=== PATIENT | male | born 1985 | race Caucasian/White ===

== ENCOUNTER 2018-06-05 00:12 | Inpatient (IN) | payer BC, SELFPAY ==
[2018-06-05 01:07] LABS: #Basophils 0.1 thou/uL (0.0-0.2); #Eosinphils 0.2 thou/uL (0.0-0.7); #Lymphocytes 2.3 thou/uL (1.20-3.40); #Monocytes 0.7 thou/uL (0.11-0.59); #Neutrophils 8.5 thou/uL (1.40-6.50); %Basophils 0.7 % (0.0-1.0); %Eosinophils 1.5 % (0.0-10.0); %Lymphocytes 19.2 % (21.0-51.0); %Monocytes 5.9 % (0.0-10.0); %Neutrophils 72.6 % (42.0-75.0); Hemoglobin 12.8 g/dL (14.0-18.0); Mean Corpuscular HGB CONC 32.3 g/dL (32.0-36.0); Mean Corpuscular Volume 83.7 fL (78.0-98.0); Mean Platelet Volume 7.6 fL (7.4-10.4); Platelet Count 312 thou/uL (130-400); RBC Distribution Width 13.3 % (11.5-14.5); Red Blood Cell (RBC) Count 4.73 mill/uL (4.70-6.10); White Blood Cell (WBC) Count 11.7 thou/uL (4.8-10.8)
[2018-06-05 01:32] LABS: Acetaminophen Less than 6.0 mcg/mL (10.0-30.0); Alcohol Less than 10 mg/dL (Less than 10); Lipase 50 U/L (8-78); Salicylate Less than 8.0 mg/dL (15.0-30.0)
[2018-06-05 01:33] LABS: ALT (SGPT) 14 U/L (8-55); AST (SGOT) 17 U/L (5-34); Albumin 3.6 g/dL (3.5-5.0); Alkaline Phosphatase 69 U/L (40-150); Anion Gap 14 mmol/L (10-20); BUN (Urea Nitrogen) 28 mg/dL (8.9-20.6); Bilirubin, Total 1.5 mg/dL (0.2-1.2); CK (CPK) 139 U/L (30-200); Calc. Creatinine Clearance 0 mL/min (70-130); Carbon Dioxide 19 mmol/L (22-29); Chloride 106 mmol/L (98-107); Estimated GFR-MDRD 45; Globulin 2.6 g/dL (2.4-3.5); Glucose 105 mg/dL (70-105); Potassium 3.8 mmol/L (3.5-5.1); Protein, Total 6.2 g/dL (6.0-8.3); Sodium 135 mmol/L (136-145)
[2018-06-05 01:54] LABS: CKMB 3.5 ng/mL (0-6.6)
[2018-06-05] MEDS ORDERED: Furosemide 40 MG/4 ML VIAL ONE (02:30)
[2018-06-05] MEDS ORDERED: Aspirin Chewable 81 MG TAB ONE (02:30)
[2018-06-05] MEDS ORDERED: Nitroglycerin 2% Ointment 1 INCH/1 GM Packet ONE (02:30)
[2018-06-05 03:07] LABS: Bilirubin Small (Negative); Blood, Urine Negative (Negative); Clarity CLEAR (Clear); Glucose, Urine (Dipstick) Negative (Negative); Leukocyte Trace (Negative); Nitrite Negative (Negative); Protein, Urine (Dipstick) 100 mg/dL (Neg-Trace); pH, Urine 5.5 (5.0-9.0)
[2018-06-05 03:10] LABS: Bacteria/HPF None Seen HPF (None Seen); Hyaline Casts/LPF 0-3 HYALINE CAST LPF (0-3 Hyaline); Pathc Cast-AUWi Flag 0.14 (0-2.49); RBC/HPF 0-3 HPF (0-3); Squamous Epithelial 0-3 HPF (0-3); WBC/HPF 21-50 HPF (0-3)
[2018-06-05 03:13] LABS: Specific Gravity, Urine 1.045 (1.002-1.036)
[2018-06-05 03:18] LABS: Amphetamine Detected (NotDetected); Barbiturates Screen Not Detected (NotDetected); Benzodiazepine Screen Not Detected (NotDetected); Cocaine Metabolite Screen Not Detected (NotDetected); Medtox Control Line Valid? VALID (VALID); Medtox Reader # READER 1; Methadone Not Detected (NotDetected); Methamphetamine Detected (NotDetected); Opiate Screen Not Detected (NotDetected); Oxycodone Screen Not Detected (NotDetected); Phencyclidine (PCP) Not Detected (NotDetected); THC/Cannabinoid Screen Not Detected (NotDetected); Tricyclic Screen Not Detected (NotDetected)
[2018-06-05 04:15] LABS: Troponin I 0.038 ng/mL (< 0.028)
--- NOTE | 2018-06-05 07:38 | ULT ---
PRELIMINARY REPORT/[facility]/EMERGENTY AFTER-HOURS PROCEDURE US Bilateral Duplex Lower Extremity Veins EXAM DATE/TIME: 06/05/2018 12:37 AM CLINICAL HISTORY: 32 years old, male; Pain and signs and symptoms; Edema, localized; Lower extremity, bilateral; Leg, l ower; Patient HX: Ble pain/edema x 3-4 days. TECHNIQUE: Real-time duplex ultrasound of the Bilateral Lower Extremities with 2-D hobson scale, color Doppler jalil w and spectral waveform analysis. Complete exam focused on the bilateral lower extremity veins. COMPARISON: No relevant prior studies available. FINDINGS: Right deep veins: The common femoral, femoral, popliteal and visualized calf veins are patent without thrombus. Normal compressibility, augmentation response and Doppler waveforms. Right superficial veins: Saphenofemoral junction is patent without thrombus. Left deep veins: The common femoral, femoral, popliteal and visualized calf veins are patent without thrombus. Normal compressibility, augmentation response and Doppler waveforms. Left superficial veins: Saphenofemoral junction is patent without thrombus. Soft tissues: Edema. IMPRESSION: No evidence of deep vein thrombosis. Thank you for allowing us to participate in the care of your patient. Dictated and Authenticated by: Fortunato Martinez MD 06/05/2018 1:25 AM Central Time ([place] & [place]) FINAL REPORT BILATERAL LOWER EXTREMITY VENOUS DUPLEX EXAM: History: Bilateral leg pain and edema x 3-4 days. FINDINGS: Real-time color doppler evaluation of the right and left lower extremities were performed from groin to calf. This includes evaluation of the common femoral, superficial and profunda femoral, saphenous, popliteal and posterior tibial vein. This shows patent deep venous systems bilaterally. There is nor mal compressibility and augmentation. There is no evidence of DVT. IMPRESSION: No evidence of DVT of either lower extremity. POS: [facility]
[2018-06-05 07:45] LABS: Troponin I 0.046 ng/mL (< 0.028)
--- NOTE | 2018-06-05 08:32 | RAD ---
PORTABLE CHEST: History: Dyspnea. FINDINGS: Mild cardiomegaly. Lung hernández are clear. No evidence of vascular congestion or effusion. IMPRESSION: Mild cardiomegaly. No acute lung process. POS: [facility]
--- NOTE | 2018-06-05 08:50 | CT ---
PRELIMINARY REPORT/[facility]/EMERGENTY AFTER-HOURS PROCEDURE CT Angiography Chest With Contrast EXAM DATE/TIME: 06/05/2018 1:49 AM CLINICAL HISTORY: 32 years old, male; Signs and symptoms; Dyspnea and shortness of breath; Patient HX: Patient reports bilateral lower extremity swelling x5 days. Patient reports feeling SOB as well. TECHNIQUE: Axial computed tomographic angiography images of the chest with intravenous contrast using CT angiogr aphy protocol. MIP reconstructed images were created and reviewed. COMPARISON: No relevant prior studies available. FINDINGS: Pulmonary arteries: No evidence of pulmonary embolism. Aorta: No acute findings. No aortic aneurysm. Lungs: Bilateral interlobular septal and peribronchial thickening and mild ground glass opacities, li rebecca related to pulmonary edema. Pleural space: No pneumothorax. Small right pleural effusion. Heart: Mild pericardial effusion. Cardiomegaly. Intraperitoneal space: Mild ascites. Lymph nodes: Mild subcarinal adenopathy could be reactive. Bones/joints: No acute fracture. Soft tissues: Mild chest wall edema. IMPRESSION: Pulmonary edema. Small pleural, pericardial effusions and ascites. Cardiomegaly. No evidence of pulmonary embolism. Thank you for allowing us to participate in the care of your patient. Dictated and Authenticated by: Fortunato Martinez MD 06/05/2018 2:49 AM Central Time ([place] & [place]) FINAL REPORT CT ANGIO CHEST PERFORMED WITH INTRAVENOUS CONTRAST ENHANCEMENT WITH 3D RECONSTRUCTION: HISTORY: Dyspnea, shortness of breath, bilateral lower extremity swelling. FINDINGS: There is moderate right-sided effusion and a tiny left-sided effusion present. Some ground-glass [place] is seen to the lung hernández which could indicate some element of edema. No confluent infiltrativ e process. Heart size is enlarged. There are slightly prominent prevascular lymph nodes which are possibly reactive in nature. A small amount of pericardial fluid is seen. Thoracic aorta is normal in caliber. There is good pulmonary artery opacification and there is no CT evidence for pulmonary embolus. Some ascites is demonstrated. Questionable slight gallbladder wall thickening. This could be on the basis of ascites or liver disease. I do not see a definite stone. If clinically indicated, ultraso und would be recommended. The spleen is not seen in its entirety. It is borderline in appearance and size. IMPRESSION: 1. Findings would suggest possibility some element of edema with a small right effusion and ground-g lass of the lung hernández. 2. Small pericardial effusion. 3. No CT evidence for pulmonary embolus. 4. Minimal ascites. 5. Borderline spleen size. 6. Questionable slight gallbladder wall thickening. This could be on the basis of ascites, intrinsi c liver disease, or possibly gallbladder disease. If indicated, ultrasound is recommended. 7. This report is in agreement with the temporary report issued by [facility]. POS: [facility]
[2018-06-05] MEDS ORDERED: ISOVUE-370 76%-LOCM 1 ML ONE (10:03)
[2018-06-05 15:24] VITALS: BMI 35.3
[2018-06-05] MEDS ORDERED: cloNIDine 0.1 MG TAB PO PRN (16:16)
[2018-06-05] MEDS ORDERED: Lisinopril 20 MG TAB PO SCH (16:30)
[2018-06-06 07:04] LABS: Anion Gap 12 mmol/L (10-20); BUN (Urea Nitrogen) 25 mg/dL (8.9-20.6); Calc. Creatinine Clearance 101 mL/min (70-130); Calcium 9.2 mg/dL (7.8-10.44); Carbon Dioxide 23 mmol/L (22-29); Chloride 104 mmol/L (98-107); Estimated GFR-MDRD 50; Glucose 109 mg/dL (70-105); Potassium 3.7 mmol/L (3.5-5.1); Sodium 135 mmol/L (136-145)
[2018-06-06] MEDS: Furosemide 40 MG/4 ML VIAL SLOW IVP SCH (08:42)
[2018-06-06] MEDS ORDERED: Lisinopril 20 MG TAB PO SCH (09:00)
[2018-06-06] MEDS ORDERED: Spironolactone 25 MG TAB PO SCH (11:30)
[2018-06-06] MEDS ORDERED: Hydrochlorothiazide 25 MG TAB PO SCH (15:45)
[2018-06-06] MEDS ORDERED: Carvedilol 6.25 MG TAB PO SCH (17:00)
--- NOTE | 2018-06-06 20:06 | CON ---
DATE OF CONSULTATION: 06/06/2018 CARDIOLOGY CONSULTATION REASON FOR CONSULTATION: New onset cardiomyopathy. HISTORY OF PRESENT ILLNESS: Mr. Neri is a pleasant 32-year-old white gentleman, who comes to the hospital for lower extremity edema. He has noted increased swelling for the last few days, decided to come in for evaluation. He was found to have an elevated BNP. He was admitted for IV Lasix and evaluation of his LV function. Echo was done last night and it showed an EF of 30% to 35%, so Cardiology has been consulted for this. He denies any chest pain, tightness, or pressure. 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 He does admit to methamphetamine use almost daily. PAST MEDICAL HISTORY: Hypertension. PAST SURGICAL HISTORY: None. OUTPATIENT MEDICATIONS: None. ALLERGIES: NO KNOWN DRUG ALLERGIES. SOCIAL HISTORY: He smokes a pack a day and he uses methamphetamines almost every day. Also uses marijuana. REVIEW OF SYSTEMS: A 12-point review of systems was done and was found to be negative unless stated in the history of present illness. PHYSICAL EXAMINATION: VITAL SIGNS: Temperature 97.7, pulse 103, respiratory rate 18, sat 97% on room air, and blood pressure 166/112. GENERAL: Awake, alert, and oriented x3. No distress. HEENT: Normocephalic and atraumatic. NECK: Supple. LUNGS: Clear. CARDIOVASCULAR: S1 and S2. No S3 or S4. Tachycardic in the 110s. ABDOMEN: Soft. Positive bowel sounds. EXTREMITIES: 1+ edema. SKIN: Warm and dry. LABORATORY DATA: Laboratory work was reviewed. CBC with a white count 11, hemoglobin 12, hematocrit 39, platelet count 312. D-dimer was high. Chemistry with BUN 25, creatinine 1.6, and troponin of 0.04, 0.03, 0.04. BNP was 1277. UA was unremarkable. Toxicology positive for amphetamines and methamphetamines. CT of the thorax showed no evidence of pulmonary embolism, some ascites and pericardial effusion. Echocardiogram was reviewed, EF of 30% to 35%, global hypokinesis, dilated left atrium, small size pericardial effusion. RVSP was 41 mmHg. ASSESSMENT AND PLAN: 1. Dilated cardiomyopathy. 2. New onset heart failure. 3. Acute systolic heart failure. 4. Hypertension. 5. Substance abuse. PLAN: 1. Most likely, this is dilated cardiomyopathy from nonischemic cardiomyopathy from substance use and hypertension. He has no ischemic symptoms. 2. We will continue diuresis with IV Lasix. 3. We will up titrate his heart failure medications, his lisinopril, Coreg, and Aldactone. 4. Advised and counseled on cessation of substance abuse, no more methamphetamines, no more cigarettes. 5. We spoke about possible life as he would be agreeable; however, he does not know if he would be able to afford this at this time. 6. We will continue to follow. Job ID: [id number]
[2018-06-06] MEDS: Lisinopril 20 MG TAB PO SCH (20:29)
[2018-06-07 05:37] LABS: #Basophils 0.1 thou/uL (0.0-0.2); #Eosinphils 0.4 thou/uL (0.0-0.7); #Lymphocytes 2.6 thou/uL (1.20-3.40); #Monocytes 0.8 thou/uL (0.11-0.59); #Neutrophils 6.6 thou/uL (1.40-6.50); %Basophils 0.7 % (0.0-1.0); %Lymphocytes 24.6 % (21.0-51.0); %Monocytes 7.5 % (0.0-10.0); %Neutrophils 63.2 % (42.0-75.0); Hemoglobin 12.5 g/dL (14.0-18.0); Mean Corpuscular HGB CONC 32.3 g/dL (32.0-36.0); Mean Corpuscular Hemoglobin 27.6 pg (27.0-31.0); Mean Corpuscular Volume 85.3 fL (78.0-98.0); Mean Platelet Volume 7.8 fL (7.4-10.4); Platelet Count 270 thou/uL (130-400); RBC Distribution Width 13.3 % (11.5-14.5); Red Blood Cell (RBC) Count 4.52 mill/uL (4.70-6.10); White Blood Cell (WBC) Count 10.4 thou/uL (4.8-10.8)
[2018-06-07 05:57] LABS: Anion Gap 16 mmol/L (10-20); BUN (Urea Nitrogen) 21 mg/dL (8.9-20.6); Calc. Creatinine Clearance 94 mL/min (70-130); Calcium 9.4 mg/dL (7.8-10.44); Carbon Dioxide 22 mmol/L (22-29); Chloride 104 mmol/L (98-107); Estimated GFR-MDRD 45; Glucose 99 mg/dL (70-105); Potassium 3.5 mmol/L (3.5-5.1); Sodium 138 mmol/L (136-145)
[2018-06-07] MEDS: Furosemide 40 MG/4 ML VIAL SLOW IVP SCH (08:43)
[2018-06-07] MEDS: Carvedilol 6.25 MG TAB PO SCH ×2 (08:43→17:36)
[2018-06-07] MEDS: Lisinopril 20 MG TAB PO SCH ×2 (08:43→20:52)
[2018-06-07] MEDS: Hydrochlorothiazide 25 MG TAB PO SCH (08:44)
[2018-06-07] MEDS: Spironolactone 25 MG TAB PO SCH (08:44)
[2018-06-07] MEDS ORDERED: Potassium Chloride 20 MEQ TAB PO SCH (15:30)
[2018-06-07] MEDS ORDERED: Sodium Chloride 0.9% 10 ML ONE (20:13)
--- NOTE | 2018-06-07 23:14 | HP ---
CHIEF COMPLAINT: Leg edema. HISTORY OF PRESENT ILLNESS: Mr. Neri is a 32-year-old male with no apparently clear past medical history, came because of universal leg swelling about 5 days ago. The patient had some cough and congestion for last 1 week, but no shortness of breath, no chest pain, no headache, no dizziness. Leg edema was getting worse; that is the reason he came to the hospital. In the ER, the patient was evaluated and found to have mild CHF along with leg edema, but the patient was also found to have a markedly elevated blood pressure. His initial blood pressure was 205/110. The patient received a dose of Lasix, aspirin, and nitroglycerin. He is being admitted for further evaluation and management. PAST MEDICAL HISTORY: Nothing significant. PAST SURGICAL HISTORY: Nothing significant. CURRENT MEDICATIONS: None. FAMILY HISTORY: Positive for coronary artery disease. His mother had CHF, hypertension, and coronary artery disease. Father has hypertension. His brother has CHF. SOCIAL HISTORY: The patient lives with family. Has history of polysubstance abuse, which includes marijuana and methamphetamines almost daily. Also smokes cigarettes, 1 pack a day and smoking for few years. REVIEW OF SYSTEMS: Unremarkable except for the leg edema. PHYSICAL EXAMINATION: GENERAL: The patient is alert, awake, and oriented x3. VITAL SIGNS: Temperature 98, pulse 100, respirations 20, blood pressure is 160/ 100. HEENT: Head is normocephalic and atraumatic. Pupils equal and reactive. Nasopharynx is pale and dry. Hard and soft palate; no lesions. SKIN: Turgor is decreased. NECK: Supple. No JVD. LUNGS: Bilateral air entry present. No rales, no rhonchi. HEART: S1 and S2 regular. ABDOMEN: Soft. No distention. No tenderness. No organomegaly. Bowel sounds present. RECTAL: No symptoms. CENTRAL NERVOUS SYSTEM: No focal deficit. EXTREMITIES: There is 2+ pitting edema. LABORATORY DATA: CBC shows WBC 11, hemoglobin 12, hematocrit 39 and platelets 312. Metabolic panel; sodium 135, potassium 3.9, chloride 106,BUN 28, creatinine 1.7, glucose 105, troponin 0.043. BNP was 1277. Urinalysis negative. Urine drug screen positive for methamphetamines. Chest x- ray negative except for cardiomegaly. CT thorax, CT angio chest; negative for pulmonary embolism, but showed mild CHF with pulmonary edema and pleural effusion. EKG shows normal sinus rhythm, no acute ST-T changes seen. ASSESSMENT: 1. Possible acute congestive heart failure, rule out myocardial infarction. 2. Peripheral edema. 3. Hypertension, uncontrolled. 4. Polysubstance abuse. 5. Tobacco abuse. 6. Elevated troponin I. PLAN: 1. Vital signs q.4 hours. 2. Activity as tolerated. 3. Allergies; NKDA. 4. Hep-Lock. 5. Troponin I q.8 hours x2. 6. Lasix 40 IVP daily. 7. Echocardiogram. 8. Intake and output. 9. BMP in the morning. 10. Urine drug screen. 11. Cardiology consult. Job ID: [id number] MTDD
[2018-06-08 06:28] LABS: Anion Gap 13 mmol/L (10-20); BUN (Urea Nitrogen) 23 mg/dL (8.9-20.6); Calc. Creatinine Clearance 93 mL/min (70-130); Calcium 9.7 mg/dL (7.8-10.44); Carbon Dioxide 22 mmol/L (22-29); Chloride 103 mmol/L (98-107); Estimated GFR-MDRD 46; Glucose 102 mg/dL (70-105); Potassium 3.9 mmol/L (3.5-5.1); Sodium 134 mmol/L (136-145)
[2018-06-08] MEDS: Carvedilol 6.25 MG TAB PO SCH (09:01)
[2018-06-08] MEDS: Spironolactone 25 MG TAB PO SCH (09:02)
[2018-06-08] MEDS: Furosemide 40 MG/4 ML VIAL SLOW IVP SCH (10:13)
[2018-06-08] MEDS: Lisinopril 20 MG TAB PO SCH (10:13)
[2018-06-08] MEDS: Hydrochlorothiazide 25 MG TAB PO SCH (10:13)
[2018-06-08] MEDS ORDERED: Carvedilol 6.25 MG TAB PO SCH (14:20)
--- NOTE | 2018-06-08 15:00 | PDOC.CTH ---
Cardiology Progress Note - Subjective No new issues. Breathing at baseline. No chest pain, no angina. - Objective Vital Signs Temp Pulse Resp BP BP BP Pulse Ox 06/08/18 10:13 156/99 H 06/08/18 09:01 156/99 H 06/08/18 08:02 97.4 F L 98 18 156/99 H 96 06/08/18 04:00 97.7 F 101 H 16 152/98 H 96 Weight 225 lb 14.4 oz 06/07/18 06/08/18 06/09/18 06:59 06:59 06:59 Intake Total 2280 1450 Output Total 5300 1550 Balance -3020 -100 - Physical Examination General/Neuro: alert & oriented x3, NAD Neck: no JVD present Lungs: unlabored respirations Heart: RRR Abdomen: NT/ND Extremities: + edema B (1+) - Telemetry Telemetry Rhythm: NSR - Labs Result Diagrams: 06/07/18 05:23 06/08/18 05:53 Troponin/CKMB CK-MB (CK-2) 3.5 ng/mL (0-6.6) 06/05/18 00:34 Troponin I 0.046 ng/mL (< 0.028) H 06/05/18 07:08 - Assessment/Plan 1. Dilated cardiomyopathy 2. New onset CHF 3. Acute systolic heart failure 4. HTN 5. Substance abuse PLAN: - We spoke about possible lifevest and he is willing to give this a try. Will place consult. - Continue optimal medical therapy. - BP control, will add hydralazine BID.
[2018-06-08] MEDS ORDERED: Carvedilol 25 MG TAB PO SCH (17:00)
[2018-06-08 18:07] VITALS: BP 151/98; TEMP 97.9
[2018-06-08] MEDS ORDERED: hydrALAZINE 25 MG TAB PO SCH (21:00)
[2018-06-09] MEDS ORDERED: Furosemide 40 MG TAB PO SCH (07:30)
--- NOTE | 2018-06-09 14:17 | DIS ---
DATE OF ADMISSION: 06/05/2018 DATE OF DISCHARGE: 06/08/2018 ADMITTING DIAGNOSES: 1. Possible acute congestive heart failure, rule out myocardial infarction. 2. Peripheral edema. 3. Uncontrolled hypertension. 4. Polysubstance abuse. 5. Tobacco abuse. 6. Elevated troponin, rule out myocardial infarction. FINAL DIAGNOSES: 1. Acute systolic heart failure. 2. Severe dilated cardiomyopathy. 3. Hypertension, uncontrolled, improved. 4. Polysubstance abuse. 5. Obesity. BRIEF SUMMARY OF HOSPITAL COURSE: Mr. Neri is a 32-year-old male admitted because of shortness of breath and leg edema. The patient was found to have acute CHF. Echocardiogram was done, which revealed marked decrease in LV function with an ejection fraction of 30%. Cardiology consulted and the patient to be seen by Dr. Pascual. He felt that the patient has dilated cardiomyopathy with acute systolic heart failure . He recommended life vest. The patient was started on diuretics and antihypertension medication, because the blood pressure was elevated. Leg edema and shortness of breath improved, and his blood pressure was controlled after medications. The patient could not afford LifeVest and is being discharged on current medications. PHYSICAL EXAMINATION: GENERAL: At the time of discharge, he was stable. VITAL SIGNS: Stable. LUNGS: Clear. CARDIAC: Heart sounds regular. ABDOMEN: Soft, nontender. Bowel sounds present. DISCHARGE MEDICATIONS: Include: 1. Coreg 25 b.i.d. 2. Lasix 40 daily. 3. Hydralazine 25 b.i.d. 4. Hydrochlorothiazide 25 mg daily. 5. Lisinopril 20 mg b.i.d. 6. Spironolactone 25 mg daily. DISCHARGE INSTRUCTIONS: The patient was strongly advised to quit drug abuse and tobacco abuse. He will come for followup in 2 weeks. Job ID: [id number] MTDD
== END 2018-06-08 18:50 | disposition home or self-care (01) | DRG 291 ==
LOC: ERS 00:12 → ERHOLD 03:06 → 2NO 15:02
PROVIDERS: ADMIT Internal Medicine; ATTEND Internal Medicine
DX: I11.0 Hypertensive heart disease with heart failure (principal); I50.21 Acute systolic (congestive) heart failure; I42.0 Dilated cardiomyopathy; R74.9 Abnormal serum enzyme level, unspecified; F15.188 Other stimulant abuse with other stimulant-induced disorder; F17.200 Nicotine dependence, unspecified, uncomplicated; Z82.49 Family history of ischemic heart disease and other diseases of the circulatory system
CPT/HCPCS: 36415; 71045; 71275; 80048; 80053; 80306; 80307; 81003; 81015; 82550; 82553; 83690; 83880; 84443; 84484; 85025; 85379; 93005; 93306; 93798; 93970; 96374; J1940; Q9966

== ENCOUNTER 2019-03-17 09:59 | Inpatient (IN) | payer SELFPAY ==
[2019-03-17] MEDS ORDERED: Nitroglycerin 2% Ointment 1 INCH/1 GM Packet ONE (10:21)
[2019-03-17] MEDS ORDERED: Furosemide 40 MG/4 ML VIAL ONE (10:21)
--- NOTE | 2019-03-17 10:41 | RAD ---
Exam: Chest one view HISTORY:Shortness of breath Comparison: 06/05/1989 FINDINGS: Cardiac silhouette:Cardiomegaly Aorta: Unremarkable Pulmonary vessels: Prominent Costophrenic angles: Clear LUNGS: Patchy interstitial and alveolar opacity Pneumothorax: None Osseous abnormalities: None IMPRESSION: Congestive heart failure
[2019-03-17 10:47] LABS: #Basophils 0.1 thou/uL (0.0-0.2); #Eosinphils 0.2 thou/uL (0.0-0.7); #Lymphocytes 2.2 thou/uL (1.20-3.40); #Neutrophils 7.4 thou/uL (1.40-6.50); %Basophils 0.9 % (0.0-1.0); %Eosinophils 1.9 % (0.0-10.0); %Lymphocytes 20.1 % (21.0-51.0); %Monocytes 8.9 % (0.0-10.0); %Neutrophils 68.2 % (42.0-75.0); Hemoglobin 14.1 g/dL (14.0-18.0); Mean Corpuscular HGB CONC 32.1 g/dL (32.0-36.0); Mean Corpuscular Hemoglobin 26.9 pg (27.0-31.0); Mean Corpuscular Volume 83.9 fL (78.0-98.0); Mean Platelet Volume 7.8 fL (7.4-10.4); Platelet Count 220 thou/uL (130-400); RBC Distribution Width 14.9 % (11.5-14.5); Red Blood Cell (RBC) Count 5.24 mill/uL (4.70-6.10); White Blood Cell (WBC) Count 10.8 thou/uL (4.8-10.8)
[2019-03-17 11:15] LABS: ALT (SGPT) 22 U/L (8-55); AST (SGOT) 23 U/L (5-34); Acetaminophen Less than 6.0 mcg/mL (10.0-30.0); Albumin 3.9 g/dL (3.5-5.0); Alcohol Less than 10 mg/dL (Less than 10); Alkaline Phosphatase 80 U/L (40-110); Anion Gap 13 mmol/L (10-20); BUN (Urea Nitrogen) 30 mg/dL (8.9-20.6); Bilirubin, Total 2.4 mg/dL (0.2-1.2); CK (CPK) 85 U/L (30-200); Calc. Creatinine Clearance 0 mL/min (70-130); Calcium 8.9 mg/dL (7.8-10.44); Carbon Dioxide 19 mmol/L (22-29); Chloride 108 mmol/L (98-107); Estimated GFR-MDRD 38; Globulin 2.7 g/dL (2.4-3.5); Glucose 91 mg/dL (70-105); Potassium 4.6 mmol/L (3.5-5.1); Protein, Total 6.6 g/dL (6.0-8.3); Salicylate Less than 8.0 mg/dL (15.0-30.0); Sodium 135 mmol/L (136-145)
[2019-03-17 11:17] LABS: Bilirubin Negative (Negative); Blood, Urine Negative (Negative); Clarity Clear (Clear); Glucose, Urine (Dipstick) Normal (Negative); Leukocyte Negative Leu/uL (Negative); Nitrite Negative (Negative); Protein, Urine (Dipstick) 20 mg/dL (Neg-Trace); Urobilinogen Normal mg/dL (Less than 2)
[2019-03-17 11:27] LABS: Amphetamine Detected (NotDetected); Barbiturates Screen Not Detected (NotDetected); Benzodiazepine Screen Detected (NotDetected); Cocaine Metabolite Screen Not Detected (NotDetected); Medtox Control Line Valid? VALID (VALID); Medtox Reader # READER 1; Methadone Not Detected (NotDetected); Methamphetamine Detected (NotDetected); Opiate Screen Not Detected (NotDetected); Oxycodone Screen Not Detected (NotDetected); Phencyclidine (PCP) Not Detected (NotDetected); THC/Cannabinoid Screen Not Detected (NotDetected); Tricyclic Screen Not Detected (NotDetected)
[2019-03-17 11:39] LABS: CKMB 3.3 ng/mL (0-6.6)
[2019-03-17] MEDS ORDERED: Ondansetron ODT 4 MG TAB SL PRN (13:00)
[2019-03-17] MEDS ORDERED: Ondansetron PF 4 MG/2 ML Vial IVP PRN (13:00)
[2019-03-17] MEDS ORDERED: Acetaminophen 325 MG TAB PO PRN (13:00)
[2019-03-17] MEDS ORDERED: Aspirin Chewable 81 MG TAB ONE (13:12)
[2019-03-17 15:23] VITALS: BMI 37.5
[2019-03-17] MEDS ORDERED: Bisacodyl 10 MG SUPP PR PRN (15:32)
[2019-03-17] MEDS ORDERED: Senokot S 8.6-50 MG TAB PO PRN (15:32)
[2019-03-17 15:40] LABS: Troponin I 0.039 ng/mL (< 0.028)
[2019-03-17] MEDS ORDERED: Enoxaparin Sodium 40 MG/0.4 ML SYRINGE SC SCH (15:45)
[2019-03-17] MEDS ORDERED: Furosemide 40 MG/4 ML VIAL SLOW IVP SCH (16:00)
[2019-03-17] MEDS: Diltiazem HCl 125 MG, Admixture Fee 1 EACH in Sodium Chloride 0.9% 100 ML IVPB SCH (16:12)
[2019-03-17] MEDS: Nicotine 21 MG PATCH TD SCH (16:12)
[2019-03-17 16:36] LABS: Bacteria/HPF None Seen HPF (None Seen); RBC/HPF None Seen HPF (0-3); Sperm/HPF Rare HPF (None Seen); Squamous Epithelial 0-3 HPF (0-3); WBC/HPF 0-3 HPF (0-3)
--- NOTE | 2019-03-17 16:38 | HP ---
CHIEF COMPLAINT: Worsening shortness of breath. HISTORY OF PRESENT ILLNESS: A 33-year-old male patient with past medical history significant for cardiomyopathy with EF of 30% to 35% in May 2018, chronic methamphetamine use, noncompliance, who presents to the ER with worsening shortness of breath as well as leg swelling. The patient reported that in the last several days, he has been having worsening bilateral leg swelling and shortness of breath, which got worse earlier today, such that he had difficulty breathing. There was no associated chest pain or palpitations, dizziness, nausea, vomiting, abdominal pain, headache, dysuria, hematuria, or change in bowel habit. The patient, however, reported generalized weakness. The patient was seen in May in this hospital and was diagnosed with cardiomyopathy, most likely related to methamphetamine use and was started on medications. The patient, however, has not been compliant on those medication as last refill was in May. He report last methamphetamine use was a day prior to presentation. reported the patient snored that night associated with apneic spells that she has to check him to wake him up. On presentation to the ER, the patient was found to be tachypneic and tachycardic. Blood pressure was also elevated at 150/100. He, however, was saturating well on room air at 99%. The patient received Ativan and Zofran en route to the hospital by EMS staff. Urine drug screen was positive for methamphetamine, amphetamine, and benzodiazepine. PAST MEDICAL HISTORY: 1. Hypertension. 2. Cardiomyopathy. 3. Chronic CHF. 4. Methamphetamine use. 5. Tobacco abuse disorder. PAST SURGICAL HISTORY: None. FAMILY HISTORY: Significant for coronary artery disease, CHF, and hypertension in both father and mother. Brother also had CHF. SOCIAL HISTORY: The patient is . Lives with family. Admitted to use of marijuana, methamphetamine almost daily. He also smokes about a pack of cigarettes since age 14. Denied alcohol use. ALLERGIES: NO KNOWN DRUG ALLERGIES REPORTED. HOME MEDICATIONS: The patient is currently on no medication. However, on discharge in May 2018, he was supposed to be on: 1. Spironolactone 25 mg p.o. daily. 2. Furosemide 40 mg p.o. daily. 3. Carvedilol 25 mg p.o. b.i.d. 4. Hydralazine 25 mg p.o. b.i.d. 5. Lisinopril 20 mg p.o. b.i.d. REVIEW OF SYSTEMS: 12-point review of system performed was negative other than pertinent positives and negatives included in the history of present illness. PHYSICAL EXAMINATION: VITAL SIGNS: Current vitals show temperature 97.7, pulse 146, respiratory rate 20, SpO2 of 100% on room air, blood pressure is 153/88. GENERAL: Obese male, in no obvious distress. Afebrile. Anicteric. Acyanotic. HEENT: Normocephalic, atraumatic. Oral mucosa is moist. NECK: Short thick neck with excess soft tissue. No JVD appreciated. CARDIOVASCULAR: Regular rhythm and rate, but tachycardic. No murmur was appreciated. RESPIRATORY: Good air entry bilaterally with few bibasilar crackles. No obvious rhonchi were appreciated. There is no use of accessory muscles. GI: Abdomen is obese, soft, nontender, nondistended with normal bowel sounds. EXTREMITIES: Mild bilateral leg edema noted. No erythema appreciated. QUALITY SYSTEMS MANAGER: Conscious, alert, oriented x3 with appropriate mental status. Cranial nerves 2 through 12 are grossly intact. PSYCHIATRIC: Cooperative with normal affect. DIAGNOSTIC DATA: CBC showed WBC count of 10.8, hemoglobin of 14.1, MCV of 83.9, platelet of 220. CMP showed sodium 135, potassium 4.6, chloride 108, CO2 of 19, BUN 30, creatinine 2.0, glucose 91, calcium 8.9, total bilirubin 2.4, AST 23, ALT 22, alkaline phosphatase 80. Total protein 6.6, albumin 3.9, globulin 2.7. Cardiac markers showed CK 85, CK-MB 3.3, troponin 0.030. BNP is 452. Urinalysis showed yellow clear urine with pH of 5.5, specific gravity of 1.014, urine protein 20 mg/dL. Negative ketone, blood, nitrite, bilirubin, and leukocyte esterase. Microscopy was not done. Toxicology showed less than 8 salicylate, less than 6 acetaminophen, less than 10 alcohol. Urine drug screen was positive for amphetamine, methamphetamine, and benzodiazepine. EKG showed atrial flutter with 2:1 conduction with rate of 145. Chest x-ray showed patchy interstitial and alveolar opacity. No pneumothorax was noted. Cardiomegaly was noted as well. Features are noted to be consistent with congestive heart failure. ASSESSMENT: 1. Atrial flutter with rapid ventricular response. 2. Acute respiratory insufficiency. 3. Acute on chronic congestive heart failure. 4. Cardiomyopathy with last ejection fraction of 30% to 35% in May 2018. 5. Obesity. 6. Presumed obstructive sleep apnea. The patient's spouse reported the patient has nausea with apneic spells. 7. Methamphetamine abuse. 8. Tobacco abuse disorder. 9. Noncompliance. PLAN: 1. We will give 10 mg of IV Cardizem bolus followed by Cardizem infusion. 2. We will get serial troponin to rule out acute myocardial infarction. 3. We will start the patient on Lasix 40 mg b.i.d. 4. We will also get urine microscopy as well as urine electrolytes. 5. We will also get renal ultrasound. 6. We will consult Cardiology as well as Nephrology. 7. Smoking cessation education and counseling provided. We will also start nicotine patch. 8. We will also get echocardiogram to reassess cardiac function. 9. DVT prophylaxis with Lovenox will be provided. 10. Further treatment to follow depending on hospital course. Job ID: [id number]
[2019-03-17 18:01] LABS: Creatinine, Urine Less than 20.00 mg/dL (63-166); Protein, Urine Random Quant Less than 10 mg/dL (1-14); Sodium, Urine 122 mmol/L (Not Available)
[2019-03-17] MEDS: Famotidine 20 MG TAB PO SCH (20:25)
[2019-03-18] MEDS: Diltiazem HCl 125 MG, Admixture Fee 1 EACH in Sodium Chloride 0.9% 100 ML IVPB SCH ×2 (05:31→15:38)
[2019-03-18 05:48] LABS: #Basophils 0.1 thou/uL (0.0-0.2); #Eosinphils 0.3 thou/uL (0.0-0.7); #Lymphocytes 1.9 thou/uL (1.20-3.40); #Monocytes 0.9 thou/uL (0.11-0.59); #Neutrophils 8.6 thou/uL (1.40-6.50); %Basophils 0.9 % (0.0-1.0); %Eosinophils 2.4 % (0.0-10.0); %Lymphocytes 15.9 % (21.0-51.0); %Monocytes 7.8 % (0.0-10.0); Hemoglobin 13.2 g/dL (14.0-18.0); Mean Corpuscular HGB CONC 30.7 g/dL (32.0-36.0); Mean Corpuscular Hemoglobin 25.6 pg (27.0-31.0); Mean Corpuscular Volume 83.3 fL (78.0-98.0); Platelet Count 217 thou/uL (130-400); RBC Distribution Width 14.9 % (11.5-14.5); Red Blood Cell (RBC) Count 5.16 mill/uL (4.70-6.10); White Blood Cell (WBC) Count 11.7 thou/uL (4.8-10.8)
[2019-03-18 06:07] LABS: ALT (SGPT) 19 U/L (8-55); AST (SGOT) 18 U/L (5-34); Albumin 3.7 g/dL (3.5-5.0); Alkaline Phosphatase 74 U/L (40-110); Anion Gap 15 mmol/L (10-20); BUN (Urea Nitrogen) 30 mg/dL (8.9-20.6); Bilirubin, Total 2.4 mg/dL (0.2-1.2); Calc. Creatinine Clearance 84 mL/min (70-130); Calcium 8.8 mg/dL (7.8-10.44); Carbon Dioxide 20 mmol/L (22-29); Chloride 103 mmol/L (98-107); Estimated GFR-MDRD 38; Globulin 2.6 g/dL (2.4-3.5); Glucose 146 mg/dL (70-105); Magnesium 1.8 mg/dL (1.6-2.6); Potassium 3.6 mmol/L (3.5-5.1); Protein, Total 6.3 g/dL (6.0-8.3); Sodium 134 mmol/L (136-145)
[2019-03-18] MEDS: Furosemide 40 MG/4 ML VIAL SLOW IVP SCH ×2 (06:07→14:02)
[2019-03-18] MEDS: Aspirin 325 MG TAB PO SCH (09:26)
[2019-03-18] MEDS: Enoxaparin Sodium 40 MG/0.4 ML SYRINGE SC SCH (09:26)
[2019-03-18] MEDS: Famotidine 20 MG TAB PO SCH ×2 (09:26→20:30)
[2019-03-18] MEDS: Nicotine 21 MG PATCH TD SCH (15:39)
--- NOTE | 2019-03-18 17:53 | CON ---
DATE OF CONSULTATION: 03/18/2019 REASON FOR CONSULTATION: Heart failure. HISTORY OF PRESENT ILLNESS: Mr. Neri is a 33-year-old white gentleman, who comes to the hospital for worsening shortness of breath. He has a history of cardiomyopathy, EF at 30%, thought to be nonischemic from substance abuse. He was admitted back in May of this year with a urine drug screen positive for methamphetamines. He was found to have an EF of 20% to 25%, he was started on optimal medical therapy and discharged home. He did not take any medications and did not follow up with us in any way. He states he continued to use methamphetamines. The last time he used was the last few days and he started getting more short of breath to the point where he needed to come in for evaluation. He is already being diuresed, and Cardiology is being consulted for further evaluation and care. On admission, he was found to be in atrial flutter with variable AV block and tachycardic. He was started on diltiazem drip, and Cardiology is being consulted for this as well. PAST MEDICAL HISTORY: 1. Hypertension. 2. Presumed nonischemic cardiomyopathy thought to be related to methamphetamine use. 3. Substance abuse as well. 4. Tobacco use. FAMILY HISTORY: Coronary artery disease, heart failure, hypertension. SOCIAL HISTORY: Smokes about a pack of cigarettes a day since he was 14. No alcohol use. Admits to marijuana and methamphetamines. OUTPATIENT MEDICATIONS: 1. Currently none, but he should be on spironolactone 25 mg a day. 2. Furosemide 40 mg a day. 3. Carvedilol 25 mg b.i.d. 4. Hydralazine 25 mg b.i.d. 5. Lisinopril 20 mg b.i.d. ALLERGIES: NO KNOWN DRUG ALLERGIES. REVIEW OF SYSTEMS: A 12-point review of systems was done and was found to be negative unless stated in the history of present illness. PHYSICAL EXAMINATION: VITAL SIGNS: Temperature 97.6, pulse 87, respiratory rate 18, saturation 95% on room air, blood pressure 130/82. HEENT: Normocephalic and atraumatic. NECK: Supple. LUNGS: Clear. CARDIOVASCULAR: S1 and S2. No S3 or S4. Tachycardic in the upper 90s, low 100s. ABDOMEN: Soft. Positive bowel sounds. EXTREMITIES: Trace edema. SKIN: Warm and dry. LABORATORY DATA: Laboratory work was reviewed. CBC and chemistries were reviewed. Creatinine at 2.03. Troponin 0.03, 0.03, 0.04 with a BNP of 453. UA was reviewed. Toxicology, amphetamines, methamphetamines, and benzodiazepines were all detected in the urine. ASSESSMENT AND PLAN: 1. [id number] systolic heart failure. 2. Substance abuse. 3. Most likely nonischemic cardiomyopathy from drug use. 4. Noncompliance. 5. Atrial flutter. 6. Dilated cardiomyopathy. 7. Hypertension. PLAN: 1. We will restart guideline directed therapy. 2. He would be a candidate for an AICD as his echo today shows his EF remains reduced. We will do an EP consultation to address both the flutter and the possibility of doing an AICD. 3. For the flutter, most likely this is related to methamphetamine use and his LV dysfunction. Continue rate control for now. We will see EP recommendations. We will do full dose Lovenox as well. 4. For his cardiomyopathy, his EF has been low for the last 6 months. He would be a candidate for AICD. However, he has been on no medications for heart failure. If he stops his drug use and starts guideline-directed therapy, he may recover his LV to normal, he wants to wait to do this before deciding on putting an AICD in him. I think this is reasonable. Would recommend a LifeVest before discharge. 5. He had a run of nonsustained ventricular tachycardia, likely related to his cardiomyopathy. A LifeVest before discharge. Thank you for letting us to participate in the care of your patient. We will follow. Job ID: [id number]
--- NOTE | 2019-03-18 19:56 | CON ---
DATE OF CONSULTATION: 03/18/2019 HISTORY OF PRESENT ILLNESS: I am seeing Mr. 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 His problems are; 1. Newly found atrial flutter. 2. Chronic systolic congestive heart failure with likely nonischemic cardiomyopathy. a. Reduced LVEF to 30% to 35% in May 2018 noted. 3. History of methamphetamine use. 4. History of tobacco use. 5. History of hypertension. ALLERGIES: NONE NOTED. MEDICATIONS: At home, none. SUBJECTIVE: Mr. Neri is presenting with progressive dyspnea and palpitations. He is noted to be in atrial flutter with rapid rates as well as fluid overload. He was admitted directly from Dr. Pascual's office. He is feeling better on the institution with amiodarone therapy. He has significant lower extremity swelling and orthopnea and difficulty breathing. Denies typical angina. No dizziness. No passing out. No stroke-like symptoms. No bleeding issues are noted. He does has snoring spells at night. Rest of 12-point review of systems unremarkable. PAST MEDICAL HISTORY: As above. PAST SURGICAL HISTORY: None. FAMILY HISTORY: Significant for coronary artery disease, CHF and hypertension, both father and mother. Brother had CHF. SOCIAL HISTORY: The patient is , lives with family. Admits using marijuana and methamphetamine and smokes about a pack of cigarettes since age 14. Denies EtOH abuse. OBJECTIVE DATA: VITAL SIGNS: Blood pressure 136/92, heart rate 107, respirations 12, and the patient is afebrile. GENERAL: Alert and oriented man, in no apparent distress. NECK: Supple. Jugular veins not distended. CHEST: Coarse without crackles. HEART: Sounds are regular to rate and rhythm. No murmur or gallop. ABDOMEN: Benign. Bowel sounds positive. EXTREMITIES: Lower extremities without edema, clubbing, or cyanosis. Pulses are adequate. NEUROLOGIC: The patient is nonfocal. MUSCULOSKELETAL: Without joint swelling or deformity. SKIN: Without rash. DATABASE: EKG is reviewed revealing typically atrial flutter with 2:1 AV conduction, narrow QRS. Subsequent EKGs and telemetry strips reveal typical atrial flutter with 4:1 conduction. LABORATORY DATA: White cell count 11.7, hemoglobin 13.2, and platelet count is 217. Sodium 134, potassium 3.6, BUN is 30, creatinine 2.03, and AST and ALT are 18 and 19. Troponin I 0.03, 0.039, and 0.04. BNP is 453. ASSESSMENT AND PLAN: Mr. Neri is a 33-year-old man with history of congestive heart failure and likely nonischemic cardiomyopathy, history of methamphetamine use. His LVEF was in the 30% to 35% range in the past, now is presenting with atrial flutter, which is sustained and his symptoms are more pronounced. We discussed potential treatment options, which could include cardioversion and ablation. Transesophageal echocardiogram might be considered prior to that. For now, I agree with the instituted amiodarone, which likely will control his heart rates better. We are eager to attempt a transesophageal echocardiogram-guided cardioversion tomorrow, but consideration of ablation also could be made depending on the schedule. The ablation could be also done as an outpatient. We discussed the issues with long-term ventricular arrhythmia risk with his cardiomyopathy. Indeed, after adequate medical therapy for at least three months is required prior to inserting an implantable cardioverter-defibrillator. The LifeVest therapy is a consideration in the interim if can be arranged. Risks and benefits of this procedure were discussed. He understands and willing to proceed, we will schedule him for tomorrow. Thank you again for letting me participate in the care of this patient. Job ID: [id number]
[2019-03-18] MEDS ORDERED: Nicotine 14 MG PATCH TD PRN (21:58)
--- NOTE | 2019-03-18 21:58 | PDOC.HOSPP ---
- Subjective Encounter Date: 03/18/19 Encounter Time: 14:30 Subjective: Patient seen and examined for CHF/A flutter. No CP. SOB improving. No new complaints. No overnight events - Objective Vital Signs & Weight: Vital Signs (12 hours) Temp Pulse Pulse Pulse Resp BP BP 03/18/19 20:30 98.2 F 03/18/19 15:30 97.4 F L 108 H 16 03/18/19 13:13 107 H 102 H 130/82 136/92 H 03/18/19 11:15 87 18 BP Pulse Ox Pulse Ox Pulse Ox 03/18/19 20:30 98 03/18/19 15:30 164/99 H 98 03/18/19 13:13 99 100 03/18/19 11:15 140/90 95 Weight Weight 248 lb 12.8 oz I&O: 03/17/19 03/18/19 03/19/19 06:59 06:59 06:59 Intake Total 1406 2025 Output Total 3500 1650 Balance -2094 375 Result Diagrams: 03/18/19 05:34 03/18/19 05:34 Radiology Reviewed by me: Yes (CXR - CHF) EKG Reviewed by me: Yes (Tele A flutter) Hospitalist ROS - Review of Systems Constitutional: denies: fever, chills, sweats, weakness, malaise, other Gastrointestinal: denies: nausea, vomiting, abdominal pain, diarrhea, constipation, melena, hematochezia, other - Medication Medications: Active Medications Generic Name Dose Route Start Last Admin Trade Name Freq PRN Reason Stop Dose Admin Aspirin 325 mg 03/18/19 09:00 03/18/19 09:26 Aspirin PO 325 mg DAILY FITO Administration Enoxaparin Sodium 40 mg 03/18/19 09:00 03/18/19 09:26 Lovenox SC 40 mg 0900 FITO Administration Famotidine 20 mg 03/17/19 21:00 03/18/19 20:30 Pepcid PO 20 mg BID FITO Administration Furosemide 40 mg 03/18/19 06:00 03/18/19 14:02 Lasix SLOW IVP 40 mg 0600,1400 FITO Administration Diltiazem HCl 125 mg/ 125 mls @ 0 mls/hr 03/17/19 15:30 03/18/19 15:38 Miscellaneous Medication 1 IVPB 125 mls each/ Sodium Chloride INF FITO Administration Protocol As Directed Nicotine 21 mg 03/17/19 16:00 03/18/19 15:39 Nicoderm Patch TD 21 mg 1600 FITO Administration Sodium Chloride 10 ml 03/18/19 21:00 03/18/19 20:31 Flush - Normal Saline IVF Not Given Q12HR FITO - Exam General Appearance: NAD Heart: no gallops, no rubs, normal peripheral pulses, irregular Respiratory: no wheezes, normal chest expansion, rales, rhonchi Gastrointestinal: soft, non-tender, non-distended, normal bowel sounds Extremities: no cyanosis, no clubbing, 1+ LE edema Psychiatric: normal affect, A&O x 3 Hosp A/P - Plan DVT proph w/lovenox, DVT proph w/SCDs Acute on chronic systolic HF A flutter with RVR ESTEPHANIA on CKD 3 Drug abuse Obesity BMI 36.7 Med noncompliance Abn LFTs due to passive hepatic congestion PLAN: Cont IV Lasix Cardio/EP input appreciated Add fluid restriction Cardiac Rehab AM labs Counselled
[2019-03-19] MEDS: HYDROcodone/Acetaminophen 5/325 mg Tablet PO PRN (01:47)
[2019-03-19] MEDS: Diltiazem HCl 125 MG, Admixture Fee 1 EACH in Sodium Chloride 0.9% 100 ML IVPB SCH (03:58)
[2019-03-19 05:13] LABS: ALT (SGPT) 16 U/L (8-55); AST (SGOT) 18 U/L (5-34); Albumin 3.9 g/dL (3.5-5.0); Alkaline Phosphatase 80 U/L (40-110); Anion Gap 14 mmol/L (10-20); BUN (Urea Nitrogen) 25 mg/dL (8.9-20.6); Bilirubin, Total 1.9 mg/dL (0.2-1.2); Calc. Creatinine Clearance 89 mL/min (70-130); Calcium 8.8 mg/dL (7.8-10.44); Carbon Dioxide 22 mmol/L (22-29); Chloride 101 mmol/L (98-107); Estimated GFR-MDRD 42; Globulin 2.7 g/dL (2.4-3.5); Glucose 108 mg/dL (70-105); Magnesium 1.7 mg/dL (1.6-2.6); Potassium 3.3 mmol/L (3.5-5.1); Protein, Total 6.6 g/dL (6.0-8.3); Sodium 134 mmol/L (136-145)
[2019-03-19] MEDS: Furosemide 40 MG/4 ML VIAL SLOW IVP SCH ×2 (06:04→17:22)
[2019-03-19] MEDS ORDERED: Magnesium 2 GM/50 ML 2 GM in Premix Bag 1 BAG IVPB SCH (07:30)
[2019-03-19] MEDS: Famotidine 20 MG TAB PO SCH ×2 (09:22→20:47)
[2019-03-19] MEDS: Enoxaparin Sodium 40 MG/0.4 ML SYRINGE SC SCH (09:22)
[2019-03-19] MEDS: Potassium Chloride 20 MEQ TAB PO SCH ×3 (09:23→17:27)
[2019-03-19] MEDS: Aspirin 325 MG TAB PO SCH (09:24)
[2019-03-19] MEDS ORDERED: PROPOFOL 200 MG/20 ML VIAL ONE (10:58)
[2019-03-19] MEDS ORDERED: Heparin 10,000 UNITS/1 ML VIAL ONE (12:59)
[2019-03-19] MEDS ORDERED: Lidocaine 1% (PF) 30 ML VIAL ONE (12:59)
[2019-03-19] MEDS ORDERED: PROPOFOL 20 ML ONE ×2 (13:36→14:06)
[2019-03-19] MEDS ORDERED: Fentanyl 100 MCG/2 ML VIAL ONE (13:40)
[2019-03-19] MEDS ORDERED: Midazolam HCl 2 mg/2 ml Vial ONE (13:40)
[2019-03-19] MEDS ORDERED: DOPamine 400 MG/D5W 250 ML 250 ML ONE (14:39)
[2019-03-19] MEDS ORDERED: Ondansetron HCl/PF 4 MG/2 ML Vial IVP PRN (15:24)
--- NOTE | 2019-03-19 16:42 | ECHO ---
DATE OF SERVICE: 03/19/19 REFERRING PHYSICIAN: Dr. Pascual REASON FOR PROCEDURE: The patient is a 33-year-old male with history of methamphetamine use as well as dilated cardiomyopat hy, moderate to severely reduced LVEF in the past. Presently with sustained atrial flutter with persi sting tachycardia. He has not been well anticoagulated in the past. Here for a JOSHUA to rule out intracardiac clots. PROCEDURE: The patient received propofol by Anesthesia specialist. After adequate level of sedation achieved, a standard transesophageal echocardiogram probe was passed into the esophagus without diff iculty. Patient tolerated the procedure well, no complications noted. RESULTS: Left atrium is well visualized and appears enlarged, 5.3 cm in horizontal diameter. The left atrial appendage well visualized contains no clots. Spontaneous echo contrast is seen throughout the left at rium and appendage. Two separate pulmonary veins were well visualized on the left side. Right sided v eins are borderline visualized only. Interatrial septum is free of defect but somewhat mobile and sli ght aneurysmal appearance is noted. Mitral valve has moderate regurgitation which is eccentric agains t the lateral quesada. The mitral valve is not stenotic. Left ventricular systolic function is reduced. LVEF estimated at about 20-25% with global hypokinesis. Dilation of the left ventricular cavity is n oted. Right sided chambers are mildly dilated. Mild tricuspid regurgitation seen only. Pericardial sp clarice has trivial effusion. The pulmonary valve is nonregurgitant. Aortic valve has three leaflets wit hout regurgitation or stenosis. The visualized portion of ascending aorta without aneurysm or atherom a. Descending aorta is poorly visualized. CONCLUSION: 1. No intracardiac clots. 2. Severely reduced left ventricular systolic function with LVEF of 20-25% and left ventricular enla rgement seen as well. 3. Moderate left atrial enlargement. 4. Somewhat aneurysmal interatrial septum. 5. Moderate mitral, tricuspid regurgitation. No other significant valvular abnormality seen. PLAN: Proceed with the ablation procedure as planned.
--- NOTE | 2019-03-19 20:13 | PDOC.HOSPP ---
- Subjective Encounter Date: 03/19/19 Encounter Time: 08:30 Subjective: Patient seen and examined for CHF. SOB improving. No CP. No new complaints. No overnight events - Objective Vital Signs & Weight: Vital Signs (12 hours) Temp Pulse Resp BP Pulse Ox 03/19/19 17:39 97.5 F L 110 H 16 149/98 H 96 03/19/19 16:13 97.8 F 103 H 20 141/97 H 98 03/19/19 11:51 97.5 F L 108 H 20 147/101 H 99 Weight Weight 245 lb 12.8 oz I&O: 03/18/19 03/19/19 03/20/19 06:59 06:59 06:59 Intake Total 1406 2025 Output Total 3500 1650 Balance -2094 375 Result Diagrams: 03/18/19 05:34 03/19/19 04:02 EKG Reviewed by me: Yes (Dominick A pedro) Hospitalist ROS - Review of Systems Constitutional: denies: fever, chills, sweats, weakness, malaise, other Gastrointestinal: denies: nausea, vomiting, abdominal pain, diarrhea, constipation, melena, hematochezia, other - Medication Medications: Active Medications Generic Name Dose Route Start Last Admin Trade Name Freq PRN Reason Stop Dose Admin Hydrocodone Bitart/Acetaminophen 1 tab 03/17/19 15:32 03/19/19 01:47 [place] 5/325 PO 1 tab Q4H PRN Administration Moderate Pain (4-6) Aspirin 325 mg 03/18/19 09:00 03/19/19 09:24 Aspirin PO Not Given DAILY [facility] Famotidine 20 mg 03/17/19 21:00 03/19/19 09:22 Pepcid PO Not Given BID FITO Furosemide 40 mg 03/18/19 06:00 03/19/19 17:22 Lasix SLOW IVP Not Given 0600,1400 FITO Potassium Chloride 20 meq 03/19/19 08:00 03/19/19 17:27 K-Dur PO 20 meq BID-WM FITO Administration Sodium Chloride 10 ml 03/18/19 21:00 03/19/19 09:22 Flush - Normal Saline IVF Not Given Q12HR FITO - Exam General Appearance: NAD Neck: supple, no JVD Heart: RRR, no gallops, no rubs, normal peripheral pulses Respiratory: CTAB, no wheezes, no ronchi, normal chest expansion Gastrointestinal: soft, non-tender, non-distended, normal bowel sounds Extremities: 1+ LE edema Psychiatric: normal affect, A&O x 3 Hosp A/P - Plan Acute on chronic systolic HF A flutter with RVR - on Cardizem drip ESTEPHANIA on CKD 3/Hypokalemia/Hypomagnesemia Polysubstance abuse Obesity BMI 36.7 Med noncompliance Abn LFTs due to passive hepatic congestion PLAN: Cont Cardizem drip and IV Lasix Ablation today Replace electrolytes AM labs Cont to monitor
--- NOTE | 2019-03-19 20:57 | OP ---
DATE OF PROCEDURE: 03/19/2019 PROCEDURE PERFORMED: Electrophysiology study and radiofrequency ablation. REFERRING PHYSICIAN: Justin Pascual MD. REASON FOR PROCEDURE: Mr. Neri is a 33-year-old man with prior history of methamphetamine abuse and stress cardiomyopathy who now presented with sustained atrial flutter and CHF exacerbation. Atrial flutter appears to be typical isthmus dependent. He has been on IV Lovenox, but not on anticoagulation prior to admission. JOSHUA prior to procedure though demonstrated no intracardiac clot, here for an atrial flutter ablation procedure. DESCRIPTION OF PROCEDURE: The patient received propofol by Anesthesia specialist. After adequate level of sedation achieved, the right femoral venous area was prepped, draped, anesthetized using subcutaneous lidocaine. Two 8-Pashto short sheath was introduced through which a decapolar catheter and ThermoCool catheter was advanced to the right atrium, right ventricle, His bundle, and CS position. Pacing mapping and recording was performed in each location. Following findings were noted. The baseline rhythm was in atrial flutter with flutter cycle length of 220 milliseconds. The flutter appears to be typical isthmus dependent with septal to lateral activation in the CS lead. Overdrive pacing at the cavotricuspid isthmus entering the tachycardia and post pacing interval matched the tachycardia cycle length. This isthmus is likely is just a dependent atrial flutter radiofrequency ablation and cavotricuspid isthmus was performed with total of 9 lesions delivered at 5 minutes and 23 seconds duration at 40 landrum. During the ablation, the atrial flutter terminated. Proximal CS pacing was performed. Then we were able to prolong the transisthmus time over 140 milliseconds to 160 milliseconds. The longest transisthmus time measured adjacent to the ablation line suggestive of unilateral block. Following that, baseline EP study was performed. The sinus node recovery time is sinus node recovery time is 1070. Corrected sinus node recovery time is 400 milliseconds. The patient was recently on amiodarone. AV Wenckebach cycle length post ablation was 380 milliseconds. Retrograde VA conduction was 480 milliseconds in central VA conduction. The AV seth ERP was 600/260 milliseconds. No dual AV seth physiology was seen, jump observed only prior to the block. Burst atrial pacing was performed on dopamine and off dopamine and we were not able to reinduce the atrial flutter or any other SVT down to [address] At the end of the case, the cardiac silhouette did not change. Vascade closure was performed on the sheaths after removal of catheters. The patient tolerated the procedure well. No complications noted. CONCLUSION: 1. Typical isthmus-dependent atrial flutter at baseline. 2. Cavotricuspid isthmus ablation to terminate the arrhythmia and renders the flutter [id number]. 3. No definite atrial fibrillation is seen, although recent amiodarone use was documented. 4. Borderline sinus node function. 5. Normal AV seth function and His-Purkinje function seen. 6. No evidence of accessory pathway or typical dual seth physiology. PLAN: At this point, we would continue standard heart failure management. Place the patient on anticoagulation. Routine followup in the office for further arrhythmia monitoring. Also, hence the severely-reduced LVEF noted on JOSHUA. LifeVest is a consideration and three months 2D echo after adequate medical regimen achieved. There could be a consideration to assess candidacy for ICD implant. Job ID: [id number]
[2019-03-19] MEDS ORDERED: Rivaroxaban 10 MG TAB PO SCH (21:00)
[2019-03-19] MEDS ORDERED: hydrALAZINE 20 MG/ML VIAL SLOW IVP PRN (21:01)
[2019-03-20] MEDS: HYDROcodone/Acetaminophen 5/325 mg Tablet PO PRN ×2 (01:07→14:38)
[2019-03-20 05:00] LABS: Hemoglobin 13.5 g/dL (14.0-18.0); Platelet Count 233 thou/uL (130-400)
[2019-03-20 05:17] LABS: ALT (SGPT) 16 U/L (8-55); AST (SGOT) 20 U/L (5-34); Albumin 3.9 g/dL (3.5-5.0); Alkaline Phosphatase 86 U/L (40-110); Anion Gap 12 mmol/L (10-20); BUN (Urea Nitrogen) 26 mg/dL (8.9-20.6); Bilirubin, Total 1.9 mg/dL (0.2-1.2); Calc. Creatinine Clearance 89 mL/min (70-130); Calcium 9.2 mg/dL (7.8-10.44); Carbon Dioxide 24 mmol/L (22-29); Chloride 103 mmol/L (98-107); Estimated GFR-MDRD 42; Globulin 2.8 g/dL (2.4-3.5); Glucose 106 mg/dL (70-105); Potassium 4.1 mmol/L (3.5-5.1); Protein, Total 6.7 g/dL (6.0-8.3); Sodium 135 mmol/L (136-145)
[2019-03-20] MEDS: Furosemide 40 MG/4 ML VIAL SLOW IVP SCH ×2 (05:48→14:26)
[2019-03-20] MEDS ORDERED: Enoxaparin Sodium 40 MG/0.4 ML SYRINGE SC SCH (09:00)
[2019-03-20] MEDS: Potassium Chloride 20 MEQ TAB PO SCH ×2 (09:33→16:54)
[2019-03-20] MEDS: Famotidine 20 MG TAB PO SCH ×2 (09:33→20:31)
[2019-03-20] MEDS: Aspirin 325 MG TAB PO SCH (09:33)
[2019-03-20] MEDS ORDERED: cloNIDine 0.1 MG TAB PO PRN (10:07)
[2019-03-20] MEDS ORDERED: Carvedilol 6.25 MG TAB PO SCH ×3 (10:15→19:15)
[2019-03-20] MEDS ORDERED: Lisinopril 5 MG TAB PO SCH (10:15)
[2019-03-20] MEDS ORDERED: Amlodipine 5 MG TAB PO SCH (10:15)
--- NOTE | 2019-03-20 13:02 | PDOC.HOSPP ---
- Subjective Encounter Date: 03/20/19 Encounter Time: 09:00 Subjective: Patient seen and examined for CHF/Aflutter. No CP/SOB. No new complaints. No overnight events - Objective Vital Signs & Weight: Vital Signs (12 hours) Temp Pulse Resp BP BP Pulse Ox 03/20/19 11:52 98.2 F 111 H 18 169/94 H 95 03/20/19 10:28 111 H 159/103 H 03/20/19 09:35 98 03/20/19 09:26 98.4 F 121 H 16 156/106 H 98 03/20/19 03:33 98.3 F 120 H 18 168/98 H 98 Weight Weight 245 lb 12.8 oz I&O: 03/19/19 03/20/19 03/21/19 06:59 06:59 06:59 Intake Total 5 900 Output Total 1650 Balance 375 900 Result Diagrams: 03/20/19 04:18 03/20/19 04:18 EKG Reviewed by me: Yes (Tele ) Hospitalist ROS - Review of Systems Respiratory: denies: cough, dry, shortness of breath, hemoptysis, SOB with excertion, pleuritic pain, sputum, wheezing, other Cardiovascular: denies: chest pain, palpitations, orthopnea, paroxysmal noc. dyspnea, edema, light headedness, other - Medication Medications: Active Medications Generic Name Dose Route Start Last Admin Trade Name Freq PRN Reason Stop Dose Admin Hydrocodone Bitart/Acetaminophen 1 tab 03/17/19 15:32 03/20/19 01:07 [place] 5/325 PO 1 tab Q4H PRN Administration Moderate Pain (4-6) Aspirin 325 mg 03/18/19 09:00 03/20/19 09:33 Aspirin PO 325 mg DAILY FITO Administration Famotidine 20 mg 03/17/19 21:00 03/20/19 09:33 Pepcid PO 20 mg BID FITO Administration Furosemide 40 mg 03/18/19 06:00 03/20/19 05:48 Lasix SLOW IVP 40 mg 0600,1400 FITO Administration Potassium Chloride 20 meq 03/19/19 08:00 03/20/19 09:33 K-Dur PO 20 meq BID-WM FITO Administration Sodium Chloride 10 ml 03/18/19 21:00 03/20/19 09:33 Flush - Normal Saline IVF 10 ml Q12HR FITO Administration - Exam General Appearance: NAD Neck: supple, no JVD Heart: RRR (tachycardic), no gallops Respiratory: CTAB, no rales Gastrointestinal: soft, non-tender, normal bowel sounds Hosp A/P - Plan Acute on chronic systolic HF - improving A flutter with RVR - s/p Cardizem drip, s/p JOSHUA-Ablation ESTEPHANIA on CKD 3/Hypokalemia/Hypomagnesemia Polysubstance abuse Obesity BMI 36.7 Abn LFTs due to passive hepatic congestion Med noncompliance PLAN: Cont IV Lasix Add Lisinopril/Coreg - I discussed with Dr Pascual Clonidine PRN Cont Fluid restriction 1500 ml/day AM labs
[2019-03-20] MEDS ORDERED: Rivaroxaban 10 MG TAB PO SCH (17:00)
--- NOTE | 2019-03-20 18:17 | PDOC.CPN ---
- Subjective Date: 03/20/19 Time: 18:15 Interval history: Doing well. Breathing back to baseline. - Review of Systems General: denies: fever/chills, weight/appetite/sleep changes, night sweats, fatigue Respiratory: denies: cough, congestion, shortness of breath, exercise intolerance Cardiovascular: denies: chest pain, palpitation, edema, paroxysmal nocturnal dyspnea, orthopnea Gastrointestinal: denies: nausea, vomiting, diarrhea, constipation, abd pain, GI bleeding Musculoskeletal: denies: pain, tenderness, stiffness, swelling, arthritis/ arthralgias Neurological: denies: numbness, syncope, seizure, weakness - Objective Allergies/Adverse Reactions: Allergies Allergy/AdvReac Type Severity Reaction Status Date / Time No Known Allergies Allergy Verified 03/17/19 15:55 Visit Medications: Current Medications Hydrocodone Bitart/Acetaminophen ([place] 5/325) 1 tab PO Q4H PRN PRN Reason: Moderate Pain (4-6) Last Admin: 03/20/19 14:38 Dose: 1 tab Aspirin (Aspirin) 325 mg PO DAILY [facility] Last Admin: 03/20/19 09:33 Dose: 325 mg Bisacodyl (Dulcolax) 10 mg AR DAILYPRN PRN PRN Reason: Constipation [facility] Last Admin: 03/20/19 16:54 Dose: 6.25 mg Clonidine (Catapres) 0.1 mg PO Q4H PRN PRN Reason: SBP Greater Than 180 Famotidine (Pepcid) 20 mg PO BID [facility] Last Admin: 03/20/19 09:33 Dose: 20 mg Furosemide (Lasix) 40 mg SLOW IVP 0600,1400 [facility] Last Admin: 03/20/19 14:26 Dose: 40 mg Hydralazine HCl (Apresoline) 10 mg SLOW IVP Q4H PRN PRN Reason: SBP Greater Than 170 Lisinopril (Zestril) 5 mg PO DAILY [facility] Nicotine (Nicoderm Patch) 14 mg TD Q24H PRN PRN Reason: Smoking craving Potassium Chloride (K-Dur) [facility] Last Admin: 03/20/19 16:54 Dose: 20 meq Rivaroxaban (Xarelto) 20 mg PO 1700 [facility] Last Admin: 03/20/19 16:57 Dose: 20 mg Senna/Docusate Sodium (Senokot S) 2 tab PO BIDPRN PRN PRN Reason: Constipation Sodium Chloride (Flush - Normal Saline) 10 ml IVF Q12HR FITO Last Admin: 03/20/19 09:33 Dose: 10 ml Sodium Chloride (Flush - Normal Saline) 10 ml IVF PRN PRN PRN Reason: Saline Flush Vital Signs & Weight: Vital Signs Temp Pulse Resp BP BP Pulse Ox 03/20/19 16:54 137/100 H 03/20/19 16:00 98.1 F 106 H 16 155/91 H 99 03/20/19 14:27 105 H 135/86 03/20/19 11:52 98.2 F 111 H 18 169/94 H 95 03/20/19 10:28 111 H 159/103 H 03/20/19 09:35 98 03/20/19 09:26 98.4 F 121 H 16 156/106 H 98 Weight 245 lb 12.8 oz - Physical Exam General: alert & oriented x3 HEENT: mucus membranes moist Neck: supple neck Cardiac: regular rate and rhythm, no murmur Lungs: clear to auscultation Neuro: grossly intact Abdomen: active bowel sounds, soft, non-tender Extremities: no edema Skin: clear Musculoskeletal: no pain - Labs Result Diagrams: 03/20/19 04:18 03/20/19 04:18 Troponin/CKMB CK-MB (CK-2) 3.3 ng/mL (0-6.6) 03/17/19 10:28 Troponin I 0.040 ng/mL (< 0.028) H 03/17/19 16:11 - Telemetry Sinus rhythms and dysrhythmias: sinus rhythm - Assessment/Plan Assessment/Plan: 1. Dilated CM 2. Substance abuse 3. Aflutter s/p ablation 4. Non compliance 5. HTN PLAN: - Back in sinus rhythm - Will recommend a lifevest before discharge, I spoke with him about this and the cost and he declines. - He wants to do medications only for now. - Will up titrate BB and ACEi to control BP better. - Follow up in 1 month in the office. - Aspirin alone for stroke prophylaxis. - Guideline directed therapy already in place. We encouraged compliance. - Home tomorrow.
[2019-03-21] MEDS: Furosemide 40 MG/4 ML VIAL SLOW IVP SCH (05:26)
[2019-03-21] MEDS: HYDROcodone/Acetaminophen 5/325 mg Tablet PO PRN (05:36)
[2019-03-21 06:53] LABS: Anion Gap 17 mmol/L (10-20); BUN (Urea Nitrogen) 22 mg/dL (8.9-20.6); Calc. Creatinine Clearance 96 mL/min (70-130); Calcium 8.9 mg/dL (7.8-10.44); Carbon Dioxide 19 mmol/L (22-29); Chloride 103 mmol/L (98-107); Estimated GFR-MDRD 44; Glucose 138 mg/dL (70-105); Magnesium 1.9 mg/dL (1.6-2.6); Potassium 3.5 mmol/L (3.5-5.1); Sodium 135 mmol/L (136-145)
[2019-03-21] MEDS ORDERED: Carvedilol 25 MG TAB PO SCH (08:00)
[2019-03-21] MEDS: Famotidine 20 MG TAB PO SCH (08:28)
[2019-03-21] MEDS: Aspirin 325 MG TAB PO SCH (08:28)
[2019-03-21] MEDS: Potassium Chloride 20 MEQ TAB PO SCH (08:28)
[2019-03-21] MEDS ORDERED: Amlodipine 5 MG TAB PO SCH (09:00)
[2019-03-21] MEDS ORDERED: Lisinopril 10 MG TAB PO SCH (09:00)
[2019-03-21] MEDS ORDERED: Lisinopril 5 MG TAB PO SCH (09:00)
[2019-03-21 11:58] VITALS: BP 123/66; TEMP 98.1
--- NOTE | 2019-03-22 16:45 | EKG ---
Test Reason : Blood Pressure : / mmHG Vent. Rate : 093 BPM Atrial Rate : 093 BPM P-R Int : 196 ms QRS Dur : 106 ms QT Int : 394 ms P-R-T Axes : 063 -85 089 degrees QTc Int : 489 ms Normal sinus rhythm Possible Left atrial enlargement Left axis deviation Pulmonary disease pattern Nonspecific ST and T wave abnormality Prolonged QT Abnormal ECG When compared with ECG of 17-MAR-2019 10:15, (Unconfirmed) Sinus rhythm has replaced Atrial flutter Vent. rate has decreased BY 52 BPM Non-specific change in ST segment in Inferior leads Nonspecific T wave abnormality now evident in Lateral leads Confirmed by DR. Dana KINSEY ([id number]) on 03/22/2019 4:44:56 PM Referred By: Confirmed By:DR. Dana KINSEY
--- NOTE | 2019-03-22 16:51 | EKG ---
Test Reason : Blood Pressure : / mmHG Vent. Rate : 119 BPM Atrial Rate : 119 BPM P-R Int : 166 ms QRS Dur : 102 ms QT Int : 312 ms P-R-T Axes : 069 256 075 degrees QTc Int : 438 ms Sinus tachycardia Possible Left atrial enlargement Right superior axis deviation Pulmonary disease pattern Incomplete right bundle branch block Right ventricular hypertrophy Abnormal ECG When compared with ECG of 19-MAR-2019 15:38, (Unconfirmed) No significant change was found Confirmed by DR. Dana KINSEY ([id number]) on 03/22/2019 4:51:33 PM Referred By: OBI Confirmed By:DR. Dana KINSEY
--- NOTE | 2019-03-22 18:41 | DIS ---
DATE OF ADMISSION: 03/17/2019 DATE OF DISCHARGE: 03/21/2019 DISCHARGE DISPOSITION: Home. FOLLOWUP: 1. Follow up with [facility] in 1 week. 2. Follow up with Dr. Pascual and Electrophysiology, Dr. Muñoz as scheduled. The patient was seen and examined on the day of discharge. Denies any new complaints. No chest pain, shortness of breath, or palpitations. DISCHARGE MEDICATIONS: 1. Carvedilol 12.5 mg b.i.d. 2. Xarelto 20 mg daily. 3. Lisinopril 10 mg daily. 4. Lasix 40 mg daily. BRIEF HOSPITAL COURSE: The patient is a 33-year-old male with medication noncompliance and congestive heart failure in the past, presented to the hospital on 03/17/2019, with shortness of breath. His workup in the emergency room was consistent with congestive heart failure exacerbation along with narrow complex tachycardia. He was evaluated by Cardiology and Electrophysiology. Echocardiogram was obtained that showed ejection fraction 25% to 30%, with [id number] tricuspid regurgitation, moderate mitral regurgitation, and mild pulmonic regurgitation. He showed good improvement with diuretics. He underwent electrophysiology study and radiofrequency ablation on 8 03/19/2019, for atrial flutter. He is in sinus rhythm at this time. His medications have been optimized per Cardiology recommendation. He has been cleared by consultants for discharge. FINAL DIAGNOSES: 1. Acute on chronic systolic heart failure exacerbation. 2. Atrial flutter with rapid ventricular response, requiring Cardizem drip. The patient underwent JOSHUA with ablation. 3. Acute kidney injury on chronic kidney disease stage 3. His creatinine at discharge was 1.78. His maximum creatinine was 2.0. 4. Hypokalemia. 5. Hyponatremia. 6. Type 2 myocardial infarction. 7. Obesity with a BMI of 36.7. 8. Polysubstance abuse. Urine drug screen was positive for amphetamines, methamphetamines. 9. Abnormal LFTs secondary to passive hepatic congestion. 10. Medication noncompliance. Repeat basic metabolic profile along with LFTs after a week is recommended. Primary care physician advised to follow. Plan was discussed with the patient in detail. He stated understanding. Job ID: [id number]
== END 2019-03-21 13:35 | disposition home or self-care (01) | DRG 273 ==
LOC: ERS 09:59 → 2SW 13:11 → OBSVTOIN 13:11 → 2NO 03-19 17:38
PROVIDERS: ADMIT Internal Medicine Nephrology; ATTEND Internal Medicine Nephrology
PROC: 02583ZZ Destruction of Conduction Mechanism, Percutaneous Approach (ICD-10-PCS; principal; 2019-03-19)
PROC: 02K83ZZ Map Conduction Mechanism, Percutaneous Approach (ICD-10-PCS; 2019-03-19)
PROC: 4A023FZ Measurement of Cardiac Rhythm, Percutaneous Approach (ICD-10-PCS; 2019-03-19)
PROC: 4A0234Z Measurement of Cardiac Electrical Activity, Percutaneous Approach (ICD-10-PCS; 2019-03-19)
DX: I48.92 Unspecified atrial flutter (principal); I50.23 Acute on chronic systolic (congestive) heart failure; I21.A1 Myocardial infarction type 2; I13.0 Hypertensive heart and chronic kidney disease with heart failure and stage 1 through stage 4 chronic kidney disease, or unspecified chronic kidney disease; N17.9 Acute kidney failure, unspecified; E87.1 Hypo-osmolality and hyponatremia; I42.0 Dilated cardiomyopathy; K76.1 Chronic passive congestion of liver; N18.3 Chronic kidney disease, stage 3 (moderate); E83.110 Hereditary hemochromatosis; F19.10 Other psychoactive substance abuse, uncomplicated; F15.10 Other stimulant abuse, uncomplicated; E87.6 Hypokalemia; E66.9 Obesity, unspecified; G47.33 Obstructive sleep apnea (adult) (pediatric); F17.210 Nicotine dependence, cigarettes, uncomplicated; Z91.14 Patient's other noncompliance with medication regimen; Z68.36 Body mass index [BMI] 36.0-36.9, adult
CPT/HCPCS: 36415; 71045; 76942; 80048; 80053; 80306; 80307; 81003; 81015; 82550; 82553; 82570; 83735; 83880; 84156; 84300; 84484; 85014; 85018; 85025; 85049; 92960; 93005; 93010; 93306; 93312; 93613; 93623; 93653; 93798; 96374; C1732; C1769; J1265; J1644; J1650; J1940; J2001; J2250; J2704; J3010; J3475; J3490; J7620

== ENCOUNTER 2019-08-28 19:57 | Inpatient (IN) | payer SELFPAY ==
[2019-08-28 20:28] LABS: #Basophils 0.1 thou/uL (0.0-0.2); #Eosinphils 0.3 thou/uL (0.0-0.7); #Lymphocytes 2.2 thou/uL (1.20-3.40); #Monocytes 0.7 thou/uL (0.11-0.59); #Neutrophils 7.1 thou/uL (1.40-6.50); %Basophils 0.7 % (0.0-1.0); %Eosinophils 2.4 % (0.0-10.0); %Lymphocytes 21.2 % (21.0-51.0); %Monocytes 6.9 % (0.0-10.0); %Neutrophils 68.8 % (42.0-75.0); Hemoglobin 13.9 g/dL (14.0-18.0); Mean Corpuscular HGB CONC 32.5 g/dL (32.0-36.0); Mean Corpuscular Hemoglobin 27.7 pg (27.0-31.0); Mean Corpuscular Volume 85.2 fL (78.0-98.0); Mean Platelet Volume 8.2 fL (7.4-10.4); Platelet Count 187 thou/uL (130-400); RBC Distribution Width 13.5 % (11.5-14.5); White Blood Cell (WBC) Count 10.3 thou/uL (4.8-10.8)
--- NOTE | 2019-08-28 20:39 | RAD ---
CHEST ONE VIEW: 08/28/19 HISTORY: Dyspnea. COMPARISON: Radiograph 03/17/19. FINDINGS: Heart size is enlarged. Low grade pulmonary edema. No pneumothorax. No significant effusion. No acute osseous abnormality. IMPRESSION: Marked cardiomegaly with low grade pulmonary edema. POS: HOME
[2019-08-28 20:42] LABS: ALT (SGPT) 14 U/L (8-55); AST (SGOT) 18 U/L (5-34); Albumin 3.6 g/dL (3.5-5.0); Alkaline Phosphatase 79 U/L (40-110); Anion Gap 11 mmol/L (10-20); BUN (Urea Nitrogen) 23 mg/dL (8.9-20.6); Bilirubin, Total 1.9 mg/dL (0.2-1.2); Calc. Creatinine Clearance 0 mL/min (70-130); Carbon Dioxide 25 mmol/L (22-29); Chloride 105 mmol/L (98-107); Estimated GFR-MDRD 43; Globulin 2.6 g/dL (2.4-3.5); Glucose 110 mg/dL (70-105); Potassium 3.4 mmol/L (3.5-5.1); Protein, Total 6.2 g/dL (6.0-8.3); Sodium 138 mmol/L (136-145)
[2019-08-28 21:04] LABS: CKMB 3.7 ng/mL (0-6.6)
[2019-08-28] MEDS ORDERED: Potassium Chloride 20 MEQ TAB ONE (21:33)
[2019-08-28] MEDS ORDERED: Furosemide 100 MG/10 ML VIAL ONE (21:33)
[2019-08-28] MEDS ORDERED: Aspirin 325 MG TAB ONE (21:33)
--- NOTE | 2019-08-28 22:13 | PDOC.FPRHP ---
- History of Present Illness Chief Complaint: SOB History of Present Illness: Pt is a 33 yo M with pmh CHF and HTN who presents for SOB. He ran out of his medications 5 days ago. He says he was seeing a doctor, but he retired so he has been unable to get his medications refilled. He said he has seen the fluid has been gradually building up. He says that he does not have any shortness of breath while lying flat or when he is sleeping at night. He endorses swelling in his legs and shortness of brath. He said the swelling is worse during the day along with the shortness of breath and he was working today and he could really feel it start to build up. His was concerned, so he decided to call EMS to bring him to the hospital. ED Course: In the ED, he received 80 mg of IV lasix and 40 mg of KCl. He was found to be mildly hypokalemic. He was also found to have a BNP in the 800s and it was in the 400s previously. - Allergies/Adverse Reactions Allergies Allergy/AdvReac Type Severity Reaction Status Date / Time No Known Allergies Allergy Verified 08/29/19 01:07 - Home Medications Medication Instructions Recorded Confirmed Type Carvedilol [Coreg] 12.5 mg PO BID #60 tab 03/21/19 08/29/19 Rx Furosemide [Lasix] 40 mg PO DAILY #30 tab 03/21/19 08/29/19 Rx Lisinopril [Zestril] 10 mg PO DAILY #30 tab 03/21/19 08/29/19 Rx Rivaroxaban [Xarelto] 20 mg PO DAILY #30 tablet 03/22/19 08/29/19 Rx - History PMHx: HTN, CHF PSHx: Ablation 03/29/19 FHx: Mother: HTN, HAs x18, CVAs x12 ( @ 58), Father: HTN, CVAs x6, Brothers: HTN, CHF, 3 with stents Social: Tobacco- last smoke 2-3 days ago, smoked for 20 years. No Alcohol or Recreational Drug use - Review of Systems General: denies: fever/chills Eyes: denies: vision changes ENT: denies: nasal congestion, rhinorrhea Respiratory: reports: shortness of breath. denies: cough, congestion Cardiovascular: denies: chest pain, edema, paroxysmal nocturnal dyspnea, orthopnea Gastrointestinal: denies: nausea, vomiting, diarrhea, constipation, abdominal pain Genitourinary: denies: dysuria Skin: denies: rashes, lesions Musculoskeletal: denies: pain, stiffness Neurological: denies: numbness, weakness - Vital signs BP: 168/111 HR: 109 RR: 19 Tmax: 98.6 Pox: 96% on RA Wt: 108 kg - Physical Exam Constitutional: NAD, awake, alert and oriented HEENT: normocephalic and atraumatic, PERRLA, EOMI, conjunctiva clear, no scleral icterus, normal nasal mucosa, MMM, oropharynx clear Neck: supple, no LAD Heart: RRR, normal S1/S2, no murmurs/rubs/gallops, pulses present -Heart: 1+ pitting edema Lungs: CTAB, no respiratory distress, good air movement, no rales/rhonchi, no wheezing Abdomen: soft, non-tender, bowel sounds present Musculoskeletal: normal structure, normal tone, ROM grossly normal Neurological: CN II-XII intact, normal sensation Skin: no rash/lesions, good turgor Heme/Lymphatic: no unusual bruising or bleeding, no purpura, no petechia Psychiatric: normal mood and affect FMR H&P: Results - Labs Result Diagrams: 08/28/19 20:13 08/28/19 20:13 Lab results: WBC 10.3 thou/uL (4.8-10.8) 08/28/19 20:13 Hgb 13.9 g/dL (14.0-18.0) L 08/28/19 20:13 Hct 42.6 % (42.0-52.0) 08/28/19 20:13 MCV 85.2 fL (78.0-98.0) 08/28/19 20:13 Plt Count 187 thou/uL (130-400) 08/28/19 20:13 Neutrophils % 68.8 % (42.0-75.0) 08/28/19 20:13 Sodium 138 mmol/L (136-145) 08/28/19 20:13 Potassium 3.4 mmol/L (3.5-5.1) L 08/28/19 20:13 Chloride 105 mmol/L (98-107) 08/28/19 20:13 Carbon Dioxide 25 mmol/L (22-29) 08/28/19 20:13 BUN 23 mg/dL (8.9-20.6) H 08/28/19 20:13 Creatinine 1.83 mg/dL (0.7-1.3) H 08/28/19 20:13 Glucose 110 mg/dL (70-105) H 08/28/19 20:13 Calcium 9.0 mg/dL (7.8-10.44) 08/28/19 20:13 Total Bilirubin 1.9 mg/dL (0.2-1.2) H 08/28/19 20:13 AST 18 U/L (5-34) 08/28/19 20:13 ALT 14 U/L (8-55) 08/28/19 20:13 Alkaline Phosphatase 79 U/L (40-110) 08/28/19 20:13 CK-MB (CK-2) 3.7 ng/mL (0-6.6) 08/28/19 20:13 B-Natriuretic Peptide 898.6 pg/mL (0-100) H 08/28/19 20:13 Serum Total Protein 6.2 g/dL (6.0-8.3) 08/28/19 20:13 Albumin 3.6 g/dL (3.5-5.0) 08/28/19 20:13 FMR H&P: A/P - Problem List (1) Heart failure Current Visit: No Status: Acute Code(s): I50.9 - HEART FAILURE, UNSPECIFIED (2) Hypertension Current Visit: No Status: Acute Code(s): I10 - ESSENTIAL (PRIMARY) HYPERTENSION - Plan Pt is a 33 yo M with pmh CHF and HTN who presents for SOB. 1. CHF SOB & swelling 1+ * BNP: 898.6, 400s last stay * In the ED, he received 80 mg IV Lasix * Continue home medications: Carvedilol & Lasix * Will give 40 mg IV lasix daily * Strict I&Os * Daily weights 2. HTN BP: 168/111 * Continue home medications: Lisinopril 3. Elevated troponin Trop: 0.061 * Will trend trops * EKG NSR * Trops: 0.03-0.04 in the past 4. Hypokalemia K:3.4 * Given 40 KCl PO * Will monitor and replace as needed 5. CKD Stage 3B Cre: 1.83 * baseline 1.7-2 * Will continue to monitor and adjust medications as needed 6. Elevated Bilirubin Bili: 1.9 * Likely 2/2 CHF and hepatic congestion 7. Hx of Aflutter s/p Ablation Continue home medication of Xarelto Code Status: Full Diet: HHLSo Activity: Ad Surekha DVT PPx: Xarelto GI PPx: None IVF: SL PCP: CC- None Dispo: Tele inpt, will trend trops and treat CHF exacerbation. LOS < 48H. FMR H&P: Upper Level - Pertinent history Mr Neri is a 33yo male with pmh of HFrEF EF 25-30% presenting with SOB. Reports being out of medications for 4 days. Gradual SOB over last 3-4 days, worsened today which was why he presented. Endorses exercise intolerance and edema. Denies orthopnea, paroxysmal nocturnal dyspnea, chest pain. - Pertinent findings PE: Vital signs reviewed, Pt is hypertensive. EKG with LVH and prolonged QT, no signs of acute ischemia. General: NAD Pulm: CTA b/l. No resp distress CV: RRR, No murmurs Extremities: trace edema A/P: Mr Neri is a 33yo male with pmh of HFrEF admitted for CHF exacerbation HFrEF in acute exacerbation likely 2/2 medication noncompliance -EF 25-30% 03/18/19. Received 80mg IV Lasix in ED. Strict I&Os. IV Lasix ordered for AM, can adjust dose according to urine output. Daily wts. Will need to establish with new provider as he previously saw Dr Abdullahi who has retired. Elevated Troponin: 0.061, slightly elevated from baseline. Will continue to trend trops. Received ASA in ED. Prolonged QTc CKD: Cr at baseline. Continue to monitor with daily BMP HTN: Uncontrolled due to medication noncompliance. Resume home meds. Hyperbilirubinemia: likely 2/2 hepatic congestion 2/2 HFrEF Aflutter s/p Ablation: Currently in NSR Hx of Drug Abuse: Will order UDS Tobacco Abuse: Encourage cessation - Plan Date/Time: 08/28/19 2891 Alena Soriano, have evaluated this patient and agree with findings/plan as outlined by software intern resident. Pertinent changes/additions are listed here.
[2019-08-28] MEDS ORDERED: Senokot S 8.6-50 MG TAB PO PRN (23:41)
[2019-08-28] MEDS ORDERED: Acetaminophen 650 MG Suppository PR PRN (23:41)
[2019-08-28] MEDS ORDERED: Acetaminophen 325 MG TAB PO PRN (23:41)
[2019-08-28] MEDS ORDERED: Ondansetron ODT 4 MG TAB PO PRN (23:41)
[2019-08-28 23:47] LABS: Troponin I 0.076 ng/mL (< 0.028)
[2019-08-28] MEDS ORDERED: Nicotine 21 MG PATCH TD SCH (23:59)
[2019-08-29] MEDS ORDERED: hydrALAZINE 20 MG/ML VIAL SLOW IVP PRN (00:54)
[2019-08-29 00:55] VITALS: BMI 37.6
[2019-08-29 03:07] LABS: Troponin I 0.077 ng/mL (< 0.028)
[2019-08-29 03:32] LABS: ALT (SGPT) 17 U/L (8-55); AST (SGOT) 20 U/L (5-34); Albumin 3.7 g/dL (3.5-5.0); Alkaline Phosphatase 79 U/L (40-110); Anion Gap 15 mmol/L (10-20); BUN (Urea Nitrogen) 23 mg/dL (8.9-20.6); Bilirubin, Total 1.8 mg/dL (0.2-1.2); Calc. Creatinine Clearance 91 mL/min (70-130); Carbon Dioxide 23 mmol/L (22-29); Chloride 104 mmol/L (98-107); Estimated GFR-MDRD 41; Globulin 2.6 g/dL (2.4-3.5); Glucose 145 mg/dL (70-105); Potassium 3.4 mmol/L (3.5-5.1); Protein, Total 6.3 g/dL (6.0-8.3); Sodium 139 mmol/L (136-145)
[2019-08-29 05:26] LABS: Amphetamine Not Detected (NotDetected); Barbiturates Screen Not Detected (NotDetected); Benzodiazepine Screen Not Detected (NotDetected); Cocaine Metabolite Screen Not Detected (NotDetected); Medtox Control Line Valid? VALID (VALID); Medtox Reader # READER 4; Methadone Not Detected (NotDetected); Methamphetamine Not Detected (NotDetected); Opiate Screen Not Detected (NotDetected); Oxycodone Screen Not Detected (NotDetected); Phencyclidine (PCP) Not Detected (NotDetected); THC/Cannabinoid Screen Not Detected (NotDetected); Tricyclic Screen Not Detected (NotDetected)
--- NOTE | 2019-08-29 07:22 | PDOC.FM ---
- Subjective Subjective: Mr. Neri is feeling well this morning. Says he has walked to bathroom without difficulty. Notes SOB has improved. Denies CP. No other concerns and desires to go home today. Had 8 beats of vtach early this morning, continues to have sinus tachycardia. - Objective Vital Signs & Weight: Vital Signs (12 hours) Temp Pulse Resp BP BP Pulse Ox 08/29/19 06:10 117 H 179/103 H 08/29/19 05:06 105 H 08/29/19 04:00 97.9 F 104 H 17 185/115 H 98 08/29/19 00:42 100 172/114 H 08/28/19 23:55 98.2 F 108 H 16 164/107 H 95 Weight Weight 114.311 kg I&O: 08/28/19 08/29/19 08/30/19 06:59 06:59 06:59 Intake Total 1000 Output Total 850 Balance 150 Result Diagrams: 08/28/19 20:13 08/29/19 02:24 Phys Exam - Physical Examination Constitutional: NAD Respiratory: no wheezing, clear to auscultation bilateral Cardiovascular: RRR Gastrointestinal: soft, non-tender Musculoskeletal: no edema Neurological: non-focal Psychiatric: normal affect Dx/Plan - Plan Plan: 33 yo M with pmh CHF and HTN who presents for SOB. 1. HFrEF exacerbation 2/2 medication noncompliance * BNP: 898.6, 400s last stay * s/p 80mg IV lasix in ED * Continue home medications * 40 mg IV lasix this am * Strict I&Os 2. HTN BP: 168/111 * Continue home medications: Lisinopril, carvedilol. Has been sinus tachy but will hopefully improve with home meds being restarted this am. 3. Elevated troponin Trop: 0.061 * Will trend trops * EKG NSR * Trops: 0.03-0.04 in the past 4. Hypokalemia K:3.4 * 40 KCl PO * Will monitor and replace as needed 5. CKD Stage 3B Cre: 1.83 * at baseline * Will continue to monitor and adjust medications as needed 6. Elevated Bilirubin Bili: 1.9 * Likely 2/2 CHF and hepatic congestion 7. Hx of Aflutter s/p Ablation Continue home medication of Xarelto Code Status: Full Diet: HHLSo Activity: Ad Surekha DVT PPx: Xarelto IVF: SL PCP: CC- None Dispo: Monitor throughout today, could possibly be discharged later today. Will monitor HR. Addendum - Attending - Attending Attestation Date/Time: 08/29/19 1008 I personally evaluated the patient and discussed the management with Dr. Mckeon. I agree with the History, Examination, Assessment and Plan documented above with any addition or exceptions noted below. Patient feeling improved. Needs to get back on all HF medications as he "ran out ". Monitor BP, fluid balance. Renal function stable. Monitor HR.
[2019-08-29] MEDS ORDERED: Potassium Chloride 20 MEQ TAB PO SCH (08:15)
[2019-08-29] MEDS ORDERED: Carvedilol 6.25 MG TAB PO SCH (09:00)
[2019-08-29] MEDS ORDERED: Furosemide 40 MG/4 ML VIAL SLOW IVP SCH (09:00)
[2019-08-29] MEDS ORDERED: Furosemide 40 MG TAB PO SCH (09:00)
[2019-08-29] MEDS ORDERED: Lisinopril 10 MG TAB PO SCH (09:00)
[2019-08-29] MEDS ORDERED: Famotidine 20 MG TAB PO SCH (09:00)
[2019-08-29 10:13] LABS: Hemoglobin 14.5 g/dL (14.0-18.0); Platelet Count 189 thou/uL (130-400)
[2019-08-29 11:17] VITALS: BP 145/104; TEMP 97.4
[2019-08-29] MEDS ORDERED: Rivaroxaban 10 MG TAB PO SCH (17:00)
--- NOTE | 2019-08-29 17:22 | DIS ---
DATE OF ADMISSION: 08/28/2019 DATE OF DISCHARGE: 08/29/2019 RESIDENT: Maria Antonia Mckeon DO ADMITTING ATTENDING: Shiv Conway MD DISCHARGE ATTENDING: Eliazar Isidro MD CONSULT: None. PROCEDURES: None. PRIMARY DIAGNOSES: 1. Heart failure with reduced ejection fraction exacerbation. 2. Elevated troponin. 3. Hypokalemia. SECONDARY DIAGNOSES: 1. Hypertension. 2. Chronic kidney disease, stage 3B. 3. Elevated bilirubin, likely due to congestive heart failure and hepatic congestion. 4. History of atrial flutter, status post ablation. DISCHARGE MEDICATIONS: 1. We are going to have him carvedilol 12.5 mg p.o. b.i.d. 2. Furosemide 40 mg p.o. daily. 3. Lisinopril 10 mg p.o. daily. HISTORY OF PRESENT ILLNESS: A 33-year-old male, with past medical history of CHF, presented for shortness of breath. He ran out of his medications for heart failure five days prior, as his primary care physician had retired and he had not followed up with a new physician in order to get medication refills. He noted increased edema. He denied any orthopnea. In the emergency department, he received 80 mg IV Lasix as well as potassium. BNP was in the 800s. With IV Lasix, his symptoms quickly improved. At the time of discharge, patient denied any shortness of breath, was able to ambulate in the hallways without difficulty, and was ready to go home. His blood pressure was initially elevated in the 160s and this normalized to 140 systolic at the time of discharge. His troponins were trended and were indeterminate and at a comparable baseline compared to prior. Of note, patient's initial medication reconciliation noted a medication of Xarelto. Patient reports that this was just for a short time after the ablation and that he was recommended to discontinue in the outpatient setting. He had not been on this medication prior to coming into the hospital. Medications were refilled and the patient plans to follow up in his home town at the [facility] for further care. DISPOSITION: Stable. DISCHARGE INSTRUCTIONS: 1. Location: Home. 2. Diet: Heart healthy. 3. Activity: As tolerated. 4. Follow up at [facility] in [place], [place] within 1 week. 5. Follow up with Dr. Pascual, Cardiology, in 2 to 3 weeks. 6. Follow up with [facility] planned as well. Job ID: [id number]
== END 2019-08-29 15:15 | disposition home or self-care (01) | DRG 291 ==
LOC: ERS 19:57 → 2NO 22:18
PROVIDERS: ADMIT Emergency Medicine; ATTEND Emergency Medicine
DX: I13.0 Hypertensive heart and chronic kidney disease with heart failure and stage 1 through stage 4 chronic kidney disease, or unspecified chronic kidney disease (principal); I50.23 Acute on chronic systolic (congestive) heart failure; I47.2 Ventricular tachycardia; N18.3 Chronic kidney disease, stage 3 (moderate); E87.6 Hypokalemia; R79.89 Other specified abnormal findings of blood chemistry; F17.210 Nicotine dependence, cigarettes, uncomplicated; K76.1 Chronic passive congestion of liver; T50.1X6A Underdosing of loop [high-ceiling] diuretics, initial encounter; Z79.899 Other long term (current) drug therapy; Z91.138 Patient's unintentional underdosing of medication regimen for other reason
CPT/HCPCS: 36415; 71045; 80053; 80306; 82553; 83880; 84484; 85014; 85018; 85025; 85049; 93005; 96374; J0360; J1940

== ENCOUNTER 2019-12-13 12:33 | Inpatient (IN) | payer OTHER, SELFPAY ==
--- NOTE | 2019-12-13 14:33 | RAD ---
Portable chest: HISTORY: Dyspnea COMPARISON: 08/28/2019 FINDINGS:Cardiomegaly appears stable. Lung hernández are clear. No evidence of vascular congestion or ed sahra. No interval change. IMPRESSION: No acute finding
[2019-12-13 14:53] LABS: #Basophils 0.1 thou/uL (0.0-0.2); #Eosinphils 0.3 thou/uL (0.0-0.7); #Lymphocytes 2.2 thou/uL (1.20-3.40); #Neutrophils 6.4 thou/uL (1.40-6.50); %Basophils 0.6 % (0.0-1.0); %Eosinophils 2.6 % (0.0-10.0); %Lymphocytes 22.4 % (21.0-51.0); %Monocytes 10.4 % (0.0-10.0); %Neutrophils 64.1 % (42.0-75.0); Hemoglobin 14.3 g/dL (14.0-18.0); Mean Corpuscular HGB CONC 31.9 g/dL (32.0-36.0); Mean Corpuscular Hemoglobin 27.7 pg (27.0-31.0); Mean Corpuscular Volume 86.7 fL (78.0-98.0); Mean Platelet Volume 8.7 fL (7.4-10.4); Platelet Count 204 thou/uL (130-400); RBC Distribution Width 15.9 % (11.5-14.5); Red Blood Cell (RBC) Count 5.17 mill/uL (4.70-6.10); White Blood Cell (WBC) Count 9.9 thou/uL (4.8-10.8)
[2019-12-13 15:18] LABS: ALT (SGPT) 20 U/L (8-55); AST (SGOT) 29 U/L (5-34); Albumin 3.8 g/dL (3.5-5.0); Alkaline Phosphatase 80 U/L (40-110); Anion Gap 15 mmol/L (10-20); BUN (Urea Nitrogen) 27 mg/dL (8.9-20.6); Bilirubin, Total 2.6 mg/dL (0.2-1.2); Calc. Creatinine Clearance 0 mL/min (70-130); Calcium 9.2 mg/dL (7.8-10.44); Carbon Dioxide 22 mmol/L (22-29); Chloride 104 mmol/L (98-107); Estimated GFR-MDRD 40; Globulin 2.4 g/dL (2.4-3.5); Glucose 72 mg/dL (70-105); Protein, Total 6.2 g/dL (6.0-8.3); Sodium 137 mmol/L (136-145)
[2019-12-13 15:37] LABS: CKMB 3.5 ng/mL (0-6.6)
[2019-12-13] MEDS ORDERED: Aspirin Chewable 81 MG TAB ONE (15:37)
[2019-12-13] MEDS ORDERED: Furosemide 40 MG/4 ML VIAL ONE (15:37)
[2019-12-13] MEDS ORDERED: Carvedilol 6.25 MG TAB PO SCH (17:00)
[2019-12-13 18:59] LABS: Troponin I 0.053 ng/mL (< 0.028)
[2019-12-13] MEDS ORDERED: Metoprolol Tartrate 5 MG/5 ML VIAL IVP PRN (20:39)
[2019-12-13] MEDS: Furosemide 40 MG/4 ML VIAL SLOW IVP SCH (22:01)
[2019-12-13] MEDS: Heparin 5,000 UNITS/ML VIAL SC SCH (22:01)
[2019-12-13 22:04] LABS: Troponin I 0.051 ng/mL (< 0.028)
--- NOTE | 2019-12-14 01:45 | HP ---
REASON FOR ADMISSION: Increased swelling. HISTORY OF PRESENT ILLNESS: This is a 34-year-old male patient, who is known to have congestive heart failure, was admitted to our hospital approximately three months ago with CHF exacerbation. Discharged to follow with Cardiology, but he was unable to establish and to schedule an appointment with Dr. Pascual because of lack of insurance coverage and he presents today with increased swelling of his bilateral lower extremities. History going back to three days before his presentation, he has been noticing that he had increased swelling of his lower extremities every time at the end of the day. He elevate his legs, then the next day he has more swelling and today noticed that the swelling extended to his thigh and his abdomen. He also developed shortness of breath and for that reason, he came to the hospital. Currently, he is in the emergency room, appears to be comfortable, in no acute distress. He was given IV Lasix and diuresed very well. He says that the swelling improved a bit. Reviewing his records, the patient was admitted to our hospital approximately three months ago, diagnosed with heart failure with reduced ejection fraction and elevated troponin. He stayed in hospital for 24 hours. During his stay, he was diuresed and his troponins were trended. His blood pressure initially elevated then normalized. PAST MEDICAL HISTORY: 1. High blood pressure. 2. Congestive heart failure, history of atrial flutter post ablation was on Xarelto for a short period of time. Currently not on any anticoagulation. 3. Chronic kidney disease, stage 3. SOCIAL HISTORY: He does not drink alcohol. Continues to smoke half a pack a day. FAMILY HISTORY: Negative for heart disease. REVIEW OF SYSTEMS: All systems reviewed except the above mentioned, found to be negative. ALLERGIES: NO KNOWN DRUG ALLERGIES. PHYSICAL EXAMINATION: GENERAL: Awake, alert, and oriented, does not appear in distress. VITAL SIGNS: His blood pressure is 145/104, heart rate of 104, temperature is 97.4, and saturating 97% on room air. HEENT: Head is nontraumatic and normocephalic. Pupils are equal and reactive. Extraocular motors are intact. Nonicteric sclerae. Well injected conjunctivae. Oral mucosa normal. Nasal mucosa normal. NECK: Supple. No adenopathy. No murmur. Thyroid is not palpable. Trachea is midline. No supraclavicular lymphadenopathy. HEART: S1 and S2 regular. No murmur. No gallops. No friction rubs. No displacement of PMI. LUNGS: Clear to auscultation bilaterally. No wheezes. No rhonchi. No crackles. ABDOMEN: Bowel sounds are positive. Nontender abdomen. No hepatosplenomegaly. EXTREMITIES: He does have 3+ pitting knee pitting edema bilateral extremities with extension to his abdominal area. NEURO: Cranial nerves 2 through 12 within normal limits. Normal motor function. Normal sensory function. Normal reflexes. LABORATORY DATA: Blood work shows a WBC of 9.9, hemoglobin 14.3, platelets of 204. Sodium 137, potassium 4, bicarb of 22, and creatinine 1.91 and previous creatinine 1.69. Troponin is 0.056 and repeat 0.053. In August 28, his troponin was 0.077. Chest x-ray shows no acute finding. EKG shows normal sinus rhythm. ASSESSMENT AND PLAN: This is a 34-year-old male patient, who is presenting with anasarca and shortness of breath secondary to known congestive heart failure. 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 He thinks that might be a contributing factor, he says that he is compliant with his medication also with his diet. Cardiac, the patient to be admitted to telemetry. We will continue cycling his cardiac enzymes. We will continue diuresing him with IV Lasix, I will consult Cardiology, we will provide him with blood pressure control, I will reconcile his medication when the med rec is done. Renal system, electrolytes. The patient has chronic kidney disease. We will monitor his kidney function history of diuresing him. Deep venous thrombosis prophylaxis. He will be on heparin subcutaneously. The patient is a full code. Job ID: [id number]
[2019-12-14 06:35] LABS: #Basophils 0.1 thou/uL (0.0-0.2); #Eosinphils 0.3 thou/uL (0.0-0.7); #Lymphocytes 1.9 thou/uL (1.20-3.40); #Neutrophils 7.5 thou/uL (1.40-6.50); %Basophils 0.9 % (0.0-1.0); %Eosinophils 2.6 % (0.0-10.0); %Lymphocytes 17.8 % (21.0-51.0); %Monocytes 8.8 % (0.0-10.0); Hemoglobin 15.1 g/dL (14.0-18.0); Mean Corpuscular HGB CONC 32.5 g/dL (32.0-36.0); Mean Corpuscular Hemoglobin 28.1 pg (27.0-31.0); Mean Corpuscular Volume 86.6 fL (78.0-98.0); Mean Platelet Volume 8.3 fL (7.4-10.4); Platelet Count 203 thou/uL (130-400); RBC Distribution Width 15.9 % (11.5-14.5); Red Blood Cell (RBC) Count 5.37 mill/uL (4.70-6.10); White Blood Cell (WBC) Count 10.8 thou/uL (4.8-10.8)
[2019-12-14 06:56] LABS: Anion Gap 15 mmol/L (10-20); BUN (Urea Nitrogen) 28 mg/dL (8.9-20.6); Calc. Creatinine Clearance 85 mL/min (70-130); Calcium 9.1 mg/dL (7.8-10.44); Carbon Dioxide 24 mmol/L (22-29); Chloride 100 mmol/L (98-107); Estimated GFR-MDRD 37; Glucose 108 mg/dL (70-105); Potassium 3.4 mmol/L (3.5-5.1); Sodium 136 mmol/L (136-145)
[2019-12-14] MEDS ORDERED: Carvedilol 25 MG TAB PO SCH ×2 (08:00→13:00)
[2019-12-14] MEDS: Heparin 5,000 UNITS/ML VIAL SC SCH ×3 (08:17→21:15)
[2019-12-14] MEDS: Furosemide 40 MG/4 ML VIAL SLOW IVP SCH ×2 (08:17→14:02)
[2019-12-14] MEDS ORDERED: Calcium Carbonate 500 MG ChewTAB PO PRN (08:54)
[2019-12-14] MEDS ORDERED: Senokot S 8.6-50 MG TAB PO PRN (08:54)
[2019-12-14] MEDS ORDERED: Acetaminophen 325 MG TAB PO PRN (08:54)
[2019-12-14] MEDS: Famotidine 20 MG TAB PO SCH ×2 (09:25→21:15)
[2019-12-14] MEDS: Aspirin 81 mg Enteric Coated Tablet PO SCH (09:25)
[2019-12-14] MEDS: Potassium Chloride 20 MEQ TAB PO SCH ×2 (11:09→16:15)
--- NOTE | 2019-12-14 13:18 | CON ---
DATE OF CONSULTATION: 12/14/2019 REASON FOR CONSULTATION: Shortness of breath. HISTORY OF PRESENT ILLNESS: Mr. Neri is a very pleasant 34-year-old white gentleman, who comes to the hospital for shortness of breath. He was very well known to myself. He has a history of nonischemic cardiomyopathy related to drug abuse. He tells me that he has been off and not using any drugs for the last at least 6 months, maybe more. 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 He slowly noticed worsening lower extremity edema, so he got to the point where he could not breathe anymore, so he decided to come in for evaluation. He has already been diuresed and already feels a lot better. His edema is getting better as well. PAST MEDICAL HISTORY: 1. Nonischemic cardiomyopathy. 2. Hypertension. 3. Substance abuse. 4. Tobacco use. FAMILY HISTORY: Positive for coronary artery disease, heart failure, and hypertension. SOCIAL HISTORY: Smokes about a pack of cigarettes a day since he was age 14. No alcohol use. Used to abuse marijuana and methamphetamines. OUTPATIENT MEDICATIONS: 1. Lisinopril 20 mg a day. 2. Furosemide 40 mg a day. 3. Carvedilol 12.5 mg b.i.d. ALLERGIES: NO KNOWN DRUG ALLERGIES. REVIEW OF SYSTEMS: A 12-point review of systems was done and was found to be negative other than stated in the history of present illness. PHYSICAL EXAMINATION: VITAL SIGNS: Temperature 97.6, pulse 83, respiratory rate 16, saturating 95% on room air, blood pressure 159/109. GENERAL: Awake, alert, oriented x3, in no distress. HEENT: Normocephalic and atraumatic. NECK: Supple. LUNGS: Clear. CARDIOVASCULAR: S1 and S2. No S3 or S4. No murmurs. ABDOMEN: Soft. Positive bowel sounds. EXTREMITIES: 1+ edema. SKIN: Warm and dry. LABORATORY DATA: Laboratory work was reviewed. CBC with a white count of 9, hemoglobin of 14, hematocrit 44, platelet count of 204. Chemistries were unremarkable except for a BUN of 27, creatinine 1.9, which is maybe closer to the baseline, creatinine of 2.07 this morning. Potassium was lower at 3.4. Troponin was 0.05, 0.05, 0.05, consistent with demand ischemia and BNP was 871. Albumin was 3.8. Chest x-ray was reviewed. ASSESSMENT: 1. Acute on chronic systolic heart failure. 2. Hypertension. 3. Dilated cardiomyopathy. 4. Substance abuse, in remission. PLAN: 1. We will get a urine drug screen and make sure there has not been any further use. 2. We will repeat an echocardiogram and if he remains with a low EF under 35%, he will be a candidate for an AICD. 3. Continue IV diuresis. Creatinine is creeping up a little bit and he seems closer to euvolemia. 4. We will up titrate his blood pressure medicines. We will go up on his carvedilol to full dose of 25 twice a day and we will restart his beta kyle at 10 mg daily. Thank you for letting us to participate in the care of your patient. We will follow. Job ID: [id number]
[2019-12-14 14:23] LABS: SARS-CoV-2 MS2 Positive; SARS-CoV-2 N Gene Negative; SARS-CoV-2 S Gene Negative; SARS-CoV-2 by NAA Not Detected (NotDetected); SARS-CoV-2 orf1ab Negative
[2019-12-14] MEDS: Carvedilol 25 MG TAB PO SCH (16:15)
--- NOTE | 2019-12-14 19:24 | PDOC.HOSPP ---
- Subjective Encounter Date: 12/14/19 Encounter Time: 12:30 Subjective: Patient seen and examined for congestive heart failure exacerbation. Shortness of breath slowly improving. Mild dry cough. Denies any syncope or palpitations. - Objective Vital Signs & Weight: Vital Signs (12 hours) Temp Pulse Pulse Pulse Resp BP BP 12/14/19 16:00 98.1 F 87 17 12/14/19 11:19 89 103 H 150/105 H 12/14/19 11:06 97.6 F 83 16 159/109 H BP BP Pulse Ox Pulse Ox Pulse Ox 12/14/19 16:00 154/106 H 93 L 12/14/19 11:19 156/120 H 98 98 12/14/19 11:06 95 Weight Weight 265 lb 3.2 oz I&O: 12/13/19 12/14/19 12/15/19 06:59 06:59 06:59 Intake Total 720 1500 Output Total 2600 2700 Balance -1880 -1200 Result Diagrams: 12/14/19 06:26 12/14/19 06:26 Radiology Reviewed by me: Yes (Chest x-ray pulmonary vascular congestion) EKG Reviewed by me: Yes (Sinus rhythm on telemetry) Hospitalist ROS - Review of Systems Constitutional: denies: fever, chills, sweats, weakness, malaise, other Gastrointestinal: denies: nausea, vomiting, abdominal pain, diarrhea, constipation, melena, hematochezia, other - Medication Medications: Active Medications Generic Name Dose Route Start Last Admin Trade Name Freq PRN Reason Stop Dose Admin Aspirin 81 mg 12/14/19 09:00 12/14/19 09:25 Ecotrin PO 81 mg DAILY FITO Administration Carvedilol 25 mg 12/14/19 17:00 12/14/19 16:15 Coreg PO 25 mg BID-WM FITO Administration Famotidine 20 mg 12/14/19 09:00 12/14/19 09:25 Pepcid PO 20 mg BID FITO Administration Furosemide 40 mg 12/14/19 14:00 12/14/19 14:02 Lasix SLOW IVP 40 mg 0600,1400 FITO Administration Heparin Sodium (Porcine) 5,000 units 12/13/19 21:00 12/14/19 14:03 Heparin SC 5,000 units TID FITO Administration Metoprolol Tartrate 5 mg 12/13/19 20:39 12/14/19 06:09 Lopressor IVP 5 mg Q6H PRN Administration SBP>140 - Exam General - other findings: Mild respiratory distress Neck: supple, symmetric, JVD Heart: RRR, no gallops, no rubs, normal peripheral pulses Respiratory: no wheezes, rales, rhonchi, tachypneic (Mild) Gastrointestinal: soft, non-tender, normal bowel sounds, no guarding, no rigidity Extremities: no cyanosis, 2+ LE edema Neurological: no new deficit Psychiatric: normal affect, A&O x 3 Hosp A/P - Plan DVT proph w/heparin Acute on chronic systolic heart failure exacerbation Nonischemic cardiomyopathy Hypokalemia Hypertension Obesity with a BMI of 39.2 Abnormal LFTs due to passive hepatic congestion CKD stage III Tobacco dependence History of atrial flutter status post ablation Plan: Continue telemetry monitoring. Continue IV Lasix. Replace potassium. Continue carvedilol with lisinopril. Monitor renal function closely. Add fluid restriction. Counseled on congestive heart failure. Echocardiogram today. Recheck LFTs in a.m. Cardiology input appreciated. Continue other medications as above. Cardiac rehab. Patient will require 2 to 3 days for stabilization.
[2019-12-14] MEDS ORDERED: cloNIDine 0.1 MG TAB PO PRN (19:28)
[2019-12-14] MEDS: Lisinopril 10 MG TAB PO SCH (21:16)
[2019-12-15 04:28] LABS: #Basophils 0.1 thou/uL (0.0-0.2); #Eosinphils 0.4 thou/uL (0.0-0.7); #Lymphocytes 2.3 thou/uL (1.20-3.40); %Basophils 0.9 % (0.0-1.0); %Eosinophils 3.6 % (0.0-10.0); %Lymphocytes 23.6 % (21.0-51.0); %Monocytes 10.3 % (0.0-10.0); %Neutrophils 61.6 % (42.0-75.0); Hemoglobin 14.2 g/dL (14.0-18.0); Mean Corpuscular HGB CONC 31.2 g/dL (32.0-36.0); Mean Corpuscular Hemoglobin 26.9 pg (27.0-31.0); Mean Corpuscular Volume 86.2 fL (78.0-98.0); Mean Platelet Volume 8.8 fL (7.4-10.4); Platelet Count 213 thou/uL (130-400); RBC Distribution Width 15.7 % (11.5-14.5); Red Blood Cell (RBC) Count 5.28 mill/uL (4.70-6.10); White Blood Cell (WBC) Count 9.7 thou/uL (4.8-10.8)
[2019-12-15 04:51] LABS: ALT (SGPT) 16 U/L (8-55); AST (SGOT) 19 U/L (5-34); Albumin 3.6 g/dL (3.5-5.0); Alkaline Phosphatase 76 U/L (40-110); Anion Gap 12 mmol/L (10-20); BUN (Urea Nitrogen) 30 mg/dL (8.9-20.6); Bilirubin, Total 1.9 mg/dL (0.2-1.2); Calc. Creatinine Clearance 81 mL/min (70-130); Calcium 8.7 mg/dL (7.8-10.44); Carbon Dioxide 26 mmol/L (22-29); Chloride 101 mmol/L (98-107); Estimated GFR-MDRD 35; Globulin 2.8 g/dL (2.4-3.5); Glucose 109 mg/dL (70-105); Magnesium 1.9 mg/dL (1.6-2.6); Potassium 3.8 mmol/L (3.5-5.1); Protein, Total 6.4 g/dL (6.0-8.3); Sodium 135 mmol/L (136-145)
[2019-12-15] MEDS: Furosemide 40 MG/4 ML VIAL SLOW IVP SCH ×2 (06:05→14:03)
[2019-12-15 07:36] VITALS: BMI 38.2
[2019-12-15] MEDS: Carvedilol 25 MG TAB PO SCH ×2 (08:24→16:58)
[2019-12-15] MEDS: Potassium Chloride 20 MEQ TAB PO SCH ×2 (08:25→16:58)
[2019-12-15] MEDS: Lisinopril 10 MG TAB PO SCH ×2 (08:25→20:24)
[2019-12-15] MEDS: Aspirin 81 mg Enteric Coated Tablet PO SCH (08:25)
[2019-12-15] MEDS: Spironolactone 25 MG TAB PO SCH (08:25)
[2019-12-15] MEDS: Famotidine 20 MG TAB PO SCH ×2 (08:25→20:24)
[2019-12-15] MEDS: Heparin 5,000 UNITS/ML VIAL SC SCH ×3 (08:26→20:26)
[2019-12-15 15:49] LABS: Amphetamine Not Detected (NotDetected); Barbiturates Screen Not Detected (NotDetected); Benzodiazepine Screen Not Detected (NotDetected); Cocaine Metabolite Screen Not Detected (NotDetected); Medtox Reader # READER 4; Methadone Not Detected (NotDetected); Methamphetamine Not Detected (NotDetected); Opiate Screen Not Detected (NotDetected); Oxycodone Screen Not Detected (NotDetected); Phencyclidine (PCP) Not Detected (NotDetected); THC/Cannabinoid Screen Not Detected (NotDetected); Tricyclic Screen Not Detected (NotDetected)
[2019-12-15 15:50] LABS: Medtox Control Line Valid? VALID (VALID)
--- NOTE | 2019-12-15 17:06 | PDOC.CPN ---
- Subjective Date: 12/15/19 Time: 16:58 Interval history: No new issues. He is feeling back to baseline. No SOB. No chest pain. - Review of Systems General: denies: fever/chills, weight/appetite/sleep changes, night sweats, fatigue Respiratory: denies: cough, congestion, shortness of breath, exercise intolerance Cardiovascular: denies: chest pain, palpitation, edema, paroxysmal nocturnal dyspnea, orthopnea Gastrointestinal: denies: nausea, vomiting, diarrhea, constipation, abd pain, GI bleeding Musculoskeletal: denies: pain, tenderness, stiffness, swelling, arthritis/ arthralgias Neurological: denies: numbness, syncope, seizure, weakness - Objective Allergies/Adverse Reactions: Allergies Allergy/AdvReac Type Severity Reaction Status Date / Time No Known Allergies Allergy Verified 12/14/19 02:52 Visit Medications: Current Medications Acetaminophen (Tylenol) 650 mg PO Q4H PRN PRN Reason: Headache/Fever/Mild Pain (1-3) Aspirin (Ecotrin) 81 mg PO DAILY [facility] Last Admin: 12/15/19 08:25 Dose: 81 mg Calcium Carbonate (Tums) 1,000 mg PO Q4H PRN PRN Reason: Heartburn or Indigestion Carvedilol (Coreg) 25 mg PO BID-[facility] Last Admin: 12/15/19 16:58 Dose: 25 mg Clonidine (Catapres) 0.1 mg PO Q4H PRN PRN Reason: SBP Greater Than 180 Famotidine (Pepcid) 20 mg PO BID [facility] Last Admin: 12/15/19 08:25 Dose: 20 mg Furosemide (Lasix) 40 mg SLOW IVP 0600,1400 [facility] Last Admin: 12/15/19 14:03 Dose: 40 mg Heparin Sodium (Porcine) (Heparin) 5,000 units SC TID [facility] Last Admin: 12/15/19 14:03 Dose: 5,000 units Lisinopril (Zestril) 10 mg PO BID [facility] Last Admin: 12/15/19 08:25 Dose: 10 mg Metoprolol Tartrate (Lopressor) 5 mg IVP Q6H PRN PRN Reason: SBP>140 Last Admin: 12/14/19 06:09 Dose: 5 mg [facility]assium [facility] Admin: 12/15/19 16:58 Dose: 20 meq Senna/Docusate Sodium (Senokot S) 2 tab PO BIDPRN PRN PRN Reason: Constipation Sodium Chloride (Flush - Normal Saline) 10 ml IVF PRN PRN PRN Reason: Saline Flush Spironolactone (Aldactone) 12.5 mg PO QAM-WM [facility] Last Admin: 12/15/19 08:25 Dose: 12.5 mg Vital Signs & Weight: Vital Signs Temp Pulse Resp BP BP Pulse Ox 12/15/19 15:16 97.7 F 80 18 140/96 H 97 12/15/19 11:35 97.6 F 81 14 141/97 H 98 12/15/19 07:30 97.5 F L 78 14 134/87 97 Weight 257 lb 1.6 oz - Physical Exam General: alert & oriented x3 HEENT: mucus membranes moist Neck: supple neck Cardiac: no murmur Lungs: clear to auscultation Neuro: grossly intact Abdomen: active bowel sounds Extremities: no edema Skin: clear Musculoskeletal: no pain - Labs Result Diagrams: 12/15/19 04:17 12/15/19 04:17 Troponin/CKMB CK-MB (CK-2) 3.5 ng/mL (0-6.6) 12/13/19 14:26 Troponin I 0.051 ng/mL (< 0.028) H 12/13/19 21:25 - Telemetry Sinus rhythms and dysrhythmias: sinus rhythm - Assessment/Plan Assessment/Plan: 1. Non ischemic cardiomyopathy 2. Acute on chronic systolic heart failure EF at 20-25% on echo yesterday. 3. Dietary indiscretions. 4. HTN PLAN: - Back to baseline. - Seems euvolemic. - EF remains low and he has been on medical therapy and EF remains under 30%. Will recommend an AICD for primary prevention of SCD. He agrees to this. Will consult EP.
--- NOTE | 2019-12-15 20:13 | PDOC.HOSPP ---
- Subjective Encounter Date: 12/15/19 Encounter Time: 14:00 Subjective: Patient seen and examined for CHF. SOB/Edema improving. No cough/CP. No new complaints. No overnight events - Objective Vital Signs & Weight: Vital Signs (12 hours) Temp Pulse Resp BP Pulse Ox 12/15/19 16:58 78 123/76 12/15/19 15:16 97.7 F 80 18 140/96 H 97 12/15/19 11:35 97.6 F 81 14 141/97 H 98 Weight Weight 257 lb 1.6 oz I&O: 12/14/19 12/15/19 12/16/19 06:59 06:59 06:59 Intake Total 720 1500 1820 Output Total 2600 2700 5900 Balance -2361 -1200 -4678 Result Diagrams: 12/15/19 04:17 12/16/19 03:42 EKG Reviewed by me: Yes (Tele SR) Hospitalist ROS - Review of Systems Respiratory: reports: SOB with excertion. denies: cough, dry, shortness of breath, hemoptysis, pleuritic pain, sputum, wheezing, other Cardiovascular: denies: chest pain, palpitations, orthopnea, paroxysmal noc. dyspnea, edema, light headedness, other - Medication Medications: Active Medications Generic Name Dose Route Start Last Admin Trade Name Calryleq PRN Reason Stop Dose Admin Aspirin 81 mg 12/14/19 09:00 12/15/19 08:25 Ecotrin PO 81 mg DAILY [facility] Administration Carvedilol 25 mg 12/14/19 17:00 12/15/19 16:58 Coreg PO 25 mg BID-WM [facility] Administration Famotidine 20 mg 12/14/19 09:00 12/15/19 08:25 Pepcid PO 20 mg BID [facility] Administration Furosemide 40 mg 12/14/19 14:00 12/15/19 14:03 Lasix SLOW IVP 40 mg 0600,1400 [facility] Administration Heparin Sodium (Porcine) 5,000 units 12/13/19 21:00 12/15/19 14:03 Heparin SC 5,000 units TID [facility] Administration Lisinopril 10 mg 12/14/19 21:00 12/15/19 08:25 Zestril PO 10 mg BID [facility] Administration Metoprolol Tartrate 5 mg 12/13/19 20:39 08/04/20 06:09 Lopressor IVP 5 mg Q6H PRN Administration SBP>140 Potassium Chloride 20 meq 12/15/19 08:00 12/15/19 16:58 K-Dur PO 20 meq BID-WM [facility] Administration Spironolactone 12.5 mg 12/15/19 08:00 12/15/19 08:25 Aldactone PO 12.5 mg QAM-WM [facility] Administration - Exam General Appearance: NAD Neck: supple, JVD Heart: RRR, no gallops Respiratory: rales, rhonchi Gastrointestinal: soft, no guarding, no rigidity Extremities: no cyanosis, no clubbing, 2+ LE edema Psychiatric: A&O x 3 Hosp A/P - Plan DVT proph w/heparin, DVT proph w/SCDs Acute on chronic systolic heart failure exacerbation Nonischemic cardiomyopathy Hypokalemia Hypertension Obesity with a BMI of 39.2 Abnormal LFTs due to passive hepatic congestion CKD stage III Tobacco dependence History of atrial flutter status post ablation. No need for anticoagulation per cardiology. Plan: 12/15 Cont IV Lasix. Continue fluid restriction. Continue carvedilol with lisinopril. Continue Aldactone. Echocardiogram reviewed. Await EP input. Continue other medications. Recheck labs in a.m. 12/14 Continue telemetry monitoring. Continue IV Lasix. Replace potassium. Continue carvedilol with lisinopril. Monitor renal function closely. Add fluid restriction. Counseled on congestive heart failure. Echocardiogram today. Recheck LFTs in a.m. Cardiology input appreciated. Continue other medications as above. Cardiac rehab. Patient will require 2 to 3 days for stabilization.
[2019-12-16 04:18] LABS: ALT (SGPT) 17 U/L (8-55); AST (SGOT) 21 U/L (5-34); Albumin 3.7 g/dL (3.5-5.0); Alkaline Phosphatase 82 U/L (40-110); Anion Gap 12 mmol/L (10-20); BUN (Urea Nitrogen) 30 mg/dL (8.9-20.6); Bilirubin, Total 1.8 mg/dL (0.2-1.2); Calc. Creatinine Clearance 81 mL/min (70-130); Calcium 9.4 mg/dL (7.8-10.44); Carbon Dioxide 25 mmol/L (22-29); Chloride 104 mmol/L (98-107); Estimated GFR-MDRD 36; Glucose 101 mg/dL (70-105); Magnesium 2.2 mg/dL (1.6-2.6); Potassium 4.3 mmol/L (3.5-5.1); Protein, Total 6.7 g/dL (6.0-8.3); Sodium 137 mmol/L (136-145)
[2019-12-16] MEDS: Furosemide 40 MG/4 ML VIAL SLOW IVP SCH ×2 (06:32→14:02)
[2019-12-16] MEDS ORDERED: CEFAZOLIN 1 GM VIAL ONE (06:39)
[2019-12-16] MEDS ORDERED: Gentamicin 80 MG/2 ML VIAL ONE (06:39)
[2019-12-16] MEDS ORDERED: Midazolam HCl 2 mg/2 ml Vial ONE (06:41)
[2019-12-16] MEDS ORDERED: Fentanyl 100 MCG/2 ML VIAL ONE (06:41)
--- NOTE | 2019-12-16 06:44 | CON ---
DATE OF CONSULTATION: 12/15/2019 HISTORY OF PRESENT ILLNESS: I am seeing Mr. 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 His problems are: 1. 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 a. Reduced LVEF on 2D echo on 03/18/2019 at 25% to 30%, [id number] TR, moderate MR, severe left atrial enlargement, mild PI. b. Followup echocardiogram from 12/14/2019 reveals LVEF of 30% to 35%, Dr. Pascual's report. 2. History of atrial flutter. a. Status post CTI ablation in 03/2019. 3. Remote history of methamphetamine use. 4. History of tobacco abuse. 5. History of hypertension. ALLERGIES: NONE NOTED. MEDICATIONS: At home, included: 1. Furosemide 40 mg daily. 2. Carvedilol 12.5 mg twice a day. 3. Lisinopril 10 mg daily. SUBJECTIVE: Mr. Neri has been hospitalized recurrently with fluid overload and cardiac arrhythmia issues. He was hospitalized in 05/2018 with LVEF at 30% to 35% at that time. At that point, he was noted to have methamphetamine use, which subsequently he quit. He was again hospitalized in 03/2019 with heart failure symptoms and ongoing atrial flutter. He underwent JOSHUA and CTI ablation at that time. Also on August 28 discharged after a short hospitalization for heart failure exacerbation, now readmitted with heart failure like symptoms. Followup 2D echocardiogram was performed by Dr. Pascual, and LVEF was measured again in the lower level. On telemetry, the patient had nonsustained VT episodes. He does notice frequent palpitation even at home. He denies passing out at this point. He has no stroke-like symptoms. He does have occasional PND and orthopnea prior to admission, currently though is able to lay flat and was subsequently diuresed. He has no bleeding issues and no new infectious symptoms. REVIEW OF SYSTEMS: Rest of 12-point review of systems otherwise unremarkable. PAST MEDICAL HISTORY: As above. SOCIAL HISTORY: The patient denies current smoking, EtOH, or drug abuse. He has history of methamphetamine use, but he admits no recent drug use. FAMILY HISTORY: Significant for cardiomyopathy of the siblings and the parents and also ICD implant was noted in the patient. OBJECTIVE DATA: VITAL SIGNS: Blood pressure is 140/96 heart rate 80, respirations 18, and temperature 97.7 degrees Fahrenheit. GENERAL: Alert and oriented man, in no apparent distress. No elevated BMI. NECK: Supple. Jugular veins not distended. CHEST: Coarse without crackles. HEART: Sounds are regular rate and rhythm. No murmur or gallop. ABDOMEN: Benign. Bowel sounds positive. EXTREMITIES: Lower extremities without edema, clubbing, or cyanosis. Pulses are adequate. NEUROLOGIC: The patient is nonfocal. MUSCULOSKELETAL: Without joint swelling or deformities. SKIN: Without rash. DATABASE: The EKG is reviewed in sinus rhythm, narrow QRS changes. Telemetry strips reveal about a 10-beat nonsustained wide-complex tachycardia, likely ventricular tachycardia. LABORATORY DATA: Sodium 135, potassium 3.8, BUN is 20, and creatinine 2.17. White count 9.7, hemoglobin 14.2, platelet count is 213. Troponin I 0.056 and 0.053 and 0.051. The BNP on admission is 871. Admission chest x-ray showed no acute findings. ASSESSMENT AND PLAN: 1. Mr. 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 We have been monitoring his LVEF , which is reduced in the [id number] range persistently, and now on adequate medical therapy, his LVEF is still below the 35% cutoff. He does have nonsustained ventricular tachycardia on his alarm security or surveillance monitor. We discussed his ongoing risks of malignant ventricular arrhythmias and sudden cardiac . He understands the potential benefit for ICD implant. He voiced understanding of the concept of sudden cardiac prevention with implantable ICD. Pros and cons, rationale, and the risks are all discussed in detail. He understands the risk of infection, bleeding, pneumothorax, lead dislodgement, inappropriate shocks, and device malfunctions and recalls. He is willing to proceed. We will schedule him at an earlier date, like a dual-chamber device is planned and has history of atrial arrhythmias. 2. Vxuvm-ec-flszcha systolic congestive heart failure and nonischemic cardiomyopathy, now better compensated with diuretics. 3. History of atrial flutter without evident recurrence post ablation. 4. History of methamphetamine abuse without recent admitted use. Job ID: [id number] [facility]
[2019-12-16] MEDS ORDERED: Propofol 1,000 MG/100 ML VIAL IV ONE (07:13)
[2019-12-16] MEDS ORDERED: Lidocaine 1% (PF) 30 ML VIAL ONE (08:13)
[2019-12-16] MEDS ORDERED: Promethazine HCl 25 MG/ML VIAL IM PRN (09:14)
[2019-12-16] MEDS ORDERED: Promethazine HCl 25 MG/ML VIAL SLOW IVP PRN (09:14)
[2019-12-16] MEDS ORDERED: Ondansetron HCl/PF 4 MG/2 ML Vial IVP PRN (09:14)
--- NOTE | 2019-12-16 09:21 | RAD ---
Chest one view HISTORY: Defibrillator placement. COMPARISON: 12/13/2019. FINDINGS: Cardiac silhouette is magnified and enlarged. Pulmonary vasculature is now engorged with wi despread reticulonodular interstitial prominence. Small amount of fluid in the right minor fissure. Mediastinum is midline. A dual lead left subclavian cardiac defibrillator is now visible with leads o verlying the right atrium and right ventricle. No evidence of pneumothorax. IMPRESSION : New left subclavian defibrillator is in good radiographic position. Cardiomegaly with interval development of pulmonary vascular congestion/edema.
[2019-12-16] MEDS: Heparin 5,000 UNITS/ML VIAL SC SCH (10:17)
[2019-12-16] MEDS: Carvedilol 25 MG TAB PO SCH (10:20)
[2019-12-16] MEDS: Spironolactone 25 MG TAB PO SCH (10:21)
[2019-12-16] MEDS: Potassium Chloride 20 MEQ TAB PO SCH (10:21)
[2019-12-16] MEDS: Aspirin 81 mg Enteric Coated Tablet PO SCH (10:21)
[2019-12-16] MEDS: Famotidine 20 MG TAB PO SCH (10:22)
[2019-12-16] MEDS: Lisinopril 10 MG TAB PO SCH (10:22)
[2019-12-16] MEDS ORDERED: PROPOFOL 200 MG/20 ML VIAL ONE (11:03)
[2019-12-16 11:37] VITALS: BP 141/90; TEMP 97.5
[2019-12-16] MEDS ORDERED: Cephalexin 250 MG CAP PO SCH ×2 (12:00→23:59)
[2019-12-16] MEDS ORDERED: Iopamidol 370 76% 50 ML VIAL FS ONE (13:46)
[2019-12-16] MEDS ORDERED: CEFAZOLIN 2 GM in Premix Bag 1 BAG IVPB SCH (16:00)
--- NOTE | 2019-12-16 16:00 | DIS ---
DATE OF ADMISSION: 12/13/2019 DATE OF DISCHARGE: 12/16/2019 DISCHARGE DISPOSITION: Home. FOLLOWUP: 1. Follow up with primary care physician at [facility] in 1 week. 2. Follow up with Cardiology, Dr. Pascual and Electrophysiology, Dr. Muñoz in 2 weeks. ALLERGIES: NO KNOWN DRUG ALLERGIES. DISCHARGE MEDICATIONS: 1. Keflex 500 mg four times daily for 1 week. 2. Coreg 25 mg b.i.d. 3. Lasix 40 mg daily. 4. Lisinopril 10 mg b.i.d. 5. Aldactone 12.5 mg daily. Basic metabolic profile after 1 week is recommended. Primary care physician advised to follow. The patient was seen and examined on the day of discharge. Denies any new complaints. No chest pain, shortness of breath, or palpitations reported. BRIEF HOSPITAL COURSE: The patient is a 34-year-old male with nonischemic cardiomyopathy, presented to the emergency room with generalized anasarca with lower extremity edema. His workup was consistent with acute on chronic systolic heart failure exacerbation. He showed good improvement with IV diuretics. His weight came down to 251 pounds from 265 pounds. The patient was evaluated by Cardiology and Electrophysiology. An AICD was placed. He also had some electrolyte abnormalities, which has been replaced. His creatinine at discharge is 2.11. A repeat creatinine after 1 week is recommended. Primary care physician advised to follow. His echocardiogram showed ejection fraction 20% to 25%. with mild concentric LVH, [id number] mitral regurgitation, mild tricuspid regurgitation and mild pulmonic regurgitation. He appears stable for discharge. FINAL DIAGNOSES: 1. Acute on chronic systolic heart failure exacerbation. 2. Status post automatic implantable cardioverter-defibrillator this admission. 3. Nonischemic cardiomyopathy. 4. Hypokalemia. 5. Hypertension. 6. Obesity with a BMI of 39.2. 7. Abnormal LFTs probably due to passive hepatic congestion, improving. 8. Chronic kidney disease, stage 3. 9. Tobacco dependence, the patient was counseled. 10. History of atrial flutter with ablation in the past. The patient does not require any anticoagulation per Cardiology. The patient understands the above plan of care. Job ID: [id number]
== END 2019-12-16 14:00 | disposition home or self-care (01) | DRG 226 ==
LOC: ERS 12:33 → ERHOLD 16:49 → OBSVTOIN 16:49 → 2NO 21:19
PROVIDERS: ADMIT Pediatrics; ATTEND Pediatrics
PROC: 0JH608Z Insertion of Defibrillator Generator into Chest Subcutaneous Tissue and Fascia, Open Approach (ICD-10-PCS; principal; 2019-12-13)
PROC: 02HK3KZ Insertion of Defibrillator Lead into Right Ventricle, Percutaneous Approach (ICD-10-PCS; 2019-12-13)
PROC: 02H63KZ Insertion of Defibrillator Lead into Right Atrium, Percutaneous Approach (ICD-10-PCS; 2019-12-13)
DX: I13.0 Hypertensive heart and chronic kidney disease with heart failure and stage 1 through stage 4 chronic kidney disease, or unspecified chronic kidney disease (principal); I50.23 Acute on chronic systolic (congestive) heart failure; Z20.828 Contact with and (suspected) exposure to other viral communicable diseases; F17.210 Nicotine dependence, cigarettes, uncomplicated; I37.1 Nonrheumatic pulmonary valve insufficiency; I08.1 Rheumatic disorders of both mitral and tricuspid valves; N18.3 Chronic kidney disease, stage 3 (moderate); I42.8 Other cardiomyopathies; E87.6 Hypokalemia; E66.9 Obesity, unspecified; F15.10 Other stimulant abuse, uncomplicated; Z68.39 Body mass index [BMI] 39.0-39.9, adult; Z79.899 Other long term (current) drug therapy
CPT/HCPCS: 33249; 36005; 36415; 71045; 75820; 76942; 80048; 80053; 80306; 82553; 83735; 83880; 84484; 85025; 87635; 93005; 93306; 93641; 93798; 96372; 96374; 96375; 96376; C1721; C1777; C1898; G0378; J0690; J1580; J1644; J1940; J2001; J2250; J2704; J3010; J3475; J3490; Q9967; U0003

== ENCOUNTER 2020-09-16 10:24 | Inpatient (IN) | payer SELFPAY ==
[2020-09-16 11:11] LABS: #Basophils 0.1 thou/uL (0.0-0.2); #Eosinphils 0.7 thou/uL (0.0-0.7); #Monocytes 0.9 thou/uL (0.11-0.59); #Neutrophils 7.3 thou/uL (1.40-6.50); %Basophils 0.7 % (0.0-1.0); %Eosinophils 6.8 % (0.0-10.0); %Lymphocytes 18.2 % (21.0-51.0); %Monocytes 7.9 % (0.0-10.0); %Neutrophils 66.4 % (42.0-75.0); Hemoglobin 14.8 g/dL (14.0-18.0); Mean Corpuscular HGB CONC 31.4 g/dL (32.0-36.0); Mean Corpuscular Hemoglobin 25.8 pg (27.0-31.0); Mean Corpuscular Volume 82.2 fL (78.0-98.0); Platelet Count 213 thou/uL (130-400); RBC Distribution Width 16.3 % (11.5-14.5); Red Blood Cell (RBC) Count 5.73 mill/uL (4.70-6.10)
[2020-09-16 11:36] LABS: ALT (SGPT) 21 U/L (8-55); AST (SGOT) 24 U/L (5-34); Albumin 3.6 g/dL (3.5-5.0); Alkaline Phosphatase 87 U/L (40-110); Anion Gap 13 mmol/L (10-20); BUN (Urea Nitrogen) 34 mg/dL (8.9-20.6); Bilirubin, Total 2.1 mg/dL (0.2-1.2); Calc. Creatinine Clearance 0 mL/min (70-130); Calcium 9.7 mg/dL (7.8-10.44); Carbon Dioxide 21 mmol/L (22-29); Chloride 105 mmol/L (98-107); Globulin 2.9 g/dL (2.4-3.5); Glucose 119 mg/dL (70-105); Magnesium 1.9 mg/dL (1.6-2.6); Potassium 3.9 mmol/L (3.5-5.1); Protein, Total 6.5 g/dL (6.0-8.3); Sodium 135 mmol/L (136-145)
[2020-09-16 11:56] LABS: CKMB 3.6 ng/mL (0-6.6)
[2020-09-16] MEDS ORDERED: Ondansetron PF 4 MG/2 ML Vial IVP PRN (13:15)
[2020-09-16] MEDS ORDERED: Ondansetron ODT 4 MG TAB PO PRN (13:15)
[2020-09-16 14:53] LABS: Troponin I 0.095 ng/mL (< 0.028)
[2020-09-16] MEDS: Metoprolol Tartrate 25 MG TAB PO SCH ×2 (17:09→21:04)
[2020-09-16] MEDS: Furosemide 20 MG/2 ML VIAL SLOW IVP SCH (17:09)
[2020-09-16 17:39] VITALS: BMI 39.1
[2020-09-16 19:07] LABS: Troponin I 0.081 ng/mL (< 0.028)
[2020-09-16 21:04] LABS: SARS-CoV-2 PCR by NAA Not Detected (NotDetected)
[2020-09-17] MEDS ORDERED: Melatonin 3 MG TAB PO PRN (00:49)
[2020-09-17 05:05] LABS: #Basophils 0.1 thou/uL (0.0-0.2); #Eosinphils 0.7 thou/uL (0.0-0.7); #Lymphocytes 2.5 thou/uL (1.20-3.40); #Neutrophils 7.4 thou/uL (1.40-6.50); %Basophils 0.9 % (0.0-1.0); %Eosinophils 6.3 % (0.0-10.0); %Lymphocytes 21.7 % (21.0-51.0); %Monocytes 8.3 % (0.0-10.0); %Neutrophils 62.8 % (42.0-75.0); Hemoglobin 14.8 g/dL (14.0-18.0); Mean Corpuscular HGB CONC 30.8 g/dL (32.0-36.0); Mean Corpuscular Hemoglobin 25.3 pg (27.0-31.0); Mean Corpuscular Volume 82.2 fL (78.0-98.0); Platelet Count 221 thou/uL (130-400); RBC Distribution Width 16.7 % (11.5-14.5); Red Blood Cell (RBC) Count 5.83 mill/uL (4.70-6.10); White Blood Cell (WBC) Count 11.7 thou/uL (4.8-10.8)
[2020-09-17 05:23] LABS: Anion Gap 13 mmol/L (10-20); BUN (Urea Nitrogen) 34 mg/dL (8.9-20.6); Calc. Creatinine Clearance 88 mL/min (70-130); Calcium 9.6 mg/dL (7.8-10.44); Carbon Dioxide 19 mmol/L (22-29); Chloride 105 mmol/L (98-107); Glucose 124 mg/dL (70-105); Sodium 133 mmol/L (136-145)
[2020-09-17] MEDS: Furosemide 20 MG/2 ML VIAL SLOW IVP SCH ×2 (05:29→13:52)
[2020-09-17] MEDS ORDERED: Enoxaparin Sodium 40 MG/0.4 ML SYRINGE SC SCH (09:00)
[2020-09-17] MEDS: Metoprolol Tartrate 25 MG TAB PO SCH (09:04)
[2020-09-17 09:36] VITALS: BP 138/100
[2020-09-17 13:34] VITALS: TEMP 97.9
[2020-09-17] MEDS ORDERED: Enoxaparin Sodium 120 MG/0.8 ML SYRINGE SC SCH (21:00)
[2020-09-17] MEDS ORDERED: Metoprolol Tartrate 25 MG TAB PO SCH (21:00)
[2020-09-18] MEDS ORDERED: Rivaroxaban 10 MG TAB PO SCH (18:00)
== END 2020-09-17 16:35 | disposition left against medical advice (07) | DRG 291 ==
LOC: ERS 10:24 → ERHOLD 13:15 → OBSVTOIN 13:15 → 2SW 16:14
PROVIDERS: ADMIT Family Medicine; ATTEND Internal Medicine
DX: I13.0 Hypertensive heart and chronic kidney disease with heart failure and stage 1 through stage 4 chronic kidney disease, or unspecified chronic kidney disease (principal); I50.23 Acute on chronic systolic (congestive) heart failure; I48.92 Unspecified atrial flutter; Z20.822 Contact with and (suspected) exposure to COVID-19; F17.210 Nicotine dependence, cigarettes, uncomplicated; I42.8 Other cardiomyopathies; N18.30 Chronic kidney disease, stage 3 unspecified; I48.0 Paroxysmal atrial fibrillation; F15.10 Other stimulant abuse, uncomplicated; E66.9 Obesity, unspecified; Z95.810 Presence of automatic (implantable) cardiac defibrillator; Z79.899 Other long term (current) drug therapy; Z68.39 Body mass index [BMI] 39.0-39.9, adult
CPT/HCPCS: 36415; 71045; 78451; 80048; 80053; 82553; 83735; 83880; 84484; 85025; 87635; 93005; 93306; 96374; A9500; G0378; J1650; J1940; U0003; U0005

== ENCOUNTER 2020-09-19 01:51 | Inpatient (IN) | payer SELFPAY ==
[2020-09-19 02:28] LABS: #Basophils 0.1 thou/uL (0.0-0.2); #Eosinphils 0.7 thou/uL (0.0-0.7); #Lymphocytes 2.3 thou/uL (1.20-3.40); #Neutrophils 8.3 thou/uL (1.40-6.50); %Eosinophils 5.9 % (0.0-10.0); %Lymphocytes 18.1 % (21.0-51.0); %Monocytes 8.2 % (0.0-10.0); %Neutrophils 66.8 % (42.0-75.0); Hemoglobin 14.6 g/dL (14.0-18.0); Mean Corpuscular HGB CONC 30.5 g/dL (32.0-36.0); Mean Corpuscular Hemoglobin 25.2 pg (27.0-31.0); Mean Corpuscular Volume 82.4 fL (78.0-98.0); Mean Platelet Volume 8.8 fL (7.4-10.4); Platelet Count 223 thou/uL (130-400); RBC Distribution Width 16.4 % (11.5-14.5); White Blood Cell (WBC) Count 12.5 thou/uL (4.8-10.8)
[2020-09-19 02:46] LABS: ALT (SGPT) 110 U/L (8-55); AST (SGOT) 125 U/L (5-34); Albumin 3.4 g/dL (3.5-5.0); Alkaline Phosphatase 81 U/L (40-110); Anion Gap 16 mmol/L (10-20); BUN (Urea Nitrogen) 32 mg/dL (8.9-20.6); Bilirubin, Total 2.5 mg/dL (0.2-1.2); Calc. Creatinine Clearance 0 mL/min (70-130); Calcium 8.7 mg/dL (7.8-10.44); Carbon Dioxide 16 mmol/L (22-29); Chloride 104 mmol/L (98-107); Globulin 2.8 g/dL (2.4-3.5); Glucose 127 mg/dL (70-105); Potassium 3.7 mmol/L (3.5-5.1); Protein, Total 6.2 g/dL (6.0-8.3); Sodium 132 mmol/L (136-145)
[2020-09-19 03:13] LABS: CKMB 3.1 ng/mL (0-6.6)
[2020-09-19] MEDS ORDERED: HYDROcodone/Acetaminophen 5/325 mg Tablet PO PRN (03:59)
[2020-09-19] MEDS ORDERED: Acetaminophen 325 MG TAB PO PRN (03:59)
[2020-09-19] MEDS ORDERED: Aspirin 325 MG TAB ONE (04:04)
[2020-09-19] MEDS ORDERED: Aspirin 325 mg Enteric Coated Tablet PO SCH (04:15)
[2020-09-19 05:17] VITALS: BMI 38.9
[2020-09-19 05:20] LABS: Troponin I 0.062 ng/mL (< 0.028)
[2020-09-19] MEDS: Furosemide 40 MG/4 ML VIAL SLOW IVP SCH ×2 (05:30→15:44)
[2020-09-19] MEDS ORDERED: Furosemide 40 MG/4 ML VIAL SLOW IVP SCH (06:00)
[2020-09-19] MEDS ORDERED: Nitroglycerin 0.4 MG TAB (25 Tab Bottle) SL PRN (06:19)
[2020-09-19 06:48] LABS: HBCM Index 0.06 S/CO (0-0.79); HBSAg Index 0.19 S/CO (0-0.99); Hep A IgM AB Non-Reactive (NonReactive); Hep A IgM S/CO 0.08 S/CO (0-0.79); Hep B Surf Ag Non-Reactive S/CO (NonReactive); Hep C IgG Ab Non-Reactive (NonReactive); Hep C Index 0.06 S/CO (0-0.79); Hepatitis B Core IgM Abs Non-Reactive (NonReactive)
[2020-09-19 08:42] LABS: Troponin I 0.054 ng/mL (< 0.028)
[2020-09-19] MEDS: Heparin 5,000 UNITS/ML VIAL SC SCH ×2 (08:52→15:44)
[2020-09-19] MEDS: Carvedilol 25 MG TAB PO SCH ×2 (08:53→18:23)
[2020-09-19] MEDS ORDERED: Enoxaparin Sodium 40 MG/0.4 ML SYRINGE SC SCH (09:00)
[2020-09-19] MEDS ORDERED: Enoxaparin Sodium 120 MG/0.8 ML SYRINGE SC SCH (21:00)
[2020-09-19] MEDS ORDERED: Apixaban 2.5 MG TAB PO SCH (21:00)
[2020-09-19] MEDS: Apixaban 5 MG TAB PO SCH (22:04)
[2020-09-19] MEDS: Amiodarone 200 MG TAB PO SCH (22:04)
[2020-09-20] MEDS ORDERED: Melatonin 3 MG TAB PO PRN (03:57)
[2020-09-20] MEDS ORDERED: diphenhydrAMINE 25 MG CAP PO PRN (03:57)
[2020-09-20 05:28] LABS: #Basophils 0.1 thou/uL (0.0-0.2); #Eosinphils 1.2 thou/uL (0.0-0.7); #Monocytes 1.2 thou/uL (0.11-0.59); #Neutrophils 8.3 thou/uL (1.40-6.50); %Basophils 0.7 % (0.0-1.0); %Eosinophils 8.3 % (0.0-10.0); %Lymphocytes 21.8 % (21.0-51.0); %Monocytes 8.8 % (0.0-10.0); %Neutrophils 60.4 % (42.0-75.0); Hemoglobin 14.6 g/dL (14.0-18.0); Mean Corpuscular HGB CONC 30.1 g/dL (32.0-36.0); Mean Corpuscular Hemoglobin 25.2 pg (27.0-31.0); Mean Corpuscular Volume 83.5 fL (78.0-98.0); Mean Platelet Volume 8.9 fL (7.4-10.4); Platelet Count 207 thou/uL (130-400); RBC Distribution Width 16.4 % (11.5-14.5); Red Blood Cell (RBC) Count 5.82 mill/uL (4.70-6.10); White Blood Cell (WBC) Count 13.8 thou/uL (4.8-10.8)
[2020-09-20 05:55] LABS: Anion Gap 15 mmol/L (10-20); BUN (Urea Nitrogen) 37 mg/dL (8.9-20.6); Calc. Creatinine Clearance 74 mL/min (70-130); Calcium 8.9 mg/dL (7.8-10.44); Carbon Dioxide 20 mmol/L (22-29); Chloride 101 mmol/L (98-107); Glucose 119 mg/dL (70-105); Potassium 4.6 mmol/L (3.5-5.1); Sodium 131 mmol/L (136-145)
[2020-09-20] MEDS: Furosemide 40 MG/4 ML VIAL SLOW IVP SCH ×3 (06:01→15:42)
[2020-09-20] MEDS: Carvedilol 25 MG TAB PO SCH (09:17)
[2020-09-20] MEDS: Aspirin Chewable 81 MG TAB PO SCH (09:19)
[2020-09-20] MEDS: Apixaban 5 MG TAB PO SCH ×2 (09:19→20:16)
[2020-09-20] MEDS: Amiodarone 200 MG TAB PO SCH (09:19)
[2020-09-20] MEDS ORDERED: Furosemide 40 MG/4 ML VIAL SLOW IVP SCH (09:30)
[2020-09-20 10:31] LABS: ALT (SGPT) 140 U/L (8-55); AST (SGOT) 112 U/L (5-34); Albumin 3.8 g/dL (3.5-5.0); Alkaline Phosphatase 104 U/L (40-110); Bilirubin, Direct 1.4 mg/dL (0.1-0.3); Bilirubin, Total 2.9 mg/dL (0.2-1.2); Protein, Total 6.6 g/dL (6.0-8.3)
[2020-09-20 11:02] LABS: Bilirubin Negative (Negative); Blood, Urine Negative (Negative); Clarity Clear (Clear); Glucose, Urine (Dipstick) Normal (Negative); Ketone, Urine Negative (Negative); Leukocyte Negative Leu/uL (Negative); Nitrite Negative (Negative); Protein, Urine (Dipstick) 70 mg/dL (Neg-Trace); RBC/HPF 0-3 HPF (0-3); Specific Gravity, Urine 1.021 (1.002-1.036); Squamous Epithelial 0-3 HPF (0-3); WBC/HPF 0-3 HPF (0-3); pH, Urine 5.5 (5.0-9.0)
[2020-09-20 11:04] LABS: Bacteria/HPF 1+ HPF (None Seen)
[2020-09-20 11:11] LABS: Cocaine Metabolite Screen Not Detected (NotDetected); Medtox Reader # READER 4; Methamphetamine Detected (NotDetected); Phencyclidine (PCP) Not Detected (NotDetected); THC/Cannabinoid Screen Not Detected (NotDetected)
[2020-09-20 11:12] LABS: Amphetamine Not Detected (NotDetected); Barbiturates Screen Not Detected (NotDetected); Benzodiazepine Screen Not Detected (NotDetected); Medtox Control Line Valid? VALID (VALID); Methadone Not Detected (NotDetected); Opiate Screen Not Detected (NotDetected); Oxycodone Screen Not Detected (NotDetected); Tricyclic Screen Not Detected (NotDetected)
[2020-09-20 11:22] LABS: Creatinine, Urine 237.86 mg/dL (63-166); Protein, Urine Random Quant 73 mg/dL (1-14); Sodium, Urine Less than 20 mmol/L (Not Available); Urea Nitrogen, Random Urine 651 mg/dl
[2020-09-20] MEDS: Lorazepam 0.5 MG TAB PO PRN (16:23)
[2020-09-20] MEDS: Carvedilol 6.25 MG TAB PO SCH (16:44)
[2020-09-20] MEDS: DOBUTamine 500 mg/250 ml 250 ML IVPB SCH (18:00)
[2020-09-20 18:41] LABS: Actual Bicarbonate (HCO3a) 13.3 mEq/L (22-28); Base Excess (BEa) -5.5 mEq/L (-2.0 to +3.0); Calcium, Ionized (arterial) 1.08 mmol/L (1.12-1.30); Carboxyhemoglobin (COHb) 0.8 gm% (0.0-3.0); Hemoglobin (Hb) 15.6 g/dL (14.0-18.0); O2 Tension (PaO2), arterial 132.6 mmHg (80.0-100.0); Potassium - ABG Lab 4.43 mmol/L (3.70-5.30)
[2020-09-20 18:51] LABS: pH, Arterial 7.55 (7.35-7.45)
[2020-09-20 18:53] LABS: ALV-art Gradient 104.705 mmHg (0-20); CO2 Tension 15.5 mmHg (35.0-45.0); Puncture Site RBA
[2020-09-20 18:57] LABS: Anion Gap 18 mmol/L (10-20); BUN (Urea Nitrogen) 39 mg/dL (8.9-20.6); Calc. Creatinine Clearance 72 mL/min (70-130); Calcium 9.1 mg/dL (7.8-10.44); Carbon Dioxide 17 mmol/L (22-29); Chloride 101 mmol/L (98-107); Glucose 104 mg/dL (70-105); Potassium 4.4 mmol/L (3.5-5.1); Sodium 132 mmol/L (136-145)
[2020-09-20 19:34] LABS: CKMB 3.2 ng/mL (0-6.6)
[2020-09-21 03:49] LABS: Amphetamine Not Detected (NotDetected); Barbiturates Screen Not Detected (NotDetected); Benzodiazepine Screen Not Detected (NotDetected); Cocaine Metabolite Screen Not Detected (NotDetected); Medtox Control Line Valid? VALID (VALID); Medtox Reader # READER 1; Methadone Not Detected (NotDetected); Methamphetamine Detected (NotDetected); Opiate Screen Not Detected (NotDetected); Oxycodone Screen Not Detected (NotDetected); Phencyclidine (PCP) Not Detected (NotDetected); THC/Cannabinoid Screen Not Detected (NotDetected); Tricyclic Screen Not Detected (NotDetected)
[2020-09-21 04:09] LABS: Anion Gap 13 mmol/L (10-20); BUN (Urea Nitrogen) 42 mg/dL (8.9-20.6); Calc. Creatinine Clearance 78 mL/min (70-130); Calcium 8.6 mg/dL (7.8-10.44); Carbon Dioxide 20 mmol/L (22-29); Chloride 102 mmol/L (98-107); Glucose 126 mg/dL (70-105); Magnesium 1.8 mg/dL (1.6-2.6); Potassium 3.6 mmol/L (3.5-5.1); Sodium 131 mmol/L (136-145)
[2020-09-21] MEDS: Furosemide 40 MG/4 ML VIAL SLOW IVP SCH ×2 (06:28→15:46)
[2020-09-21] MEDS: DOBUTamine 500 mg/250 ml 250 ML IVPB SCH ×2 (06:36→19:44)
[2020-09-21] MEDS ORDERED: Furosemide 40 MG TAB PO SCH (07:30)
[2020-09-21] MEDS: Aspirin Chewable 81 MG TAB PO SCH (09:10)
[2020-09-21] MEDS: Apixaban 5 MG TAB PO SCH ×2 (09:10→19:44)
[2020-09-21] MEDS: Carvedilol 6.25 MG TAB PO SCH ×3 (09:30→17:54)
[2020-09-21] MEDS ORDERED: Spironolactone 25 MG TAB PO SCH (11:15)
[2020-09-21] MEDS: Lorazepam 0.5 MG TAB PO PRN (19:44)
[2020-09-22 03:45] LABS: #Basophils 0.1 thou/uL (0.0-0.2); #Eosinphils 1.3 thou/uL (0.0-0.7); #Lymphocytes 2.4 thou/uL (1.20-3.40); #Monocytes 1.5 thou/uL (0.11-0.59); #Neutrophils 8.4 thou/uL (1.40-6.50); %Basophils 0.8 % (0.0-1.0); %Eosinophils 9.6 % (0.0-10.0); %Lymphocytes 17.6 % (21.0-51.0); %Monocytes 10.7 % (0.0-10.0); %Neutrophils 61.3 % (42.0-75.0); Hemoglobin 13.5 g/dL (14.0-18.0); Mean Corpuscular HGB CONC 31.9 g/dL (32.0-36.0); Mean Corpuscular Hemoglobin 26.2 pg (27.0-31.0); Mean Corpuscular Volume 82.2 fL (78.0-98.0); Mean Platelet Volume 8.6 fL (7.4-10.4); Platelet Count 201 thou/uL (130-400); RBC Distribution Width 15.9 % (11.5-14.5); Red Blood Cell (RBC) Count 5.15 mill/uL (4.70-6.10); White Blood Cell (WBC) Count 13.6 thou/uL (4.8-10.8)
[2020-09-22 04:15] LABS: Anion Gap 13 mmol/L (10-20); BUN (Urea Nitrogen) 35 mg/dL (8.9-20.6); Calc. Creatinine Clearance 81 mL/min (70-130); Calcium 8.2 mg/dL (7.8-10.44); Carbon Dioxide 21 mmol/L (22-29); Chloride 101 mmol/L (98-107); Glucose 108 mg/dL (70-105); Potassium 3.3 mmol/L (3.5-5.1); Sodium 132 mmol/L (136-145)
[2020-09-22] MEDS: Furosemide 40 MG/4 ML VIAL SLOW IVP SCH ×2 (05:59→15:19)
[2020-09-22] MEDS ORDERED: Potassium Chloride 20 MEQ TAB PO SCH (07:30)
[2020-09-22] MEDS ORDERED: Spironolactone 25 MG TAB PO SCH (08:00)
[2020-09-22] MEDS: Spironolactone 25 MG TAB PO SCH (09:45)
[2020-09-22] MEDS: Carvedilol 6.25 MG TAB PO SCH ×2 (09:45→16:52)
[2020-09-22] MEDS: Apixaban 5 MG TAB PO SCH ×2 (09:45→20:15)
[2020-09-22] MEDS: Aspirin Chewable 81 MG TAB PO SCH (09:45)
[2020-09-22] MEDS: Sodium Bicarbonate Tab 325 MG TAB PO SCH ×2 (09:46→20:15)
[2020-09-22] MEDS: DOBUTamine 500 mg/250 ml 250 ML IVPB SCH (10:08)
[2020-09-23 04:01] LABS: #Eosinphils 1.2 thou/uL (0.0-0.7); #Lymphocytes 2.2 thou/uL (1.20-3.40); #Monocytes 1.2 thou/uL (0.11-0.59); #Neutrophils 9.2 thou/uL (1.40-6.50); %Basophils 0.3 % (0.0-1.0); %Eosinophils 8.4 % (0.0-10.0); %Monocytes 8.8 % (0.0-10.0); %Neutrophils 66.5 % (42.0-75.0); Hemoglobin 14.5 g/dL (14.0-18.0); Mean Corpuscular HGB CONC 31.4 g/dL (32.0-36.0); Mean Corpuscular Volume 82.7 fL (78.0-98.0); Mean Platelet Volume 8.9 fL (7.4-10.4); Platelet Count 207 thou/uL (130-400); RBC Distribution Width 15.9 % (11.5-14.5); Red Blood Cell (RBC) Count 5.59 mill/uL (4.70-6.10); White Blood Cell (WBC) Count 13.9 thou/uL (4.8-10.8)
[2020-09-23 04:16] LABS: Anion Gap 15 mmol/L (10-20); BUN (Urea Nitrogen) 27 mg/dL (8.9-20.6); Calc. Creatinine Clearance 95 mL/min (70-130); Carbon Dioxide 18 mmol/L (22-29); Chloride 103 mmol/L (98-107); Potassium 3.6 mmol/L (3.5-5.1); Sodium 132 mmol/L (136-145)
[2020-09-23 04:17] LABS: Calcium 8.6 mg/dL (7.8-10.44); Glucose 165 mg/dL (70-105); Magnesium 1.8 mg/dL (1.6-2.6)
[2020-09-23] MEDS: Furosemide 40 MG/4 ML VIAL SLOW IVP SCH ×2 (06:26→15:05)
[2020-09-23] MEDS: Sodium Bicarbonate Tab 325 MG TAB PO SCH ×3 (08:33→21:45)
[2020-09-23] MEDS: Aspirin Chewable 81 MG TAB PO SCH (08:34)
[2020-09-23] MEDS: Spironolactone 25 MG TAB PO SCH (08:34)
[2020-09-23] MEDS: Carvedilol 6.25 MG TAB PO SCH ×2 (08:34→18:08)
[2020-09-23] MEDS: Apixaban 5 MG TAB PO SCH ×2 (08:34→21:45)
[2020-09-23] MEDS: hydrALAZINE 10 MG TAB PO SCH ×2 (15:05→21:46)
[2020-09-23] MEDS: Isosorbide Dinitrate 5 MG TAB PO SCH ×2 (15:05→21:46)
[2020-09-23] MEDS: Lorazepam 0.5 MG TAB PO PRN (21:45)
[2020-09-24] MEDS: hydrALAZINE 10 MG TAB PO SCH (05:49)
[2020-09-24] MEDS: Isosorbide Dinitrate 5 MG TAB PO SCH (05:50)
[2020-09-24 05:57] LABS: Albumin 3.6 g/dL (3.5-5.0); Anion Gap 15 mmol/L (10-20); BUN (Urea Nitrogen) 22 mg/dL (8.9-20.6); BUN/Creatinine Ratio 12.64; Calc. Creatinine Clearance 102 mL/min (70-130); Calcium 8.9 mg/dL (7.8-10.44); Carbon Dioxide 18 mmol/L (22-29); Chloride 101 mmol/L (98-107); Glucose 342 mg/dL (70-105); Phosphorus 3.1 mg/dL (2.3-4.7); Sodium 130 mmol/L (136-145)
[2020-09-24] MEDS ORDERED: hydrALAZINE 10 MG TAB PO SCH ×2 (06:00→07:30)
[2020-09-24] MEDS ORDERED: Isosorbide Dinitrate 5 MG TAB PO SCH ×2 (06:45→07:30)
[2020-09-24] MEDS: Sodium Bicarbonate Tab 325 MG TAB PO SCH (08:43)
[2020-09-24] MEDS: Aspirin Chewable 81 MG TAB PO SCH (08:44)
[2020-09-24] MEDS: Apixaban 5 MG TAB PO SCH (08:44)
[2020-09-24] MEDS: Carvedilol 6.25 MG TAB PO SCH (08:45)
[2020-09-24] MEDS: Spironolactone 25 MG TAB PO SCH (08:45)
[2020-09-24] MEDS ORDERED: Torsemide 20 MG TAB PO SCH (09:00)
[2020-09-24 11:09] VITALS: BP 163/101; TEMP 97.5
[2020-09-24] MEDS ORDERED: Isosorbide Dinitrate 20 MG TAB PO SCH (14:00)
== END 2020-09-24 12:22 | disposition home or self-care (01) | DRG 291 ==
LOC: ERS 01:51 → 2SE 03:53 → OBSVTOIN 16:42 → IMCU/EMU 09-20 18:40 → 2NO 09-23 09:31
PROVIDERS: ADMIT Student in an Organized Health Care Education/Training Program; ATTEND Internal Medicine
PROC: 3E033XZ Introduction of Vasopressor into Peripheral Vein, Percutaneous Approach (ICD-10-PCS; principal; 2020-09-20)
DX: I13.0 Hypertensive heart and chronic kidney disease with heart failure and stage 1 through stage 4 chronic kidney disease, or unspecified chronic kidney disease (principal); I50.23 Acute on chronic systolic (congestive) heart failure; J96.01 Acute respiratory failure with hypoxia; R57.0 Cardiogenic shock; E87.1 Hypo-osmolality and hyponatremia; N17.9 Acute kidney failure, unspecified; E87.2 Acidosis; I42.8 Other cardiomyopathies; N18.30 Chronic kidney disease, stage 3 unspecified; F15.10 Other stimulant abuse, uncomplicated; F17.210 Nicotine dependence, cigarettes, uncomplicated; R07.89 Other chest pain; E66.9 Obesity, unspecified; R74.01 Elevation of levels of liver transaminase levels; I48.0 Paroxysmal atrial fibrillation; E87.6 Hypokalemia; Z79.899 Other long term (current) drug therapy; Z95.810 Presence of automatic (implantable) cardiac defibrillator; Z68.39 Body mass index [BMI] 39.0-39.9, adult; Z79.01 Long term (current) use of anticoagulants; Z79.82 Long term (current) use of aspirin
CPT/HCPCS: 36415; 36600; 71045; 76705; 80048; 80053; 80069; 80074; 80076; 80306; 81001; 82553; 82570; 82805; 83735; 83880; 84156; 84300; 84484; 84540; 85025; 93005; 93010; 94760; 96372; 96374; G0378; J1250; J1644; J1940; Q0163

== ENCOUNTER 2021-04-25 23:35 | Inpatient (IN) | payer SELFPAY ==
[2021-04-26 00:09] LABS: #Basophils 0.1 thou/uL (0.0-0.2); #Eosinphils 0.1 thou/uL (0.0-0.7); #Lymphocytes 2.2 thou/uL (1.20-3.40); #Monocytes 0.9 thou/uL (0.11-0.59); #Neutrophils 9.5 thou/uL (1.40-6.50); %Basophils 0.6 % (0.0-1.0); %Eosinophils 1.1 % (0.0-10.0); %Neutrophils 74.4 % (42.0-75.0); Hemoglobin 14.2 g/dL (14.0-18.0); Mean Corpuscular HGB CONC 31.9 g/dL (32.0-36.0); Mean Corpuscular Hemoglobin 26.5 pg (27.0-31.0); Mean Corpuscular Volume 83.2 fL (78.0-98.0); Mean Platelet Volume 7.5 fL (7.4-10.4); Platelet Count 322 thou/uL (130-400); RBC Distribution Width 16.5 % (11.5-14.5); Red Blood Cell (RBC) Count 5.35 mill/uL (4.70-6.10); White Blood Cell (WBC) Count 12.7 thou/uL (4.8-10.8)
[2021-04-26 00:30] LABS: ALT (SGPT) 15 U/L (8-55); AST (SGOT) 21 U/L (5-34); Albumin 3.3 g/dL (3.5-5.0); Alkaline Phosphatase 76 U/L (40-110); Anion Gap 14 mmol/L (10-20); BUN (Urea Nitrogen) 26 mg/dL (8.9-20.6); Calc. Creatinine Clearance 0 mL/min (70-130); Calcium 8.4 mg/dL (7.8-10.44); Carbon Dioxide 20 mmol/L (22-29); Chloride 102 mmol/L (98-107); Glucose 147 mg/dL (70-105); Lipase 27 U/L (8-78); Potassium 4.1 mmol/L (3.5-5.1); Protein, Total 6.3 g/dL (6.0-8.3); Sodium 132 mmol/L (136-145)
[2021-04-26 00:52] LABS: CKMB 2.6 ng/mL (0-6.6)
[2021-04-26] MEDS ORDERED: Furosemide 40 MG/4 ML VIAL ONE (01:41)
[2021-04-26 01:52] LABS: Bacteria/HPF None Seen HPF (None Seen); Bilirubin Negative (Negative); Blood, Urine Negative (Negative); Clarity Clear (Clear); Glucose, Urine (Dipstick) Normal (Negative); Ketone, Urine Negative (Negative); Leukocyte Negative Leu/uL (Negative); Mucous/LPF Rare LPF (<2+); Nitrite Negative (Negative); Protein, Urine (Dipstick) 100 mg/dL (Neg-Trace); RBC/HPF 0-3 HPF (0-3); Specific Gravity, Urine 1.017 (1.002-1.036); Squamous Epithelial 0-3 HPF (0-3); pH, Urine 5.5 (5.0-9.0)
[2021-04-26 01:55] LABS: Amphetamine Detected (NotDetected); Barbiturates Screen Not Detected (NotDetected); Benzodiazepine Screen Not Detected (NotDetected); Cocaine Metabolite Screen Not Detected (NotDetected); Methadone Not Detected (NotDetected); Methamphetamine Detected (NotDetected); Opiate Screen Not Detected (NotDetected); Oxycodone Screen Not Detected (NotDetected); Phencyclidine (PCP) Not Detected (NotDetected); THC/Cannabinoid Screen Not Detected (NotDetected); Tricyclic Screen Not Detected (NotDetected)
[2021-04-26] MEDS ORDERED: diphenhydrAMINE 50 MG/ML VIAL ONE (04:02)
[2021-04-26 05:06] LABS: Troponin I 0.069 ng/mL (< 0.028)
[2021-04-26 08:12] LABS: Troponin I 0.073 ng/mL (< 0.028)
[2021-04-26 10:05] VITALS: BP 111/87
== END 2021-04-26 15:43 | disposition home or self-care (01) | DRG 918 ==
LOC: ERS 23:35 → ERHOLD 04-26 03:55
PROVIDERS: ADMIT Internal Medicine; ATTEND Family Medicine
DX: T43.621A Poisoning by amphetamines, accidental (unintentional), initial encounter (principal); I42.8 Other cardiomyopathies; I13.0 Hypertensive heart and chronic kidney disease with heart failure and stage 1 through stage 4 chronic kidney disease, or unspecified chronic kidney disease; I50.22 Chronic systolic (congestive) heart failure; R07.9 Chest pain, unspecified; F17.210 Nicotine dependence, cigarettes, uncomplicated; N18.30 Chronic kidney disease, stage 3 unspecified; I48.0 Paroxysmal atrial fibrillation; Z79.01 Long term (current) use of anticoagulants; Z79.82 Long term (current) use of aspirin; Z79.899 Other long term (current) drug therapy; Z91.19 Patient's noncompliance with other medical treatment and regimen; Z95.810 Presence of automatic (implantable) cardiac defibrillator; Z82.3 Family history of stroke; Z82.49 Family history of ischemic heart disease and other diseases of the circulatory system
CPT/HCPCS: 36415; 71045; 80053; 80306; 81003; 81015; 82553; 83690; 83880; 84484; 85025; 93005; 96374; 96375; J1200; J1940

== ENCOUNTER 2021-05-15 23:54 | Inpatient (IN) | payer SELFPAY ==
[2021-05-16] MEDS ORDERED: Diltiazem 125 MG/25 ML ONE (00:13)
[2021-05-16 00:29] LABS: #Eosinphils 0.1 thou/uL (0.0-0.7); #Lymphocytes 1.2 thou/uL (1.20-3.40); #Neutrophils 7.9 thou/uL (1.40-6.50); %Basophils 0.4 % (0.0-1.0); %Eosinophils 0.8 % (0.0-10.0); %Lymphocytes 11.5 % (21.0-51.0); %Neutrophils 77.3 % (42.0-75.0); Hemoglobin 14.8 g/dL (14.0-18.0); Mean Corpuscular HGB CONC 32.8 g/dL (32.0-36.0); Mean Corpuscular Hemoglobin 26.5 pg (27.0-31.0); Mean Corpuscular Volume 80.8 fL (78.0-98.0); Mean Platelet Volume 9.1 fL (7.4-10.4); Platelet Count 232 thou/uL (130-400); White Blood Cell (WBC) Count 10.3 thou/uL (4.8-10.8)
[2021-05-16 00:49] LABS: ALT (SGPT) 28 U/L (8-55); AST (SGOT) 51 U/L (5-34); Albumin 3.5 g/dL (3.5-5.0); Alkaline Phosphatase 83 U/L (40-110); Anion Gap 16 mmol/L (10-20); BUN (Urea Nitrogen) 33 mg/dL (8.9-20.6); Bilirubin, Total 3.8 mg/dL (0.2-1.2); Calc. Creatinine Clearance 0 mL/min (70-130); Calcium 9.2 mg/dL (7.8-10.44); Carbon Dioxide 19 mmol/L (22-29); Chloride 99 mmol/L (98-107); Globulin 3.5 g/dL (2.4-3.5); Glucose 120 mg/dL (70-105); Sodium 130 mmol/L (136-145)
[2021-05-16 01:10] LABS: CKMB 5.2 ng/mL (0-6.6)
[2021-05-16 01:55] LABS: Bacteria/HPF None Seen HPF (None Seen); Bilirubin Negative (Negative); Blood, Urine Trace (Negative); Clarity Clear (Clear); Glucose, Urine (Dipstick) Normal (Negative); Ketone, Urine Negative (Negative); Leukocyte Negative Leu/uL (Negative); Nitrite Negative (Negative); Protein, Urine (Dipstick) 200 mg/dL (Neg-Trace); RBC/HPF 0-3 HPF (0-3); Specific Gravity, Urine 1.014 (1.002-1.036); Squamous Epithelial 0-3 HPF (0-3); WBC/HPF 0-3 HPF (0-3); pH, Urine 5.5 (5.0-9.0)
[2021-05-16 02:03] LABS: Amphetamine Detected (NotDetected); Barbiturates Screen Not Detected (NotDetected); Benzodiazepine Screen Not Detected (NotDetected); Cocaine Metabolite Screen Not Detected (NotDetected); Methadone Not Detected (NotDetected); Methamphetamine Detected (NotDetected); Opiate Screen Not Detected (NotDetected); Oxycodone Screen Not Detected (NotDetected); Phencyclidine (PCP) Not Detected (NotDetected); THC/Cannabinoid Screen Not Detected (NotDetected); Tricyclic Screen Not Detected (NotDetected)
[2021-05-16 02:19] LABS: SARS-CoV-2 NAA Rapid Test DETECTED (NotDetected)
[2021-05-16] MEDS ORDERED: Ondansetron ODT 4 MG TAB PO PRN (02:53)
[2021-05-16] MEDS ORDERED: Acetaminophen 650 MG Suppository PR PRN (02:53)
[2021-05-16] MEDS ORDERED: Acetaminophen 325 MG TAB PO PRN (02:53)
[2021-05-16] MEDS ORDERED: Ondansetron PF 4 MG/2 ML Vial IVP PRN (02:53)
[2021-05-16] MEDS ORDERED: Electrolyte Replacement Protocol 1 EACH FS SCH (03:15)
[2021-05-16] MEDS ORDERED: Furosemide 100 MG/10 ML VIAL SLOW IVP SCH (03:30)
[2021-05-16] MEDS ORDERED: Furosemide 100 MG/10 ML VIAL ONE (04:09)
[2021-05-16] MEDS ORDERED: Aspirin/APAP/Caffeine Tab (Excedrin Migraine) PO PRN (05:38)
[2021-05-16 07:02] LABS: #Basophils 0.1 thou/uL (0.0-0.2); #Eosinphils 0.1 thou/uL (0.0-0.7); #Lymphocytes 0.9 thou/uL (1.20-3.40); #Monocytes 1.1 thou/uL (0.11-0.59); #Neutrophils 6.6 thou/uL (1.40-6.50); %Basophils 0.6 % (0.0-1.0); %Eosinophils 0.9 % (0.0-10.0); %Lymphocytes 10.1 % (21.0-51.0); %Monocytes 12.5 % (0.0-10.0); %Neutrophils 75.9 % (42.0-75.0); Hemoglobin 15.1 g/dL (14.0-18.0); Mean Corpuscular HGB CONC 32.4 g/dL (32.0-36.0); Mean Corpuscular Hemoglobin 26.3 pg (27.0-31.0); Mean Corpuscular Volume 81.3 fL (78.0-98.0); Mean Platelet Volume 8.7 fL (7.4-10.4); Platelet Count 205 thou/uL (130-400); RBC Distribution Width 18.3 % (11.5-14.5); Red Blood Cell (RBC) Count 5.74 mill/uL (4.70-6.10); White Blood Cell (WBC) Count 8.8 thou/uL (4.8-10.8)
[2021-05-16 07:20] LABS: Anion Gap 13 mmol/L (10-20); BUN (Urea Nitrogen) 32 mg/dL (8.9-20.6); Calc. Creatinine Clearance 0 mL/min (70-130); Calcium 9.2 mg/dL (7.8-10.44); Carbon Dioxide 25 mmol/L (22-29); Chloride 96 mmol/L (98-107); Glucose 141 mg/dL (70-105); Potassium 3.1 mmol/L (3.5-5.1); Sodium 131 mmol/L (136-145)
[2021-05-16 07:22] LABS: Magnesium 1.6 mg/dL (1.6-2.6)
[2021-05-16] MEDS ORDERED: Potassium Chloride 20 MEQ TAB PO SCH (08:00)
[2021-05-16] MEDS ORDERED: Magnesium 2 GM/50 ML 2 GM in Premix Bag 1 BAG IVPB SCH (08:00)
[2021-05-16] MEDS ORDERED: Potassium Chloride 20 MEQ TAB ONE (08:14)
[2021-05-16] MEDS ORDERED: Magnesium 2 GM/50 ML BAG (IN WATER) ONE (08:14)
[2021-05-16] MEDS ORDERED: ANTICOAG Communication Order-Pharmacy FS ONE (09:55)
[2021-05-16] MEDS ORDERED: Diltiazem 125 MG in Sodium Chloride 0.9% 100 ML IVPB SCH (10:00)
[2021-05-16] MEDS ORDERED: Heparin 25,000 units/D5W 500 ML IVPB SCH ×2 (10:00→14:30)
[2021-05-16] MEDS ORDERED: Heparin 10,000 UNITS/ 10 ML VIAL SLOW IVP SCH ×2 (10:00→14:30)
[2021-05-16 10:43] LABS: Platelet Count 221 thou/uL (130-400)
[2021-05-16] MEDS ORDERED: Acetaminophen 325 MG TAB ONE (13:50)
[2021-05-16] MEDS ORDERED: Ascorbic Acid 500 mg Chewable Tablet ONE (13:58)
[2021-05-16] MEDS ORDERED: Heparin 25,000 units/D5W 500 ML ONE (13:58)
[2021-05-16] MEDS ORDERED: Zinc Sulfate 220 MG CAP ONE (13:58)
[2021-05-16] MEDS ORDERED: Cholecalciferol 1,000 UNITS (25 MCG) TAB ONE (13:58)
[2021-05-16] MEDS: Ascorbic Acid 500 mg Chewable Tablet PO SCH (14:07)
[2021-05-16] MEDS: Cholecalciferol (Vitamin D3) 400 UNITS TAB PO SCH (14:07)
[2021-05-16] MEDS: Zinc Sulfate 220 MG CAP PO SCH (14:07)
[2021-05-17] MEDS ORDERED: Benzonatate 100 MG CAP PO PRN (00:31)
[2021-05-17] MEDS ORDERED: Benzonatate 100 MG CAP ONE (00:44)
[2021-05-17] MEDS ORDERED: Heparin 25,000 units/D5W 500 ML ONE (05:39)
[2021-05-17 07:30] LABS: Magnesium 1.8 mg/dL (1.6-2.6)
[2021-05-17] MEDS ORDERED: Magnesium 2 GM/50 ML 2 GM in Premix Bag 1 BAG IVPB SCH (08:00)
[2021-05-17] MEDS ORDERED: Magnesium 2 GM/50 ML BAG (IN WATER) ONE (08:06)
[2021-05-17] MEDS ORDERED: Zinc Sulfate 220 MG CAP ONE (08:11)
[2021-05-17] MEDS ORDERED: Ascorbic Acid 500 mg Chewable Tablet ONE (08:11)
[2021-05-17] MEDS: Cholecalciferol (Vitamin D3) 400 UNITS TAB PO SCH (08:24)
[2021-05-17] MEDS: Ascorbic Acid 500 mg Chewable Tablet PO SCH (08:24)
[2021-05-17] MEDS: Zinc Sulfate 220 MG CAP PO SCH (08:25)
[2021-05-17] MEDS ORDERED: Magnesium Sulfate 2 GM in Sodium Chloride 0.9% 100 ML IVPB SCH (09:00)
[2021-05-17 10:49] LABS: Anion Gap 15 mmol/L (10-20); BUN (Urea Nitrogen) 37 mg/dL (8.9-20.6); Calc. Creatinine Clearance 80 mL/min (70-130); Calcium 9.1 mg/dL (7.8-10.44); Carbon Dioxide 21 mmol/L (22-29); Chloride 92 mmol/L (98-107); Glucose 118 mg/dL (70-105); Potassium 3.2 mmol/L (3.5-5.1); Sodium 125 mmol/L (136-145)
[2021-05-17] MEDS ORDERED: Potassium Chloride 20 MEQ TAB PO SCH (12:00)
[2021-05-17] MEDS ORDERED: Potassium Chloride 20 MEQ TAB ONE (14:29)
[2021-05-17 17:03] VITALS: TEMP 98.2
[2021-05-17 17:51] VITALS: BP 137/98
== END 2021-05-17 17:53 | disposition home or self-care (01) | DRG 308 ==
LOC: ERS 23:54 → ERHOLD 05-16 01:54
PROVIDERS: ADMIT Student in an Organized Health Care Education/Training Program; ATTEND Internal Medicine
PROC: 8E0ZXY6 Isolation (ICD-10-PCS; principal; 2021-05-16)
DX: I48.91 Unspecified atrial fibrillation (principal); U07.1 COVID-19; I50.23 Acute on chronic systolic (congestive) heart failure; E87.1 Hypo-osmolality and hyponatremia; Z68.41 Body mass index [BMI] 40.0-44.9, adult; N17.9 Acute kidney failure, unspecified; N18.30 Chronic kidney disease, stage 3 unspecified; I42.0 Dilated cardiomyopathy; E87.6 Hypokalemia; E83.42 Hypomagnesemia; I47.2 Ventricular tachycardia; E66.9 Obesity, unspecified; F15.10 Other stimulant abuse, uncomplicated; F17.210 Nicotine dependence, cigarettes, uncomplicated; Z95.810 Presence of automatic (implantable) cardiac defibrillator; Z79.01 Long term (current) use of anticoagulants; Z79.82 Long term (current) use of aspirin; Z79.899 Other long term (current) drug therapy; Z71.51 Drug abuse counseling and surveillance of drug abuser
CPT/HCPCS: 36415; 71045; 80048; 80053; 80306; 81003; 81015; 82553; 83735; 83880; 84443; 84484; 85025; 85379; 85730; 86140; 93005; J1644; J1940; J3475; U0002

== ENCOUNTER 2021-05-18 10:02 | Inpatient (IN) | payer SELFPAY ==
[2021-05-18] MEDS ORDERED: Iopamidol 370 76% 100 ML VIAL ONE (10:13)
[2021-05-18] MEDS ORDERED: Morphine 4 MG/ML VIAL ONE (10:36)
[2021-05-18] MEDS ORDERED: Ondansetron PF 4 MG/2 ML Vial ONE (10:37)
[2021-05-18 11:03] LABS: Hemoglobin 14.6 g/dL (14.0-18.0); Mean Corpuscular HGB CONC 31.6 g/dL (32.0-36.0); Mean Corpuscular Hemoglobin 25.7 pg (27.0-31.0); Mean Corpuscular Volume 81.4 fL (78.0-98.0); Mean Platelet Volume 8.7 fL (7.4-10.4); Platelet Count 219 thou/uL (130-400); RBC Distribution Width 17.9 % (11.5-14.5); Red Blood Cell (RBC) Count 5.68 mill/uL (4.70-6.10); White Blood Cell (WBC) Count 8.8 thou/uL (4.8-10.8)
[2021-05-18 11:09] LABS: INR-International Normal Ratio 1.2; PTT 33.2 sec (22.9-36.1); Prothrombin Time 15.1 sec (12.0-14.7)
[2021-05-18 11:13] LABS: ALT (SGPT) 70 U/L (8-55); AST (SGOT) 72 U/L (5-34); Albumin 3.3 g/dL (3.5-5.0); Alkaline Phosphatase 87 U/L (40-110); Anion Gap 16 mmol/L (10-20); BUN (Urea Nitrogen) 37 mg/dL (8.9-20.6); Bilirubin, Total 2.8 mg/dL (0.2-1.2); CK (CPK) 248 U/L (30-200); Calc. Creatinine Clearance 0 mL/min (70-130); Calcium 8.5 mg/dL (7.8-10.44); Carbon Dioxide 19 mmol/L (22-29); Chloride 98 mmol/L (98-107); Globulin 3.1 g/dL (2.4-3.5); Glucose 98 mg/dL (70-105); Lipase 60 U/L (8-78); Potassium 3.1 mmol/L (3.5-5.1); Protein, Total 6.4 g/dL (6.0-8.3); Sodium 130 mmol/L (136-145)
[2021-05-18 11:35] LABS: CKMB 4.2 ng/mL (0-6.6)
[2021-05-18 11:36] LABS: Band 14 % (5-11); Eosinophils 2 % (0-10); Lymphocytes 13 % (21-51); MDiff Complete? YES; Monocytes 15 % (0-10); Neutrophil 54 % (42-75); Polychromasia SLIGHT = 2-3 cells (100X) (0-2/hpf); Reactive Lymphocytes 1 % (0-10)
[2021-05-18 12:38] LABS: Bacteria/HPF None Seen HPF (None Seen); Bilirubin Negative (Negative); Blood, Urine Negative (Negative); Clarity Clear (Clear); Glucose, Urine (Dipstick) Normal (Negative); Ketone, Urine Negative (Negative); Leukocyte Negative Leu/uL (Negative); Nitrite Negative (Negative); Protein, Urine (Dipstick) 50 mg/dL (Neg-Trace); RBC/HPF None Seen HPF (0-3); Specific Gravity, Urine 1.009 (1.002-1.036); Squamous Epithelial 0-3 HPF (0-3); WBC/HPF 0-3 HPF (0-3)
[2021-05-18 12:46] LABS: Amphetamine Not Detected (NotDetected); Barbiturates Screen Not Detected (NotDetected); Benzodiazepine Screen Not Detected (NotDetected); Cocaine Metabolite Screen Not Detected (NotDetected); Methadone Not Detected (NotDetected); Methamphetamine Not Detected (NotDetected); Opiate Screen Detected (NotDetected); Oxycodone Screen Not Detected (NotDetected); Phencyclidine (PCP) Not Detected (NotDetected); THC/Cannabinoid Screen Not Detected (NotDetected); Tricyclic Screen Not Detected (NotDetected)
[2021-05-18] MEDS ORDERED: Ketorolac Tromethamine 30 MG/ML VIAL ONE (13:08)
[2021-05-18] MEDS ORDERED: Furosemide 40 MG/4 ML VIAL ONE (13:08)
[2021-05-18] MEDS ORDERED: Metoprolol Tartrate 5 MG/5 ML VIAL ONE (13:08)
[2021-05-18] MEDS ORDERED: Carvedilol 6.25 MG TAB PO SCH (13:30)
[2021-05-18 13:59] LABS: Troponin I 0.073 ng/mL (< 0.028)
[2021-05-18 16:36] LABS: Troponin I 0.076 ng/mL (< 0.028)
[2021-05-18] MEDS ORDERED: Acetaminophen 325 MG TAB PO PRN (17:11)
[2021-05-18] MEDS ORDERED: Potassium Chloride 20 MEQ TAB PO SCH (17:15)
[2021-05-18 19:20] LABS: Troponin I 0.083 ng/mL (< 0.028)
[2021-05-18 20:42] VITALS: BMI 40.8
[2021-05-18] MEDS: Apixaban 5 MG TAB PO SCH (20:43)
[2021-05-18] MEDS: Lisinopril 10 MG TAB PO SCH ×2 (20:44→21:31)
[2021-05-18] MEDS: Sodium Bicarbonate Tab 325 MG TAB PO SCH (20:44)
[2021-05-18] MEDS: Isosorbide Dinitrate 20 MG TAB PO SCH (20:44)
[2021-05-18] MEDS: hydrALAZINE 25 MG TAB PO SCH ×2 (20:44→21:31)
[2021-05-19] MEDS ORDERED: ALPRAZolam 0.5 MG TAB PO SCH ×2 (02:30→21:00)
[2021-05-19 06:41] LABS: #Eosinphils 0.2 thou/uL (0.0-0.7); #Lymphocytes 1.8 thou/uL (1.20-3.40); #Neutrophils 4.3 thou/uL (1.40-6.50); %Basophils 0.1 % (0.0-1.0); %Eosinophils 2.1 % (0.0-10.0); %Lymphocytes 24.5 % (21.0-51.0); %Monocytes 14.3 % (0.0-10.0); Hemoglobin 13.6 g/dL (14.0-18.0); Mean Corpuscular HGB CONC 31.5 g/dL (32.0-36.0); Mean Corpuscular Hemoglobin 25.9 pg (27.0-31.0); Mean Corpuscular Volume 82.2 fL (78.0-98.0); Platelet Count 200 thou/uL (130-400); RBC Distribution Width 17.7 % (11.5-14.5); Red Blood Cell (RBC) Count 5.27 mill/uL (4.70-6.10); White Blood Cell (WBC) Count 7.2 thou/uL (4.8-10.8)
[2021-05-19 07:05] LABS: ALT (SGPT) 54 U/L (8-55); AST (SGOT) 51 U/L (5-34); Albumin 3.1 g/dL (3.5-5.0); Alkaline Phosphatase 80 U/L (40-110); Anion Gap 14 mmol/L (10-20); BUN (Urea Nitrogen) 46 mg/dL (8.9-20.6); Calc. Creatinine Clearance 81 mL/min (70-130); Calcium 8.6 mg/dL (7.8-10.44); Carbon Dioxide 21 mmol/L (22-29); Chloride 97 mmol/L (98-107); Globulin 2.8 g/dL (2.4-3.5); Glucose 102 mg/dL (70-105); Potassium 3.6 mmol/L (3.5-5.1); Protein, Total 5.9 g/dL (6.0-8.3); Sodium 128 mmol/L (136-145)
[2021-05-19] MEDS ORDERED: Torsemide 20 MG TAB PO SCH (09:00)
[2021-05-19] MEDS: Carvedilol 6.25 MG TAB PO SCH ×2 (09:02→17:34)
[2021-05-19] MEDS: Spironolactone 25 MG TAB PO SCH (09:03)
[2021-05-19] MEDS: Aspirin Chewable 81 MG TAB PO SCH (09:03)
[2021-05-19] MEDS: hydrALAZINE 25 MG TAB PO SCH ×3 (09:03→20:58)
[2021-05-19] MEDS: Lisinopril 10 MG TAB PO SCH ×2 (09:03→20:58)
[2021-05-19] MEDS: Isosorbide Dinitrate 20 MG TAB PO SCH ×2 (09:03→14:23)
[2021-05-19] MEDS: Apixaban 5 MG TAB PO SCH ×2 (09:03→20:58)
[2021-05-19] MEDS: Sodium Bicarbonate Tab 325 MG TAB PO SCH ×2 (09:04→20:58)
[2021-05-19] MEDS: Torsemide 20 MG TAB PO SCH ×2 (09:06→14:25)
[2021-05-19] MEDS: Isosorbide Dinitrate 5 MG TAB PO SCH (21:09)
[2021-05-20 06:34] LABS: Anion Gap 14 mmol/L (10-20); BUN (Urea Nitrogen) 37 mg/dL (8.9-20.6); Calc. Creatinine Clearance 94 mL/min (70-130); Calcium 8.4 mg/dL (7.8-10.44); Carbon Dioxide 21 mmol/L (22-29); Chloride 99 mmol/L (98-107); Glucose 105 mg/dL (70-105); Potassium 3.2 mmol/L (3.5-5.1); Sodium 131 mmol/L (136-145)
[2021-05-20] MEDS: Spironolactone 25 MG TAB PO SCH (09:24)
[2021-05-20] MEDS: Carvedilol 6.25 MG TAB PO SCH (09:24)
[2021-05-20] MEDS: Lisinopril 10 MG TAB PO SCH (09:25)
[2021-05-20] MEDS: Isosorbide Dinitrate 5 MG TAB PO SCH (09:25)
[2021-05-20] MEDS: Aspirin Chewable 81 MG TAB PO SCH (09:25)
[2021-05-20] MEDS: hydrALAZINE 25 MG TAB PO SCH (09:25)
[2021-05-20] MEDS: Apixaban 5 MG TAB PO SCH (09:25)
[2021-05-20] MEDS: Sodium Bicarbonate Tab 325 MG TAB PO SCH (09:26)
[2021-05-20] MEDS: Torsemide 20 MG TAB PO SCH (09:28)
[2021-05-20 11:31] VITALS: BP 137/79; TEMP 97.7
[2021-05-21] MEDS ORDERED: FLU VACC QS2021-22(6MOS UP)/PF 60 MCG/0.5 ML SYRINGE IM ONE (09:00)
[2021-05-21] MEDS ORDERED: Prevnar 13-Val Conj/PF 0.5 ML SYRINGE IM ONE (09:00)
== END 2021-05-20 12:40 | disposition home or self-care (01) | DRG 291 ==
LOC: ERS 10:02 → OBSVTOIN 14:27 → 2SW 14:27
PROVIDERS: ADMIT Internal Medicine; ATTEND Family Medicine
PROC: 8E0ZXY6 Isolation (ICD-10-PCS; principal; 2021-05-18)
DX: I13.0 Hypertensive heart and chronic kidney disease with heart failure and stage 1 through stage 4 chronic kidney disease, or unspecified chronic kidney disease (principal); I50.23 Acute on chronic systolic (congestive) heart failure; U07.1 COVID-19; N17.9 Acute kidney failure, unspecified; E87.1 Hypo-osmolality and hyponatremia; I48.92 Unspecified atrial flutter; I48.91 Unspecified atrial fibrillation; I42.8 Other cardiomyopathies; F17.210 Nicotine dependence, cigarettes, uncomplicated; F15.10 Other stimulant abuse, uncomplicated; N18.31 Chronic kidney disease, stage 3a; Z95.810 Presence of automatic (implantable) cardiac defibrillator; Z79.82 Long term (current) use of aspirin; Z79.899 Other long term (current) drug therapy; Z79.01 Long term (current) use of anticoagulants
CPT/HCPCS: 36415; 71045; 71275; 80048; 80053; 80306; 81003; 81015; 82550; 82553; 83605; 83690; 83735; 83880; 84443; 84484; 85025; 85610; 85730; 87040; 87086; 93005; 96365; 96366; 96375; G0378; J1885; J1940; J1956; J2270; J2405; Q9967

== ENCOUNTER 2021-05-26 05:55 | Emergency (ER) | payer SELFPAY ==
[2021-05-26] MEDS ORDERED: EPINEPHrine 1 MG/ML VIAL ONE (06:41)
[2021-05-26 07:04] LABS: #Eosinphils 0.2 thou/uL (0.0-0.7); #Lymphocytes 1.9 thou/uL (1.20-3.40); #Monocytes 0.9 thou/uL (0.11-0.59); #Neutrophils 5.7 thou/uL (1.40-6.50); %Basophils 0.2 % (0.0-1.0); %Eosinophils 1.8 % (0.0-10.0); %Lymphocytes 22.2 % (21.0-51.0); %Monocytes 10.6 % (0.0-10.0); %Neutrophils 65.1 % (42.0-75.0); Hemoglobin 13.9 g/dL (14.0-18.0); Mean Corpuscular HGB CONC 30.4 g/dL (32.0-36.0); Mean Corpuscular Hemoglobin 24.9 pg (27.0-31.0); Mean Corpuscular Volume 81.9 fL (78.0-98.0); Mean Platelet Volume 9.5 fL (7.4-10.4); Platelet Count 198 thou/uL (130-400); RBC Distribution Width 17.7 % (11.5-14.5); White Blood Cell (WBC) Count 8.7 thou/uL (4.8-10.8)
[2021-05-26 07:25] LABS: ALT (SGPT) 20 U/L (8-55); AST (SGOT) 24 U/L (5-34); Albumin 3.2 g/dL (3.5-5.0); Alkaline Phosphatase 91 U/L (40-110); Anion Gap 15 mmol/L (10-20); BUN (Urea Nitrogen) 26 mg/dL (8.9-20.6); Bilirubin, Total 2.1 mg/dL (0.2-1.2); Calc. Creatinine Clearance 0 mL/min (70-130); Calcium 8.7 mg/dL (7.8-10.44); Carbon Dioxide 21 mmol/L (22-29); Chloride 101 mmol/L (98-107); Globulin 3.1 g/dL (2.4-3.5); Glucose 108 mg/dL (70-105); Potassium 3.6 mmol/L (3.5-5.1); Protein, Total 6.3 g/dL (6.0-8.3); Sodium 133 mmol/L (136-145)
[2021-05-26 07:48] LABS: CKMB 1.7 ng/mL (0-6.6)
== END 2021-05-26 08:59 | disposition home or self-care (01) ==
LOC: ERS 05:55
DX: I48.20 Chronic atrial fibrillation, unspecified (principal); I95.9 Hypotension, unspecified; I11.0 Hypertensive heart disease with heart failure; I50.9 Heart failure, unspecified; F17.210 Nicotine dependence, cigarettes, uncomplicated; Z79.82 Long term (current) use of aspirin; Z79.899 Other long term (current) drug therapy
CPT/HCPCS: 36415; 71045; 80053; 82553; 83880; 84484; 85025; 93005; 96374; J0171

== ENCOUNTER 2021-06-02 04:22 | Inpatient (IN) | payer SELFPAY ==
[2021-06-02 04:54] LABS: #Eosinphils 0.2 thou/uL (0.0-0.7); #Lymphocytes 1.7 thou/uL (1.20-3.40); #Neutrophils 5.9 thou/uL (1.40-6.50); %Basophils 0.5 % (0.0-1.0); %Eosinophils 1.9 % (0.0-10.0); %Lymphocytes 19.6 % (21.0-51.0); Hemoglobin 12.6 g/dL (14.0-18.0); Mean Corpuscular HGB CONC 28.8 g/dL (32.0-36.0); Mean Corpuscular Hemoglobin 24.1 pg (27.0-31.0); Mean Corpuscular Volume 83.6 fL (78.0-98.0); Mean Platelet Volume 9.4 fL (7.4-10.4); Platelet Count 160 thou/uL (130-400); RBC Distribution Width 17.5 % (11.5-14.5); Red Blood Cell (RBC) Count 5.24 mill/uL (4.70-6.10); White Blood Cell (WBC) Count 8.8 thou/uL (4.8-10.8)
[2021-06-02 05:21] LABS: ALT (SGPT) 12 U/L (8-55); AST (SGOT) 18 U/L (5-34); Albumin 3.3 g/dL (3.5-5.0); Alkaline Phosphatase 97 U/L (40-110); Anion Gap 15 mmol/L (10-20); BUN (Urea Nitrogen) 20 mg/dL (8.9-20.6); Bilirubin, Total 2.7 mg/dL (0.2-1.2); Calc. Creatinine Clearance 0 mL/min (70-130); Calcium 8.4 mg/dL (7.8-10.44); Carbon Dioxide 22 mmol/L (22-29); Chloride 104 mmol/L (98-107); Globulin 2.6 g/dL (2.4-3.5); Glucose 93 mg/dL (70-105); Potassium 3.5 mmol/L (3.5-5.1); Protein, Total 5.9 g/dL (6.0-8.3); Sodium 137 mmol/L (136-145)
[2021-06-02 05:36] LABS: CKMB 1.8 ng/mL (0-6.6)
[2021-06-02 06:23] LABS: INR-International Normal Ratio 1.4; Prothrombin Time 16.9 sec (12.0-14.7)
[2021-06-02 06:24] LABS: PTT 33.9 sec (22.9-36.1)
[2021-06-02 09:16] LABS: Troponin I 0.036 ng/mL (< 0.028)
[2021-06-02] MEDS ORDERED: Ondansetron PF 4 MG/2 ML Vial IVP PRN ×2 (09:46→11:21)
[2021-06-02] MEDS ORDERED: Acetaminophen 325 MG TAB PO PRN ×2 (09:47→11:21)
[2021-06-02] MEDS ORDERED: Ondansetron ODT 4 MG TAB PO PRN (09:47)
[2021-06-02] MEDS ORDERED: Dextrose 50% Abboject 50 ML SYRINGE SLOW IVP PRN (11:21)
[2021-06-02] MEDS ORDERED: Calcium Carbonate 500 MG ChewTAB PO PRN (11:21)
[2021-06-02] MEDS ORDERED: Senokot S 8.6-50 MG TAB PO PRN (11:21)
[2021-06-02] MEDS ORDERED: Dextrose 5% in Water 1,000 ML IV PRN (11:21)
[2021-06-02] MEDS ORDERED: Guaifenesin DM 100-10/5 ML UDCUP PO PRN (11:21)
[2021-06-02] MEDS ORDERED: Bisacodyl 10 MG SUPP PR PRN (11:21)
[2021-06-02] MEDS ORDERED: Insulin Regular 300 UNITS/3 ML VIAL SC PRN (11:21)
[2021-06-02] MEDS ORDERED: Furosemide 20 MG/2 ML VIAL SLOW IVP SCH ×2 (14:00→14:45)
[2021-06-02 15:31] VITALS: BMI 41.7
[2021-06-02] MEDS ORDERED: Warfarin Sodium 5 MG TAB PO SCH (17:00)
[2021-06-02 18:59] LABS: Amphetamine Not Detected (NotDetected); Barbiturates Screen Not Detected (NotDetected); Benzodiazepine Screen Not Detected (NotDetected); Cocaine Metabolite Screen Not Detected (NotDetected); Methadone Not Detected (NotDetected); Methamphetamine Detected (NotDetected); Opiate Screen Not Detected (NotDetected); Oxycodone Screen Not Detected (NotDetected); Phencyclidine (PCP) Not Detected (NotDetected); THC/Cannabinoid Screen Not Detected (NotDetected); Tricyclic Screen Not Detected (NotDetected)
[2021-06-02] MEDS ORDERED: Carvedilol 3.125 MG TAB PO SCH (21:00)
[2021-06-02] MEDS: Apixaban 5 MG TAB PO SCH (21:31)
[2021-06-02] MEDS ORDERED: HYDROcodone/Acetaminophen 5/325 mg Tablet PO SCH (23:45)
[2021-06-03 05:23] LABS: #Eosinphils 0.2 thou/uL (0.0-0.7); #Lymphocytes 1.7 thou/uL (1.20-3.40); #Monocytes 0.8 thou/uL (0.11-0.59); #Neutrophils 5.5 thou/uL (1.40-6.50); %Basophils 0.4 % (0.0-1.0); %Eosinophils 2.2 % (0.0-10.0); %Monocytes 9.3 % (0.0-10.0); Mean Corpuscular HGB CONC 29.9 g/dL (32.0-36.0); Mean Corpuscular Hemoglobin 24.9 pg (27.0-31.0); Mean Corpuscular Volume 83.3 fL (78.0-98.0); Mean Platelet Volume 9.6 fL (7.4-10.4); Platelet Count 164 thou/uL (130-400); RBC Distribution Width 17.5 % (11.5-14.5); Red Blood Cell (RBC) Count 5.22 mill/uL (4.70-6.10); White Blood Cell (WBC) Count 8.2 thou/uL (4.8-10.8)
[2021-06-03 05:48] LABS: Anion Gap 14 mmol/L (10-20); BUN (Urea Nitrogen) 22 mg/dL (8.9-20.6); Calc. Creatinine Clearance 95 mL/min (70-130); Calcium 8.8 mg/dL (7.8-10.44); Carbon Dioxide 21 mmol/L (22-29); Chloride 100 mmol/L (98-107); Glucose 185 mg/dL (70-105); Potassium 3.3 mmol/L (3.5-5.1); Sodium 132 mmol/L (136-145)
[2021-06-03] MEDS ORDERED: Electrolyte Replacement Protocol 1 EACH FS SCH (06:00)
[2021-06-03] MEDS ORDERED: Potassium Chloride 20 MEQ TAB PO SCH (06:00)
[2021-06-03] MEDS ORDERED: Metoprolol Tartrate 5 MG/5 ML VIAL IVP SCH (06:15)
[2021-06-03] MEDS: Furosemide 20 MG/2 ML VIAL SLOW IVP SCH ×2 (06:17→14:22)
[2021-06-03 07:28] LABS: Magnesium 1.8 mg/dL (1.6-2.6)
[2021-06-03] MEDS ORDERED: Magnesium 2 GM/50 ML 2 GM in Premix Bag 1 BAG IVPB SCH (08:00)
[2021-06-03] MEDS ORDERED: Lisinopril 2.5 MG TAB PO SCH (09:00)
[2021-06-03] MEDS ORDERED: Aspirin Chewable 81 MG TAB PO SCH (09:00)
[2021-06-03] MEDS: Apixaban 5 MG TAB PO SCH (09:09)
[2021-06-03] MEDS: Carvedilol 6.25 MG TAB PO SCH ×2 (09:09→17:27)
[2021-06-03] MEDS: Spironolactone 25 MG TAB PO SCH (09:09)
[2021-06-03] MEDS ORDERED: FLU VACC QS2021-22(6MOS UP)/PF 60 MCG/0.5 ML SYRINGE IM ONE (11:00)
[2021-06-03 12:25] LABS: SARS-CoV-2 PCR by NAA DETECTED (NotDetected)
[2021-06-03] MEDS ORDERED: traMADol HCl 50 MG TAB PO PRN (15:44)
[2021-06-03] MEDS: Warfarin Sodium 5 MG TAB PO SCH (17:28)
[2021-06-03] MEDS ORDERED: Melatonin 3 MG TAB PO PRN (18:47)
[2021-06-04] MEDS ORDERED: traZODone HCl 50 MG TAB PO PRN (00:57)
[2021-06-04 05:55] LABS: INR-International Normal Ratio 1.3; Prothrombin Time 16.4 sec (12.0-14.7)
[2021-06-04] MEDS: Furosemide 20 MG/2 ML VIAL SLOW IVP SCH ×2 (06:09→15:23)
[2021-06-04] MEDS: Spironolactone 25 MG TAB PO SCH (09:12)
[2021-06-04] MEDS: Carvedilol 6.25 MG TAB PO SCH ×2 (09:12→17:06)
[2021-06-04 11:45] VITALS: TEMP 98.4
[2021-06-04] MEDS: Warfarin Sodium 5 MG TAB PO SCH (17:06)
[2021-06-04 17:07] VITALS: BP 130/85
== END 2021-06-04 19:40 | disposition left against medical advice (07) | DRG 291 ==
LOC: ERS 04:22 → ERHOLD 08:08 → 2NO 09:42 → OBSVTOIN 06-04 11:46
PROVIDERS: ADMIT Internal Medicine; ATTEND Internal Medicine
PROC: 8E0ZXY6 Isolation (ICD-10-PCS; principal; 2021-06-02)
DX: I13.0 Hypertensive heart and chronic kidney disease with heart failure and stage 1 through stage 4 chronic kidney disease, or unspecified chronic kidney disease (principal); U07.1 COVID-19; I50.23 Acute on chronic systolic (congestive) heart failure; E87.1 Hypo-osmolality and hyponatremia; Z68.41 Body mass index [BMI] 40.0-44.9, adult; I42.8 Other cardiomyopathies; F15.10 Other stimulant abuse, uncomplicated; N18.30 Chronic kidney disease, stage 3 unspecified; I48.0 Paroxysmal atrial fibrillation; E66.01 Morbid (severe) obesity due to excess calories; Z53.29 Procedure and treatment not carried out because of patient's decision for other reasons; Z71.51 Drug abuse counseling and surveillance of drug abuser; Z28.21 Immunization not carried out because of patient refusal; Z95.810 Presence of automatic (implantable) cardiac defibrillator; Z79.899 Other long term (current) drug therapy; Z82.49 Family history of ischemic heart disease and other diseases of the circulatory system; Z82.3 Family history of stroke; Z91.14 Patient's other noncompliance with medication regimen
CPT/HCPCS: 36415; 36416; 70450; 71045; 80048; 80053; 80306; 82553; 83735; 83880; 84443; 84484; 85025; 85610; 85730; 93005; 96374; 96375; 96376; G0378; J1940; J2405; J3475; U0003; U0005

== ENCOUNTER 2021-06-06 02:26 | Inpatient (IN) | payer SELFPAY ==
[2021-06-06 03:19] LABS: #Basophils 0.1 thou/uL (0.0-0.2); #Eosinphils 0.2 thou/uL (0.0-0.7); #Lymphocytes 1.6 thou/uL (1.20-3.40); #Monocytes 1.1 thou/uL (0.11-0.59); #Neutrophils 6.1 thou/uL (1.40-6.50); %Basophils 0.8 % (0.0-1.0); %Lymphocytes 17.1 % (21.0-51.0); %Monocytes 12.4 % (0.0-10.0); %Neutrophils 67.6 % (42.0-75.0); Hemoglobin 13.5 g/dL (14.0-18.0); Mean Corpuscular Hemoglobin 25.4 pg (27.0-31.0); Mean Corpuscular Volume 81.8 fL (78.0-98.0); Mean Platelet Volume 9.3 fL (7.4-10.4); Platelet Count 183 thou/uL (130-400); RBC Distribution Width 17.8 % (11.5-14.5); Red Blood Cell (RBC) Count 5.33 mill/uL (4.70-6.10); White Blood Cell (WBC) Count 9.1 thou/uL (4.8-10.8)
[2021-06-06 03:40] LABS: ALT (SGPT) 10 U/L (8-55); AST (SGOT) 21 U/L (5-34); Albumin 3.3 g/dL (3.5-5.0); Alkaline Phosphatase 94 U/L (40-110); Anion Gap 17 mmol/L (10-20); BUN (Urea Nitrogen) 24 mg/dL (8.9-20.6); Bilirubin, Total 2.7 mg/dL (0.2-1.2); Calc. Creatinine Clearance 0 mL/min (70-130); Calcium 8.4 mg/dL (7.8-10.44); Carbon Dioxide 18 mmol/L (22-29); Chloride 103 mmol/L (98-107); Globulin 3.2 g/dL (2.4-3.5); Glucose 112 mg/dL (70-105); Protein, Total 6.5 g/dL (6.0-8.3); Sodium 134 mmol/L (136-145)
[2021-06-06 04:08] LABS: CKMB 1.7 ng/mL (0-6.6)
[2021-06-06] MEDS ORDERED: Diltiazem 125 MG/25 ML ONE (04:21)
[2021-06-06] MEDS ORDERED: Aspirin 325 MG TAB ONE (04:25)
[2021-06-06] MEDS ORDERED: Diltiazem HCl 125 MG, Admixture Fee 1 EACH in Sodium Chloride 0.9% 100 ML IVPB SCH (04:45)
[2021-06-06] MEDS ORDERED: Ondansetron PF 4 MG/2 ML Vial IVP PRN (04:45)
[2021-06-06] MEDS ORDERED: Acetaminophen 325 MG TAB PO PRN (04:45)
[2021-06-06] MEDS ORDERED: Ondansetron ODT 4 MG TAB SL PRN (04:45)
[2021-06-06 09:29] LABS: Troponin I 0.033 ng/mL (< 0.028)
[2021-06-06] MEDS ORDERED: Carvedilol 6.25 MG TAB PO SCH (10:30)
[2021-06-06] MEDS ORDERED: Bumetanide 1 MG/4 ML VIAL IVP SCH ×2 (10:30→21:00)
[2021-06-06 12:30] LABS: INR-International Normal Ratio 1.4; Prothrombin Time 17.8 sec (12.0-14.7)
[2021-06-06] MEDS ORDERED: Torsemide 20 MG TAB PO SCH (14:00)
[2021-06-06 16:54] VITALS: BMI 40.8
[2021-06-06] MEDS: Warfarin Sodium 5 MG TAB PO SCH (17:12)
[2021-06-06] MEDS: Carvedilol 6.25 MG TAB PO SCH (17:12)
[2021-06-06] MEDS ORDERED: Melatonin 3 MG TAB PO SCH (20:45)
[2021-06-06] MEDS: Bumetanide 1 MG/4 ML VIAL IVP SCH (21:20)
[2021-06-06] MEDS: Enoxaparin Sodium 100 MG/ML SYRINGE SC SCH (21:28)
[2021-06-06] MEDS: Enoxaparin Sodium 30 MG/0.3 ML SYRINGE SC SCH (21:28)
[2021-06-07 06:07] LABS: Hemoglobin 12.7 g/dL (14.0-18.0); Platelet Count 220 thou/uL (130-400)
[2021-06-07 06:17] LABS: INR-International Normal Ratio 1.5; PTT 42.5 sec (22.9-36.1); Prothrombin Time 18.1 sec (12.0-14.7)
[2021-06-07] MEDS: Carvedilol 6.25 MG TAB PO SCH ×2 (08:26→17:40)
[2021-06-07] MEDS: Bumetanide 1 MG/4 ML VIAL IVP SCH ×2 (08:27→20:06)
[2021-06-07] MEDS: Spironolactone 25 MG TAB PO SCH (08:30)
[2021-06-07] MEDS: Enoxaparin Sodium 100 MG/ML SYRINGE SC SCH ×2 (08:31→20:05)
[2021-06-07] MEDS: Enoxaparin Sodium 30 MG/0.3 ML SYRINGE SC SCH (08:31)
[2021-06-07] MEDS ORDERED: Lisinopril 5 MG TAB PO SCH (09:00)
[2021-06-07] MEDS ORDERED: Diltiazem HCl 125 MG, Admixture Fee 1 EACH in Sodium Chloride 0.9% 100 ML IVPB SCH (12:45)
[2021-06-07] MEDS ORDERED: Amiodarone 450 MG, Admixture Fee 1 EACH in Dextrose 5% in Water 250 ML IVPB SCH (12:45)
[2021-06-07 15:42] LABS: Anion Gap 10 mmol/L (10-20); BUN (Urea Nitrogen) 25 mg/dL (8.9-20.6); Calc. Creatinine Clearance 94 mL/min (70-130); Calcium 8.9 mg/dL (7.8-10.44); Carbon Dioxide 28 mmol/L (22-29); Chloride 97 mmol/L (98-107); Glucose 105 mg/dL (70-105); Potassium 3.9 mmol/L (3.5-5.1); Sodium 131 mmol/L (136-145)
[2021-06-07] MEDS: Warfarin Sodium 5 MG TAB PO SCH (17:41)
[2021-06-07] MEDS ORDERED: Melatonin 3 MG TAB PO SCH (21:13)
[2021-06-08 05:43] LABS: Hemoglobin 13.2 g/dL (14.0-18.0); Platelet Count 238 thou/uL (130-400)
[2021-06-08 06:04] LABS: INR-International Normal Ratio 1.5; PTT 49.2 sec (22.9-36.1)
[2021-06-08] MEDS: Bumetanide 1 MG/4 ML VIAL IVP SCH ×2 (08:55→21:51)
[2021-06-08] MEDS: Enoxaparin Sodium 100 MG/ML SYRINGE SC SCH ×2 (08:55→21:52)
[2021-06-08] MEDS: Carvedilol 6.25 MG TAB PO SCH ×2 (09:10→16:41)
[2021-06-08] MEDS: Spironolactone 25 MG TAB PO SCH (09:11)
[2021-06-08] MEDS ORDERED: PROPOFOL 0 ML ONE ×2 (11:52→13:00)
[2021-06-08] MEDS ORDERED: ePHEDrine Sulfate 50 MG/10 ML VIAL ONE (13:01)
[2021-06-08] MEDS ORDERED: PROPOFOL 20 ML ONE ×2 (13:01→13:05)
[2021-06-08] MEDS ORDERED: Benzocaine 20% Spray 60 ML CAN ONE (13:05)
[2021-06-08] MEDS ORDERED: PROPOFOL 200 MG/20 ML VIAL ONE (13:11)
[2021-06-08] MEDS ORDERED: Amiodarone 200 MG TAB PO SCH (15:00)
[2021-06-08] MEDS: Warfarin Sodium 5 MG TAB PO SCH (16:42)
[2021-06-08] MEDS: Warfarin Sodium 2 MG TAB PO SCH (16:42)
[2021-06-08] MEDS ORDERED: Amiodarone 450 MG in Dextrose 5% in Water 250 ML IVPB SCH (17:45)
[2021-06-08] MEDS: Melatonin 3 MG TAB PO PRN (21:51)
[2021-06-08] MEDS ORDERED: Amiodarone 150 MG, Admixture Fee 1 EACH in Dextrose 5% in Water 100 ML IVPB SCH (23:00)
[2021-06-09 00:36] LABS: ALT (SGPT) 11 U/L (8-55); AST (SGOT) 20 U/L (5-34); Albumin 3.6 g/dL (3.5-5.0); Alkaline Phosphatase 99 U/L (40-110); Bilirubin, Direct 1.8 mg/dL (0.1-0.3); Bilirubin, Total 3.5 mg/dL (0.2-1.2); Magnesium 1.8 mg/dL (1.6-2.6); Potassium 3.4 mmol/L (3.5-5.1)
[2021-06-09] MEDS ORDERED: traMADol HCl 50 MG TAB PO SCH (02:01)
[2021-06-09 04:58] LABS: Hemoglobin 13.2 g/dL (14.0-18.0); Platelet Count 243 thou/uL (130-400)
[2021-06-09 04:59] LABS: #Basophils 0.1 thou/uL (0.0-0.2); #Eosinphils 0.3 thou/uL (0.0-0.7); #Lymphocytes 1.8 thou/uL (1.20-3.40); #Monocytes 1.3 thou/uL (0.11-0.59); #Neutrophils 6.8 thou/uL (1.40-6.50); %Basophils 0.6 % (0.0-1.0); %Eosinophils 2.7 % (0.0-10.0); %Lymphocytes 17.4 % (21.0-51.0); %Monocytes 12.3 % (0.0-10.0); Hemoglobin 13.1 g/dL (14.0-18.0); Mean Corpuscular HGB CONC 30.8 g/dL (32.0-36.0); Mean Corpuscular Hemoglobin 25.4 pg (27.0-31.0); Mean Corpuscular Volume 82.4 fL (78.0-98.0); Mean Platelet Volume 8.5 fL (7.4-10.4); Platelet Count 248 thou/uL (130-400); RBC Distribution Width 17.7 % (11.5-14.5); Red Blood Cell (RBC) Count 5.14 mill/uL (4.70-6.10); White Blood Cell (WBC) Count 10.1 thou/uL (4.8-10.8)
[2021-06-09 05:13] LABS: BUN (Urea Nitrogen) 25 mg/dL (8.9-20.6)
[2021-06-09 05:17] LABS: Chloride 101 mmol/L (98-107); Potassium 3.6 mmol/L (3.5-5.1); Sodium 132 mmol/L (136-145)
[2021-06-09 05:18] LABS: Calcium 8.5 mg/dL (7.8-10.44); Glucose 164 mg/dL (70-105)
[2021-06-09 05:19] LABS: INR-International Normal Ratio 1.5; Prothrombin Time 18.1 sec (12.0-14.7)
[2021-06-09 05:20] LABS: Anion Gap 16 mmol/L (10-20)
[2021-06-09 05:20] LABS: PTT 51.6 sec (22.9-36.1)
[2021-06-09 05:21] LABS: Calc. Creatinine Clearance 101 mL/min (70-130)
[2021-06-09 05:47] LABS: Carbon Dioxide 20 mmol/L (22-29)
[2021-06-09] MEDS ORDERED: ALPRAZolam 0.25 MG TAB PO SCH (06:30)
[2021-06-09] MEDS: Bumetanide 1 MG/4 ML VIAL IVP SCH ×2 (09:18→20:40)
[2021-06-09] MEDS: Enoxaparin Sodium 100 MG/ML SYRINGE SC SCH ×2 (09:19→20:39)
[2021-06-09] MEDS: Carvedilol 6.25 MG TAB PO SCH ×2 (09:19→16:42)
[2021-06-09 10:30] LABS: Magnesium 1.8 mg/dL (1.6-2.6)
[2021-06-09] MEDS ORDERED: Digoxin 0.25 MG TAB PO SCH (13:30)
[2021-06-09] MEDS: Warfarin Sodium 2 MG TAB PO SCH (16:43)
[2021-06-09] MEDS: Warfarin Sodium 5 MG TAB PO SCH (16:43)
[2021-06-10 05:36] LABS: #Basophils 0.1 thou/uL (0.0-0.2); #Eosinphils 0.3 thou/uL (0.0-0.7); #Lymphocytes 2.1 thou/uL (1.20-3.40); #Monocytes 1.2 thou/uL (0.11-0.59); #Neutrophils 6.4 thou/uL (1.40-6.50); %Basophils 0.7 % (0.0-1.0); %Lymphocytes 20.7 % (21.0-51.0); %Monocytes 12.1 % (0.0-10.0); %Neutrophils 63.5 % (42.0-75.0); Hemoglobin 13.6 g/dL (14.0-18.0); Mean Corpuscular HGB CONC 31.1 g/dL (32.0-36.0); Mean Corpuscular Hemoglobin 25.9 pg (27.0-31.0); Mean Corpuscular Volume 83.2 fL (78.0-98.0); Mean Platelet Volume 8.2 fL (7.4-10.4); Platelet Count 245 thou/uL (130-400); RBC Distribution Width 17.8 % (11.5-14.5); Red Blood Cell (RBC) Count 5.26 mill/uL (4.70-6.10)
[2021-06-10 05:48] LABS: INR-International Normal Ratio 1.8; PTT 54.7 sec (22.9-36.1); Prothrombin Time 20.7 sec (12.0-14.7)
[2021-06-10 05:58] LABS: Anion Gap 16 mmol/L (10-20); BUN (Urea Nitrogen) 20 mg/dL (8.9-20.6); Calc. Creatinine Clearance 98 mL/min (70-130); Calcium 8.6 mg/dL (7.8-10.44); Carbon Dioxide 21 mmol/L (22-29); Chloride 101 mmol/L (98-107); Glucose 127 mg/dL (70-105); Potassium 3.6 mmol/L (3.5-5.1); Sodium 134 mmol/L (136-145)
[2021-06-10] MEDS: Carvedilol 6.25 MG TAB PO SCH ×2 (09:39→17:09)
[2021-06-10] MEDS: Enoxaparin Sodium 100 MG/ML SYRINGE SC SCH ×2 (09:40→20:22)
[2021-06-10] MEDS: Digoxin 0.125 MG TAB PO SCH (09:40)
[2021-06-10] MEDS: Bumetanide 1 MG/4 ML VIAL IVP SCH ×2 (09:40→20:24)
[2021-06-10] MEDS: Nicotine 7 MG PATCH TD SCH (10:32)
[2021-06-10] MEDS ORDERED: Amiodarone 200 MG TAB PO SCH (16:00)
[2021-06-10] MEDS: Warfarin Sodium 2 MG TAB PO SCH (17:08)
[2021-06-10] MEDS: Warfarin Sodium 5 MG TAB PO SCH (17:08)
[2021-06-10] MEDS: Amiodarone 200 MG TAB PO SCH (20:22)
[2021-06-10] MEDS: Melatonin 3 MG TAB PO PRN (22:38)
[2021-06-11 06:27] LABS: #Eosinphils 0.3 thou/uL (0.0-0.7); #Lymphocytes 1.8 thou/uL (1.20-3.40); #Monocytes 1.1 thou/uL (0.11-0.59); #Neutrophils 6.6 thou/uL (1.40-6.50); %Basophils 0.4 % (0.0-1.0); %Lymphocytes 18.2 % (21.0-51.0); %Monocytes 10.8 % (0.0-10.0); %Neutrophils 67.6 % (42.0-75.0); Hemoglobin 13.2 g/dL (14.0-18.0); Mean Corpuscular HGB CONC 30.4 g/dL (32.0-36.0); Mean Corpuscular Hemoglobin 25.2 pg (27.0-31.0); Mean Corpuscular Volume 82.9 fL (78.0-98.0); Mean Platelet Volume 8.2 fL (7.4-10.4); Platelet Count 234 thou/uL (130-400); RBC Distribution Width 17.5 % (11.5-14.5); Red Blood Cell (RBC) Count 5.23 mill/uL (4.70-6.10); White Blood Cell (WBC) Count 9.7 thou/uL (4.8-10.8)
[2021-06-11 06:42] LABS: Anion Gap 15 mmol/L (10-20); BUN (Urea Nitrogen) 18 mg/dL (8.9-20.6); Calc. Creatinine Clearance 98 mL/min (70-130); Carbon Dioxide 23 mmol/L (22-29); Chloride 99 mmol/L (98-107); Glucose 111 mg/dL (70-105); Magnesium 1.9 mg/dL (1.6-2.6); Potassium 3.7 mmol/L (3.5-5.1); Sodium 133 mmol/L (136-145)
[2021-06-11 06:44] LABS: INR-International Normal Ratio 1.8; PTT 53.5 sec (22.9-36.1); Prothrombin Time 20.9 sec (12.0-14.7)
[2021-06-11] MEDS: Digoxin 0.125 MG TAB PO SCH (09:03)
[2021-06-11] MEDS: Carvedilol 6.25 MG TAB PO SCH ×2 (09:03→17:56)
[2021-06-11] MEDS: Bumetanide 1 MG/4 ML VIAL IVP SCH ×2 (09:04→20:50)
[2021-06-11] MEDS: Enoxaparin Sodium 100 MG/ML SYRINGE SC SCH ×2 (09:05→20:51)
[2021-06-11] MEDS: Nicotine 7 MG PATCH TD SCH (09:05)
[2021-06-11] MEDS: Amiodarone 200 MG TAB PO SCH ×2 (11:31→20:50)
[2021-06-11] MEDS: Warfarin Sodium 2 MG TAB PO SCH (17:56)
[2021-06-11] MEDS: Warfarin Sodium 5 MG TAB PO SCH (17:56)
[2021-06-11] MEDS: Melatonin 3 MG TAB PO PRN (20:51)
[2021-06-11] MEDS ORDERED: traMADol HCl 50 MG TAB PO SCH (23:45)
[2021-06-12 06:05] LABS: #Eosinphils 0.3 thou/uL (0.0-0.7); #Lymphocytes 2.2 thou/uL (1.20-3.40); #Monocytes 1.2 thou/uL (0.11-0.59); #Neutrophils 6.4 thou/uL (1.40-6.50); %Basophils 0.1 % (0.0-1.0); %Eosinophils 3.3 % (0.0-10.0); %Lymphocytes 21.8 % (21.0-51.0); %Neutrophils 62.8 % (42.0-75.0); Hemoglobin 13.4 g/dL (14.0-18.0); Mean Corpuscular HGB CONC 30.7 g/dL (32.0-36.0); Mean Corpuscular Hemoglobin 25.4 pg (27.0-31.0); Mean Corpuscular Volume 82.8 fL (78.0-98.0); Mean Platelet Volume 8.2 fL (7.4-10.4); Platelet Count 246 thou/uL (130-400); RBC Distribution Width 17.6 % (11.5-14.5); Red Blood Cell (RBC) Count 5.29 mill/uL (4.70-6.10); White Blood Cell (WBC) Count 10.2 thou/uL (4.8-10.8)
[2021-06-12 06:09] LABS: INR-International Normal Ratio 1.7
[2021-06-12 06:10] LABS: PTT 54.4 sec (22.9-36.1)
[2021-06-12 06:15] LABS: Anion Gap 15 mmol/L (10-20); BUN (Urea Nitrogen) 22 mg/dL (8.9-20.6); Calc. Creatinine Clearance 97 mL/min (70-130); Carbon Dioxide 21 mmol/L (22-29); Chloride 100 mmol/L (98-107); Glucose 93 mg/dL (70-105); Potassium 3.7 mmol/L (3.5-5.1); Sodium 132 mmol/L (136-145)
[2021-06-12] MEDS: Nicotine 7 MG PATCH TD SCH (08:16)
[2021-06-12] MEDS: Bumetanide 1 MG/4 ML VIAL IVP SCH ×2 (08:34→20:45)
[2021-06-12] MEDS: Digoxin 0.125 MG TAB PO SCH (08:34)
[2021-06-12] MEDS: Amiodarone 200 MG TAB PO SCH ×2 (08:35→20:22)
[2021-06-12] MEDS: Carvedilol 6.25 MG TAB PO SCH ×2 (08:36→16:52)
[2021-06-12] MEDS: Enoxaparin Sodium 100 MG/ML SYRINGE SC SCH ×2 (08:36→20:22)
[2021-06-12] MEDS ORDERED: Warfarin Sodium 10 MG TAB PO SCH (17:00)
[2021-06-12] MEDS: Melatonin 3 MG TAB PO PRN (20:22)
[2021-06-13 05:54] LABS: #Basophils 0.1 thou/uL (0.0-0.2); #Eosinphils 0.3 thou/uL (0.0-0.7); #Lymphocytes 2.1 thou/uL (1.20-3.40); #Monocytes 1.3 thou/uL (0.11-0.59); #Neutrophils 7.2 thou/uL (1.40-6.50); %Basophils 0.6 % (0.0-1.0); %Eosinophils 2.5 % (0.0-10.0); %Lymphocytes 19.2 % (21.0-51.0); %Monocytes 11.6 % (0.0-10.0); %Neutrophils 66.1 % (42.0-75.0); Hemoglobin 13.9 g/dL (14.0-18.0); Mean Corpuscular HGB CONC 31.2 g/dL (32.0-36.0); Mean Corpuscular Hemoglobin 25.6 pg (27.0-31.0); Mean Corpuscular Volume 82.3 fL (78.0-98.0); Platelet Count 253 thou/uL (130-400); RBC Distribution Width 17.5 % (11.5-14.5); Red Blood Cell (RBC) Count 5.42 mill/uL (4.70-6.10); White Blood Cell (WBC) Count 10.8 thou/uL (4.8-10.8)
[2021-06-13 05:59] LABS: INR-International Normal Ratio 1.9; PTT 55.7 sec (22.9-36.1); Prothrombin Time 21.9 sec (12.0-14.7)
[2021-06-13 06:14] LABS: Anion Gap 15 mmol/L (10-20); BUN (Urea Nitrogen) 24 mg/dL (8.9-20.6); Calc. Creatinine Clearance 95 mL/min (70-130); Calcium 9.2 mg/dL (7.8-10.44); Carbon Dioxide 18 mmol/L (22-29); Chloride 101 mmol/L (98-107); Glucose 115 mg/dL (70-105); Potassium 3.8 mmol/L (3.5-5.1); Sodium 130 mmol/L (136-145)
[2021-06-13] MEDS ORDERED: PHENYLEPHRINE-NS 100 MCG/ML 10 ML SYRINGE ONE (07:38)
[2021-06-13] MEDS ORDERED: PROPOFOL 200 MG/20 ML VIAL ONE (07:46)
[2021-06-13] MEDS ORDERED: PROPOFOL 20 ML ONE (08:23)
[2021-06-13] MEDS: Amiodarone 200 MG TAB PO SCH (09:35)
[2021-06-13] MEDS: Carvedilol 6.25 MG TAB PO SCH (09:35)
[2021-06-13] MEDS: Nicotine 7 MG PATCH TD SCH (09:36)
[2021-06-13] MEDS: Enoxaparin Sodium 100 MG/ML SYRINGE SC SCH (09:36)
[2021-06-13] MEDS: Digoxin 0.125 MG TAB PO SCH (09:36)
[2021-06-13] MEDS: Bumetanide 1 MG/4 ML VIAL IVP SCH (09:38)
[2021-06-13 11:49] VITALS: TEMP 98
[2021-06-13 11:55] VITALS: BP 138/100
[2021-06-13] MEDS ORDERED: Warfarin Sodium 10 MG TAB PO SCH (12:15)
== END 2021-06-13 13:15 | disposition home or self-care (01) | DRG 291 ==
LOC: ERS 02:26 → ERHOLD 04:25 → NEURO 04:32
PROVIDERS: ADMIT Internal Medicine; ATTEND Internal Medicine
PROC: 5A2204Z Restoration of Cardiac Rhythm, Single (ICD-10-PCS; principal; 2021-06-08)
PROC: 5A2204Z Restoration of Cardiac Rhythm, Single (ICD-10-PCS; 2021-06-13)
DX: I11.0 Hypertensive heart disease with heart failure (principal); I50.23 Acute on chronic systolic (congestive) heart failure; I48.91 Unspecified atrial fibrillation; F15.10 Other stimulant abuse, uncomplicated; F17.210 Nicotine dependence, cigarettes, uncomplicated; I25.5 Ischemic cardiomyopathy; N18.30 Chronic kidney disease, stage 3 unspecified; Z95.810 Presence of automatic (implantable) cardiac defibrillator; Z79.01 Long term (current) use of anticoagulants; Z91.14 Patient's other noncompliance with medication regimen
CPT/HCPCS: 36415; 71045; 80048; 80053; 80076; 82553; 83735; 83880; 84132; 84443; 84484; 85014; 85018; 85025; 85049; 85610; 85730; 92960; 93005; 93010; 93312; 96374; 96376; J0282; J1650; J2704; J3490; J7070

== ENCOUNTER 2021-06-21 00:44 | Emergency (ER) | payer SELFPAY ==
[2021-06-21 01:16] LABS: #Eosinphils 0.3 thou/uL (0.0-0.7); #Lymphocytes 1.9 thou/uL (1.20-3.40); #Monocytes 1.1 thou/uL (0.11-0.59); #Neutrophils 7.5 thou/uL (1.40-6.50); %Basophils 0.3 % (0.0-1.0); %Eosinophils 3.1 % (0.0-10.0); %Lymphocytes 17.6 % (21.0-51.0); %Monocytes 9.9 % (0.0-10.0); %Neutrophils 69.2 % (42.0-75.0); Hemoglobin 13.1 g/dL (14.0-18.0); Mean Corpuscular HGB CONC 31.4 g/dL (32.0-36.0); Mean Corpuscular Hemoglobin 25.5 pg (27.0-31.0); Mean Corpuscular Volume 81.3 fL (78.0-98.0); Mean Platelet Volume 8.8 fL (7.4-10.4); Platelet Count 214 thou/uL (130-400); RBC Distribution Width 18.1 % (11.5-14.5); Red Blood Cell (RBC) Count 5.14 mill/uL (4.70-6.10); White Blood Cell (WBC) Count 10.8 thou/uL (4.8-10.8)
[2021-06-21 01:25] LABS: INR-International Normal Ratio 1.4
[2021-06-21 01:26] LABS: PTT 42.6 sec (22.9-36.1)
[2021-06-21 01:37] LABS: ALT (SGPT) 12 U/L (8-55); AST (SGOT) 20 U/L (5-34); Albumin 3.8 g/dL (3.5-5.0); Alkaline Phosphatase 83 U/L (40-110); Anion Gap 11 mmol/L (10-20); BUN (Urea Nitrogen) 22 mg/dL (8.9-20.6); Calc. Creatinine Clearance 0 mL/min (70-130); Calcium 8.9 mg/dL (7.8-10.44); Carbon Dioxide 22 mmol/L (22-29); Chloride 103 mmol/L (98-107); Globulin 3.5 g/dL (2.4-3.5); Glucose 137 mg/dL (70-105); Magnesium 1.7 mg/dL (1.6-2.6); Potassium 3.5 mmol/L (3.5-5.1); Protein, Total 7.3 g/dL (6.0-8.3); Sodium 132 mmol/L (136-145)
[2021-06-21] MEDS ORDERED: Morphine 4 MG/ML VIAL ONE (20:06)
== END 2021-06-21 02:57 | disposition home or self-care (01) ==
LOC: ERS 00:44
DX: I48.91 Unspecified atrial fibrillation (principal); I49.9 Cardiac arrhythmia, unspecified; I11.0 Hypertensive heart disease with heart failure; I50.9 Heart failure, unspecified; F17.210 Nicotine dependence, cigarettes, uncomplicated; Z79.82 Long term (current) use of aspirin; Z79.899 Other long term (current) drug therapy
CPT/HCPCS: 36415; 71045; 80053; 83735; 83880; 84443; 84484; 85025; 85610; 85730; 93005; 96374; J2270

== ENCOUNTER 2021-06-24 19:59 | Emergency (ER) | payer SELFPAY ==
[2021-06-24 20:31] LABS: #Eosinphils 0.2 thou/uL (0.0-0.7); #Lymphocytes 1.6 thou/uL (1.20-3.40); #Monocytes 0.8 thou/uL (0.11-0.59); #Neutrophils 8.4 thou/uL (1.40-6.50); %Basophils 0.1 % (0.0-1.0); %Eosinophils 2.2 % (0.0-10.0); %Lymphocytes 14.1 % (21.0-51.0); %Monocytes 7.2 % (0.0-10.0); %Neutrophils 76.4 % (42.0-75.0); Hemoglobin 12.9 g/dL (14.0-18.0); Mean Corpuscular HGB CONC 31.9 g/dL (32.0-36.0); Mean Corpuscular Hemoglobin 26.9 pg (27.0-31.0); Mean Corpuscular Volume 84.1 fL (78.0-98.0); Mean Platelet Volume 8.4 fL (7.4-10.4); Platelet Count 215 thou/uL (130-400); Red Blood Cell (RBC) Count 4.82 mill/uL (4.70-6.10)
[2021-06-24 20:58] LABS: ALT (SGPT) 11 U/L (8-55); AST (SGOT) 15 U/L (5-34); Albumin 3.7 g/dL (3.5-5.0); Alkaline Phosphatase 77 U/L (40-110); Anion Gap 13 mmol/L (10-20); BUN (Urea Nitrogen) 17 mg/dL (8.9-20.6); Bilirubin, Total 2.2 mg/dL (0.2-1.2); Calc. Creatinine Clearance 0 mL/min (70-130); Calcium 8.4 mg/dL (7.8-10.44); Carbon Dioxide 20 mmol/L (22-29); Chloride 103 mmol/L (98-107); Globulin 2.8 g/dL (2.4-3.5); Glucose 171 mg/dL (70-105); Lipase 27 U/L (8-78); Potassium 3.4 mmol/L (3.5-5.1); Protein, Total 6.5 g/dL (6.0-8.3); Sodium 133 mmol/L (136-145)
[2021-06-24 21:31] LABS: Bacteria/HPF None Seen HPF (None Seen); Bilirubin Negative (Negative); Blood, Urine Negative (Negative); Clarity Clear (Clear); Glucose, Urine (Dipstick) Normal (Negative); Ketone, Urine Negative (Negative); Leukocyte Negative Leu/uL (Negative); Nitrite Negative (Negative); Protein, Urine (Dipstick) 30 mg/dL (Neg-Trace); RBC/HPF 0-3 HPF (0-3); Specific Gravity, Urine 1.005 (1.002-1.036); Squamous Epithelial 0-3 HPF (0-3); Urobilinogen Normal mg/dL (Less than 2); WBC/HPF 0-3 HPF (0-3); pH, Urine 6.5 (5.0-9.0)
[2021-06-24] MEDS ORDERED: Furosemide 40 MG/4 ML VIAL ONE (22:04)
== END 2021-06-24 22:23 | disposition home or self-care (01) ==
LOC: ERS 19:59
DX: E87.70 Fluid overload, unspecified (principal); I11.0 Hypertensive heart disease with heart failure; I50.9 Heart failure, unspecified; I48.91 Unspecified atrial fibrillation; F17.210 Nicotine dependence, cigarettes, uncomplicated; Z79.899 Other long term (current) drug therapy; Z79.82 Long term (current) use of aspirin; Z79.01 Long term (current) use of anticoagulants
CPT/HCPCS: 36415; 71045; 80053; 81003; 81015; 83690; 83880; 84484; 85025; 93005; 96374; J1940

== ENCOUNTER 2021-10-01 16:56 | Observation (INO) | payer SELFPAY ==
[2021-10-01] MEDS ORDERED: Enoxaparin Sodium 80 MG/0.8 ML SYRINGE ONE (17:32)
[2021-10-01] MEDS ORDERED: Furosemide 40 MG/4 ML VIAL ONE ×2 (17:32→18:03)
[2021-10-01] MEDS ORDERED: Aspirin Chewable 81 MG TAB ONE (17:32)
[2021-10-01] MEDS ORDERED: Enoxaparin Sodium 30 MG/0.3 ML SYRINGE ONE ×3 (17:32→20:21)
[2021-10-01 17:34] LABS: #Eosinphils 0.3 thou/uL (0.0-0.7); #Lymphocytes 1.7 thou/uL (1.20-3.40); #Neutrophils 6.9 thou/uL (1.40-6.50); %Basophils 0.5 % (0.0-1.0); %Eosinophils 2.6 % (0.0-10.0); %Lymphocytes 17.5 % (21.0-51.0); %Monocytes 9.7 % (0.0-10.0); %Neutrophils 69.6 % (42.0-75.0); Hemoglobin 13.6 g/dL (14.0-18.0); Mean Corpuscular HGB CONC 30.8 g/dL (32.0-36.0); Mean Corpuscular Hemoglobin 26.6 pg (27.0-31.0); Mean Corpuscular Volume 86.5 fL (78.0-98.0); Mean Platelet Volume 7.7 fL (7.4-10.4); Platelet Count 230 thou/uL (130-400); RBC Distribution Width 15.4 % (11.5-14.5); White Blood Cell (WBC) Count 9.9 thou/uL (4.8-10.8)
[2021-10-01 17:45] LABS: INR-International Normal Ratio 1.1; PTT 31.9 sec (22.9-36.1); Prothrombin Time 14.4 sec (12.0-14.7)
[2021-10-01 18:02] LABS: ALT (SGPT) 9 U/L (8-55); AST (SGOT) 16 U/L (5-34); Albumin 3.5 g/dL (3.5-5.0); Alkaline Phosphatase 83 U/L (40-110); Anion Gap 13 mmol/L (10-20); BUN (Urea Nitrogen) 25 mg/dL (8.9-20.6); Bilirubin, Total 2.5 mg/dL (0.2-1.2); Calc. Creatinine Clearance 0 mL/min (70-130); Calcium 8.5 mg/dL (7.8-10.44); Carbon Dioxide 22 mmol/L (22-29); Chloride 103 mmol/L (98-107); Globulin 2.6 g/dL (2.4-3.5); Glucose 124 mg/dL (70-105); Potassium 3.1 mmol/L (3.5-5.1); Protein, Total 6.1 g/dL (6.0-8.3); Sodium 135 mmol/L (136-145)
[2021-10-01 18:19] LABS: CKMB 3.2 ng/mL (0-6.6)
[2021-10-01] MEDS ORDERED: Enoxaparin Sodium 100 MG/ML SYRINGE ONE (19:25)
[2021-10-01] MEDS ORDERED: Nitroglycerin 2% Ointment 1 INCH/1 GM Packet ONE (19:25)
[2021-10-01] MEDS ORDERED: Carvedilol 6.25 MG TAB PO SCH (19:45)
[2021-10-01 20:46] VITALS: BMI 42.7
[2021-10-01] MEDS ORDERED: Ondansetron PF 4 MG/2 ML Vial IVP PRN (21:15)
[2021-10-01] MEDS ORDERED: Ondansetron ODT 4 MG TAB SL PRN (21:15)
[2021-10-01] MEDS ORDERED: Acetaminophen 325 MG TAB PO PRN (21:15)
[2021-10-01] MEDS ORDERED: hydrALAZINE 20 MG/ML VIAL SLOW IVP PRN (21:20)
[2021-10-01] MEDS ORDERED: Acetaminophen 650 MG Suppository PR PRN (21:21)
[2021-10-01] MEDS ORDERED: Electrolyte Replacement Protocol 1 EACH FS SCH (21:30)
[2021-10-01 21:40] LABS: CKMB 2.9 ng/mL (0-6.6)
[2021-10-01] MEDS ORDERED: Amlodipine 10 MG TAB PO SCH (22:00)
[2021-10-01] MEDS ORDERED: Potassium Chloride 20 MEQ TAB PO SCH (22:15)
[2021-10-01 22:28] LABS: Anion Gap 13 mmol/L (10-20); BUN (Urea Nitrogen) 24 mg/dL (8.9-20.6); Calc. Creatinine Clearance 91 mL/min (70-130); Calcium 8.2 mg/dL (7.8-10.44); Carbon Dioxide 26 mmol/L (22-29); Chloride 101 mmol/L (98-107); Glucose 139 mg/dL (70-105); Potassium 3.1 mmol/L (3.5-5.1); Sodium 137 mmol/L (136-145)
[2021-10-01 22:30] LABS: Magnesium 1.7 mg/dL (1.6-2.6)
[2021-10-01] MEDS ORDERED: Magnesium 2 GM/50 ML(in water) 2 GM in Premix Bag 1 BAG IVPB SCH (23:30)
[2021-10-02 00:05] LABS: SARS-CoV-2 PCR by NAA Not Detected (NotDetected)
[2021-10-02 01:36] LABS: CKMB 2.7 ng/mL (0-6.6)
[2021-10-02 04:56] LABS: #Basophils 0.1 thou/uL (0.0-0.2); #Eosinphils 0.3 thou/uL (0.0-0.7); #Lymphocytes 1.9 thou/uL (1.20-3.40); #Monocytes 0.9 thou/uL (0.11-0.59); %Basophils 0.6 % (0.0-1.0); %Eosinophils 2.9 % (0.0-10.0); %Monocytes 8.5 % (0.0-10.0); %Neutrophils 69.1 % (42.0-75.0); Hemoglobin 13.1 g/dL (14.0-18.0); Mean Corpuscular HGB CONC 30.6 g/dL (32.0-36.0); Mean Corpuscular Hemoglobin 26.6 pg (27.0-31.0); Mean Platelet Volume 7.9 fL (7.4-10.4); Platelet Count 227 thou/uL (130-400); RBC Distribution Width 15.4 % (11.5-14.5); Red Blood Cell (RBC) Count 4.91 mill/uL (4.70-6.10); White Blood Cell (WBC) Count 10.2 thou/uL (4.8-10.8)
[2021-10-02 05:25] LABS: Anion Gap 13 mmol/L (10-20); BUN (Urea Nitrogen) 23 mg/dL (8.9-20.6); Calc. Creatinine Clearance 97 mL/min (70-130); Calcium 8.4 mg/dL (7.8-10.44); Carbon Dioxide 24 mmol/L (22-29); Chloride 101 mmol/L (98-107); Glucose 135 mg/dL (70-105); Sodium 135 mmol/L (136-145)
[2021-10-02] MEDS: Furosemide 40 MG/4 ML VIAL SLOW IVP SCH ×2 (05:50→14:20)
[2021-10-02] MEDS ORDERED: Lorazepam 1 MG TAB PO PRN (06:19)
[2021-10-02] MEDS ORDERED: Potassium Chloride 20 MEQ TAB PO SCH ×2 (08:00→13:00)
[2021-10-02] MEDS ORDERED: Magnesium Sulfate 2 GM in Sodium Chloride 0.9% 100 ML IVPB SCH (08:00)
[2021-10-02] MEDS ORDERED: Carvedilol 6.25 MG TAB PO SCH (08:00)
[2021-10-02] MEDS ORDERED: Enoxaparin Sodium 30 MG/0.3 ML SYRINGE SC SCH (09:00)
[2021-10-02] MEDS ORDERED: Amlodipine 10 MG TAB PO SCH (09:00)
[2021-10-02] MEDS ORDERED: Warfarin Sodium 5 MG TAB PO SCH ×2 (09:00→17:00)
[2021-10-02 11:26] LABS: Potassium 3.4 mmol/L (3.5-5.1)
[2021-10-02 11:52] VITALS: TEMP 97.8
[2021-10-02 12:37] LABS: Amphetamine Not Detected (NotDetected); Barbiturates Screen Not Detected (NotDetected); Benzodiazepine Screen Not Detected (NotDetected); Cocaine Metabolite Screen Not Detected (NotDetected); Methadone Not Detected (NotDetected); Methamphetamine Not Detected (NotDetected); Opiate Screen Not Detected (NotDetected); Oxycodone Screen Not Detected (NotDetected); Phencyclidine (PCP) Not Detected (NotDetected); THC/Cannabinoid Screen Not Detected (NotDetected); Tricyclic Screen Not Detected (NotDetected)
[2021-10-02 15:56] VITALS: BP 157/98
== END 2021-10-02 16:45 | disposition home or self-care (01) ==
LOC: ERS 16:56 → 2SW 18:34
PROVIDERS: ADMIT Internal Medicine; ATTEND Internal Medicine
DX: I13.0 Hypertensive heart and chronic kidney disease with heart failure and stage 1 through stage 4 chronic kidney disease, or unspecified chronic kidney disease (principal); N18.4 Chronic kidney disease, stage 4 (severe); I50.21 Acute systolic (congestive) heart failure; N17.9 Acute kidney failure, unspecified; I48.91 Unspecified atrial fibrillation; E87.6 Hypokalemia; E87.1 Hypo-osmolality and hyponatremia; F17.210 Nicotine dependence, cigarettes, uncomplicated; R77.8 Other specified abnormalities of plasma proteins; Z91.14 Patient's other noncompliance with medication regimen; Z79.899 Other long term (current) drug therapy; Z95.810 Presence of automatic (implantable) cardiac defibrillator; Z20.822 Contact with and (suspected) exposure to COVID-19
CPT/HCPCS: 36415; 71045; 80048; 80053; 80306; 82553; 83735; 83880; 84484; 85025; 85610; 85730; 93005; 96365; 96372; 96374; 96375; 96376; G0378; J0360; J1650; J1940; J3475; U0003; U0005

== ENCOUNTER 2021-11-01 14:38 | Inpatient (IN) | payer SELFPAY ==
[2021-11-01] MEDS ORDERED: Diltiazem 125 MG/25 ML ONE ×2 (16:00→16:56)
[2021-11-01 16:03] LABS: #Basophils 0.1 thou/uL (0.0-0.2); #Eosinphils 0.2 thou/uL (0.0-0.7); #Lymphocytes 2.1 thou/uL (1.20-3.40); #Neutrophils 8.5 thou/uL (1.40-6.50); %Basophils 0.5 % (0.0-1.0); %Eosinophils 1.7 % (0.0-10.0); %Lymphocytes 17.7 % (21.0-51.0); %Monocytes 8.4 % (0.0-10.0); %Neutrophils 71.7 % (42.0-75.0); Hemoglobin 13.9 g/dL (14.0-18.0); Mean Corpuscular HGB CONC 30.9 g/dL (32.0-36.0); Mean Corpuscular Volume 84.1 fL (78.0-98.0); Mean Platelet Volume 8.6 fL (7.4-10.4); Platelet Count 224 thou/uL (130-400); RBC Distribution Width 16.8 % (11.5-14.5); Red Blood Cell (RBC) Count 5.37 mill/uL (4.70-6.10); White Blood Cell (WBC) Count 11.8 thou/uL (4.8-10.8)
[2021-11-01 16:12] LABS: ALT (SGPT) 11 U/L (8-55); AST (SGOT) 18 U/L (5-34); Albumin 3.8 g/dL (3.5-5.0); Alkaline Phosphatase 101 U/L (40-110); Anion Gap 15 mmol/L (10-20); BUN (Urea Nitrogen) 21 mg/dL (8.9-20.6); Bilirubin, Total 2.4 mg/dL (0.2-1.2); Calc. Creatinine Clearance 0 mL/min (70-130); Calcium 9.1 mg/dL (7.8-10.44); Carbon Dioxide 18 mmol/L (22-29); Chloride 105 mmol/L (98-107); Globulin 3.4 g/dL (2.4-3.5); Glucose 90 mg/dL (70-105); Magnesium 1.8 mg/dL (1.6-2.6); Potassium 4.7 mmol/L (3.5-5.1); Protein, Total 7.2 g/dL (6.0-8.3); Sodium 133 mmol/L (136-145)
[2021-11-01 16:16] LABS: INR-International Normal Ratio 1.2; PTT 36.3 sec (22.9-36.1); Prothrombin Time 15.1 sec (12.0-14.7)
[2021-11-01 16:27] LABS: Phosphorus 3.3 mg/dL (2.3-4.7)
[2021-11-01 16:45] LABS: CKMB 2.7 ng/mL (0-6.6)
[2021-11-01] MEDS ORDERED: Ciprofloxacin HCL/Dexameth Otic Drops 7.5 ml Bottle ONE (16:58)
[2021-11-01 17:00] LABS: SARS-CoV-2 NAA Rapid Test Not Detected (NotDetected)
[2021-11-01] MEDS ORDERED: Bisacodyl 5 MG TAB PO PRN (17:28)
[2021-11-01] MEDS ORDERED: Senokot S 8.6-50 MG TAB PO PRN (17:28)
[2021-11-01] MEDS ORDERED: Bisacodyl 10 MG SUPP PR PRN (17:28)
[2021-11-01] MEDS ORDERED: Ondansetron PF 4 MG/2 ML Vial IVP PRN (17:28)
[2021-11-01] MEDS ORDERED: Ondansetron ODT 4 MG TAB PO PRN (17:28)
[2021-11-01] MEDS ORDERED: Acetaminophen 325 MG TAB PO PRN (17:28)
[2021-11-01] MEDS ORDERED: Diltiazem 125 MG in Sodium Chloride 0.9% 100 ML IVPB SCH (17:45)
[2021-11-01] MEDS ORDERED: Warfarin Sodium 5 MG TAB PO SCH (17:45)
[2021-11-01 18:25] LABS: Hemoglobin A1c 7.7 % (4.0-6.0)
[2021-11-01 18:34] LABS: Troponin I 0.058 ng/mL (< 0.028)
[2021-11-01] MEDS ORDERED: Dextrose 5% in Water 1,000 ML IV PRN (19:06)
[2021-11-01] MEDS ORDERED: Dextrose 50% Abboject 50 ML SYRINGE SLOW IVP PRN (19:06)
[2021-11-01] MEDS ORDERED: HumaLOG 300 UNITS/3 ML VIAL SC PRN ×2 (19:06)
[2021-11-01 20:27] VITALS: BMI 41.1
[2021-11-01 20:43] LABS: Troponin I 0.058 ng/mL (< 0.028)
[2021-11-01] MEDS: Enoxaparin Sodium 80 MG/0.8 ML SYRINGE SC SCH (21:34)
[2021-11-01] MEDS: Ciprofloxacin HCL/Dexameth Otic Drops 7.5 ml Bottle L EAR SCH (21:35)
[2021-11-01 22:56] LABS: CKMB 2.7 ng/mL (0-6.6)
[2021-11-01 23:49] LABS: Bilirubin Negative (Negative); Blood, Urine Negative (Negative); Clarity Clear (Clear); Glucose, Urine (Dipstick) Normal (Negative); Ketone, Urine Negative (Negative); Leukocyte Negative Leu/uL (Negative); Nitrite Negative (Negative); Protein, Urine (Dipstick) 100 mg/dL (Neg-Trace); RBC/HPF 0-3 HPF (0-3); Specific Gravity, Urine 1.007 (1.002-1.036); Squamous Epithelial 0-3 HPF (0-3); Urobilinogen Normal mg/dL (Less than 2); WBC/HPF 0-3 HPF (0-3); pH, Urine 6.5 (5.0-9.0)
[2021-11-02 00:01] LABS: Bacteria/HPF None Seen HPF (None Seen)
[2021-11-02 00:02] LABS: Urine Culture Reflex No No
[2021-11-02 00:19] LABS: Creatinine, Urine 39.96 mg/dL (63-166); Sodium, Urine Less than 20 mmol/L (Not Available); Urea Nitrogen, Random Urine 255 mg/dl
[2021-11-02 04:16] LABS: Actual Bicarbonate (HCO3v) 19 mEq/L (22-28); Base Excess -4.5 mEq/L (-2.0 to +3.0); Calcium, Ionized (venous) 1.09 mmol/L (1.16-1.32); Chloride (VBG) 101 mmol/L (98-106); Potassium (VBG) 4.43 mmol/L (3.70-5.30); Sodium 131.8 mmol/L (133-146)
[2021-11-02 04:24] LABS: #Lymphocytes 1.3 thou/uL (1.20-3.40); #Monocytes 0.8 thou/uL (0.11-0.59); #Neutrophils 10.6 thou/uL (1.40-6.50); %Basophils 0.2 % (0.0-1.0); %Eosinophils 0.1 % (0.0-10.0); %Lymphocytes 10.2 % (21.0-51.0); %Monocytes 5.9 % (0.0-10.0); %Neutrophils 83.5 % (42.0-75.0); Hemoglobin 14.2 g/dL (14.0-18.0); Mean Corpuscular HGB CONC 31.2 g/dL (32.0-36.0); Mean Corpuscular Hemoglobin 26.3 pg (27.0-31.0); Mean Corpuscular Volume 84.4 fL (78.0-98.0); Mean Platelet Volume 8.7 fL (7.4-10.4); Platelet Count 226 thou/uL (130-400); RBC Distribution Width 16.4 % (11.5-14.5); Red Blood Cell (RBC) Count 5.39 mill/uL (4.70-6.10); White Blood Cell (WBC) Count 12.7 thou/uL (4.8-10.8)
[2021-11-02 04:36] LABS: INR-International Normal Ratio 1.2; PTT 42.1 sec (22.9-36.1); Prothrombin Time 15.8 sec (12.0-14.7)
[2021-11-02 04:43] LABS: ALT (SGPT) 11 U/L (8-55); AST (SGOT) 18 U/L (5-34); Albumin 3.8 g/dL (3.5-5.0); Alkaline Phosphatase 103 U/L (40-110); Anion Gap 15 mmol/L (10-20); BUN (Urea Nitrogen) 25 mg/dL (8.9-20.6); Bilirubin, Direct 1.5 mg/dL (0.1-0.3); Bilirubin, Total 2.8 mg/dL (0.2-1.2); Calc. Creatinine Clearance 101 mL/min (70-130); Calcium 9.1 mg/dL (7.8-10.44); Carbon Dioxide 18 mmol/L (22-29); Cardiac Risk 3.8 (Less than 4.5); Chloride 102 mmol/L (98-107); Cholesterol 79 mg/dl (< 200 Desired); Glucose 199 mg/dL (70-105); HDL Cholesterol 21 mg/dL (>60 Neg Risk); LDL Cholesterol, Calculated 46 mg/dL; Magnesium 1.8 mg/dL (1.6-2.6); Potassium 4.4 mmol/L (3.5-5.1); Protein, Total 7.2 g/dL (6.0-8.3); Sodium 131 mmol/L (136-145); Triglycerides 62 mg/dL (Less than 150)
[2021-11-02] MEDS: Enoxaparin Sodium 80 MG/0.8 ML SYRINGE SC SCH ×2 (09:56→21:14)
[2021-11-02] MEDS: Ciprofloxacin HCL/Dexameth Otic Drops 7.5 ml Bottle L EAR SCH ×2 (10:01→21:15)
[2021-11-02] MEDS: Carvedilol 6.25 MG TAB PO SCH (13:54)
[2021-11-02] MEDS: Furosemide 40 MG TAB PO SCH (13:54)
[2021-11-02] MEDS ORDERED: Warfarin Sodium 5 MG TAB PO SCH (17:00)
[2021-11-02] MEDS ORDERED: Warfarin Sodium 10 MG TAB PO SCH (17:00)
[2021-11-02] MEDS: Diltiazem HCl 125 MG in Premix Bag 1 BAG IVPB SCH (17:57)
[2021-11-02] MEDS ORDERED: Lorazepam 1 MG TAB PO SCH (20:45)
[2021-11-02] MEDS: Lisinopril 10 MG TAB PO SCH (21:14)
[2021-11-03 07:55] LABS: INR-International Normal Ratio 1.3; PTT 41.4 sec (22.9-36.1); Prothrombin Time 16.2 sec (12.0-14.7)
[2021-11-03 07:58] LABS: Anisocytosis SLIGHT = 6-15 cells (100X) (0-5/hpf); Band 6 % (5-11); Hemoglobin 14.1 g/dL (14.0-18.0); Hypochromia SLIGHT = 6-15 cells (100X) (0-5/hpf); Lymphocytes 9 % (21-51); MDiff Complete? YES; Mean Corpuscular HGB CONC 30.2 g/dL (32.0-36.0); Mean Corpuscular Hemoglobin 25.5 pg (27.0-31.0); Mean Corpuscular Volume 84.7 fL (78.0-98.0); Mean Platelet Volume 8.5 fL (7.4-10.4); Monocytes 6 % (0-10); Neutrophil 72 % (42-75); Platelet Count 258 thou/uL (130-400); Platelet Morphology Comment Appears Adequate; Polychromasia SLIGHT = 2-3 cells (100X) (0-2/hpf); RBC Distribution Width 16.8 % (11.5-14.5); Reactive Lymphocytes 7 % (0-10); Red Blood Cell (RBC) Count 5.51 mill/uL (4.70-6.10); White Blood Cell (WBC) Count 20.1 thou/uL (4.8-10.8)
[2021-11-03 08:02] LABS: Anion Gap 16 mmol/L (10-20); BUN (Urea Nitrogen) 38 mg/dL (8.9-20.6); Calc. Creatinine Clearance 102 mL/min (70-130); Calcium 8.9 mg/dL (7.8-10.44); Carbon Dioxide 18 mmol/L (22-29); Chloride 101 mmol/L (98-107); Glucose 152 mg/dL (70-105); Magnesium 1.9 mg/dL (1.6-2.6); Potassium 4.8 mmol/L (3.5-5.1); Sodium 130 mmol/L (136-145)
[2021-11-03] MEDS: Enoxaparin Sodium 80 MG/0.8 ML SYRINGE SC SCH ×2 (08:35→20:31)
[2021-11-03] MEDS: Ciprofloxacin HCL/Dexameth Otic Drops 7.5 ml Bottle L EAR SCH ×2 (08:35→20:35)
[2021-11-03] MEDS: Carvedilol 6.25 MG TAB PO SCH ×2 (08:35→16:33)
[2021-11-03] MEDS: Lisinopril 10 MG TAB PO SCH ×2 (08:35→20:31)
[2021-11-03] MEDS: Furosemide 40 MG TAB PO SCH ×2 (08:35→14:50)
[2021-11-03] MEDS ORDERED: Warfarin Sodium 5 MG TAB PO SCH (17:00)
[2021-11-03] MEDS ORDERED: Warfarin Sodium 7.5 MG TAB PO SCH (17:00)
[2021-11-03 17:25] LABS: Bacteria/HPF None Seen HPF (None Seen); Bilirubin Negative (Negative); Blood, Urine Negative (Negative); Clarity Clear (Clear); Glucose, Urine (Dipstick) Normal (Negative); Ketone, Urine Negative (Negative); Leukocyte Negative Leu/uL (Negative); Nitrite Negative (Negative); Protein, Urine (Dipstick) 30 mg/dL (Neg-Trace); RBC/HPF 0-3 HPF (0-3); Squamous Epithelial None Seen HPF (0-3); WBC/HPF 0-3 HPF (0-3)
[2021-11-03 17:27] LABS: Urine Culture Reflex No No
[2021-11-03] MEDS ORDERED: Lorazepam 1 MG TAB PO SCH (19:45)
[2021-11-03] MEDS: Diltiazem HCl SR 60 mg Capsule PO SCH (20:31)
[2021-11-03] MEDS: Diltiazem HCl 125 MG in Premix Bag 1 BAG IVPB SCH (21:37)
[2021-11-04 05:10] LABS: Hemoglobin 13.6 g/dL (14.0-18.0); Mean Corpuscular HGB CONC 30.1 g/dL (32.0-36.0); Mean Corpuscular Hemoglobin 25.5 pg (27.0-31.0); Mean Corpuscular Volume 84.6 fL (78.0-98.0); Mean Platelet Volume 8.5 fL (7.4-10.4); Platelet Count 263 thou/uL (130-400); RBC Distribution Width 16.6 % (11.5-14.5); Red Blood Cell (RBC) Count 5.36 mill/uL (4.70-6.10); White Blood Cell (WBC) Count 18.1 thou/uL (4.8-10.8)
[2021-11-04 05:16] LABS: INR-International Normal Ratio 1.4; PTT 38.8 sec (22.9-36.1)
[2021-11-04 05:24] LABS: Anion Gap 15 mmol/L (10-20); BUN (Urea Nitrogen) 41 mg/dL (8.9-20.6); Calc. Creatinine Clearance 92 mL/min (70-130); Calcium 8.8 mg/dL (7.8-10.44); Carbon Dioxide 18 mmol/L (22-29); Chloride 102 mmol/L (98-107); Glucose 103 mg/dL (70-105); Potassium 4.1 mmol/L (3.5-5.1); Sodium 131 mmol/L (136-145)
[2021-11-04] MEDS: Carvedilol 6.25 MG TAB PO SCH ×2 (08:20→16:00)
[2021-11-04] MEDS: Diltiazem HCl SR 60 mg Capsule PO SCH ×2 (08:20→21:41)
[2021-11-04] MEDS: Furosemide 40 MG TAB PO SCH ×2 (08:21→13:38)
[2021-11-04] MEDS: Lisinopril 10 MG TAB PO SCH ×2 (08:21→21:41)
[2021-11-04] MEDS: Enoxaparin Sodium 80 MG/0.8 ML SYRINGE SC SCH ×2 (08:21→21:41)
[2021-11-04] MEDS: Ciprofloxacin HCL/Dexameth Otic Drops 7.5 ml Bottle L EAR SCH ×2 (08:21→21:41)
[2021-11-04] MEDS: Fluticasone Propionate Nasal Spray 16 gm Bottle NASAL SCH (09:04)
[2021-11-04] MEDS ORDERED: Warfarin Sodium 10 MG TAB PO SCH (17:00)
[2021-11-05 05:02] LABS: INR-International Normal Ratio 1.5; PTT 50.3 sec (22.9-36.1); Prothrombin Time 18.7 sec (12.0-14.7)
[2021-11-05 05:10] LABS: Anion Gap 15 mmol/L (10-20); BUN (Urea Nitrogen) 38 mg/dL (8.9-20.6); Calc. Creatinine Clearance 92 mL/min (70-130); Carbon Dioxide 21 mmol/L (22-29); Chloride 101 mmol/L (98-107); Glucose 111 mg/dL (70-105); Potassium 3.9 mmol/L (3.5-5.1); Sodium 133 mmol/L (136-145)
[2021-11-05] MEDS: Ciprofloxacin HCL/Dexameth Otic Drops 7.5 ml Bottle L EAR SCH (10:27)
[2021-11-05] MEDS: Diltiazem HCl SR 60 mg Capsule PO SCH (10:30)
[2021-11-05] MEDS: Furosemide 40 MG TAB PO SCH (10:30)
[2021-11-05] MEDS: Lisinopril 10 MG TAB PO SCH (10:30)
[2021-11-05] MEDS: Enoxaparin Sodium 80 MG/0.8 ML SYRINGE SC SCH (10:31)
[2021-11-05] MEDS: Fluticasone Propionate Nasal Spray 16 gm Bottle NASAL SCH (10:31)
[2021-11-05] MEDS: Carvedilol 6.25 MG TAB PO SCH (10:31)
[2021-11-05 11:40] VITALS: BP 139/79; TEMP 97.4
[2021-11-05] MEDS ORDERED: Warfarin Sodium 7.5 MG TAB PO SCH (17:00)
[2021-11-05] MEDS ORDERED: Lisinopril 20 MG TAB PO SCH (21:00)
[2021-11-06] MEDS ORDERED: Warfarin Sodium 10 MG TAB PO SCH (17:00)
== END 2021-11-05 13:56 | disposition left against medical advice (07) | DRG 281 ==
LOC: ERS 14:38 → 2NO 17:28
PROVIDERS: ADMIT Internal Medicine; ATTEND Internal Medicine
DX: I48.19 Other persistent atrial fibrillation (principal); I21.A1 Myocardial infarction type 2; I13.0 Hypertensive heart and chronic kidney disease with heart failure and stage 1 through stage 4 chronic kidney disease, or unspecified chronic kidney disease; E87.1 Hypo-osmolality and hyponatremia; I50.22 Chronic systolic (congestive) heart failure; Z20.822 Contact with and (suspected) exposure to COVID-19; I42.8 Other cardiomyopathies; N18.31 Chronic kidney disease, stage 3a; I12.9 Hypertensive chronic kidney disease with stage 1 through stage 4 chronic kidney disease, or unspecified chronic kidney disease; F15.10 Other stimulant abuse, uncomplicated; H60.92 Unspecified otitis externa, left ear; R79.89 Other specified abnormal findings of blood chemistry; E11.22 Type 2 diabetes mellitus with diabetic chronic kidney disease; R79.1 Abnormal coagulation profile; Z95.810 Presence of automatic (implantable) cardiac defibrillator; Z79.899 Other long term (current) drug therapy; Z79.01 Long term (current) use of anticoagulants
CPT/HCPCS: 36415; 36416; 71045; 76705; 80048; 80053; 80061; 80076; 81001; 82553; 82570; 82805; 83036; 83735; 83880; 83930; 83935; 84100; 84300; 84443; 84484; 84540; 85025; 85027; 85379; 85610; 85730; 93005; 93306; 93798; 94760; 96365; 96366; 96376; J1650; J1815

== ENCOUNTER 2021-11-15 14:40 | Inpatient (IN) | payer SELFPAY ==
[2021-11-15] MEDS ORDERED: Magnesium 2 GM/50 ML BAG (IN WATER) ONE (15:04)
[2021-11-15] MEDS ORDERED: Digoxin 0.5 MG/2 ML AMP ONE (15:04)
[2021-11-15] MEDS ORDERED: Aspirin Chewable 81 MG TAB ONE (15:04)
[2021-11-15 15:11] LABS: #Basophils 0.1 thou/uL (0.0-0.2); #Eosinphils 0.1 thou/uL (0.0-0.7); #Monocytes 1.2 thou/uL (0.11-0.59); #Neutrophils 7.9 thou/uL (1.40-6.50); %Basophils 0.7 % (0.0-1.0); %Eosinophils 1.3 % (0.0-10.0); %Lymphocytes 17.9 % (21.0-51.0); %Monocytes 10.2 % (0.0-10.0); Hemoglobin 13.5 g/dL (14.0-18.0); Mean Corpuscular Hemoglobin 25.3 pg (27.0-31.0); Mean Corpuscular Volume 84.5 fL (78.0-98.0); Mean Platelet Volume 8.3 fL (7.4-10.4); Platelet Count 258 thou/uL (130-400); RBC Distribution Width 18.2 % (11.5-14.5); Red Blood Cell (RBC) Count 5.34 mill/uL (4.70-6.10); White Blood Cell (WBC) Count 11.3 thou/uL (4.8-10.8)
[2021-11-15 15:30] LABS: ALT (SGPT) 13 U/L (8-55); AST (SGOT) 18 U/L (5-34); Albumin 3.7 g/dL (3.5-5.0); Alkaline Phosphatase 104 U/L (40-110); Anion Gap 14 mmol/L (10-20); BUN (Urea Nitrogen) 27 mg/dL (8.9-20.6); Bilirubin, Total 3.7 mg/dL (0.2-1.2); CK (CPK) 74 U/L (30-200); Calc. Creatinine Clearance 0 mL/min (70-130); Calcium 9.1 mg/dL (7.8-10.44); Carbon Dioxide 19 mmol/L (22-29); Chloride 103 mmol/L (98-107); Estimated GFR 45; Globulin 3.1 g/dL (2.4-3.5); Glucose 90 mg/dL (70-105); Lipase 29 U/L (8-78); Potassium 4.9 mmol/L (3.5-5.1); Protein, Total 6.8 g/dL (6.0-8.3); Sodium 131 mmol/L (136-145)
[2021-11-15 15:52] LABS: CKMB 2.2 ng/mL (0-6.6)
[2021-11-15 16:21] LABS: Acetaminophen Less than 10.0 mcg/mL (10.0-30.0); Alcohol Less than 10 mg/dL (Less than 10); Salicylate Less than 8.0 mg/dL (15.0-30.0)
[2021-11-15] MEDS ORDERED: Senokot S 8.6-50 MG TAB PO PRN (17:29)
[2021-11-15] MEDS ORDERED: Ondansetron ODT 4 MG TAB PO PRN (17:29)
[2021-11-15] MEDS ORDERED: Acetaminophen 325 MG TAB PO PRN (17:29)
[2021-11-15 19:14] LABS: INR-International Normal Ratio 1.3
[2021-11-15 20:03] LABS: SARS-CoV-2 NAA Rapid Test Not Detected (NotDetected)
[2021-11-15 20:09] LABS: CKMB 2.2 ng/mL (0-6.6)
[2021-11-15 21:21] VITALS: BMI 40.1
[2021-11-15] MEDS ORDERED: Enoxaparin Sodium 120 MG/0.8 ML SYRINGE SC SCH (22:00)
[2021-11-15] MEDS ORDERED: Famotidine 20 MG TAB PO SCH (22:15)
[2021-11-15] MEDS ORDERED: Warfarin Sodium 5 MG TAB PO SCH (22:15)
[2021-11-15] MEDS: NIFEdipine XL 60 MG TAB PO SCH (22:41)
[2021-11-16] MEDS ORDERED: Loratadine 10 MG TAB PO SCH (02:15)
[2021-11-16] MEDS ORDERED: Fluticasone Propionate Nasal Spray 16 gm Bottle NASAL SCH (02:30)
[2021-11-16 04:16] LABS: #Basophils 0.1 thou/uL (0.0-0.2); #Eosinphils 0.3 thou/uL (0.0-0.7); #Lymphocytes 1.9 thou/uL (1.20-3.40); #Monocytes 1.1 thou/uL (0.11-0.59); #Neutrophils 7.5 thou/uL (1.40-6.50); %Eosinophils 2.5 % (0.0-10.0); %Lymphocytes 17.7 % (21.0-51.0); %Monocytes 9.7 % (0.0-10.0); %Neutrophils 69.1 % (42.0-75.0); Hemoglobin 13.3 g/dL (14.0-18.0); Mean Corpuscular Hemoglobin 25.6 pg (27.0-31.0); Mean Corpuscular Volume 85.4 fL (78.0-98.0); Mean Platelet Volume 8.5 fL (7.4-10.4); Platelet Count 238 thou/uL (130-400); RBC Distribution Width 17.7 % (11.5-14.5); Red Blood Cell (RBC) Count 5.19 mill/uL (4.70-6.10); White Blood Cell (WBC) Count 10.8 thou/uL (4.8-10.8)
[2021-11-16 04:41] LABS: ALT (SGPT) 11 U/L (8-55); AST (SGOT) 16 U/L (5-34); Albumin 3.3 g/dL (3.5-5.0); Alkaline Phosphatase 103 U/L (40-110); Anion Gap 14 mmol/L (10-20); BUN (Urea Nitrogen) 28 mg/dL (8.9-20.6); Calc. Creatinine Clearance 102 mL/min (70-130); Calcium 8.8 mg/dL (7.8-10.44); Carbon Dioxide 19 mmol/L (22-29); Chloride 107 mmol/L (98-107); Estimated GFR 48; Glucose 98 mg/dL (70-105); Potassium 4.3 mmol/L (3.5-5.1); Protein, Total 6.3 g/dL (6.0-8.3); Sodium 136 mmol/L (136-145)
[2021-11-16] MEDS: NIFEdipine XL 60 MG TAB PO SCH (08:28)
[2021-11-16] MEDS: Famotidine 20 MG TAB PO SCH ×2 (08:29→21:15)
[2021-11-16] MEDS: Fluticasone Propionate Nasal Spray 16 gm Bottle NASAL SCH (08:30)
[2021-11-16] MEDS: Loratadine 10 MG TAB PO SCH (08:30)
[2021-11-16] MEDS: Enoxaparin Sodium 120 MG/0.8 ML SYRINGE SC SCH ×2 (08:31→21:15)
[2021-11-16] MEDS ORDERED: Furosemide 40 MG/4 ML VIAL SLOW IVP SCH (09:00)
[2021-11-16] MEDS ORDERED: Diltiazem 125 MG in Sodium Chloride 0.9% 100 ML IVPB SCH (09:30)
[2021-11-16] MEDS ORDERED: Diltiazem HCl 125 MG in Premix Bag 1 BAG IVPB SCH ×2 (09:30→18:45)
[2021-11-16 10:31] LABS: INR-International Normal Ratio 1.3; Prothrombin Time 16.4 sec (12.0-14.7)
[2021-11-16 11:32] LABS: Amphetamine Not Detected (NotDetected); Barbiturates Screen Not Detected (NotDetected); Benzodiazepine Screen Not Detected (NotDetected); Cocaine Metabolite Screen Not Detected (NotDetected); Methadone Not Detected (NotDetected); Methamphetamine Not Detected (NotDetected); Opiate Screen Not Detected (NotDetected); Oxycodone Screen Not Detected (NotDetected); Phencyclidine (PCP) Not Detected (NotDetected); THC/Cannabinoid Screen Not Detected (NotDetected); Tricyclic Screen Not Detected (NotDetected)
[2021-11-16] MEDS ORDERED: Warfarin Sodium 5 MG TAB PO SCH (17:00)
[2021-11-17 04:14] LABS: #Eosinphils 0.2 thou/uL (0.0-0.7); #Monocytes 1.4 thou/uL (0.11-0.59); #Neutrophils 9.8 thou/uL (1.40-6.50); %Basophils 0.3 % (0.0-1.0); %Eosinophils 1.8 % (0.0-10.0); %Lymphocytes 14.9 % (21.0-51.0); %Monocytes 10.7 % (0.0-10.0); %Neutrophils 72.3 % (42.0-75.0); Hemoglobin 13.3 g/dL (14.0-18.0); Mean Corpuscular HGB CONC 29.8 g/dL (32.0-36.0); Mean Corpuscular Hemoglobin 25.3 pg (27.0-31.0); Mean Platelet Volume 8.2 fL (7.4-10.4); Platelet Count 274 thou/uL (130-400); RBC Distribution Width 18.3 % (11.5-14.5); Red Blood Cell (RBC) Count 5.26 mill/uL (4.70-6.10); White Blood Cell (WBC) Count 13.5 thou/uL (4.8-10.8)
[2021-11-17 04:18] LABS: INR-International Normal Ratio 1.2; Prothrombin Time 15.8 sec (12.0-14.7)
[2021-11-17 04:36] LABS: ALT (SGPT) 10 U/L (8-55); AST (SGOT) 21 U/L (5-34); Albumin 3.5 g/dL (3.5-5.0); Alkaline Phosphatase 105 U/L (40-110); Anion Gap 16 mmol/L (10-20); BUN (Urea Nitrogen) 29 mg/dL (8.9-20.6); Calc. Creatinine Clearance 98 mL/min (70-130); Carbon Dioxide 18 mmol/L (22-29); Chloride 102 mmol/L (98-107); Estimated GFR 45; Globulin 3.3 g/dL (2.4-3.5); Glucose 126 mg/dL (70-105); Potassium 4.4 mmol/L (3.5-5.1); Protein, Total 6.8 g/dL (6.0-8.3); Sodium 132 mmol/L (136-145)
[2021-11-17] MEDS: Furosemide 40 MG/4 ML VIAL SLOW IVP SCH ×2 (05:44→15:55)
[2021-11-17] MEDS: Enoxaparin Sodium 120 MG/0.8 ML SYRINGE SC SCH ×2 (10:20→20:59)
[2021-11-17] MEDS: Carvedilol 6.25 MG TAB PO SCH ×2 (10:20→16:42)
[2021-11-17] MEDS: Famotidine 20 MG TAB PO SCH ×2 (10:20→20:54)
[2021-11-17] MEDS: Loratadine 10 MG TAB PO SCH (10:20)
[2021-11-17] MEDS: Fluticasone Propionate Nasal Spray 16 gm Bottle NASAL SCH (10:22)
[2021-11-17] MEDS: Warfarin Sodium 10 MG TAB PO SCH (16:43)
[2021-11-17] MEDS ORDERED: Warfarin Sodium 7.5 MG TAB PO SCH (17:00)
[2021-11-18 04:44] LABS: INR-International Normal Ratio 1.3; Prothrombin Time 16.2 sec (12.0-14.7)
[2021-11-18] MEDS: Furosemide 40 MG/4 ML VIAL SLOW IVP SCH ×2 (06:12→13:51)
[2021-11-18] MEDS ORDERED: Prevnar 13-Val Conj/PF 0.5 ML SYRINGE IM ONE (09:00)
[2021-11-18] MEDS: Carvedilol 6.25 MG TAB PO SCH ×2 (10:40→17:57)
[2021-11-18] MEDS: Loratadine 10 MG TAB PO SCH (10:40)
[2021-11-18] MEDS: Famotidine 20 MG TAB PO SCH ×2 (10:40→21:40)
[2021-11-18] MEDS: Enoxaparin Sodium 120 MG/0.8 ML SYRINGE SC SCH ×2 (10:41→21:40)
[2021-11-18] MEDS: Fluticasone Propionate Nasal Spray 16 gm Bottle NASAL SCH (10:42)
[2021-11-18] MEDS: Warfarin Sodium 10 MG TAB PO SCH (17:57)
[2021-11-19 04:13] LABS: INR-International Normal Ratio 1.4; Prothrombin Time 17.3 sec (12.0-14.7)
[2021-11-19 04:29] LABS: Cardiac Risk 2.5 (Less than 4.5)
[2021-11-19] MEDS: Furosemide 40 MG/4 ML VIAL SLOW IVP SCH ×2 (06:23→15:14)
[2021-11-19] MEDS: Carvedilol 6.25 MG TAB PO SCH ×2 (09:37→16:54)
[2021-11-19] MEDS: Enoxaparin Sodium 120 MG/0.8 ML SYRINGE SC SCH ×2 (09:38→21:04)
[2021-11-19] MEDS: Loratadine 10 MG TAB PO SCH (09:38)
[2021-11-19] MEDS: Fluticasone Propionate Nasal Spray 16 gm Bottle NASAL SCH (09:40)
[2021-11-19] MEDS: Famotidine 20 MG TAB PO SCH ×2 (09:47→21:04)
[2021-11-19] MEDS ORDERED: Warfarin Sodium 10 MG TAB PO SCH (10:32)
[2021-11-19] MEDS ORDERED: metFORMIN 500 MG TAB PO SCH (10:32)
[2021-11-19] MEDS: Warfarin Sodium 3 MG TAB PO SCH (16:54)
[2021-11-20 04:25] LABS: #Basophils 0.1 thou/uL (0.0-0.2); #Eosinphils 0.3 thou/uL (0.0-0.7); #Lymphocytes 1.7 thou/uL (1.20-3.40); #Monocytes 1.1 thou/uL (0.11-0.59); #Neutrophils 5.5 thou/uL (1.40-6.50); %Basophils 1.1 % (0.0-1.0); %Eosinophils 3.6 % (0.0-10.0); %Lymphocytes 19.2 % (21.0-51.0); %Monocytes 12.2 % (0.0-10.0); %Neutrophils 63.9 % (42.0-75.0); Hemoglobin 13.1 g/dL (14.0-18.0); Mean Corpuscular HGB CONC 30.1 g/dL (32.0-36.0); Mean Corpuscular Hemoglobin 25.3 pg (27.0-31.0); Mean Platelet Volume 8.5 fL (7.4-10.4); Platelet Count 235 thou/uL (130-400); RBC Distribution Width 17.9 % (11.5-14.5); Red Blood Cell (RBC) Count 5.17 mill/uL (4.70-6.10); White Blood Cell (WBC) Count 8.7 thou/uL (4.8-10.8)
[2021-11-20 04:47] LABS: INR-International Normal Ratio 1.6; Prothrombin Time 19.2 sec (12.0-14.7)
[2021-11-20 04:49] LABS: Anion Gap 15 mmol/L (10-20); BUN (Urea Nitrogen) 27 mg/dL (8.9-20.6); Calc. Creatinine Clearance 101 mL/min (70-130); Calcium 8.9 mg/dL (7.8-10.44); Carbon Dioxide 21 mmol/L (22-29); Cardiac Risk 2.7 (Less than 4.5); Chloride 104 mmol/L (98-107); Cholesterol 77 mg/dl (< 200 Desired); Estimated GFR 47; Glucose 92 mg/dL (70-105); HDL Cholesterol 29 mg/dL (>60 Neg Risk); LDL Cholesterol, Calculated 38 mg/dL; Potassium 3.8 mmol/L (3.5-5.1); Sodium 136 mmol/L (136-145); Triglycerides 48 mg/dL (Less than 150)
[2021-11-20] MEDS: Furosemide 40 MG/4 ML VIAL SLOW IVP SCH ×2 (05:41→17:06)
[2021-11-20] MEDS: Carvedilol 6.25 MG TAB PO SCH ×2 (09:41→16:49)
[2021-11-20] MEDS: Famotidine 20 MG TAB PO SCH ×2 (09:41→20:33)
[2021-11-20] MEDS: Loratadine 10 MG TAB PO SCH (09:41)
[2021-11-20] MEDS: Enoxaparin Sodium 120 MG/0.8 ML SYRINGE SC SCH ×2 (09:42→20:33)
[2021-11-20] MEDS: Fluticasone Propionate Nasal Spray 16 gm Bottle NASAL SCH (10:17)
[2021-11-20] MEDS: Warfarin Sodium 3 MG TAB PO SCH (16:49)
[2021-11-20] MEDS: hydrALAZINE 20 MG/ML VIAL SLOW IVP PRN (20:33)
[2021-11-21] MEDS: hydrALAZINE 20 MG/ML VIAL SLOW IVP PRN ×2 (02:52→20:39)
[2021-11-21 04:22] LABS: INR-International Normal Ratio 1.8; Prothrombin Time 21.1 sec (12.0-14.7)
[2021-11-21 04:23] LABS: #Eosinphils 0.3 thou/uL (0.0-0.7); #Lymphocytes 1.4 thou/uL (1.20-3.40); #Monocytes 0.8 thou/uL (0.11-0.59); #Neutrophils 4.7 thou/uL (1.40-6.50); %Basophils 0.6 % (0.0-1.0); %Eosinophils 4.7 % (0.0-10.0); %Lymphocytes 18.7 % (21.0-51.0); %Monocytes 11.4 % (0.0-10.0); %Neutrophils 64.7 % (42.0-75.0); Mean Corpuscular HGB CONC 30.7 g/dL (32.0-36.0); Mean Corpuscular Hemoglobin 25.3 pg (27.0-31.0); Mean Corpuscular Volume 82.6 fL (78.0-98.0); Mean Platelet Volume 8.5 fL (7.4-10.4); Platelet Count 222 thou/uL (130-400); RBC Distribution Width 17.7 % (11.5-14.5); Red Blood Cell (RBC) Count 5.11 mill/uL (4.70-6.10); White Blood Cell (WBC) Count 7.3 thou/uL (4.8-10.8)
[2021-11-21 04:43] LABS: Anion Gap 16 mmol/L (10-20); BUN (Urea Nitrogen) 21 mg/dL (8.9-20.6); Calc. Creatinine Clearance 107 mL/min (70-130); Calcium 8.5 mg/dL (7.8-10.44); Carbon Dioxide 21 mmol/L (22-29); Chloride 102 mmol/L (98-107); Estimated GFR 50; Glucose 147 mg/dL (70-105); Potassium 3.4 mmol/L (3.5-5.1); Sodium 136 mmol/L (136-145)
[2021-11-21] MEDS: Furosemide 40 MG/4 ML VIAL SLOW IVP SCH ×2 (06:30→16:33)
[2021-11-21] MEDS: Carvedilol 6.25 MG TAB PO SCH ×2 (09:19→16:32)
[2021-11-21] MEDS: Enoxaparin Sodium 120 MG/0.8 ML SYRINGE SC SCH ×2 (09:19→20:39)
[2021-11-21] MEDS: Loratadine 10 MG TAB PO SCH (09:19)
[2021-11-21] MEDS: Famotidine 20 MG TAB PO SCH ×2 (09:20→20:39)
[2021-11-21] MEDS: Fluticasone Propionate Nasal Spray 16 gm Bottle NASAL SCH (09:24)
[2021-11-21] MEDS ORDERED: Potassium Chloride 20 MEQ TAB PO SCH (10:15)
[2021-11-21] MEDS: Warfarin Sodium 3 MG TAB PO SCH (16:32)
[2021-11-22 04:56] LABS: INR-International Normal Ratio 2.3; Prothrombin Time 25.3 sec (12.0-14.7)
[2021-11-22 05:15] LABS: Band 11 % (5-11); Eosinophils 5 % (0-10); Hemoglobin 13.3 g/dL (14.0-18.0); Lymphocytes 18 % (21-51); MDiff Complete? YES; Mean Corpuscular HGB CONC 30.1 g/dL (32.0-36.0); Mean Corpuscular Hemoglobin 25.2 pg (27.0-31.0); Mean Corpuscular Volume 83.7 fL (78.0-98.0); Monocytes 11 % (0-10); Neutrophil 55 % (42-75); Platelet Count 246 thou/uL (130-400); RBC Distribution Width 17.4 % (11.5-14.5); Red Blood Cell (RBC) Count 5.28 mill/uL (4.70-6.10)
[2021-11-22 05:30] LABS: Anion Gap 18 mmol/L (10-20); BUN (Urea Nitrogen) 19 mg/dL (8.9-20.6); Calc. Creatinine Clearance 118 mL/min (70-130); Calcium 8.7 mg/dL (7.8-10.44); Carbon Dioxide 17 mmol/L (22-29); Chloride 103 mmol/L (98-107); Estimated GFR 57; Glucose 99 mg/dL (70-105); Potassium 4.2 mmol/L (3.5-5.1); Sodium 134 mmol/L (136-145)
[2021-11-22] MEDS: Furosemide 40 MG/4 ML VIAL SLOW IVP SCH (05:50)
[2021-11-22] MEDS: Enoxaparin Sodium 120 MG/0.8 ML SYRINGE SC SCH (07:47)
[2021-11-22] MEDS: Carvedilol 6.25 MG TAB PO SCH (07:47)
[2021-11-22] MEDS: Loratadine 10 MG TAB PO SCH (07:48)
[2021-11-22] MEDS: Fluticasone Propionate Nasal Spray 16 gm Bottle NASAL SCH (07:48)
[2021-11-22] MEDS: Famotidine 20 MG TAB PO SCH (07:48)
[2021-11-22 08:08] VITALS: BP 136/81; TEMP 97.5
[2021-11-22] MEDS ORDERED: Warfarin Sodium 10 MG TAB PO SCH (17:00)
== END 2021-11-22 11:22 | disposition home or self-care (01) | DRG 281 ==
LOC: ERS 14:40 → 2NO 17:34
PROVIDERS: ADMIT Hospitalist; ATTEND Hospitalist
DX: I48.91 Unspecified atrial fibrillation (principal); Z20.822 Contact with and (suspected) exposure to COVID-19; I21.A1 Myocardial infarction type 2; I50.22 Chronic systolic (congestive) heart failure; Z68.42 Body mass index [BMI] 45.0-49.9, adult; N17.9 Acute kidney failure, unspecified; I13.0 Hypertensive heart and chronic kidney disease with heart failure and stage 1 through stage 4 chronic kidney disease, or unspecified chronic kidney disease; I42.8 Other cardiomyopathies; E66.01 Morbid (severe) obesity due to excess calories; F15.10 Other stimulant abuse, uncomplicated; F17.210 Nicotine dependence, cigarettes, uncomplicated; E78.5 Hyperlipidemia, unspecified; E11.22 Type 2 diabetes mellitus with diabetic chronic kidney disease; N18.30 Chronic kidney disease, stage 3 unspecified; Z28.21 Immunization not carried out because of patient refusal; Z95.810 Presence of automatic (implantable) cardiac defibrillator; Z91.19 Patient's noncompliance with other medical treatment and regimen; Z79.899 Other long term (current) drug therapy; Z79.01 Long term (current) use of anticoagulants; Z91.14 Patient's other noncompliance with medication regimen; Z98.890 Other specified postprocedural states; Z71.51 Drug abuse counseling and surveillance of drug abuser
CPT/HCPCS: 36415; 36416; 71045; 80048; 80053; 80061; 80306; 80307; 82550; 82553; 83690; 83880; 84443; 84484; 85025; 85610; 93005; 94760; 96361; 96365; 96375; J0360; J1160; J1650; J1940; J3475; U0003; U0005

== ENCOUNTER 2022-02-10 14:21 | Inpatient (IN) | payer SELFPAY ==
[2022-02-10 14:49] LABS: #Basophils 0.1 thou/uL (0.0-0.2); #Eosinphils 0.2 thou/uL (0.0-0.7); #Lymphocytes 2.1 thou/uL (1.20-3.40); #Neutrophils 6.7 thou/uL (1.40-6.50); %Basophils 0.8 % (0.0-1.0); %Eosinophils 1.6 % (0.0-10.0); %Lymphocytes 20.5 % (21.0-51.0); %Monocytes 10.4 % (0.0-10.0); %Neutrophils 66.8 % (42.0-75.0); Hemoglobin 13.4 g/dL (14.0-18.0); Mean Corpuscular HGB CONC 29.3 g/dL (32.0-36.0); Mean Corpuscular Hemoglobin 25.7 pg (27.0-31.0); Mean Corpuscular Volume 87.8 fL (78.0-98.0); Mean Platelet Volume 8.7 fL (7.4-10.4); Platelet Count 234 thou/uL (130-400); RBC Distribution Width 18.4 % (11.5-14.5); Red Blood Cell (RBC) Count 5.21 mill/uL (4.70-6.10)
[2022-02-10 15:09] LABS: ALT (SGPT) 11 U/L (8-55); AST (SGOT) 22 U/L (5-34); Albumin 3.9 g/dL (3.5-5.0); Alkaline Phosphatase 107 U/L (40-110); Anion Gap 13 mmol/L (10-20); BUN (Urea Nitrogen) 23 mg/dL (8.9-20.6); Bilirubin, Total 4.5 mg/dL (0.2-1.2); Calc. Creatinine Clearance 0 mL/min (70-130); Calcium 9.3 mg/dL (7.8-10.44); Carbon Dioxide 19 mmol/L (22-29); Chloride 104 mmol/L (98-107); Estimated GFR 45; Globulin 3.2 g/dL (2.4-3.5); Glucose 127 mg/dL (70-105); Potassium 4.2 mmol/L (3.5-5.1); Protein, Total 7.1 g/dL (6.0-8.3); Sodium 132 mmol/L (136-145)
[2022-02-10 15:32] LABS: CKMB 3.3 ng/mL (0-6.6)
[2022-02-10] MEDS ORDERED: Diltiazem 125 MG/25 ML ONE (16:32)
[2022-02-10 18:15] LABS: INR-International Normal Ratio 1.4; Prothrombin Time 17.8 sec (12.0-14.7)
[2022-02-10] MEDS ORDERED: HumaLOG 300 UNITS/3 ML VIAL SC PRN ×2 (18:30)
[2022-02-10] MEDS ORDERED: Acetaminophen 500 MG TAB PO PRN (18:30)
[2022-02-10] MEDS ORDERED: Dextrose 50% Abboject 50 ML SYRINGE SLOW IVP PRN (18:30)
[2022-02-10] MEDS ORDERED: Diltiazem 125 MG in Sodium Chloride 0.9% 100 ML IVPB SCH (18:30)
[2022-02-10] MEDS ORDERED: Ondansetron PF 4 MG/2 ML Vial IVP PRN (18:30)
[2022-02-10] MEDS ORDERED: Dextrose 5% in Water 1,000 ML IV PRN (18:30)
[2022-02-10] MEDS ORDERED: Ondansetron ODT 4 MG TAB PO PRN (18:30)
[2022-02-10 20:20] VITALS: BMI 43.3
[2022-02-10] MEDS: Lisinopril 20 MG TAB PO SCH (21:39)
[2022-02-10] MEDS: Famotidine 20 MG TAB PO SCH (21:39)
[2022-02-10] MEDS ORDERED: Labetalol HCl 100 MG/20 ML VIAL SLOW IVP PRN (23:26)
[2022-02-10] MEDS ORDERED: Furosemide 40 MG/4 ML VIAL SLOW IVP SCH (23:30)
[2022-02-11 04:33] LABS: INR-International Normal Ratio 1.9; Prothrombin Time 21.7 sec (12.0-14.7)
[2022-02-11 04:38] LABS: #Eosinphils 0.2 thou/uL (0.0-0.7); #Lymphocytes 2.1 thou/uL (1.20-3.40); #Monocytes 1.1 thou/uL (0.11-0.59); #Neutrophils 6.9 thou/uL (1.40-6.50); %Basophils 0.5 % (0.0-1.0); %Eosinophils 2.1 % (0.0-10.0); %Lymphocytes 20.2 % (21.0-51.0); %Monocytes 10.3 % (0.0-10.0); Hemoglobin 12.9 g/dL (14.0-18.0); Mean Corpuscular HGB CONC 29.8 g/dL (32.0-36.0); Mean Corpuscular Hemoglobin 25.6 pg (27.0-31.0); Mean Corpuscular Volume 85.9 fL (78.0-98.0); Mean Platelet Volume 8.6 fL (7.4-10.4); Platelet Count 242 thou/uL (130-400); RBC Distribution Width 18.5 % (11.5-14.5); Red Blood Cell (RBC) Count 5.05 mill/uL (4.70-6.10); White Blood Cell (WBC) Count 10.3 thou/uL (4.8-10.8)
[2022-02-11 04:45] LABS: ALT (SGPT) 9 U/L (8-55); AST (SGOT) 19 U/L (5-34); Albumin 3.7 g/dL (3.5-5.0); Alkaline Phosphatase 98 U/L (40-110); Anion Gap 13 mmol/L (10-20); BUN (Urea Nitrogen) 24 mg/dL (8.9-20.6); Bilirubin, Total 3.6 mg/dL (0.2-1.2); Calc. Creatinine Clearance 100 mL/min (70-130); Calcium 9.2 mg/dL (7.8-10.44); Carbon Dioxide 18 mmol/L (22-29); Chloride 105 mmol/L (98-107); Estimated GFR 46; Glucose 125 mg/dL (70-105); Magnesium 1.7 mg/dL (1.6-2.6); Potassium 4.1 mmol/L (3.5-5.1); Protein, Total 6.7 g/dL (6.0-8.3); Sodium 132 mmol/L (136-145)
[2022-02-11] MEDS: Carvedilol 6.25 MG TAB PO SCH ×2 (09:51→17:46)
[2022-02-11] MEDS: Famotidine 20 MG TAB PO SCH ×2 (09:52→20:56)
[2022-02-11] MEDS: Lisinopril 20 MG TAB PO SCH ×2 (09:52→20:56)
[2022-02-11] MEDS: Nicotine 14 MG PATCH TD SCH (16:06)
[2022-02-11] MEDS: Warfarin Sodium 10 MG TAB PO SCH (18:16)
[2022-02-11] MEDS: Warfarin Sodium 2 MG TAB PO SCH (18:17)
[2022-02-11 20:08] LABS: Amphetamine Detected (NotDetected); Barbiturates Screen Not Detected (NotDetected); Benzodiazepine Screen Not Detected (NotDetected); Cocaine Metabolite Screen Not Detected (NotDetected); Methadone Not Detected (NotDetected); Methamphetamine Detected (NotDetected); Opiate Screen Not Detected (NotDetected); Oxycodone Screen Not Detected (NotDetected); Phencyclidine (PCP) Not Detected (NotDetected); THC/Cannabinoid Screen Not Detected (NotDetected); Tricyclic Screen Not Detected (NotDetected)
[2022-02-12] MEDS ORDERED: hydrOXYzine Pamoate 25 mg Capsule PO SCH (02:30)
[2022-02-12 05:02] LABS: Prothrombin Time 22.7 sec (12.0-14.7)
[2022-02-12] MEDS: Carvedilol 6.25 MG TAB PO SCH ×2 (08:34→16:08)
[2022-02-12] MEDS: Famotidine 20 MG TAB PO SCH ×2 (08:35→21:30)
[2022-02-12] MEDS: Lisinopril 20 MG TAB PO SCH ×2 (08:35→21:30)
[2022-02-12] MEDS ORDERED: Furosemide 40 MG TAB PO SCH (09:45)
[2022-02-12] MEDS ORDERED: Furosemide 20 MG TAB PO SCH (14:00)
[2022-02-12] MEDS: Furosemide 40 MG TAB PO SCH (14:01)
[2022-02-12] MEDS: Nicotine 14 MG PATCH TD SCH (14:53)
[2022-02-12] MEDS: Warfarin Sodium 2 MG TAB PO SCH (16:08)
[2022-02-12] MEDS: ALPRAZolam 0.25 MG TAB PO PRN ×2 (16:08→21:33)
[2022-02-12] MEDS: Warfarin Sodium 10 MG TAB PO SCH (16:08)
[2022-02-12] MEDS: Diltiazem HCl SR 90 mg Capsule PO SCH (21:29)
[2022-02-13 05:13] LABS: INR-International Normal Ratio 2.7; Prothrombin Time 28.8 sec (12.0-14.7)
[2022-02-13 08:35] LABS: Hemoglobin 12.9 g/dL (14.0-18.0); Platelet Count 244 thou/uL (130-400)
[2022-02-13] MEDS: Carvedilol 6.25 MG TAB PO SCH (09:33)
[2022-02-13] MEDS: Famotidine 20 MG TAB PO SCH (09:33)
[2022-02-13] MEDS: Diltiazem HCl SR 90 mg Capsule PO SCH (09:33)
[2022-02-13] MEDS: Furosemide 40 MG TAB PO SCH (09:34)
[2022-02-13] MEDS: Lisinopril 20 MG TAB PO SCH (09:34)
[2022-02-13 11:51] VITALS: BP 135/90; TEMP 96
== END 2022-02-13 14:34 | disposition home or self-care (01) | DRG 291 ==
LOC: ERS 14:21 → 2NO 17:12
PROVIDERS: ADMIT Family Medicine; ATTEND Internal Medicine
DX: I13.0 Hypertensive heart and chronic kidney disease with heart failure and stage 1 through stage 4 chronic kidney disease, or unspecified chronic kidney disease (principal); I50.23 Acute on chronic systolic (congestive) heart failure; Z68.41 Body mass index [BMI] 40.0-44.9, adult; I48.20 Chronic atrial fibrillation, unspecified; I42.8 Other cardiomyopathies; F17.210 Nicotine dependence, cigarettes, uncomplicated; E66.01 Morbid (severe) obesity due to excess calories; N18.30 Chronic kidney disease, stage 3 unspecified; F19.10 Other psychoactive substance abuse, uncomplicated; E11.22 Type 2 diabetes mellitus with diabetic chronic kidney disease; Z20.822 Contact with and (suspected) exposure to COVID-19; Z95.810 Presence of automatic (implantable) cardiac defibrillator; Z98.890 Other specified postprocedural states
CPT/HCPCS: 36415; 36416; 71045; 80053; 80306; 82553; 83735; 83880; 84443; 84484; 85014; 85018; 85025; 85049; 85610; 85730; 93005; 96374; 96376; J1940; Q0177; U0003; U0005

== ENCOUNTER 2022-02-24 02:53 | Inpatient (IN) | payer SELFPAY ==
[2022-02-24] MEDS ORDERED: Diltiazem 125 MG/25 ML ONE (03:19)
[2022-02-24] MEDS ORDERED: Magnesium 2 GM/50 ML BAG (IN WATER) ONE (03:22)
[2022-02-24 03:39] LABS: #Basophils 0.1 thou/uL (0.0-0.2); #Eosinphils 0.2 thou/uL (0.0-0.7); #Lymphocytes 1.7 thou/uL (1.20-3.40); #Monocytes 1.2 thou/uL (0.11-0.59); #Neutrophils 9.1 thou/uL (1.40-6.50); %Basophils 0.7 % (0.0-1.0); %Eosinophils 1.6 % (0.0-10.0); %Lymphocytes 13.5 % (21.0-51.0); %Neutrophils 74.2 % (42.0-75.0); Hemoglobin 13.6 g/dL (14.0-18.0); Mean Corpuscular HGB CONC 32.1 g/dL (32.0-36.0); Mean Corpuscular Hemoglobin 26.9 pg (27.0-31.0); Mean Corpuscular Volume 83.7 fL (78.0-98.0); Mean Platelet Volume 8.1 fL (7.4-10.4); Platelet Count 262 thou/uL (130-400); RBC Distribution Width 18.1 % (11.5-14.5); Red Blood Cell (RBC) Count 5.06 mill/uL (4.70-6.10); White Blood Cell (WBC) Count 12.3 thou/uL (4.8-10.8)
[2022-02-24 03:58] LABS: ALT (SGPT) 11 U/L (8-55); AST (SGOT) 29 U/L (5-34); Albumin 3.7 g/dL (3.5-5.0); Alkaline Phosphatase 114 U/L (40-110); Anion Gap 16 mmol/L (10-20); BUN (Urea Nitrogen) 26 mg/dL (8.9-20.6); Bilirubin, Total 3.2 mg/dL (0.2-1.2); Calc. Creatinine Clearance 0 mL/min (70-130); Calcium 8.5 mg/dL (7.8-10.44); Carbon Dioxide 16 mmol/L (22-29); Chloride 106 mmol/L (98-107); Estimated GFR 33; Globulin 3.3 g/dL (2.4-3.5); Glucose 89 mg/dL (70-105); Lipase 34 U/L (8-78); Magnesium 1.8 mg/dL (1.6-2.6); Potassium 4.3 mmol/L (3.5-5.1); Sodium 134 mmol/L (136-145)
[2022-02-24 04:00] LABS: INR-International Normal Ratio 1.2; Prothrombin Time 15.7 sec (12.0-14.7)
[2022-02-24 04:01] LABS: PTT 33.9 sec (22.9-36.1)
[2022-02-24 04:17] LABS: CKMB 2.6 ng/mL (0-6.6)
[2022-02-24] MEDS ORDERED: Enoxaparin Sodium 30 MG/0.3 ML SYRINGE ONE (05:25)
[2022-02-24] MEDS ORDERED: Enoxaparin Sodium 100 MG/ML SYRINGE ONE (05:25)
[2022-02-24 06:43] LABS: Bacteria/HPF None Seen HPF (None Seen); Bilirubin Negative (Negative); Blood, Urine 3+ (Negative); Clarity Clear (Clear); Glucose, Urine (Dipstick) Normal (Negative); Ketone, Urine Negative (Negative); Leukocyte 25 Leu/uL (Negative); Nitrite Negative (Negative); Protein, Urine (Dipstick) 200 mg/dL (Neg-Trace); RBC/HPF 21-50 HPF (0-3); Specific Gravity, Urine 1.009 (1.002-1.036); Squamous Epithelial 0-3 HPF (0-3); Urobilinogen Normal mg/dL (Less than 2)
[2022-02-24 06:47] LABS: Amphetamine Not Detected (NotDetected); Barbiturates Screen Not Detected (NotDetected); Benzodiazepine Screen Not Detected (NotDetected); Cocaine Metabolite Screen Not Detected (NotDetected); Methadone Not Detected (NotDetected); Methamphetamine Detected (NotDetected); Opiate Screen Not Detected (NotDetected); Oxycodone Screen Not Detected (NotDetected); Phencyclidine (PCP) Not Detected (NotDetected); THC/Cannabinoid Screen Not Detected (NotDetected); Tricyclic Screen Not Detected (NotDetected)
[2022-02-24 06:48] VITALS: BMI 42.0
[2022-02-24 07:44] LABS: Troponin I 0.034 ng/mL (< 0.028)
[2022-02-24] MEDS ORDERED: Guaifenesin DM 100-10/5 ML UDCUP PO PRN (07:44)
[2022-02-24] MEDS ORDERED: HYDROcodone/Acetaminophen 5/325 mg Tablet PO PRN (07:44)
[2022-02-24] MEDS ORDERED: Acetaminophen 325 MG TAB PO PRN (07:44)
[2022-02-24] MEDS ORDERED: Senokot S 8.6-50 MG TAB PO PRN (07:44)
[2022-02-24] MEDS ORDERED: Lisinopril 5 MG TAB PO SCH (09:00)
[2022-02-24] MEDS: Carvedilol 6.25 MG TAB PO SCH ×2 (09:29→17:28)
[2022-02-24] MEDS: Diltiazem HCl SR 90 mg Capsule PO SCH ×2 (09:29→20:00)
[2022-02-24] MEDS: Famotidine 20 MG TAB PO SCH ×2 (09:29→20:00)
[2022-02-24] MEDS ORDERED: Diltiazem 125 MG in Sodium Chloride 0.9% 100 ML IVPB SCH (09:30)
[2022-02-24] MEDS: Furosemide 40 MG/4 ML VIAL SLOW IVP SCH (13:20)
[2022-02-24] MEDS: Warfarin Sodium 2 MG TAB PO SCH (17:18)
[2022-02-24] MEDS: Warfarin Sodium 10 MG TAB PO SCH (17:18)
[2022-02-25 04:51] LABS: #Basophils 0.1 thou/uL (0.0-0.2); #Eosinphils 0.2 thou/uL (0.0-0.7); #Lymphocytes 1.6 thou/uL (1.20-3.40); #Monocytes 1.1 thou/uL (0.11-0.59); #Neutrophils 6.6 thou/uL (1.40-6.50); %Basophils 0.6 % (0.0-1.0); %Eosinophils 1.8 % (0.0-10.0); %Lymphocytes 16.5 % (21.0-51.0); %Monocytes 11.2 % (0.0-10.0); %Neutrophils 69.9 % (42.0-75.0); Hemoglobin 11.9 g/dL (14.0-18.0); Mean Corpuscular HGB CONC 30.3 g/dL (32.0-36.0); Mean Corpuscular Hemoglobin 25.4 pg (27.0-31.0); Mean Platelet Volume 8.3 fL (7.4-10.4); Platelet Count 234 thou/uL (130-400); RBC Distribution Width 18.4 % (11.5-14.5); Red Blood Cell (RBC) Count 4.68 mill/uL (4.70-6.10); White Blood Cell (WBC) Count 9.5 thou/uL (4.8-10.8)
[2022-02-25 04:55] LABS: INR-International Normal Ratio 1.3; Prothrombin Time 16.4 sec (12.0-14.7)
[2022-02-25 05:00] LABS: Anion Gap 13 mmol/L (10-20); BUN (Urea Nitrogen) 28 mg/dL (8.9-20.6); Calc. Creatinine Clearance 85 mL/min (70-130); Calcium 8.5 mg/dL (7.8-10.44); Carbon Dioxide 19 mmol/L (22-29); Chloride 105 mmol/L (98-107); Estimated GFR 38; Glucose 140 mg/dL (70-105); Potassium 3.6 mmol/L (3.5-5.1); Sodium 133 mmol/L (136-145)
[2022-02-25] MEDS: Furosemide 40 MG/4 ML VIAL SLOW IVP SCH ×2 (06:04→16:10)
[2022-02-25] MEDS: Diltiazem HCl SR 90 mg Capsule PO SCH (09:28)
[2022-02-25] MEDS: Carvedilol 6.25 MG TAB PO SCH ×2 (09:28→16:10)
[2022-02-25] MEDS: Famotidine 20 MG TAB PO SCH ×2 (09:28→20:22)
[2022-02-25] MEDS: Warfarin Sodium 2 MG TAB PO SCH (16:11)
[2022-02-25] MEDS: Warfarin Sodium 10 MG TAB PO SCH (16:11)
[2022-02-25] MEDS: Lisinopril 20 MG TAB PO SCH (20:22)
[2022-02-25] MEDS ORDERED: Communication Order-Pharmacy FS ONE ×2 (20:29→20:30)
[2022-02-25] MEDS ORDERED: Diltiazem HCl SR 90 mg Capsule PO SCH (21:00)
[2022-02-25] MEDS ORDERED: Furosemide 40 MG TAB PO SCH (21:00)
[2022-02-25 21:22] LABS: Hemoglobin 12.8 g/dL (14.0-18.0); Platelet Count 248 thou/uL (130-400)
[2022-02-26] MEDS: Enoxaparin Sodium 80 MG/0.8 ML SYRINGE SC SCH ×4 (00:18→21:45)
[2022-02-26] MEDS: Diltiazem HCl SR 90 mg Capsule PO SCH ×3 (00:18→21:45)
[2022-02-26 04:13] LABS: INR-International Normal Ratio 1.5; Prothrombin Time 18.5 sec (12.0-14.7)
[2022-02-26] MEDS: Furosemide 40 MG/4 ML VIAL SLOW IVP SCH ×2 (05:25→14:26)
[2022-02-26] MEDS: Lisinopril 20 MG TAB PO SCH ×2 (09:26→21:44)
[2022-02-26] MEDS: Famotidine 20 MG TAB PO SCH ×2 (09:26→21:44)
[2022-02-26] MEDS: Carvedilol 6.25 MG TAB PO SCH ×2 (09:27→18:08)
[2022-02-26] MEDS: Warfarin Sodium 10 MG TAB PO SCH (18:08)
[2022-02-26] MEDS: Warfarin Sodium 2 MG TAB PO SCH (18:08)
[2022-02-27 04:27] LABS: Anion Gap 13 mmol/L (10-20); BUN (Urea Nitrogen) 27 mg/dL (8.9-20.6); Calc. Creatinine Clearance 96 mL/min (70-130); Calcium 8.7 mg/dL (7.8-10.44); Carbon Dioxide 20 mmol/L (22-29); Chloride 102 mmol/L (98-107); Estimated GFR 45; Glucose 144 mg/dL (70-105); Potassium 3.7 mmol/L (3.5-5.1); Sodium 131 mmol/L (136-145)
[2022-02-27 05:16] LABS: INR-International Normal Ratio 1.8; Prothrombin Time 21.1 sec (12.0-14.7)
[2022-02-27] MEDS: Furosemide 40 MG/4 ML VIAL SLOW IVP SCH ×2 (05:44→13:15)
[2022-02-27] MEDS: Carvedilol 6.25 MG TAB PO SCH ×2 (08:58→17:15)
[2022-02-27] MEDS: Diltiazem HCl SR 90 mg Capsule PO SCH ×2 (08:59→21:18)
[2022-02-27] MEDS: Famotidine 20 MG TAB PO SCH ×2 (09:00→21:18)
[2022-02-27] MEDS: Lisinopril 20 MG TAB PO SCH ×2 (09:01→21:18)
[2022-02-27] MEDS: Enoxaparin Sodium 80 MG/0.8 ML SYRINGE SC SCH ×2 (09:03→21:16)
[2022-02-27] MEDS: Warfarin Sodium 10 MG TAB PO SCH (17:15)
[2022-02-27] MEDS: Warfarin Sodium 2 MG TAB PO SCH (17:15)
[2022-02-28 04:55] LABS: Hemoglobin 12.5 g/dL (14.0-18.0); Platelet Count 272 thou/uL (130-400)
[2022-02-28 04:58] LABS: INR-International Normal Ratio 2.2
[2022-02-28 05:10] LABS: Anion Gap 16 mmol/L (10-20); BUN (Urea Nitrogen) 25 mg/dL (8.9-20.6); Calc. Creatinine Clearance 95 mL/min (70-130); Calcium 8.7 mg/dL (7.8-10.44); Carbon Dioxide 18 mmol/L (22-29); Chloride 104 mmol/L (98-107); Estimated GFR 44; Glucose 188 mg/dL (70-105); Potassium 3.9 mmol/L (3.5-5.1); Sodium 134 mmol/L (136-145)
[2022-02-28] MEDS: Furosemide 40 MG/4 ML VIAL SLOW IVP SCH (06:05)
[2022-02-28] MEDS: Carvedilol 6.25 MG TAB PO SCH ×2 (09:38→12:20)
[2022-02-28] MEDS: Lisinopril 20 MG TAB PO SCH (09:38)
[2022-02-28] MEDS: Diltiazem HCl SR 90 mg Capsule PO SCH (09:38)
[2022-02-28] MEDS: Famotidine 20 MG TAB PO SCH (09:38)
[2022-02-28] MEDS: Enoxaparin Sodium 80 MG/0.8 ML SYRINGE SC SCH (09:39)
[2022-02-28 12:52] VITALS: BP 163/99; TEMP 97.9
== END 2022-02-28 16:36 | disposition home or self-care (01) | DRG 308 ==
LOC: ERS 02:53 → 2NO 05:38 → INTOOBSV 05:38 → OBSVTOIN 02-25 15:39
PROVIDERS: ADMIT Internal Medicine; ATTEND Hospitalist
PROC: 5A2204Z Restoration of Cardiac Rhythm, Single (ICD-10-PCS; principal; 2022-02-25)
DX: I48.0 Paroxysmal atrial fibrillation (principal); I50.23 Acute on chronic systolic (congestive) heart failure; N17.9 Acute kidney failure, unspecified; I42.8 Other cardiomyopathies; F17.210 Nicotine dependence, cigarettes, uncomplicated; N18.31 Chronic kidney disease, stage 3a; E11.69 Type 2 diabetes mellitus with other specified complication; E11.22 Type 2 diabetes mellitus with diabetic chronic kidney disease; F15.10 Other stimulant abuse, uncomplicated; I12.9 Hypertensive chronic kidney disease with stage 1 through stage 4 chronic kidney disease, or unspecified chronic kidney disease; Z79.01 Long term (current) use of anticoagulants; Z79.899 Other long term (current) drug therapy; Z95.810 Presence of automatic (implantable) cardiac defibrillator; Z91.14 Patient's other noncompliance with medication regimen
CPT/HCPCS: 36415; 71045; 80048; 80053; 80306; 81003; 81015; 82553; 83690; 83735; 83880; 84484; 85014; 85018; 85025; 85049; 85610; 85730; 92950; 93005; 96372; 96374; 96375; 96376; G0378; J1650; J1940; J3475

== ENCOUNTER 2022-03-02 05:07 | Observation (INO) | payer SELFPAY ==
[2022-03-02 05:56] LABS: #Basophils 0.1 thou/uL (0.0-0.2); #Eosinphils 0.3 thou/uL (0.0-0.7); #Lymphocytes 1.4 thou/uL (1.20-3.40); #Neutrophils 6.4 thou/uL (1.40-6.50); %Basophils 0.6 % (0.0-1.0); %Eosinophils 2.8 % (0.0-10.0); %Lymphocytes 15.5 % (21.0-51.0); %Monocytes 11.1 % (0.0-10.0); %Neutrophils 69.9 % (42.0-75.0); Hemoglobin 12.5 g/dL (14.0-18.0); Mean Corpuscular HGB CONC 30.3 g/dL (32.0-36.0); Mean Corpuscular Hemoglobin 25.2 pg (27.0-31.0); Mean Corpuscular Volume 83.4 fL (78.0-98.0); Mean Platelet Volume 7.9 fL (7.4-10.4); Platelet Count 256 thou/uL (130-400); Red Blood Cell (RBC) Count 4.96 mill/uL (4.70-6.10); White Blood Cell (WBC) Count 9.1 thou/uL (4.8-10.8)
[2022-03-02 06:06] LABS: INR-International Normal Ratio 1.8; Prothrombin Time 21.6 sec (12.0-14.7)
[2022-03-02 06:21] LABS: ALT (SGPT) 13 U/L (8-55); AST (SGOT) 20 U/L (5-34); Albumin 3.6 g/dL (3.5-5.0); Alkaline Phosphatase 99 U/L (40-110); Anion Gap 12 mmol/L (10-20); BUN (Urea Nitrogen) 26 mg/dL (8.9-20.6); Bilirubin, Total 1.9 mg/dL (0.2-1.2); Calc. Creatinine Clearance 0 mL/min (70-130); Carbon Dioxide 20 mmol/L (22-29); Chloride 105 mmol/L (98-107); Estimated GFR 46; Glucose 94 mg/dL (70-105); Potassium 4.5 mmol/L (3.5-5.1); Protein, Total 6.6 g/dL (6.0-8.3); Sodium 132 mmol/L (136-145)
[2022-03-02] MEDS ORDERED: Dextrose 50% Abboject 50 ML SYRINGE SLOW IVP PRN (09:26)
[2022-03-02] MEDS ORDERED: Insulin Regular 300 UNITS/3 ML VIAL SC PRN ×2 (09:26)
[2022-03-02] MEDS ORDERED: Dextrose 5% in Water 1,000 ML IV PRN (09:26)
[2022-03-02] MEDS ORDERED: Furosemide 40 MG/4 ML VIAL SLOW IVP SCH ×2 (09:30→14:00)
[2022-03-02] MEDS ORDERED: Electrolyte Replacement Protocol 1 EACH FS SCH (10:15)
[2022-03-02] MEDS ORDERED: Potassium Chloride 20 MEQ TAB PO SCH (10:15)
[2022-03-02] MEDS ORDERED: Magnesium 2 GM/50 ML(in water) 2 GM in Premix Bag 1 BAG IVPB SCH (11:00)
[2022-03-02] MEDS ORDERED: Carvedilol 6.25 MG TAB PO SCH (14:00)
[2022-03-02] MEDS ORDERED: Warfarin Sodium 2 MG TAB PO SCH (17:00)
[2022-03-02] MEDS ORDERED: Warfarin Sodium 10 MG TAB PO SCH (17:00)
[2022-03-02] MEDS: Carvedilol 6.25 MG TAB PO SCH (20:35)
[2022-03-03] MEDS ORDERED: Melatonin 3 MG TAB PO PRN ×2 (00:15→00:35)
[2022-03-03 05:32] LABS: #Eosinphils 0.3 thou/uL (0.0-0.7); #Lymphocytes 1.5 thou/uL (1.20-3.40); #Neutrophils 6.1 thou/uL (1.40-6.50); %Basophils 0.4 % (0.0-1.0); %Eosinophils 3.3 % (0.0-10.0); %Lymphocytes 16.9 % (21.0-51.0); %Monocytes 11.3 % (0.0-10.0); %Neutrophils 68.1 % (42.0-75.0); Hemoglobin 11.9 g/dL (14.0-18.0); Mean Corpuscular HGB CONC 29.9 g/dL (32.0-36.0); Mean Corpuscular Hemoglobin 24.8 pg (27.0-31.0); Mean Corpuscular Volume 82.9 fL (78.0-98.0); Mean Platelet Volume 8.3 fL (7.4-10.4); Platelet Count 248 thou/uL (130-400); RBC Distribution Width 18.3 % (11.5-14.5); Red Blood Cell (RBC) Count 4.79 mill/uL (4.70-6.10)
[2022-03-03 05:46] LABS: INR-International Normal Ratio 1.6; Prothrombin Time 19.3 sec (12.0-14.7)
[2022-03-03 06:36] LABS: ALT (SGPT) 12 U/L (8-55); AST (SGOT) 19 U/L (5-34); Albumin 3.6 g/dL (3.5-5.0); Alkaline Phosphatase 96 U/L (40-110); Anion Gap 15 mmol/L (10-20); BUN (Urea Nitrogen) 25 mg/dL (8.9-20.6); Bilirubin, Total 2.1 mg/dL (0.2-1.2); Calc. Creatinine Clearance 0 mL/min (70-130); Calcium 8.7 mg/dL (7.8-10.44); Carbon Dioxide 18 mmol/L (22-29); Chloride 104 mmol/L (98-107); Estimated GFR 52; Globulin 2.9 g/dL (2.4-3.5); Glucose 106 mg/dL (70-105); Magnesium 2.2 mg/dL (1.6-2.6); Potassium 4.5 mmol/L (3.5-5.1); Protein, Total 6.5 g/dL (6.0-8.3); Sodium 132 mmol/L (136-145)
[2022-03-03] MEDS: Carvedilol 6.25 MG TAB PO SCH (08:10)
[2022-03-03] MEDS ORDERED: Furosemide 40 MG/4 ML VIAL SLOW IVP SCH (09:00)
[2022-03-04 11:57] VITALS: BP 117/81
[2022-03-04 11:59] VITALS: BMI 43.6
[2022-03-04 12:02] VITALS: TEMP 97.5
== END 2022-03-03 15:04 | disposition home or self-care (01) ==
LOC: ERS 05:07 → 2SW 08:59
PROVIDERS: ADMIT Internal Medicine; ATTEND Internal Medicine
DX: I48.0 Paroxysmal atrial fibrillation (principal); I42.8 Other cardiomyopathies; F15.10 Other stimulant abuse, uncomplicated; I13.0 Hypertensive heart and chronic kidney disease with heart failure and stage 1 through stage 4 chronic kidney disease, or unspecified chronic kidney disease; E11.22 Type 2 diabetes mellitus with diabetic chronic kidney disease; N18.30 Chronic kidney disease, stage 3 unspecified; I50.23 Acute on chronic systolic (congestive) heart failure; F17.210 Nicotine dependence, cigarettes, uncomplicated; R79.89 Other specified abnormal findings of blood chemistry; E66.01 Morbid (severe) obesity due to excess calories; Z68.41 Body mass index [BMI] 40.0-44.9, adult; Z91.14 Patient's other noncompliance with medication regimen; Z79.84 Long term (current) use of oral hypoglycemic drugs; Z79.899 Other long term (current) drug therapy; Z95.810 Presence of automatic (implantable) cardiac defibrillator; Z20.822 Contact with and (suspected) exposure to COVID-19
CPT/HCPCS: 36415; 36416; 80053; 83735; 83880; 84484; 85025; 85610; 93005; 94760; 96365; 96374; 96375; 96376; G0378; J1940; J3475; U0003; U0005

== ENCOUNTER 2022-03-13 21:46 | Emergency (ER) | payer SELFPAY ==
[~2022-03-13 21:46] MED LIST: Iopamidol-370 76% 500 ML 1 ML ONE
[2022-03-13 22:25] LABS: #Eosinphils 0.2 thou/uL (0.0-0.7); #Lymphocytes 1.6 thou/uL (1.20-3.40); #Monocytes 1.1 thou/uL (0.11-0.59); #Neutrophils 6.6 thou/uL (1.40-6.50); %Basophils 0.2 % (0.0-1.0); %Eosinophils 2.6 % (0.0-10.0); %Lymphocytes 16.8 % (21.0-51.0); %Monocytes 11.8 % (0.0-10.0); %Neutrophils 68.6 % (42.0-75.0); Mean Corpuscular HGB CONC 30.6 g/dL (32.0-36.0); Mean Corpuscular Hemoglobin 25.1 pg (27.0-31.0); Mean Platelet Volume 8.6 fL (7.4-10.4); Platelet Count 221 thou/uL (130-400); RBC Distribution Width 18.4 % (11.5-14.5); Red Blood Cell (RBC) Count 4.78 mill/uL (4.70-6.10); White Blood Cell (WBC) Count 9.6 thou/uL (4.8-10.8)
[2022-03-13 22:46] LABS: ALT (SGPT) 10 U/L (8-55); AST (SGOT) 20 U/L (5-34); Albumin 3.5 g/dL (3.5-5.0); Alkaline Phosphatase 106 U/L (40-110); Anion Gap 14 mmol/L (10-20); BUN (Urea Nitrogen) 23 mg/dL (8.9-20.6); CK (CPK) 116 U/L (30-200); Calc. Creatinine Clearance 0 mL/min (70-130); Calcium 8.8 mg/dL (7.8-10.44); Carbon Dioxide 16 mmol/L (22-29); Chloride 104 mmol/L (98-107); Estimated GFR 47; Globulin 3.3 g/dL (2.4-3.5); Glucose 109 mg/dL (70-105); Potassium 4.2 mmol/L (3.5-5.1); Protein, Total 6.8 g/dL (6.0-8.3); Sodium 130 mmol/L (136-145)
== END 2022-03-14 00:25 | disposition home or self-care (01) ==
LOC: ERS 21:46
DX: R06.00 Dyspnea, unspecified (principal); I11.0 Hypertensive heart disease with heart failure; I50.9 Heart failure, unspecified; I48.91 Unspecified atrial fibrillation; K21.9 Gastro-esophageal reflux disease without esophagitis; F17.210 Nicotine dependence, cigarettes, uncomplicated
CPT/HCPCS: 36415; 71045; 71275; 80053; 82550; 83880; 84484; 85025; 93005; 94760; J7620; Q9967

== ENCOUNTER 2022-03-21 20:57 | Observation (INO) | payer SELFPAY ==
[2022-03-21] MEDS ORDERED: Furosemide 40 MG/4 ML VIAL ONE ×2 (21:15→21:18)
[2022-03-21 21:34] LABS: #Eosinphils 0.2 thou/uL (0.0-0.7); #Lymphocytes 1.5 thou/uL (1.20-3.40); #Monocytes 1.2 thou/uL (0.11-0.59); #Neutrophils 6.2 thou/uL (1.40-6.50); %Basophils 0.1 % (0.0-1.0); %Eosinophils 2.6 % (0.0-10.0); %Lymphocytes 16.5 % (21.0-51.0); %Monocytes 12.9 % (0.0-10.0); %Neutrophils 67.8 % (42.0-75.0); Mean Corpuscular HGB CONC 30.6 g/dL (32.0-36.0); Mean Corpuscular Hemoglobin 25.1 pg (27.0-31.0); Mean Corpuscular Volume 82.1 fl (78.0-98.0); Platelet Count 241 10x3/uL (130-400); RBC Distribution Width 18.2 % (11.5-14.5); Red Blood Cell (RBC) Count 4.77 mill/uL (4.70-6.10); White Blood Cell (WBC) Count 9.2 10x3/uL (4.8-10.8)
[2022-03-21 21:47] LABS: ALT (SGPT) 13 U/L (8-55); AST (SGOT) 22 U/L (5-34); Albumin 3.5 g/dL (3.5-5.0); Alkaline Phosphatase 119 U/L (40-110); Anion Gap 12 mmol/L (10-20); BUN (Urea Nitrogen) 26 mg/dL (8.9-20.6); Bilirubin, Total 2.2 mg/dL (0.2-1.2); Calc. Creatinine Clearance 0 mL/min (70-130); Calcium 8.9 mg/dL (7.8-10.44); Carbon Dioxide 17 mmol/L (22-29); Chloride 109 mmol/L (98-107); Estimated GFR 46; Globulin 3.2 g/dL (2.4-3.5); Glucose 114 mg/dL (70-105); Potassium 4.4 mmol/L (3.5-5.1); Protein, Total 6.7 g/dL (6.0-8.3); Sodium 134 mmol/L (136-145)
[2022-03-21 23:11] LABS: SARS-CoV-2 NAA Rapid Test Not Detected (NotDetected)
[2022-03-22 01:23] VITALS: BMI 43.7
[2022-03-22] MEDS ORDERED: Ondansetron PF 4 MG/2 ML Vial IVP PRN (04:08)
[2022-03-22] MEDS ORDERED: Acetaminophen 650 MG Suppository PR PRN (04:08)
[2022-03-22] MEDS ORDERED: Ondansetron ODT 4 MG TAB PO PRN (04:08)
[2022-03-22] MEDS ORDERED: Acetaminophen 325 MG TAB PO PRN (04:08)
[2022-03-22 05:10] LABS: INR-International Normal Ratio 2.8; Prothrombin Time 31.1 sec (12.0-14.7)
[2022-03-22 05:12] LABS: PTT 58.7 sec (22.9-36.1)
[2022-03-22] MEDS: Furosemide 40 MG/4 ML VIAL SLOW IVP SCH ×2 (06:17→14:03)
[2022-03-22] MEDS ORDERED: HumaLOG 300 UNITS/3 ML VIAL SC PRN ×2 (06:57)
[2022-03-22] MEDS ORDERED: Dextrose 5% in Water 1,000 ML IV PRN (06:57)
[2022-03-22] MEDS ORDERED: Dextrose 50% Abboject 50 ML SYRINGE SLOW IVP PRN (06:57)
[2022-03-22 07:37] LABS: Anion Gap 12 mmol/L (10-20); BUN (Urea Nitrogen) 27 mg/dL (8.9-20.6); Calc. Creatinine Clearance 103 mL/min (70-130); Calcium 8.9 mg/dL (7.8-10.44); Carbon Dioxide 17 mmol/L (22-29); Chloride 108 mmol/L (98-107); Estimated GFR 47; Glucose 100 mg/dL (70-105); Magnesium 1.9 mg/dL (1.6-2.6); Potassium 4.3 mmol/L (3.5-5.1); Sodium 133 mmol/L (136-145)
[2022-03-22] MEDS ORDERED: WARFARIN IVPB PRN (08:48)
[2022-03-22] MEDS ORDERED: Warfarin Sodium 3 MG TAB PO SCH (17:00)
[2022-03-22] MEDS: Carvedilol 6.25 MG TAB PO SCH (20:33)
[2022-03-22] MEDS: Lisinopril 20 MG TAB PO SCH (20:33)
[2022-03-23] MEDS ORDERED: HYDROcodone/Acetaminophen 5/325 mg Tablet PO PRN (02:23)
[2022-03-23 03:54] VITALS: TEMP 97.8
[2022-03-23 05:13] LABS: INR-International Normal Ratio 3.1; Prothrombin Time 33.6 sec (12.0-14.7)
[2022-03-23 05:24] LABS: #Eosinphils 0.4 thou/uL (0.0-0.7); #Lymphocytes 1.5 thou/uL (1.20-3.40); #Neutrophils 5.8 thou/uL (1.40-6.50); %Basophils 0.5 % (0.0-1.0); %Eosinophils 4.2 % (0.0-10.0); %Lymphocytes 17.1 % (21.0-51.0); %Monocytes 11.8 % (0.0-10.0); %Neutrophils 66.3 % (42.0-75.0); Hemoglobin 11.9 g/dL (14.0-18.0); Mean Corpuscular HGB CONC 29.8 g/dL (32.0-36.0); Mean Corpuscular Hemoglobin 24.3 pg (27.0-31.0); Mean Corpuscular Volume 81.6 fl (78.0-98.0); Mean Platelet Volume 8.5 fL (7.4-10.4); Platelet Count 250 10x3/uL (130-400); RBC Distribution Width 19.3 % (11.5-14.5); White Blood Cell (WBC) Count 8.7 10x3/uL (4.8-10.8)
[2022-03-23 05:42] LABS: Anion Gap 13 mmol/L (10-20); BUN (Urea Nitrogen) 31 mg/dL (8.9-20.6); Calc. Creatinine Clearance 97 mL/min (70-130); Calcium 9.4 mg/dL (7.8-10.44); Carbon Dioxide 21 mmol/L (22-29); Chloride 102 mmol/L (98-107); Estimated GFR 46; Glucose 104 mg/dL (70-105); Potassium 4.3 mmol/L (3.5-5.1); Sodium 132 mmol/L (136-145)
[2022-03-23] MEDS: Furosemide 40 MG/4 ML VIAL SLOW IVP SCH (06:05)
[2022-03-23 08:11] VITALS: BP 105/72
[2022-03-23] MEDS: Carvedilol 6.25 MG TAB PO SCH (09:23)
[2022-03-23] MEDS: Lisinopril 20 MG TAB PO SCH (09:23)
[2022-03-23] MEDS ORDERED: Warfarin Sodium 3 MG TAB PO SCH (17:00)
== END 2022-03-23 12:07 | disposition home or self-care (01) ==
LOC: ERS 20:57 → 2SW 23:27
PROVIDERS: ADMIT Hospitalist; ATTEND Hospitalist
DX: I13.0 Hypertensive heart and chronic kidney disease with heart failure and stage 1 through stage 4 chronic kidney disease, or unspecified chronic kidney disease (principal); E11.22 Type 2 diabetes mellitus with diabetic chronic kidney disease; N18.9 Chronic kidney disease, unspecified; I50.23 Acute on chronic systolic (congestive) heart failure; E87.70 Fluid overload, unspecified; F15.10 Other stimulant abuse, uncomplicated; F17.210 Nicotine dependence, cigarettes, uncomplicated; K21.9 Gastro-esophageal reflux disease without esophagitis; E87.1 Hypo-osmolality and hyponatremia; I42.8 Other cardiomyopathies; I48.19 Other persistent atrial fibrillation; E66.01 Morbid (severe) obesity due to excess calories; Z68.41 Body mass index [BMI] 40.0-44.9, adult; Z91.14 Patient's other noncompliance with medication regimen; Z79.01 Long term (current) use of anticoagulants; Z79.84 Long term (current) use of oral hypoglycemic drugs; Z79.899 Other long term (current) drug therapy; Z95.810 Presence of automatic (implantable) cardiac defibrillator; Z20.822 Contact with and (suspected) exposure to COVID-19
CPT/HCPCS: 36415; 36416; 71045; 80048; 80053; 83605; 83735; 83880; 84484; 85025; 85610; 85730; 93005; 96374; 96376; G0378; J1940; U0002

== ENCOUNTER 2022-03-27 23:45 | Emergency (ER) | payer SELFPAY ==
[2022-03-28 00:15] LABS: #Basophils 0.1 thou/uL (0.0-0.2); #Eosinphils 0.3 thou/uL (0.0-0.7); #Lymphocytes 1.9 thou/uL (1.20-3.40); #Monocytes 0.7 thou/uL (0.11-0.59); #Neutrophils 6.7 thou/uL (1.40-6.50); %Basophils 0.5 % (0.0-1.0); %Eosinophils 3.2 % (0.0-10.0); %Lymphocytes 19.5 % (21.0-51.0); %Neutrophils 69.8 % (42.0-75.0); Hemoglobin 12.6 g/dL (14.0-18.0); Mean Corpuscular HGB CONC 30.6 g/dL (32.0-36.0); Mean Corpuscular Hemoglobin 25.1 pg (27.0-31.0); Mean Corpuscular Volume 82.3 fl (78.0-98.0); Mean Platelet Volume 8.7 fL (7.4-10.4); Platelet Count 223 10x3/uL (130-400); White Blood Cell (WBC) Count 9.7 10x3/uL (4.8-10.8)
[2022-03-28 00:26] LABS: INR-International Normal Ratio 3.9; PTT 59.6 sec (22.9-36.1)
[2022-03-28 00:44] LABS: Magnesium 1.8 mg/dL (1.6-2.6)
[2022-03-28 00:52] LABS: CK (CPK) 136 U/L (30-200)
[2022-03-28 02:47] LABS: ALT (SGPT) 14 U/L (8-55); AST (SGOT) 24 U/L (5-34); Albumin 3.7 g/dL (3.5-5.0); Alkaline Phosphatase 132 U/L (40-110); Anion Gap 13 mmol/L (10-20); BUN (Urea Nitrogen) 24 mg/dL (8.9-20.6); Bilirubin, Total 2.1 mg/dL (0.2-1.2); Calc. Creatinine Clearance 0 mL/min (70-130); Calcium 8.8 mg/dL (7.8-10.44); Carbon Dioxide 15 mmol/L (22-29); Chloride 109 mmol/L (98-107); Estimated GFR 56; Globulin 3.5 g/dL (2.4-3.5); Glucose 116 mg/dL (70-105); Potassium 5.1 mmol/L (3.5-5.1); Protein, Total 7.2 g/dL (6.0-8.3); Sodium 132 mmol/L (136-145)
== END 2022-03-28 04:21 | disposition home or self-care (01) ==
LOC: ERS 23:45
DX: I48.20 Chronic atrial fibrillation, unspecified (principal); K21.9 Gastro-esophageal reflux disease without esophagitis; I11.0 Hypertensive heart disease with heart failure; I50.9 Heart failure, unspecified; E11.9 Type 2 diabetes mellitus without complications; F17.210 Nicotine dependence, cigarettes, uncomplicated; Z79.84 Long term (current) use of oral hypoglycemic drugs; Z79.01 Long term (current) use of anticoagulants
CPT/HCPCS: 71045; 80053; 82550; 83735; 83880; 84484; 85025; 85610; 85730; 93005; 96365; 96366

== ENCOUNTER 2022-04-07 19:23 | Inpatient (IN) | payer SELFPAY ==
[2022-04-07] MEDS ORDERED: Digoxin 0.5 MG/2 ML AMP ONE ×2 (19:51→19:57)
[2022-04-07] MEDS ORDERED: Diltiazem 125 MG/25 ML ONE ×2 (19:51→19:58)
[2022-04-07] MEDS ORDERED: Aspirin Chewable 81 MG TAB ONE (19:51)
[2022-04-07 19:58] LABS: #Basophils 0.1 thou/uL (0.0-0.2); #Eosinphils 0.2 thou/uL (0.0-0.7); #Lymphocytes 1.7 thou/uL (1.20-3.40); #Monocytes 1.2 thou/uL (0.11-0.59); #Neutrophils 5.3 thou/uL (1.40-6.50); %Basophils 0.7 % (0.0-1.0); %Eosinophils 2.7 % (0.0-10.0); %Lymphocytes 20.1 % (21.0-51.0); %Monocytes 14.2 % (0.0-10.0); %Neutrophils 62.3 % (42.0-75.0); Mean Corpuscular HGB CONC 30.3 g/dL (32.0-36.0); Mean Corpuscular Hemoglobin 24.9 pg (27.0-31.0); Mean Corpuscular Volume 82.3 fl (78.0-98.0); Mean Platelet Volume 8.9 fL (7.4-10.4); Platelet Count 276 10x3/uL (130-400); RBC Distribution Width 19.3 % (11.5-14.5); Red Blood Cell (RBC) Count 5.22 mill/uL (4.70-6.10); White Blood Cell (WBC) Count 8.4 10x3/uL (4.8-10.8)
[2022-04-07 20:18] LABS: ALT (SGPT) 14 U/L (8-55); AST (SGOT) 24 U/L (5-34); Alkaline Phosphatase 122 U/L (40-110); Anion Gap 14 mmol/L (10-20); BUN (Urea Nitrogen) 30 mg/dL (8.9-20.6); Bilirubin, Total 3.8 mg/dL (0.2-1.2); CK (CPK) 126 U/L (30-200); Calc. Creatinine Clearance 0 mL/min (70-130); Calcium 9.2 mg/dL (7.8-10.44); Carbon Dioxide 16 mmol/L (22-29); Chloride 108 mmol/L (98-107); Estimated GFR 50; Globulin 3.8 g/dL (2.4-3.5); Glucose 99 mg/dL (70-105); Lipase 39 U/L (8-78); Potassium 4.6 mmol/L (3.5-5.1); Protein, Total 7.8 g/dL (6.0-8.3); Sodium 133 mmol/L (136-145)
[2022-04-07] MEDS ORDERED: Senokot S 8.6-50 MG TAB PO PRN (21:34)
[2022-04-07] MEDS ORDERED: Acetaminophen 325 MG TAB PO PRN (21:34)
[2022-04-07] MEDS ORDERED: Diltiazem 125 MG in Sodium Chloride 0.9% 100 ML IVPB SCH (21:45)
[2022-04-07 22:03] LABS: INR-International Normal Ratio 3.6; Prothrombin Time 37.7 sec (12.0-14.7)
[2022-04-07 22:04] LABS: PTT 57.6 sec (22.9-36.1)
[2022-04-07 22:48] LABS: Troponin I 0.012 ng/mL (< 0.028)
[2022-04-07 23:22] VITALS: BMI 41.5
[2022-04-07 23:26] LABS: Bacteria/HPF None Seen HPF (None Seen); Bilirubin Negative (Negative); Blood, Urine Negative (Negative); Clarity Clear (Clear); Glucose, Urine (Dipstick) Normal (Negative); Ketone, Urine Negative (Negative); Leukocyte 25 Leu/uL (Negative); Nitrite Negative (Negative); Protein, Urine (Dipstick) 50 mg/dL (Neg-Trace); RBC/HPF 0-3 HPF (0-3); Specific Gravity, Urine 1.021 (1.002-1.036); Squamous Epithelial 0-3 HPF (0-3); pH, Urine 5.5 (5.0-9.0)
[2022-04-08 00:29] LABS: Amphetamine Not Detected (NotDetected); Barbiturates Screen Not Detected (NotDetected); Benzodiazepine Screen Not Detected (NotDetected); Cocaine Metabolite Screen Not Detected (NotDetected); Methadone Not Detected (NotDetected); Methamphetamine Not Detected (NotDetected); Opiate Screen Not Detected (NotDetected); Oxycodone Screen Not Detected (NotDetected); Phencyclidine (PCP) Not Detected (NotDetected); THC/Cannabinoid Screen Not Detected (NotDetected); Tricyclic Screen Not Detected (NotDetected)
[2022-04-08 02:23] LABS: #Eosinphils 0.2 thou/uL (0.0-0.7); #Lymphocytes 1.8 thou/uL (1.20-3.40); #Monocytes 0.9 thou/uL (0.11-0.59); #Neutrophils 5.5 thou/uL (1.40-6.50); %Basophils 0.4 % (0.0-1.0); %Eosinophils 2.7 % (0.0-10.0); %Lymphocytes 21.1 % (21.0-51.0); %Monocytes 10.3 % (0.0-10.0); %Neutrophils 65.5 % (42.0-75.0); Hemoglobin 12.8 g/dL (14.0-18.0); Mean Corpuscular HGB CONC 30.7 g/dL (32.0-36.0); Mean Corpuscular Hemoglobin 25.1 pg (27.0-31.0); Mean Corpuscular Volume 81.8 fl (78.0-98.0); Mean Platelet Volume 8.7 fL (7.4-10.4); Platelet Count 245 10x3/uL (130-400); RBC Distribution Width 19.1 % (11.5-14.5); Red Blood Cell (RBC) Count 5.11 mill/uL (4.70-6.10); White Blood Cell (WBC) Count 8.5 10x3/uL (4.8-10.8)
[2022-04-08 02:38] LABS: INR-International Normal Ratio 3.7; Prothrombin Time 38.1 sec (12.0-14.7)
[2022-04-08 02:49] LABS: Troponin I 0.013 ng/mL (< 0.028)
[2022-04-08 03:10] LABS: Anion Gap 13 mmol/L (10-20); BUN (Urea Nitrogen) 29 mg/dL (8.9-20.6); Calc. Creatinine Clearance 103 mL/min (70-130); Calcium 8.8 mg/dL (7.8-10.44); Carbon Dioxide 17 mmol/L (22-29); Chloride 108 mmol/L (98-107); Estimated GFR 50; Glucose 142 mg/dL (70-105); Potassium 4.5 mmol/L (3.5-5.1); Sodium 133 mmol/L (136-145)
[2022-04-08] MEDS: Famotidine 20 MG TAB PO SCH ×2 (08:44→21:22)
[2022-04-08] MEDS: Furosemide 40 MG TAB PO SCH ×2 (08:44→21:22)
[2022-04-08] MEDS: Lisinopril 20 MG TAB PO SCH ×2 (08:44→21:22)
[2022-04-08] MEDS ORDERED: Warfarin Sodium 3 MG TAB PO SCH (17:00)
[2022-04-08] MEDS: Carvedilol 6.25 MG TAB PO SCH (21:22)
[2022-04-09 05:40] LABS: #Basophils 0.1 thou/uL (0.0-0.2); #Eosinphils 0.3 thou/uL (0.0-0.7); #Lymphocytes 1.9 thou/uL (1.20-3.40); #Monocytes 1.2 thou/uL (0.11-0.59); #Neutrophils 5.5 thou/uL (1.40-6.50); %Basophils 0.7 % (0.0-1.0); %Eosinophils 3.7 % (0.0-10.0); %Monocytes 13.1 % (0.0-10.0); %Neutrophils 61.5 % (42.0-75.0); Hemoglobin 12.4 g/dL (14.0-18.0); Mean Corpuscular HGB CONC 30.7 g/dL (32.0-36.0); Mean Corpuscular Hemoglobin 25.4 pg (27.0-31.0); Mean Corpuscular Volume 82.9 fl (78.0-98.0); Platelet Count 241 10x3/uL (130-400); RBC Distribution Width 19.3 % (11.5-14.5); Red Blood Cell (RBC) Count 4.88 mill/uL (4.70-6.10)
[2022-04-09 05:46] LABS: INR-International Normal Ratio 2.7; Prothrombin Time 29.5 sec (12.0-14.7)
[2022-04-09 06:14] LABS: ALT (SGPT) 11 U/L (8-55); AST (SGOT) 21 U/L (5-34); Albumin 3.8 g/dL (3.5-5.0); Alkaline Phosphatase 125 U/L (40-110); Anion Gap 13 mmol/L (10-20); BUN (Urea Nitrogen) 28 mg/dL (8.9-20.6); Bilirubin, Total 3.6 mg/dL (0.2-1.2); Calc. Creatinine Clearance 104 mL/min (70-130); Calcium 9.6 mg/dL (7.8-10.44); Carbon Dioxide 19 mmol/L (22-29); Chloride 102 mmol/L (98-107); Estimated GFR 50; Globulin 3.5 g/dL (2.4-3.5); Glucose 125 mg/dL (70-105); Magnesium 1.8 mg/dL (1.6-2.6); Phosphorus 3.9 mg/dL (2.3-4.7); Potassium 4.4 mmol/L (3.5-5.1); Protein, Total 7.3 g/dL (6.0-8.3); Sodium 130 mmol/L (136-145)
[2022-04-09] MEDS: Famotidine 20 MG TAB PO SCH (08:10)
[2022-04-09] MEDS: Carvedilol 6.25 MG TAB PO SCH (08:10)
[2022-04-09] MEDS: Furosemide 40 MG TAB PO SCH (08:10)
[2022-04-09] MEDS: Lisinopril 20 MG TAB PO SCH (08:10)
[2022-04-09 12:36] VITALS: BP 125/76; TEMP 97.5
== END 2022-04-09 14:33 | disposition home or self-care (01) | DRG 308 ==
LOC: ERS 19:23 → 2SW 20:56
PROVIDERS: ADMIT Internal Medicine; ATTEND Internal Medicine
DX: I48.20 Chronic atrial fibrillation, unspecified (principal); I50.23 Acute on chronic systolic (congestive) heart failure; I13.0 Hypertensive heart and chronic kidney disease with heart failure and stage 1 through stage 4 chronic kidney disease, or unspecified chronic kidney disease; Z20.822 Contact with and (suspected) exposure to COVID-19; I42.8 Other cardiomyopathies; K21.9 Gastro-esophageal reflux disease without esophagitis; F17.210 Nicotine dependence, cigarettes, uncomplicated; E11.22 Type 2 diabetes mellitus with diabetic chronic kidney disease; N18.9 Chronic kidney disease, unspecified; R79.1 Abnormal coagulation profile; Z79.899 Other long term (current) drug therapy; Z79.01 Long term (current) use of anticoagulants; Z95.810 Presence of automatic (implantable) cardiac defibrillator; Z91.199 Patient's noncompliance with other medical treatment and regimen due to unspecified reason
CPT/HCPCS: 36415; 71045; 80048; 80053; 80306; 81003; 81015; 82550; 83690; 83735; 83880; 84100; 84484; 85025; 85610; 85730; 93005; 94760; J1160; U0003; U0005

== ENCOUNTER 2023-02-14 14:45 | Emergency (ER) | payer MEDICARE ==
[2023-02-14 15:30] LABS: Bacteria/HPF None Seen HPF (None Seen); Bilirubin Negative (Negative); Blood, Urine Negative (Negative); CAUTI Indications for Culture Alt mental st,lethar; Clarity Clear (Clear); Glucose, Urine (Dipstick) Normal (Negative); Ketone, Urine Negative (Negative); Leukocyte Negative Leu/uL (Negative); Nitrite Negative (Negative); Protein, Urine (Dipstick) Negative (Neg-Trace); RBC/HPF 0-3 HPF (0-3); Squamous Epithelial None Seen HPF (0-3); Urobilinogen 6 mg/dL (Less than 2); WBC/HPF 0-3 HPF (0-3); pH, Urine 5.5 (5.0-9.0)
[2023-02-14 15:38] LABS: Hematocrit 47.1 % (42.0-52.0); Hemoglobin 15.5 g/dL (14.0-18.0); Manual Diff?? YES; Mean Corpuscular HGB CONC 32.9 g/dL (32.0-36.0); Mean Corpuscular Hemoglobin 27.7 pg (27.0-31.0); Mean Corpuscular Volume 84.3 fl (78.0-98.0); Mean Platelet Volume 9.8 fL (7.4-10.4); Platelet Count 199 10x3/uL (130-400); RBC Distribution Width 16.5 % (11.5-14.5); Red Blood Cell (RBC) Count 5.59 mill/uL (4.70-6.10); White Blood Cell (WBC) Count 8.6 10x3/uL (4.8-10.8)
[2023-02-14 15:42] LABS: Delete Auto Diff?? YES
[2023-02-14 15:44] LABS: Urine Culture Reflex No No
[2023-02-14 15:52] LABS: INR-International Normal Ratio 1.3; PTT 35.5 sec (22.9-36.1); Prothrombin Time 16.2 sec (12.0-14.7)
[2023-02-14 16:04] LABS: SARS-CoV-2 NAA Rapid Test DETECTED (NotDetected)
[2023-02-14 16:08] LABS: Anisocytosis SLIGHT = 6-15 cells HPF (0-5); Band 24 % (5-11); Burr Cells SLIGHT = 2-5 cells HPF (0-1); CellaVision Operator ID LAB.KB; Eosinophils 1 % (0-10); Large Platelets 1.9 % (0-5); Lymphocytes 9 % (21-51); Monocytes 11 % (0-10); Neutrophil 50 % (42-75); Ovalocytes SLIGHT = 2-5 cells HPF (0-1); Platelet Adequacy Comment Platelets Normal; Polychromasia SLIGHT = 2-3 cells HPF (0-2); Reactive Lymphocytes 5 % (0-10); Smudge Cells 7.8 %; Total Cell Count 103
[2023-02-14 16:09] LABS: ALT (SGPT) 10 U/L (8-55); AST (SGOT) 23 U/L (5-34); Albumin 3.8 g/dL (3.5-5.0); Alkaline Phosphatase 79 U/L (40-110); Anion Gap 10 mmol/L (10-20); BUN (Urea Nitrogen) 18 mg/dL (8.9-20.6); Bilirubin, Total 1.9 mg/dL (0.2-1.2); Calc. Creatinine Clearance 0 mL/min (70-130); Calcium 8.7 mg/dL (7.8-10.44); Carbon Dioxide 22 mmol/L (22-29); Chloride 105 mmol/L (98-107); Estimated GFR 53; Globulin 3.3 g/dL (2.4-3.5); Glucose 69 mg/dL (70-105); Potassium 3.7 mmol/L (3.5-5.1); Protein, Total 7.1 g/dL (6.0-8.3); Sodium 133 mmol/L (136-145); Troponin I 0.025 ng/mL (< 0.028)
== END 2023-02-14 17:04 | disposition home or self-care (01) ==
LOC: ERS 14:45
DX: U07.1 COVID-19 (principal); E11.9 Type 2 diabetes mellitus without complications; K21.9 Gastro-esophageal reflux disease without esophagitis; I48.91 Unspecified atrial fibrillation; I11.0 Hypertensive heart disease with heart failure; I50.9 Heart failure, unspecified; F17.210 Nicotine dependence, cigarettes, uncomplicated; Z79.899 Other long term (current) drug therapy; Z79.84 Long term (current) use of oral hypoglycemic drugs
CPT/HCPCS: 0240U; 71045; 80053; 81001; 82962; 83605; 83880; 84484; 85025; 85610; 85730; 87040; 87086; 87149 ×2; 94760; 36415; 36416

== ENCOUNTER 2023-03-29 17:04 | Emergency (ER) | payer MEDICARE ==
[2023-03-29 18:00] LABS: #Basophils 0.1 thou/uL (0.0-0.2); #Eosinphils 0.2 thou/uL (0.0-0.7); #Monocytes 0.8 thou/uL (0.11-0.59); #Neutrophils 5.9 thou/uL (1.40-6.50); %Eosinophils 2.7 % (0.0-10.0); %Lymphocytes 18.2 % (21.0-51.0); %Monocytes 9.5 % (0.0-10.0); %Neutrophils 67.7 % (42.0-75.0); Hematocrit 45.1 % (42.0-52.0); Hemoglobin 14.2 g/dL (14.0-18.0); Mean Corpuscular HGB CONC 31.5 g/dL (32.0-36.0); Mean Corpuscular Hemoglobin 27.6 pg (27.0-31.0); Mean Corpuscular Volume 87.7 fl (78.0-98.0); Mean Platelet Volume 10.3 fL (7.4-10.4); Platelet Count 190 10x3/uL (130-400); RBC Distribution Width 16.1 % (11.5-14.5); Red Blood Cell (RBC) Count 5.14 mill/uL (4.70-6.10); White Blood Cell (WBC) Count 8.7 10x3/uL (4.8-10.8)
[2023-03-29 18:10] LABS: INR-International Normal Ratio 1.2; PTT 34.7 sec (22.9-36.1); Prothrombin Time 15.5 sec (12.0-14.7)
[2023-03-29] MEDS ORDERED: Furosemide 40 MG/4 ML VIAL ONE (18:20)
[2023-03-29] MEDS ORDERED: LORazepam 2 MG/ML SYR.(CARPUJECT) ONE (18:21)
[2023-03-29 18:22] LABS: ALT (SGPT) 9 U/L (8-55); AST (SGOT) 22 U/L (5-34); Albumin 3.8 g/dL (3.5-5.0); Alkaline Phosphatase 83 U/L (40-110); Anion Gap 13 mmol/L (10-20); BUN (Urea Nitrogen) 20 mg/dL (8.9-20.6); Bilirubin, Total 2.5 mg/dL (0.2-1.2); Calc. Creatinine Clearance 0 mL/min (70-130); Calcium 8.6 mg/dL (7.8-10.44); Carbon Dioxide 20 mmol/L (22-29); Chloride 105 mmol/L (98-107); Estimated GFR 56; Globulin 2.9 g/dL (2.4-3.5); Glucose 121 mg/dL (70-105); Potassium 4.1 mmol/L (3.5-5.1); Protein, Total 6.7 g/dL (6.0-8.3); Sodium 134 mmol/L (136-145)
[2023-03-29 18:25] LABS: Troponin I 0.023 ng/mL (< 0.028)
[2023-03-29 18:26] LABS: Acetaminophen Less than 10 mcg/mL (10.0-30.0); Alcohol Less than 10.0 mg/dL (Less than 10); Salicylate Less than 8.0 mg/dL (15.0-30.0)
[2023-03-29 19:41] LABS: Amphetamine Detected (NotDetected); Barbiturates Screen Not Detected (NotDetected); Benzodiazepine Screen Not Detected (NotDetected); Cocaine Metabolite Screen Not Detected (NotDetected); Methadone Not Detected (NotDetected); Methamphetamine Detected (NotDetected); Opiate Screen Not Detected (NotDetected); Oxycodone Screen Not Detected (NotDetected); Phencyclidine (PCP) Not Detected (NotDetected); THC/Cannabinoid Screen Not Detected (NotDetected); Tricyclic Screen Not Detected (NotDetected)
[2023-03-29 19:55] LABS: Bacteria/HPF None Seen HPF (None Seen); Bilirubin Negative (Negative); Blood, Urine Negative (Negative); CAUTI Indications for Culture Pelvic or flank pain; Clarity Clear (Clear); Glucose, Urine (Dipstick) Normal (Negative); Ketone, Urine Negative (Negative); Leukocyte Negative Leu/uL (Negative); Nitrite Negative (Negative); Protein, Urine (Dipstick) 20 mg/dL (Neg-Trace); RBC/HPF None Seen HPF (0-3); Specific Gravity, Urine 1.011 (1.002-1.036); Squamous Epithelial None Seen HPF (0-3); WBC/HPF 0-3 HPF (0-3); pH, Urine 5.5 (5.0-9.0)
[2023-03-29 19:57] LABS: Urine Culture Reflex No No
== END 2023-03-29 21:16 | disposition home or self-care (01) ==
LOC: ERS 17:04
DX: I11.0 Hypertensive heart disease with heart failure (principal); I50.9 Heart failure, unspecified; F15.10 Other stimulant abuse, uncomplicated; K21.9 Gastro-esophageal reflux disease without esophagitis; I48.91 Unspecified atrial fibrillation; E11.22 Type 2 diabetes mellitus with diabetic chronic kidney disease; F17.210 Nicotine dependence, cigarettes, uncomplicated; Z79.899 Other long term (current) drug therapy
CPT/HCPCS: 71045; 80053; 80306; 80307; 81001; 83880; 84484; 85025; 85610; 85730; 93005; J2060; 36415; 96374; J1940

== ENCOUNTER 2024-04-13 20:23 | Inpatient (IN) | payer OTHER ==
[2024-04-13] MEDS ORDERED: Albuterol 2.5 MG (3 mL) NEB ONE (20:47)
[2024-04-13] MEDS ORDERED: Ipratropium/Albuterol 3 ML NEB ONE (20:47)
[2024-04-13] MEDS ORDERED: Albuterol 2.5 MG (0.5 mL) NEB ONE (20:47)
[2024-04-13 21:09] LABS: Hematocrit 60.5 % (42.0-52.0); Hemoglobin 20.1 g/dL (14.0-18.0); Mean Corpuscular HGB CONC 33.2 g/dL (32.0-36.0); Mean Corpuscular Hemoglobin 31.1 pg (27.0-31.0); Mean Corpuscular Volume 93.5 fL (78.0-98.0); Mean Platelet Volume 10.5 fL (7.4-10.4); Platelet Count 182 10x3/uL (130-400); RBC Distribution Width 14.1 % (11.5-14.5); Red Blood Cell (RBC) Count 6.47 mill/uL (4.70-6.10)
[2024-04-13 21:11] LABS: #Basophils 0.08 10x3/uL (0.0-0.2); %Basophils 0.8 % (0.0-1.0); %Eosinophils 0.5 % (0.0-10.0); %Lymphocytes 23.4 % (21.0-51.0); %Monocytes 12.9 % (0.0-10.0); %Neutrophils 61.3 % (42.0-75.0)
[2024-04-13 21:38] LABS: ALT (SGPT) 43 U/L (8-55); AST (SGOT) 61 U/L (5-34); Albumin 3.3 g/dL (3.5-5.0); Alkaline Phosphatase 92 U/L (40-110); Anion Gap 16 mmol/L (10-20); BUN (Urea Nitrogen) 27 mg/dL (8.9-20.6); Calc. Creatinine Clearance 0 mL/min (70-130); Calcium 9.2 mg/dL (7.8-10.44); Carbon Dioxide 23 mmol/L (22-29); Chloride 95 mmol/L (98-107); Estimated GFR 50; Globulin 4.7 g/dL (2.4-3.5); Glucose 129 mg/dL (70-105); Potassium 4.3 mmol/L (3.5-5.1); Sodium 130 mmol/L (136-145)
[2024-04-13] MEDS ORDERED: Dexamethasone 10 MG/ML VIAL ONE (22:02)
[2024-04-13 22:10] LABS: Troponin I 0.046 ng/mL (< 0.028)
[2024-04-13] MEDS ORDERED: Diltiazem HCl/D5W 125 ML ONE (22:21)
[2024-04-13] MEDS ORDERED: Aspirin 81 mg Enteric Coated Tablet ONE (22:34)
[2024-04-13] MEDS ORDERED: Ondansetron PF 4 MG/2 ML Vial IVP PRN (23:04)
[2024-04-13] MEDS ORDERED: dilTIAZem 125 MG in Sodium Chloride 0.9% 100 ML IVPB SCH (23:15)
[2024-04-13] MEDS ORDERED: Acetaminophen 325 MG TAB PO PRN (23:30)
[2024-04-14] LABS: Troponin I 0.053 ng/mL (< 0.028)
[2024-04-14] MEDS ORDERED: Digoxin 0.5 MG/2 ML AMP ONE (00:36)
[2024-04-14] MEDS ORDERED: Ipratropium/Albuterol 3 ML NEB NEB PRN (00:47)
[2024-04-14] MEDS ORDERED: Dextrose 5% in Water 1,000 ML IV PRN (00:52)
[2024-04-14] MEDS ORDERED: Glucagon 1 MG/ML KIT IM PRN (00:52)
[2024-04-14] MEDS ORDERED: Dextrose 50% Abboject 50 ML SYRINGE SLOW IVP PRN (00:52)
[2024-04-14 01:10] LABS: Bacteria/HPF None Seen HPF (None Seen); Bilirubin Negative (Negative); Blood, Urine 2+ (Negative); CAUTI Indications for Culture Pelvic or flank pain; Clarity Clear (Clear); Glucose, Urine (Dipstick) Normal (Negative); Ketone, Urine Negative (Negative); Leukocyte Negative Leu/uL (Negative); Nitrite Negative (Negative); Protein, Urine (Dipstick) 600 mg/dL (Neg-Trace); RBC/HPF 0-3 HPF (0-3); Specific Gravity, Urine 1.023 (1.002-1.036); Squamous Epithelial 0-3 HPF (0-3); Urobilinogen 6 mg/dL (Less than 2); WBC/HPF 0-3 HPF (0-3)
[2024-04-14 01:37] LABS: Urine Culture Reflex No No
[2024-04-14 01:53] LABS: Amphetamine Detected (NotDetected); Barbiturates Screen Not Detected (NotDetected); Benzodiazepine Screen Not Detected (NotDetected); Cocaine Metabolite Screen Not Detected (NotDetected); Methadone Not Detected (NotDetected); Methamphetamine Detected (NotDetected); Opiate Screen Not Detected (NotDetected); Oxycodone Screen Not Detected (NotDetected); Phencyclidine (PCP) Not Detected (NotDetected); THC/Cannabinoid Screen Not Detected (NotDetected); Tricyclic Screen Not Detected (NotDetected)
[2024-04-14 02:32] LABS: #Basophils 0.08 10x3/uL (0.0-0.2); #Eosinophils Less than 0.03 10x3/uL (0.0-0.7); %Basophils 0.9 % (0.0-1.0); %Eosinophils 0.2 % (0.0-10.0); %Lymphocytes 9.9 % (21.0-51.0); %Neutrophils 83.7 % (42.0-75.0); Hematocrit 58.5 % (42.0-52.0); Hemoglobin 20.1 g/dL (14.0-18.0); Mean Corpuscular HGB CONC 34.4 g/dL (32.0-36.0); Mean Corpuscular Hemoglobin 31.7 pg (27.0-31.0); Mean Corpuscular Volume 92.1 fL (78.0-98.0); Mean Platelet Volume 10.4 fL (7.4-10.4); Platelet Count 176 10x3/uL (130-400); RBC Distribution Width 14.1 % (11.5-14.5); Red Blood Cell (RBC) Count 6.35 mill/uL (4.70-6.10)
[2024-04-14 03:50] LABS: Anion Gap 20 mmol/L (10-20); BUN (Urea Nitrogen) 26 mg/dL (8.9-20.6); Calc. Creatinine Clearance 102 mL/min (70-130); Calcium 9.1 mg/dL (7.8-10.44); Carbon Dioxide 16 mmol/L (22-29); Chloride 101 mmol/L (98-107); Estimated GFR 55; Glucose 176 mg/dL (70-105); Potassium 4.8 mmol/L (3.5-5.1); Sodium 132 mmol/L (136-145)
[2024-04-14] MEDS ORDERED: methylPREDNISolone Sod Succ/PF 125 MG/2 ML VIAL ONE (06:27)
[2024-04-14] MEDS ORDERED: dilTIAZem 125 MG/25 ML SDV ONE (06:27)
[2024-04-14] MEDS ORDERED: methylPREDNISolone Sod Succ 40 MG VIAL ONE (06:34)
[2024-04-14] MEDS: methylPREDNISolone Sod Succ 40 MG VIAL IVP SCH (06:39)
[2024-04-14] MEDS ORDERED: Furosemide 40 MG TAB ONE (08:56)
[2024-04-14] MEDS ORDERED: Famotidine 20 MG TAB ONE (08:56)
[2024-04-14] MEDS ORDERED: Enoxaparin 40 MG (0.4 mL) SYRINGE ONE (08:57)
[2024-04-14] MEDS ORDERED: Carvedilol 6.25 MG TAB ONE (08:57)
[2024-04-14] MEDS ORDERED: Famotidine/PF 20 mg/2ml Vial SLOW IVP SCH (09:00)
[2024-04-14] MEDS: Furosemide 40 MG TAB PO SCH (09:05)
[2024-04-14] MEDS: Enoxaparin 40 MG (0.4 mL) SYRINGE SC SCH (09:05)
[2024-04-14] MEDS: Carvedilol 6.25 MG TAB PO SCH (09:05)
[2024-04-14] MEDS: Famotidine 20 MG TAB PO SCH (09:05)
[2024-04-14] MEDS: Aspirin 81 mg Enteric Coated Tablet PO SCH (09:08)
[2024-04-14] MEDS: dilTIAZem SR 90 MG CAP PO SCH (09:08)
[2024-04-14] MEDS: Insulin Lispro 100 UNIT/ML 10 ML VIAL SC PRN ×2 (09:25→20:56)
[2024-04-14 10:04] VITALS: BMI 38.4
[2024-04-14] MEDS: Apixaban 5 MG TAB PO SCH ×2 (14:50→20:57)
[2024-04-14] MEDS: Melatonin 3 MG TAB PO PRN (22:45)
[2024-04-15] MEDS ORDERED: methylPREDNISolone Sod Succ 40 MG VIAL IVP SCH (09:00)
[2024-04-15] MEDS: predniSONE 20 MG TAB PO SCH (10:05)
[2024-04-15] MEDS: Carvedilol 6.25 MG TAB PO SCH (10:06)
[2024-04-15 11:49] VITALS: BP 119/76; TEMP 97.4
== END 2024-04-15 16:55 | disposition home or self-care (01) | DRG 190 ==
LOC: ERS 20:23 → ERHOLD 23:07 → 2NO 04-14 11:49
PROVIDERS: ADMIT Hospitalist; ATTEND Internal Medicine
DX: J44.1 Chronic obstructive pulmonary disease with (acute) exacerbation (principal); I21.A1 Myocardial infarction type 2; I13.0 Hypertensive heart and chronic kidney disease with heart failure and stage 1 through stage 4 chronic kidney disease, or unspecified chronic kidney disease; I50.22 Chronic systolic (congestive) heart failure; I48.91 Unspecified atrial fibrillation; Z95.810 Presence of automatic (implantable) cardiac defibrillator; E66.01 Morbid (severe) obesity due to excess calories; Z68.38 Body mass index [BMI] 38.0-38.9, adult; E11.22 Type 2 diabetes mellitus with diabetic chronic kidney disease; N18.31 Chronic kidney disease, stage 3a; F41.9 Anxiety disorder, unspecified; K21.9 Gastro-esophageal reflux disease without esophagitis; F17.210 Nicotine dependence, cigarettes, uncomplicated; Z79.84 Long term (current) use of oral hypoglycemic drugs; Z79.899 Other long term (current) drug therapy
CPT/HCPCS: 36415; 36416; 71045; 80048; 80053; 80306; 81001; 83880; 84484; 85025; 87428; 93005; 93306; 96374; 96375; 96376; J1100; J1160; J1650; J1815; J2919; J7512; J7611; J7620

== ENCOUNTER 2024-06-08 | Inpatient (IN) | payer MEDICARE, OTHER ==
[2024-06-09] MEDS ORDERED: dilTIAZem 25 MG/5 ML VIAL ONE ×2 (00:08→00:38)
[2024-06-09] MEDS ORDERED: dilTIAZem 125 MG/25 ML SDV ONE (00:11)
[2024-06-09 00:14] LABS: #Basophils 0.09 10x3/uL (0.0-0.2); %Basophils 0.4 % (0.0-1.0); %Eosinophils 0.9 % (0.0-10.0); %Lymphocytes 12.9 % (21.0-51.0); %Monocytes 6.9 % (0.0-10.0); Hematocrit 50.8 % (42.0-52.0); Hemoglobin 17.3 g/dL (14.0-18.0); Mean Corpuscular HGB CONC 34.1 g/dL (32.0-36.0); Mean Corpuscular Hemoglobin 30.7 pg (27.0-31.0); Mean Corpuscular Volume 90.1 fL (78.0-98.0); Mean Platelet Volume 10.1 fL (7.4-10.4); Platelet Count 180 10x3/uL (130-400); RBC Distribution Width 13.9 % (11.5-14.5); Red Blood Cell (RBC) Count 5.64 mill/uL (4.70-6.10)
[2024-06-09 00:19] LABS: Actual Bicarbonate (HCO3v) 20.8 mEq/L (22-28); Analyzer IN Cardio ER; Calcium, Ionized (venous) 1.03 mmol/L (1.16-1.32); Chloride (VBG) 96 mmol/L (98-106); Hematocrit-VBG 54 % (42.0-52.0); Hemoglobin (Hb) 18.4 g/dL (13.2-17.3); Potassium (VBG) 4.26 mmol/L (3.70-5.30); Sodium 130 mmol/L (133-146)
[2024-06-09] MEDS ORDERED: Ketorolac Tromethamine 30 MG (1 mL) VIAL ONE (00:23)
[2024-06-09] MEDS ORDERED: Sodium Chloride 0.9% 100 ML ONE (00:24)
[2024-06-09] MEDS ORDERED: cefTRIAXone (ROCEPHIN) 2 GM VIAL ONE (00:24)
[2024-06-09 00:40] LABS: Troponin I 0.083 ng/mL (< 0.028)
[2024-06-09] MEDS ORDERED: Azithromycin 500 MG VIAL ONE (01:06)
[2024-06-09] MEDS ORDERED: NOREPINEPHRINE 8 MG/250 ML-D5W 250 ML ONE (03:01)
[2024-06-09 03:34] LABS: Bacteria/HPF None Seen HPF (None Seen); Bilirubin 1+ (Negative); Blood, Urine 3+ (Negative); Clarity Turbid (Clear); Glucose, Urine (Dipstick) Normal (Negative); Ketone, Urine Negative (Negative); Leukocyte Negative Leu/uL (Negative); Nitrite Negative (Negative); Protein, Urine (Dipstick) 300 mg/dL (Neg-Trace); Specific Gravity, Urine 1.019 (1.002-1.036); Squamous Epithelial 0-3 HPF (0-3); Urobilinogen 6 mg/dL (Less than 2)
[2024-06-09 04:02] LABS: ALT (SGPT) 21 U/L (Less than 45); AST (SGOT) 39 U/L (11-34); Albumin 2.8 g/dL (3.1-4.5); Alkaline Phosphatase 67 U/L (40-110); Anion Gap 16 mmol/L (10-20); BUN (Urea Nitrogen) 27 mg/dL (8.9-20.6); Bilirubin, Total 5.5 mg/dL (0.3-1.2); Calc. Creatinine Clearance 0 mL/min (70-130); Calcium 8.5 mg/dL (7.8-10.44); Carbon Dioxide 19 mmol/L (22-29); Chloride 100 mmol/L (98-107); Estimated GFR 57; Globulin 4.2 g/dL (2.4-3.5); Glucose 129 mg/dL (70-105); Magnesium 1.2 mg/dL (1.6-2.6); Potassium 4.1 mmol/L (3.5-5.1); Sodium 131 mmol/L (136-145)
[2024-06-09] MEDS ORDERED: Magnesium 2 GM/50 ML BAG (IN WATER) ONE (04:29)
[2024-06-09] MEDS ORDERED: Ondansetron PF 4 MG/2 ML Vial IVP PRN (04:33)
[2024-06-09] MEDS ORDERED: Dextrose 5% in Water 1,000 ML IV PRN (04:36)
[2024-06-09] MEDS ORDERED: Dextrose 50% Abboject 50 ML SYRINGE SLOW IVP PRN (04:36)
[2024-06-09] MEDS ORDERED: Glucagon 1 MG/ML KIT IM PRN (04:36)
[2024-06-09] MEDS ORDERED: Amiodarone 150 MG in Dextrose 5% in Water 100 ML IVPB SCH (04:45)
[2024-06-09] MEDS ORDERED: Magnesium Sulfate 2 GM in Sodium Chloride 0.9% 100 ML IVPB SCH (05:00)
[2024-06-09] MEDS: Amiodarone 150 MG in Dextrose 5% in Water 100 ML IVPB SCH (05:25)
[2024-06-09] MEDS: Magnesium 2 GM/50 ML(in water) 2 GM in Premix 1 BAG IVPB SCH (05:51)
[2024-06-09] MEDS: Dexmedetomidine In 0.9 % NaCl 100 ML IV SCH (07:15)
[2024-06-09 07:29] LABS: Actual Bicarbonate (HCO3a) 18.4 mEq/L (22-28); Analyzer IN Cardio ER; CO2 Tension 28.1 mmHg (35.0-45.0); Calcium, Ionized (arterial) 1.15 mmol/L (1.12-1.30); Carboxyhemoglobin (COHb) 1.3 gm% (0.0-3.0); Hematocrit-ABG 51 % (42.0-52.0); Hemoglobin (Hb) 17.3 g/dL (14.0-18.0); O2 Tension (PaO2), arterial 91.8 mmHg (80.0-100.0); Potassium - ABG Lab 4.08 mmol/L (3.70-5.30); pH, Arterial 7.435 (7.35-7.45)
[2024-06-09 07:30] LABS: Amphetamine Detected (NotDetected); Barbiturates Screen Not Detected (NotDetected); Benzodiazepine Screen Not Detected (NotDetected); Cocaine Metabolite Screen Not Detected (NotDetected); Methadone Not Detected (NotDetected); Methamphetamine Detected (NotDetected); Opiate Screen Not Detected (NotDetected); Oxycodone Screen Not Detected (NotDetected); Phencyclidine (PCP) Not Detected (NotDetected); THC/Cannabinoid Screen Not Detected (NotDetected); Tricyclic Screen Not Detected (NotDetected)
[2024-06-09 07:35] LABS: Legionella Urinary Ag Negative (Negative); Strep pneumo Urine Ag NEGATIVE (NEGATIVE)
[2024-06-09 07:57] LABS: Puncture Site Left Radial artery
[2024-06-09] MEDS: Ipratropium/Albuterol 3 ML NEB NEB SCH (08:11)
[2024-06-09] MEDS: Vancomycin (BATCH) 2.5 GM in Premix 1 BAG IVPB SCH (08:28)
[2024-06-09] MEDS: Cefepime 2 GM in Sodium Chloride 0.9% 100 ML IVPB SCH (10:23)
[2024-06-09] MEDS: methylPREDNISolone Sod Succ 40 MG VIAL IVP SCH (10:23)
[2024-06-09] MEDS ORDERED: Cefepime 1 GM in Sodium Chloride 0.9% 100 ML IVPB SCH (12:00)
[2024-06-09] MEDS: Amiodarone 450 MG in Dextrose 5% in Water 250 ML IVPB SCH (14:04)
[2024-06-09] MEDS: Furosemide 40 MG (4 mL) VIAL SLOW IVP SCH (17:23)
[2024-06-09] MEDS: Rivaroxaban 10 MG TAB PO SCH (17:23)
[2024-06-09] MEDS: Albumin 25% 25 GM (100 mL) BOT IVPB SCH ×2 (18:09→23:18)
[2024-06-09] MEDS: Vancomycin 1 GM in Premix 1 BAG IVPB SCH (19:59)
[2024-06-09] MEDS: methylPREDNISolone Sod Succ/PF 125 MG/2 ML VIAL IVP SCH (20:00)
[2024-06-10] MEDS: Insulin Lispro 100 UNIT/ML 10 ML VIAL SC PRN ×3 (04:43→16:34)
[2024-06-10 05:33] LABS: Hematocrit 46.3 % (42.0-52.0); Hemoglobin 15.4 g/dL (14.0-18.0); Mean Corpuscular HGB CONC 33.3 g/dL (32.0-36.0); Mean Corpuscular Volume 93.3 fL (78.0-98.0); Mean Platelet Volume 11.6 fL (7.4-10.4); Platelet Count 212 10x3/uL (130-400); RBC Distribution Width 14.4 % (11.5-14.5); Red Blood Cell (RBC) Count 4.96 mill/uL (4.70-6.10)
[2024-06-10] MEDS: Furosemide 40 MG (4 mL) VIAL SLOW IVP SCH (05:56)
[2024-06-10 06:05] LABS: Vancomycin, Random 31.8 ug/mL (See Comment)
[2024-06-10 06:13] LABS: Band 11 % (5-11); Lymphocytes 7 % (21-51); Monocytes 4 % (0-10); Myelocyte 1 % (0-0); Neutrophil 77 % (42-75); Platelet Adequacy Comment Platelets Normal; RBC Morphology Within Normal Limits; Smudge Cells 7.9 %
[2024-06-10 06:25] LABS: ALT (SGPT) 32 U/L (Less than 45); AST (SGOT) 81 U/L (11-34); Alkaline Phosphatase 83 U/L (40-110); Anion Gap 24 mmol/L (10-20); BUN (Urea Nitrogen) 50 mg/dL (8.9-20.6); Bilirubin, Total 4.3 mg/dL (0.3-1.2); Calc. Creatinine Clearance 67 mL/min (70-130); Calcium 8.9 mg/dL (7.8-10.44); Carbon Dioxide 9 mmol/L (22-29); Chloride 98 mmol/L (98-107); Estimated GFR 25; Globulin 4.3 g/dL (2.4-3.5); Glucose 194 mg/dL (70-105); Protein, Total 7.3 g/dL (6.0-8.3); Sodium 125 mmol/L (136-145)
[2024-06-10] MEDS: Insulin Regular, Human 100 UNIT/ML 10 ML VIAL IVP SCH ×2 (08:13→15:18)
[2024-06-10 08:26] LABS: ALT (SGPT) 45 U/L (Less than 45); AST (SGOT) 111 U/L (11-34); Albumin 3.2 g/dL (3.1-4.5); Alkaline Phosphatase 81 U/L (40-110); Anion Gap 22 mmol/L (10-20); BUN (Urea Nitrogen) 54 mg/dL (8.9-20.6); Bilirubin, Total 4.4 mg/dL (0.3-1.2); Calc. Creatinine Clearance 62 mL/min (70-130); Calcium 8.7 mg/dL (7.8-10.44); Carbon Dioxide 11 mmol/L (22-29); Chloride 97 mmol/L (98-107); Estimated GFR 23; Globulin 4.1 g/dL (2.4-3.5); Glucose 203 mg/dL (70-105); Potassium 5.7 mmol/L (3.5-5.1); Protein, Total 7.3 g/dL (6.0-8.3); Sodium 124 mmol/L (136-145)
[2024-06-10] MEDS: Lorazepam 2 MG/ML VIAL ONE ×2 (08:28→09:05)
[2024-06-10] MEDS: Lorazepam 2 MG/ML VIAL SLOW IVP SCH (08:40)
[2024-06-10] MEDS: Sodium Bicarbonate 150 MEQ in Dextrose 5% in Water 1,000 ML IV SCH (08:43)
[2024-06-10] MEDS: Dextrose 50% Abboject 50 ML SYRINGE SLOW IVP PRN (08:43)
[2024-06-10] MEDS: Etomidate 40 MG (20 mL) VIAL IVP SCH (08:58)
[2024-06-10] MEDS: Rocuronium Bromide 10 MG/ML (10ML VIAL) IVPB SCH (09:00)
[2024-06-10] MEDS ORDERED: Propofol BOLUS 1,000 MG/100 ML VIAL IV PRN (09:15)
[2024-06-10] MEDS ORDERED: Fentanyl BOLUS 250 ML IVPB PRN (09:15)
[2024-06-10] MEDS ORDERED: Ventilator Sedation Protocol 1 EACH FS SCH (09:15)
[2024-06-10] MEDS: Fentanyl CADD 100 ML ONE (09:30)
[2024-06-10 09:33] LABS: Actual Bicarbonate (HCO3a) 16.3 mEq/L (22-28); Base Excess (BEa) -12.1 mEq/L (-2.0 to +3.0); CO2 Tension 45.6 mmHg (35.0-45.0); Calcium, Ionized (arterial) 1.09 mmol/L (1.12-1.30); Carboxyhemoglobin (COHb) 0.3 gm% (0.0-3.0); Hematocrit-ABG 50 % (42.0-52.0); Hemoglobin (Hb) 17.1 g/dL (14.0-18.0); O2 Tension (PaO2), arterial 89.3 mmHg (80.0-100.0); Potassium - ABG Lab 5.25 mmol/L (3.70-5.30)
[2024-06-10 09:36] LABS: Puncture Site Right Radial artery
[2024-06-10] MEDS: Lorazepam 2 MG/ML VIAL SLOW IVP PRN (09:54)
[2024-06-10 10:05] LABS: Actual Bicarbonate (HCO3a) 15.4 mEq/L (22-28); Base Excess (BEa) -13.3 mEq/L (-2.0 to +3.0); CO2 Tension 45.3 mmHg (35.0-45.0); Calcium, Ionized (arterial) 1.23 mmol/L (1.12-1.30); Carboxyhemoglobin (COHb) 0.4 gm% (0.0-3.0); Hematocrit-ABG 52 % (42.0-52.0); Hemoglobin (Hb) 17.8 g/dL (14.0-18.0); O2 Tension (PaO2), arterial 69.7 mmHg (80.0-100.0)
[2024-06-10 10:06] LABS: Puncture Site Right Brachial art
[2024-06-10 10:07] LABS: ALV-art Gradient 586.675 mmHg (0-20)
[2024-06-10] MEDS: Propofol 1,000 MG/100 ML VIAL IV PRN (12:23)
[2024-06-10] MEDS: Sodium Polystyrene Sulfonate 15 GM (60 mL) BOT PER TUBE SCH (13:45)
[2024-06-10] MEDS: LOKELMA 10 GM PACKET PO SCH ×2 (13:45)
[2024-06-10] MEDS: Dexmedetomidine 1,000 MCG in NS 250 mL IVPB SCH (13:47)
[2024-06-10] MEDS: Etomidate 40 MG (20 mL) VIAL ONE (13:47)
[2024-06-10 14:13] LABS: Creatinine, Urine 154.26 mg/dL (24.00-392.00)
[2024-06-10 14:17] LABS: Anion Gap 21 mmol/L (10-20); BUN (Urea Nitrogen) 71 mg/dL (8.9-20.6); Calc. Creatinine Clearance 63 mL/min (70-130); Calcium 7.7 mg/dL (7.8-10.44); Carbon Dioxide 18 mmol/L (22-29); Chloride 91 mmol/L (98-107); Estimated GFR 24; Glucose 419 mg/dL (70-105); Potassium 5.5 mmol/L (3.5-5.1); Sodium 124 mmol/L (136-145)
[2024-06-10 14:19] LABS: Urea Nitrogen, Random Urine 304 mg/dl
[2024-06-10 14:21] LABS: Sodium, Urine Less than 20 mmol/L (Not Available)
[2024-06-10 14:35] LABS: Protein, Urine Random Quant 301 mg/dL (1-14)
[2024-06-10] MEDS: Cefepime 2 GM in Sodium Chloride 0.9% 100 ML IVPB SCH (15:17)
[2024-06-10 16:20] LABS: Magnesium 1.7 mg/dL (1.6-2.6)
[2024-06-10] MEDS: Acetaminophen 500 MG TAB PO PRN (16:33)
[2024-06-10] MEDS: Rivaroxaban 15 MG TAB PO SCH (18:33)
[2024-06-10] MEDS: Fentanyl CADD 100 ML IV SCH (18:54)
[2024-06-10] MEDS ORDERED: Vancomycin HCl 750 MG in Sodium Chloride 0.9% 250 ML 250 ML IVPB SCH (20:00)
[2024-06-10] MEDS ORDERED: Hydrocortisone Sod Succ/PF 100 mg/2 ml Vial IVP SCH ×2 (21:15)
[2024-06-11] MEDS: NOREPINEPHRINE 8 MG/250 ML-D5W 250 ML IVPB SCH (00:31)
[2024-06-11 04:30] LABS: Vancomycin, Random 22.7 ug/mL (See Comment)
[2024-06-11 04:31] LABS: #Basophils 0.09 10x3/uL (0.0-0.2); #Eosinophils Less than 0.03 10x3/uL (0.0-0.7); %Basophils 0.5 % (0.0-1.0); %Eosinophils 0.1 % (0.0-10.0); %Lymphocytes 12.2 % (21.0-51.0); %Monocytes 6.4 % (0.0-10.0); %Neutrophils 77.1 % (42.0-75.0); Hematocrit 47.4 % (42.0-52.0); Hemoglobin 15.5 g/dL (14.0-18.0); Mean Corpuscular HGB CONC 32.7 g/dL (32.0-36.0); Mean Corpuscular Hemoglobin 30.8 pg (27.0-31.0); Mean Corpuscular Volume 94.2 fL (78.0-98.0); Mean Platelet Volume 12.3 fL (7.4-10.4); Platelet Count 160 10x3/uL (130-400); RBC Distribution Width 14.6 % (11.5-14.5); Red Blood Cell (RBC) Count 5.03 mill/uL (4.70-6.10)
[2024-06-11 04:34] LABS: ALT (SGPT) 179 U/L (Less than 45); AST (SGOT) 386 U/L (11-34); Alkaline Phosphatase 39 U/L (40-110); Anion Gap 24 mmol/L (10-20); BUN (Urea Nitrogen) 107 mg/dL (8.9-20.6); Bilirubin, Total 4.7 mg/dL (0.3-1.2); Calc. Creatinine Clearance 35 mL/min (70-130); Calcium 7.8 mg/dL (7.8-10.44); Carbon Dioxide 15 mmol/L (22-29); Chloride 86 mmol/L (98-107); Estimated GFR 12; Globulin 3.7 g/dL (2.4-3.5); Glucose 424 mg/dL (70-105); Potassium 5.5 mmol/L (3.5-5.1); Protein, Total 6.7 g/dL (6.0-8.3); Sodium 119 mmol/L (136-145)
[2024-06-11] MEDS: Insulin Regular, Human 100 UNIT/ML 10 ML VIAL IVP SCH (04:49)
[2024-06-11] MEDS: Sodium Bicarb 50 MEQ/50 ML Abboject 8.4% SYRINGE IVP SCH (04:49)
[2024-06-11] MEDS: Sodium Chloride 0.9% 1,000 ML IV SCH (05:33)
[2024-06-11 05:46] LABS: INR-International Normal Ratio 1.6; Prothrombin Time 19.3 sec (12.0-14.7)
[2024-06-11 05:47] LABS: PTT 37.5 sec (22.9-36.1)
[2024-06-11] MEDS: Sodium Bicarbonate 150 MEQ in Dextrose 5% in Water 1,000 ML IV SCH (05:56)
[2024-06-11] MEDS ORDERED: Sodium Chloride 0.9% 1,000 ML FS SCH (08:00)
[2024-06-11] MEDS ORDERED: CRRT- NOTIFY PHARMACY FS PRN (08:00)
[2024-06-11 08:40] LABS: #Basophils 0.09 10x3/uL (0.0-0.2); %Basophils 0.5 % (0.0-1.0); %Eosinophils 0.3 % (0.0-10.0); %Lymphocytes 10.2 % (21.0-51.0); %Monocytes 7.7 % (0.0-10.0); %Neutrophils 78.5 % (42.0-75.0); Hematocrit 48.3 % (42.0-52.0); Hemoglobin 16.1 g/dL (14.0-18.0); Mean Corpuscular HGB CONC 33.3 g/dL (32.0-36.0); Mean Corpuscular Volume 93.1 fL (78.0-98.0); Mean Platelet Volume 12.7 fL (7.4-10.4); Platelet Count 161 10x3/uL (130-400); RBC Distribution Width 14.7 % (11.5-14.5); Red Blood Cell (RBC) Count 5.19 mill/uL (4.70-6.10)
[2024-06-11] MEDS ORDERED: Heparin 25,000 units/D5W 500 ML IV SCH (08:45)
[2024-06-11 08:56] LABS: Phosphorus 8.5 mg/dL (2.5-4.5)
[2024-06-11 08:58] LABS: Actual Bicarbonate (HCO3a) 15.8 mEq/L (22-28); Base Excess (BEa) -10.5 mEq/L (-2.0 to +3.0); CO2 Tension 37.2 mmHg (35.0-45.0); Carboxyhemoglobin (COHb) 0.6 gm% (0.0-3.0); Hematocrit-ABG 53 % (42.0-52.0); Hemoglobin (Hb) 17.9 g/dL (14.0-18.0); O2 Tension (PaO2), arterial 102.3 mmHg (80.0-100.0); pH, Arterial 7.247 (7.35-7.45)
[2024-06-11 08:59] LABS: Puncture Site Right Radial artery
[2024-06-11 09:01] LABS: HBsAg Index 0.24 S/CO (0-0.99); Hep B Core Total Ab NONREACTIVE (NonReactive); Hep B Core Total Index 0.07 S/CO (0-0.79); Hep B Surf Ag NONREACTIVE S/CO (NonReactive)
[2024-06-11 09:02] LABS: INR-International Normal Ratio 1.6; PTT 35.9 sec (22.9-36.1); Prothrombin Time 19.2 sec (12.0-14.7)
[2024-06-11 09:05] LABS: ALT (SGPT) 229 U/L (Less than 45); AST (SGOT) 468 U/L (11-34); Albumin 2.9 g/dL (3.1-4.5); Alkaline Phosphatase 37 U/L (40-110); Anion Gap 24 mmol/L (10-20); BUN (Urea Nitrogen) 103 mg/dL (8.9-20.6); Bilirubin, Total 4.8 mg/dL (0.3-1.2); Calc. Creatinine Clearance 34 mL/min (70-130); Calcium 7.9 mg/dL (7.8-10.44); Carbon Dioxide 15 mmol/L (22-29); Chloride 83 mmol/L (98-107); Estimated GFR 11; Globulin 3.5 g/dL (2.4-3.5); Glucose 459 mg/dL (70-105); Magnesium 1.9 mg/dL (1.6-2.6); Potassium 4.9 mmol/L (3.5-5.1); Protein, Total 6.4 g/dL (6.0-8.3); Sodium 117 mmol/L (136-145)
[2024-06-11] MEDS ORDERED: Dextrose 5% in Water 1,000 ML IV PRN (09:15)
[2024-06-11] MEDS ORDERED: Glucagon 1 MG/ML KIT IM PRN (09:15)
[2024-06-11 09:16] LABS: HBSAB Concentration Less than 8.00 mIU/mL; Hep B Surf AB NONREACTIVE (NonReactive)
[2024-06-11 09:17] LABS: Hep C IgG Ab NONREACTIVE S/CO (NonReactive); Hep C Index 0.15 S/CO (0-0.79)
[2024-06-11] MEDS: Pantoprazole 40 MG VIAL IVP SCH (09:37)
[2024-06-11] MEDS: INSULIN REGULAR IN 0.9 % NACL 100 ML IVPB SCH (09:42)
[2024-06-11 11:54] LABS: Lactic Acid 4.05 mmol/L (0.50-2.20)
[2024-06-11] MEDS: Cefepime 2 GM in Sodium Chloride 0.9% 100 ML IVPB SCH (12:22)
[2024-06-11] MEDS: methylPREDNISolone Sod Succ 40 MG VIAL IVP SCH (12:53)
[2024-06-11 15:57] LABS: ALT (SGPT) 292 U/L (Less than 45); AST (SGOT) 480 U/L (11-34); Alkaline Phosphatase 42 U/L (40-110); Anion Gap 26 mmol/L (10-20); BUN (Urea Nitrogen) 113 mg/dL (8.9-20.6); Bilirubin, Total 4.9 mg/dL (0.3-1.2); Calc. Creatinine Clearance 33 mL/min (70-130); Calcium 7.7 mg/dL (7.8-10.44); Carbon Dioxide 15 mmol/L (22-29); Chloride 86 mmol/L (98-107); Estimated GFR 11; Globulin 3.8 g/dL (2.4-3.5); Glucose 402 mg/dL (70-105); Magnesium 1.9 mg/dL (1.6-2.6); Phosphorus 8.6 mg/dL (2.5-4.5); Potassium 5.1 mmol/L (3.5-5.1); Protein, Total 6.8 g/dL (6.0-8.3); Sodium 122 mmol/L (136-145)
[2024-06-11] MEDS ORDERED: Vasopressin 20 UNITS in Sodium Chloride 0.9% 50 ML IV SCH (19:15)
[2024-06-11 19:50] LABS: Anion Gap 23 mmol/L (10-20); BUN (Urea Nitrogen) 109 mg/dL (8.9-20.6); Calc. Creatinine Clearance 33 mL/min (70-130); Calcium 7.5 mg/dL (7.8-10.44); Carbon Dioxide 16 mmol/L (22-29); Chloride 85 mmol/L (98-107); Estimated GFR 11; Potassium 5.1 mmol/L (3.5-5.1)
[2024-06-11 20:06] LABS: Glucose 403 mg/dL (70-105); Sodium 119 mmol/L (136-145)
[2024-06-11 20:24] LABS: Phosphorus 9.7 mg/dL (2.5-4.5)
[2024-06-11] MEDS: Apixaban 5 MG TAB PO SCH (21:42)
[2024-06-11 23:07] LABS: Actual Bicarbonate (HCO3a) 19.6 mEq/L (22-28); Base Excess (BEa) -9.8 mEq/L (-2.0 to +3.0); CO2 Tension 55.4 mmHg (35.0-45.0); Calcium, Ionized (arterial) 1.03 mmol/L (1.12-1.30); Carboxyhemoglobin (COHb) 0.3 gm% (0.0-3.0); Hematocrit-ABG 58 % (42.0-52.0); Hemoglobin (Hb) 19.7 g/dL (14.0-18.0); O2 Tension (PaO2), arterial 79.9 mmHg (80.0-100.0); Potassium - ABG Lab 4.41 mmol/L (3.70-5.30)
[2024-06-11 23:10] LABS: Puncture Site Left Brachial artery
[2024-06-12 00:08] LABS: Phosphorus 8.4 mg/dL (2.5-4.5)
[2024-06-12 00:10] LABS: Anion Gap 23 mmol/L (10-20); BUN (Urea Nitrogen) 87 mg/dL (8.9-20.6); Calc. Creatinine Clearance 40 mL/min (70-130); Calcium 7.9 mg/dL (7.8-10.44); Carbon Dioxide 18 mmol/L (22-29); Chloride 91 mmol/L (98-107); Estimated GFR 14; Glucose 238 mg/dL (70-105); Magnesium 1.9 mg/dL (1.6-2.6); Potassium 4.5 mmol/L (3.5-5.1); Sodium 127 mmol/L (136-145)
[2024-06-12 04:52] LABS: ALT (SGPT) 313 U/L (Less than 45); AST (SGOT) 353 U/L (11-34); Alkaline Phosphatase 51 U/L (40-110); Anion Gap 19 mmol/L (10-20); BUN (Urea Nitrogen) 74 mg/dL (8.9-20.6); Bilirubin, Total 4.5 mg/dL (0.3-1.2); Calc. Creatinine Clearance 49 mL/min (70-130); Carbon Dioxide 17 mmol/L (22-29); Chloride 96 mmol/L (98-107); Estimated GFR 17; Globulin 3.9 g/dL (2.4-3.5); Glucose 128 mg/dL (70-105); Potassium 3.9 mmol/L (3.5-5.1); Protein, Total 6.9 g/dL (6.0-8.3); Sodium 128 mmol/L (136-145)
[2024-06-12 05:29] LABS: Phosphorus 5.8 mg/dL (2.5-4.5)
[2024-06-12] MEDS: Vasopressin In 0.9 % NaCl 40 UNIT in Premix 1 BAG IV SCH (06:17)
[2024-06-12 07:52] LABS: Anion Gap 19 mmol/L (10-20); BUN (Urea Nitrogen) 73 mg/dL (8.9-20.6); Calc. Creatinine Clearance 49 mL/min (70-130); Calcium 8.1 mg/dL (7.8-10.44); Carbon Dioxide 16 mmol/L (22-29); Chloride 96 mmol/L (98-107); Estimated GFR 17; Glucose 126 mg/dL (70-105); Potassium 3.9 mmol/L (3.5-5.1); Sodium 127 mmol/L (136-145)
[2024-06-12 08:13] LABS: Magnesium 1.9 mg/dL (1.6-2.6)
[2024-06-12 09:03] LABS: #Basophils 0.15 10x3/uL (0.0-0.2); %Basophils 0.7 % (0.0-1.0); %Eosinophils 0.2 % (0.0-10.0); %Monocytes 8.4 % (0.0-10.0); %Neutrophils 81.4 % (42.0-75.0); Hematocrit 51.1 % (42.0-52.0); Hemoglobin 17.2 g/dL (14.0-18.0); Mean Corpuscular HGB CONC 33.7 g/dL (32.0-36.0); Mean Corpuscular Hemoglobin 30.3 pg (27.0-31.0); Mean Corpuscular Volume 90.1 fL (78.0-98.0); Mean Platelet Volume 12.3 fL (7.4-10.4); Platelet Count 134 10x3/uL (130-400); RBC Distribution Width 14.3 % (11.5-14.5); Red Blood Cell (RBC) Count 5.67 mill/uL (4.70-6.10)
[2024-06-12] MEDS: methylPREDNISolone Sod Succ 40 MG VIAL IVP SCH (09:14)
[2024-06-12] MEDS: Pantoprazole 40 MG VIAL IVP SCH (09:14)
[2024-06-12] MEDS: Magnesium 2 GM/50 ML(in water) 2 GM in Premix 1 BAG IVPB SCH (10:17)
[2024-06-12 10:55] LABS: Actual Bicarbonate (HCO3a) 20.4 mEq/L (22-28); Base Excess (BEa) -3.6 mEq/L (-2.0 to +3.0); CO2 Tension 34.5 mmHg (35.0-45.0); Calcium, Ionized (arterial) 1.06 mmol/L (1.12-1.30); Carboxyhemoglobin (COHb) 0.3 gm% (0.0-3.0); Hematocrit-ABG 54 % (42.0-52.0); Hemoglobin (Hb) 18.2 g/dL (14.0-18.0); O2 Tension (PaO2), arterial 106.8 mmHg (80.0-100.0); Potassium - ABG Lab 4.38 mmol/L (3.70-5.30); pH, Arterial 7.389 (7.35-7.45)
[2024-06-12 10:56] LABS: Puncture Site Arterial Line
[2024-06-12 10:57] LABS: ALV-art Gradient 491.775 mmHg (0-20)
[2024-06-12] MEDS: Albuterol 2.5 MG (3 mL) NEB ONE (18:30)
[2024-06-12] MEDS: Ipratropium Bromide 2.5 ml Neb ONE (18:30)
[2024-06-12] MEDS: Dextrose 50% Abboject 50 ML SYRINGE SLOW IVP PRN (19:27)
[2024-06-12 22:23] LABS: #Basophils 0.11 10x3/uL (0.0-0.2); %Basophils 0.7 % (0.0-1.0); %Eosinophils 0.4 % (0.0-10.0); %Lymphocytes 3.8 % (21.0-51.0); %Monocytes 8.6 % (0.0-10.0); %Neutrophils 83.7 % (42.0-75.0); Hematocrit 46.4 % (42.0-52.0); Hemoglobin 15.9 g/dL (14.0-18.0); Mean Corpuscular HGB CONC 34.3 g/dL (32.0-36.0); Mean Corpuscular Hemoglobin 30.8 pg (27.0-31.0); Mean Corpuscular Volume 89.7 fL (78.0-98.0); Mean Platelet Volume 12.7 fL (7.4-10.4); Platelet Count 97 10x3/uL (130-400); RBC Distribution Width 14.3 % (11.5-14.5); Red Blood Cell (RBC) Count 5.17 mill/uL (4.70-6.10)
[2024-06-12 22:34] LABS: Phosphorus 4.5 mg/dL (2.5-4.5)
[2024-06-12 22:35] LABS: Anion Gap 15 mmol/L (10-20); BUN (Urea Nitrogen) 48 mg/dL (8.9-20.6); Calc. Creatinine Clearance 70 mL/min (70-130); Calcium 7.9 mg/dL (7.8-10.44); Carbon Dioxide 19 mmol/L (22-29); Chloride 101 mmol/L (98-107); Estimated GFR 27; Glucose 88 mg/dL (70-105); Magnesium 1.9 mg/dL (1.6-2.6); Potassium 3.9 mmol/L (3.5-5.1); Sodium 131 mmol/L (136-145)
[2024-06-13 06:15] LABS: #Basophils 0.09 10x3/uL (0.0-0.2); #Eosinophils Less than 0.03 10x3/uL (0.0-0.7); %Basophils 0.6 % (0.0-1.0); %Lymphocytes 5.4 % (21.0-51.0); %Monocytes 7.2 % (0.0-10.0); %Neutrophils 82.9 % (42.0-75.0); Hematocrit 46.8 % (42.0-52.0); Hemoglobin 16.4 g/dL (14.0-18.0); Mean Corpuscular Hemoglobin 30.8 pg (27.0-31.0); Mean Platelet Volume 13.3 fL (7.4-10.4); Platelet Count 98 10x3/uL (130-400); RBC Distribution Width 14.2 % (11.5-14.5); Red Blood Cell (RBC) Count 5.32 mill/uL (4.70-6.10)
[2024-06-13 06:21] LABS: Phosphorus 3.7 mg/dL (2.5-4.5)
[2024-06-13 06:22] LABS: Anion Gap 14 mmol/L (10-20); BUN (Urea Nitrogen) 40 mg/dL (8.9-20.6); Calc. Creatinine Clearance 85 mL/min (70-130); Calcium 8.3 mg/dL (7.8-10.44); Carbon Dioxide 20 mmol/L (22-29); Chloride 102 mmol/L (98-107); Estimated GFR 34; Glucose 89 mg/dL (70-105); Magnesium 1.8 mg/dL (1.6-2.6); Potassium 3.5 mmol/L (3.5-5.1); Sodium 132 mmol/L (136-145)
[2024-06-13 06:54] LABS: Actual Bicarbonate (HCO3a) 21.7 mEq/L (22-28); Base Excess (BEa) -1.9 mEq/L (-2.0 to +3.0); CO2 Tension 34.1 mmHg (35.0-45.0); Calcium, Ionized (arterial) 1.12 mmol/L (1.12-1.30); Carboxyhemoglobin (COHb) 0.7 gm% (0.0-3.0); Hematocrit-ABG 49 % (42.0-52.0); Hemoglobin (Hb) 16.7 g/dL (14.0-18.0); Potassium - ABG Lab 3.35 mmol/L (3.70-5.30); pH, Arterial 7.421 (7.35-7.45)
[2024-06-13 06:57] LABS: Puncture Site Arterial Line
[2024-06-13 06:58] LABS: ALV-art Gradient 427.775 mmHg (0-20)
[2024-06-13 10:04] LABS: INR-International Normal Ratio 1.1; PTT 24.6 sec (22.9-36.1); Prothrombin Time 14.1 sec (12.0-14.7)
[2024-06-13] MEDS: Magnesium 2 GM/50 ML(in water) 2 GM in Premix 1 BAG IVPB SCH (10:42)
[2024-06-13 15:09] LABS: Phosphorus 3.6 mg/dL (2.5-4.5)
[2024-06-13 15:11] LABS: Anion Gap 14 mmol/L (10-20); BUN (Urea Nitrogen) 33 mg/dL (8.9-20.6); Calc. Creatinine Clearance 94 mL/min (70-130); Calcium 8.5 mg/dL (7.8-10.44); Carbon Dioxide 21 mmol/L (22-29); Chloride 101 mmol/L (98-107); Estimated GFR 39; Glucose 89 mg/dL (70-105); Magnesium 2.2 mg/dL (1.6-2.6); Potassium 3.7 mmol/L (3.5-5.1); Sodium 132 mmol/L (136-145)
[2024-06-13 15:24] LABS: Anisocytosis SLIGHT = 6-15 cells HPF (0-5); Band 2 % (5-11); Hematocrit 46.3 % (42.0-52.0); Hemoglobin 15.7 g/dL (14.0-18.0); Large Platelets 7.9 % (0-5); Lymphocytes 4 % (21-51); Macrocytosis SLIGHT = 6-15 cells HPF (0-5); Mean Corpuscular HGB CONC 33.9 g/dL (32.0-36.0); Mean Corpuscular Hemoglobin 30.5 pg (27.0-31.0); Mean Corpuscular Volume 90.1 fL (78.0-98.0); Mean Platelet Volume 13.4 fL (7.4-10.4); Monocytes 3 % (0-10); Neutrophil 91 % (42-75); Platelet Adequacy Comment Platelets Decreased; Platelet Count 106 10x3/uL (130-400); Polychromasia SLIGHT = 2-3 cells HPF (0-2); RBC Distribution Width 14.2 % (11.5-14.5); Red Blood Cell (RBC) Count 5.14 mill/uL (4.70-6.10)
[2024-06-13 18:43] LABS: Hemoglobin 15.3 g/dL (14.0-18.0); Mean Corpuscular Hemoglobin 30.7 pg (27.0-31.0); Mean Corpuscular Volume 90.2 fL (78.0-98.0); Mean Platelet Volume 12.9 fL (7.4-10.4); Platelet Count 106 10x3/uL (130-400); RBC Distribution Width 14.2 % (11.5-14.5); Red Blood Cell (RBC) Count 4.99 mill/uL (4.70-6.10)
[2024-06-13 18:59] LABS: Anisocytosis MODERATE=16-30 cells HPF (0-5); Burr Cells SLIGHT = 2-5 cells HPF (0-1); Macrocytosis SLIGHT = 6-15 cells HPF (0-5); Platelet Adequacy Comment Platelets Decreased
[2024-06-13 19:00] LABS: #Basophils 0.16 10x3/uL (0.0-0.2); #Eosinophils Less than 0.03 10x3/uL (0.0-0.7); %Basophils 0.8 % (0.0-1.0); %Lymphocytes 6.1 % (21.0-51.0); %Monocytes 6.6 % (0.0-10.0); %Neutrophils 81.7 % (42.0-75.0)
[2024-06-13] MEDS: Senokot S 8.6-50 MG TAB PER TUBE SCH (20:12)
[2024-06-13] MEDS: Apixaban 5 MG TAB PO SCH (20:18)
[2024-06-13] MEDS: Polyethylene Glycol 3350 17 GM Packet PER TUBE SCH (20:25)
[2024-06-13 22:32] LABS: Hemoglobin 14.7 g/dL (14.0-18.0); Mean Corpuscular HGB CONC 34.2 g/dL (32.0-36.0); Mean Corpuscular Hemoglobin 30.9 pg (27.0-31.0); Mean Corpuscular Volume 90.3 fL (78.0-98.0); Platelet Count 124 10x3/uL (130-400); RBC Distribution Width 14.5 % (11.5-14.5); Red Blood Cell (RBC) Count 4.76 mill/uL (4.70-6.10)
[2024-06-13 22:42] LABS: Phosphorus 3.5 mg/dL (2.5-4.5)
[2024-06-13 22:53] LABS: Anion Gap 14 mmol/L (10-20); BUN (Urea Nitrogen) 36 mg/dL (8.9-20.6); Calc. Creatinine Clearance 90 mL/min (70-130); Calcium 7.7 mg/dL (7.8-10.44); Carbon Dioxide 18 mmol/L (22-29); Chloride 106 mmol/L (98-107); Estimated GFR 37; Glucose 73 mg/dL (70-105); Magnesium 1.9 mg/dL (1.6-2.6); Potassium 4.2 mmol/L (3.5-5.1); Sodium 134 mmol/L (136-145)
[2024-06-14 00:18] LABS: Band 5 % (5-11); Lymphocytes 6 % (21-51); Monocytes 5 % (0-10); Neutrophil 84 % (42-75); Platelet Adequacy Comment Platelets Decreased; Polychromasia SLIGHT = 2-3 cells HPF (0-2)
[2024-06-14 06:25] LABS: Platelet Count 89 10x3/uL (130-400)
[2024-06-14 06:28] LABS: Hematocrit 41.8 % (42.0-52.0); Mean Corpuscular HGB CONC 33.5 g/dL (32.0-36.0); Mean Corpuscular Hemoglobin 30.9 pg (27.0-31.0); Mean Corpuscular Volume 92.3 fL (78.0-98.0); Mean Platelet Volume 13.3 fL (7.4-10.4); Platelet Count 83 10x3/uL (130-400); RBC Distribution Width 14.4 % (11.5-14.5); Red Blood Cell (RBC) Count 4.53 mill/uL (4.70-6.10)
[2024-06-14 06:39] LABS: Phosphorus 3.8 mg/dL (2.5-4.5)
[2024-06-14 06:40] LABS: Anion Gap 14 mmol/L (10-20); BUN (Urea Nitrogen) 39 mg/dL (8.9-20.6); Calc. Creatinine Clearance 76 mL/min (70-130); Calcium 7.8 mg/dL (7.8-10.44); Carbon Dioxide 18 mmol/L (22-29); Chloride 106 mmol/L (98-107); Estimated GFR 30; Glucose 83 mg/dL (70-105); Magnesium 1.8 mg/dL (1.6-2.6); Potassium 4.1 mmol/L (3.5-5.1); Sodium 134 mmol/L (136-145)
[2024-06-14 06:48] LABS: Fibrinogen 292 mg/dL (253-463)
[2024-06-14 06:50] LABS: INR-International Normal Ratio 1.2; PTT 29.2 sec (22.9-36.1); Prothrombin Time 15.4 sec (12.0-14.7)
[2024-06-14 06:56] LABS: Band 3 % (5-11); Hypochromia SLIGHT = 6-15 cells HPF (0-5); Lymphocytes 5 % (21-51); Macrocytosis SLIGHT = 6-15 cells HPF (0-5); Monocytes 9 % (0-10); Neutrophil 83 % (42-75); Platelet Adequacy Comment Platelets Decreased; Polychromasia SLIGHT = 2-3 cells HPF (0-2)
[2024-06-14 08:41] LABS: D-Dimer Test Greater than 20.00 mcg/mL (0.27-0.43)
[2024-06-14] MEDS: Activase 2 MG VIAL CATH SCH ×2 (09:15→15:51)
[2024-06-14] MEDS: Polyethylene Glycol 3350 17 GM Packet PER TUBE SCH (09:28)
[2024-06-14] MEDS: Fleet Saline Enema 133 ML BOT PR PRN (09:28)
[2024-06-14] MEDS: Micafungin 100 MG in Sodium Chloride 0.9% 100 ML IVPB SCH (09:29)
[2024-06-14] MEDS: Pantoprazole 40 MG VIAL IVP SCH (09:29)
[2024-06-14 10:24] LABS: pH, Arterial 7.167 (7.35-7.45)
[2024-06-14] MEDS: Ketamine 500 MG in Sodium Chloride 0.9% 490 ML IVPB PRN (12:25)
[2024-06-14] MEDS ORDERED: Vasopressin 20 UNITS in Sodium Chloride 0.9% 50 ML IV SCH (14:00)
[2024-06-14] MEDS: Vasopressin In 0.9 % NaCl 100 ML IV SCH (14:20)
[2024-06-14] MEDS ORDERED: KETAMINE IVPB PRN (14:22)
[2024-06-14] MEDS ORDERED: SODIUM CHLORIDE 0.9% IVPB PRN (14:22)
[2024-06-14] MEDS: Sterile Water 10 ML VIAL IVP SCH (15:58)
[2024-06-14 17:07] LABS: ALT (SGPT) 144 U/L (Less than 45); AST (SGOT) 168 U/L (11-34); Albumin 2.3 g/dL (3.1-4.5); Alkaline Phosphatase 39 U/L (40-110); Anion Gap 14 mmol/L (10-20); BUN (Urea Nitrogen) 62 mg/dL (8.9-20.6); Bilirubin, Direct 4.5 mg/dL (0.1-0.3); Bilirubin, Total 6.6 mg/dL (0.3-1.2); Calc. Creatinine Clearance 52 mL/min (70-130); Calcium 7.8 mg/dL (7.8-10.44); Carbon Dioxide 18 mmol/L (22-29); Chloride 104 mmol/L (98-107); Estimated GFR 19; Glucose 98 mg/dL (70-105); Potassium 4.2 mmol/L (3.5-5.1); Protein, Total 5.2 g/dL (6.0-8.3); Sodium 132 mmol/L (136-145)
[2024-06-14 17:08] LABS: Lactic Acid 0.83 mmol/L (0.50-2.20)
[2024-06-14 17:09] LABS: Anisocytosis SLIGHT = 6-15 cells HPF (0-5); Macrocytosis SLIGHT = 6-15 cells HPF (0-5); Platelet Adequacy Comment Platelets Decreased; Polychromasia SLIGHT = 2-3 cells HPF (0-2)
[2024-06-14 17:10] LABS: #Basophils Less than 0.03 10x3/uL (0.0-0.2); #Eosinophils Less than 0.03 10x3/uL (0.0-0.7); %Basophils 0.1 % (0.0-1.0); %Eosinophils 0.1 % (0.0-10.0); %Lymphocytes 6.7 % (21.0-51.0); %Monocytes 7.3 % (0.0-10.0); %Neutrophils 79.4 % (42.0-75.0); Hematocrit 40.3 % (42.0-52.0); Hemoglobin 13.2 g/dL (14.0-18.0); Mean Corpuscular HGB CONC 32.8 g/dL (32.0-36.0); Mean Corpuscular Hemoglobin 30.8 pg (27.0-31.0); Mean Corpuscular Volume 94.2 fL (78.0-98.0); Mean Platelet Volume 12.7 fL (7.4-10.4); Platelet Count 93 10x3/uL (130-400); RBC Distribution Width 14.6 % (11.5-14.5); Red Blood Cell (RBC) Count 4.28 mill/uL (4.70-6.10)
[2024-06-14 18:30] LABS: Phosphorus 6.7 mg/dL (2.5-4.5)
[2024-06-14] MEDS ORDERED: HEPARIN IV SCH (18:30)
[2024-06-14] MEDS ORDERED: NACL IV SCH (18:30)
[2024-06-14 20:17] LABS: #Basophils 0.18 10x3/uL (0.0-0.2); #Eosinophils Less than 0.03 10x3/uL (0.0-0.7); %Basophils 1.3 % (0.0-1.0); %Eosinophils 0.1 % (0.0-10.0); %Lymphocytes 8.2 % (21.0-51.0); %Monocytes 6.8 % (0.0-10.0); %Neutrophils 77.2 % (42.0-75.0); Hematocrit 31.7 % (42.0-52.0); Hemoglobin 10.4 g/dL (14.0-18.0); Mean Corpuscular HGB CONC 32.8 g/dL (32.0-36.0); Mean Corpuscular Hemoglobin 31.1 pg (27.0-31.0); Mean Corpuscular Volume 94.9 fL (78.0-98.0); Mean Platelet Volume 12.4 fL (7.4-10.4); Platelet Count 73 10x3/uL (130-400); RBC Distribution Width 14.6 % (11.5-14.5); Red Blood Cell (RBC) Count 3.34 mill/uL (4.70-6.10)
[2024-06-14 20:41] LABS: ALT (SGPT) 100 U/L (Less than 45); AST (SGOT) 125 U/L (11-34); Albumin 1.7 g/dL (3.1-4.5); Alkaline Phosphatase 28 U/L (40-110); Anion Gap 13 mmol/L (10-20); BUN (Urea Nitrogen) 48 mg/dL (8.9-20.6); Bilirubin, Total 4.4 mg/dL (0.3-1.2); Calc. Creatinine Clearance 66 mL/min (70-130); Calcium 5.8 mg/dL (7.8-10.44); Carbon Dioxide 13 mmol/L (22-29); Chloride 115 mmol/L (98-107); Estimated GFR 26; Globulin 2.2 g/dL (2.4-3.5); Glucose 90 mg/dL (70-105); Magnesium 1.5 mg/dL (1.6-2.6); Phosphorus 4.5 mg/dL (2.5-4.5); Potassium 3.3 mmol/L (3.5-5.1); Protein, Total 3.9 g/dL (6.0-8.3); Sodium 138 mmol/L (136-145)
[2024-06-14 21:29] LABS: INR-International Normal Ratio 1.4; Prothrombin Time 17.5 sec (12.0-14.7)
[2024-06-14] MEDS: Magnesium 2 GM/50 ML(in water) 2 GM in Premix 1 BAG IVPB SCH (22:37)
[2024-06-14] MEDS: Calcium Chloride 1 GM/10 ML Abboject SYRINGE IVP SCH (22:37)
[2024-06-15 00:16] LABS: Hematocrit 40.1 % (42.0-52.0); Hemoglobin 12.9 g/dL (14.0-18.0); Mean Corpuscular HGB CONC 32.2 g/dL (32.0-36.0); Mean Corpuscular Hemoglobin 30.6 pg (27.0-31.0); Mean Platelet Volume 12.2 fL (7.4-10.4); Platelet Count 90 10x3/uL (130-400); RBC Distribution Width 14.5 % (11.5-14.5); Red Blood Cell (RBC) Count 4.22 mill/uL (4.70-6.10)
[2024-06-15 00:28] LABS: Anion Gap 17 mmol/L (10-20); BUN (Urea Nitrogen) 52 mg/dL (8.9-20.6); Calc. Creatinine Clearance 63 mL/min (70-130); Calcium 8.7 mg/dL (7.8-10.44); Carbon Dioxide 18 mmol/L (22-29); Chloride 104 mmol/L (98-107); Estimated GFR 24; Glucose 122 mg/dL (70-105); Magnesium 2.5 mg/dL (1.6-2.6); Phosphorus 5.9 mg/dL (2.5-4.5); Sodium 135 mmol/L (136-145)
[2024-06-15 00:44] LABS: Band 2 % (5-11); Lymphocytes 2 % (21-51); Monocytes 1 % (0-10); Myelocyte 1 % (0-0); Neutrophil 94 % (42-75); Platelet Adequacy Comment Platelets Decreased; Toxic Granulation SLIGHT
[2024-06-15 06:21] LABS: Hematocrit 39.3 % (42.0-52.0); Hemoglobin 12.7 g/dL (14.0-18.0); Mean Corpuscular HGB CONC 32.3 g/dL (32.0-36.0); Mean Corpuscular Hemoglobin 30.8 pg (27.0-31.0); Mean Corpuscular Volume 95.4 fL (78.0-98.0); Mean Platelet Volume 12.7 fL (7.4-10.4); Platelet Count 89 10x3/uL (130-400); RBC Distribution Width 14.5 % (11.5-14.5); Red Blood Cell (RBC) Count 4.12 mill/uL (4.70-6.10)
[2024-06-15 06:32] LABS: Anion Gap 20 mmol/L (10-20); BUN (Urea Nitrogen) 48 mg/dL (8.9-20.6); Calc. Creatinine Clearance 56 mL/min (70-130); Calcium 8.1 mg/dL (7.8-10.44); Carbon Dioxide 16 mmol/L (22-29); Chloride 104 mmol/L (98-107); Estimated GFR 21; Glucose 171 mg/dL (70-105); Magnesium 2.3 mg/dL (1.6-2.6); Potassium 4.6 mmol/L (3.5-5.1); Sodium 135 mmol/L (136-145)
[2024-06-15 06:36] LABS: Phosphorus 7.3 mg/dL (2.5-4.5)
[2024-06-15 06:40] LABS: Band 2 % (5-11); Eosinophils 1 % (0-10); Lymphocytes 5 % (21-51); Monocytes 4 % (0-10); Neutrophil 88 % (42-75); Platelet Adequacy Comment Platelets Decreased; Polychromasia SLIGHT = 2-3 cells HPF (0-2)
[2024-06-15] MEDS: Activase 2 MG VIAL CATH SCH ×2 (08:01→22:23)
[2024-06-15] MEDS: Sodium Chloride 0.9% 100 ML ONE (08:06)
[2024-06-15 14:26] LABS: #Basophils 0.03 10x3/uL (0.0-0.2); %Basophils 0.2 % (0.0-1.0); %Eosinophils 0.8 % (0.0-10.0); %Lymphocytes 3.9 % (21.0-51.0); %Neutrophils 85.2 % (42.0-75.0); Hematocrit 36.9 % (42.0-52.0); Mean Corpuscular HGB CONC 32.5 g/dL (32.0-36.0); Mean Corpuscular Volume 95.3 fL (78.0-98.0); Mean Platelet Volume 12.7 fL (7.4-10.4); Platelet Count 100 10x3/uL (130-400); RBC Distribution Width 14.6 % (11.5-14.5); Red Blood Cell (RBC) Count 3.87 mill/uL (4.70-6.10)
[2024-06-15 14:40] LABS: Phosphorus 7.8 mg/dL (2.5-4.5)
[2024-06-15 14:41] LABS: Anion Gap 16 mmol/L (10-20); BUN (Urea Nitrogen) 58 mg/dL (8.9-20.6); Calc. Creatinine Clearance 57 mL/min (70-130); Carbon Dioxide 17 mmol/L (22-29); Chloride 104 mmol/L (98-107); Estimated GFR 21; Glucose 175 mg/dL (70-105); Magnesium 2.3 mg/dL (1.6-2.6); Potassium 4.4 mmol/L (3.5-5.1); Sodium 133 mmol/L (136-145)
[2024-06-15 14:47] LABS: Burr Cells SLIGHT = 2-5 cells HPF (0-1); Eosinophils 1 % (0-10); Large Platelets 5.9 % (0-5); Lymphocytes 2 % (21-51); Macrocytosis SLIGHT = 6-15 cells HPF (0-5); Monocytes 3 % (0-10); Neutrophil 93 % (42-75); Platelet Adequacy Comment Platelets Decreased; Polychromasia SLIGHT = 2-3 cells HPF (0-2)
[2024-06-15] MEDS ORDERED: Insulin Lispro 100 UNIT/ML 10 ML VIAL SC PRN (17:00)
[2024-06-15 22:33] LABS: #Basophils 0.17 10x3/uL (0.0-0.2); %Basophils 0.9 % (0.0-1.0); %Eosinophils 1.3 % (0.0-10.0); %Lymphocytes 3.3 % (21.0-51.0); %Monocytes 5.2 % (0.0-10.0); %Neutrophils 84.5 % (42.0-75.0); Hematocrit 36.8 % (42.0-52.0); Mean Corpuscular HGB CONC 32.6 g/dL (32.0-36.0); Mean Corpuscular Hemoglobin 30.8 pg (27.0-31.0); Mean Corpuscular Volume 94.4 fL (78.0-98.0); Mean Platelet Volume 13.1 fL (7.4-10.4); Platelet Count 107 10x3/uL (130-400); RBC Distribution Width 14.6 % (11.5-14.5)
[2024-06-15 22:50] LABS: Phosphorus 6.4 mg/dL (2.5-4.5)
[2024-06-15 22:52] LABS: Anion Gap 16 mmol/L (10-20); BUN (Urea Nitrogen) 46 mg/dL (8.9-20.6); Calc. Creatinine Clearance 63 mL/min (70-130); Calcium 8.2 mg/dL (7.8-10.44); Carbon Dioxide 20 mmol/L (22-29); Chloride 104 mmol/L (98-107); Estimated GFR 24; Glucose 159 mg/dL (70-105); Magnesium 2.2 mg/dL (1.6-2.6); Potassium 4.6 mmol/L (3.5-5.1); Sodium 135 mmol/L (136-145)
[2024-06-16] MEDS: Acetaminophen 325 MG TAB PO PRN (01:47)
[2024-06-16 06:07] LABS: Hematocrit 36.5 % (42.0-52.0); Hemoglobin 11.6 g/dL (14.0-18.0); Mean Corpuscular HGB CONC 31.8 g/dL (32.0-36.0); Mean Corpuscular Hemoglobin 30.3 pg (27.0-31.0); Mean Corpuscular Volume 95.3 fL (78.0-98.0); Mean Platelet Volume 12.7 fL (7.4-10.4); Platelet Count 123 10x3/uL (130-400); RBC Distribution Width 14.6 % (11.5-14.5); Red Blood Cell (RBC) Count 3.83 mill/uL (4.70-6.10)
[2024-06-16 06:23] LABS: Anion Gap 14 mmol/L (10-20); BUN (Urea Nitrogen) 52 mg/dL (8.9-20.6); Calc. Creatinine Clearance 60 mL/min (70-130); Calcium 8.1 mg/dL (7.8-10.44); Carbon Dioxide 21 mmol/L (22-29); Chloride 104 mmol/L (98-107); Estimated GFR 23; Glucose 137 mg/dL (70-105); Magnesium 2.2 mg/dL (1.6-2.6); Potassium 4.4 mmol/L (3.5-5.1); Sodium 135 mmol/L (136-145)
[2024-06-16 06:34] LABS: Anisocytosis SLIGHT = 6-15 cells HPF (0-5); Band 6 % (5-11); Eosinophils 4 % (0-10); Hypochromia SLIGHT = 6-15 cells HPF (0-5); Metamyelocyte 1 % (0-0); Monocytes 12 % (0-10); Neutrophil 76 % (42-75); Platelet Adequacy Comment Platelets Decreased; Polychromasia SLIGHT = 2-3 cells HPF (0-2); Reactive Lymphocytes 1 % (0-10)
[2024-06-16] MEDS: Heparin 10,000 UNITS/ 10 ML VIAL CATH PRN (08:40)
[2024-06-16] MEDS: Activase 2 MG VIAL CATH SCH (08:53)
[2024-06-16] MEDS: Sterile Water 10 ML VIAL IVP SCH (08:54)
[2024-06-16] MEDS: Albumin 25% 25 GM (100 mL) BOT IVPB SCH ×2 (09:42→14:12)
[2024-06-16] MEDS ORDERED: Heparin 10,000 UNITS/ 10 ML VIAL ONE (09:58)
[2024-06-16 14:57] LABS: Hematocrit 35.8 % (42.0-52.0); Hemoglobin 11.3 g/dL (14.0-18.0); Mean Corpuscular HGB CONC 31.6 g/dL (32.0-36.0); Mean Corpuscular Hemoglobin 30.7 pg (27.0-31.0); Mean Corpuscular Volume 97.3 fL (78.0-98.0); Mean Platelet Volume 12.6 fL (7.4-10.4); Platelet Count 132 10x3/uL (130-400); RBC Distribution Width 14.9 % (11.5-14.5); Red Blood Cell (RBC) Count 3.68 mill/uL (4.70-6.10)
[2024-06-16 15:39] LABS: Band 3 % (5-11); Burr Cells SLIGHT = 2-5 cells HPF (0-1); Lymphocytes 2 % (21-51); Macrocytosis SLIGHT = 6-15 cells HPF (0-5); Neutrophil 93 % (42-75); Ovalocytes SLIGHT = 2-5 cells HPF (0-1); Platelet Adequacy Comment Platelets Decreased; Polychromasia SLIGHT = 2-3 cells HPF (0-2); Reactive Lymphocytes 2 % (0-10)
[2024-06-16] MEDS: Digoxin 0.5 MG/2 ML AMP SLOW IVP SCH (16:36)
[2024-06-16 22:47] LABS: Hematocrit 34.4 % (42.0-52.0); Hemoglobin 10.8 g/dL (14.0-18.0); Mean Corpuscular HGB CONC 31.4 g/dL (32.0-36.0); Mean Corpuscular Hemoglobin 30.3 pg (27.0-31.0); Mean Corpuscular Volume 96.6 fL (78.0-98.0); Mean Platelet Volume 12.3 fL (7.4-10.4); Platelet Count 128 10x3/uL (130-400); RBC Distribution Width 14.7 % (11.5-14.5); Red Blood Cell (RBC) Count 3.56 mill/uL (4.70-6.10)
[2024-06-16 23:10] LABS: Anisocytosis SLIGHT = 6-15 cells HPF (0-5); Band 9 % (5-11); Hypochromia SLIGHT = 6-15 cells HPF (0-5); Large Platelets 2.9 % (0-5); Lymphocytes 4 % (21-51); Metamyelocyte 1 % (0-0); Monocytes 5 % (0-10); Neutrophil 81 % (42-75); Platelet Adequacy Comment Significant Decrease; Polychromasia SLIGHT = 2-3 cells HPF (0-2)
[2024-06-17 02:21] LABS: Albumin 2.8 g/dL (3.1-4.5); Chloride 99 mmol/L (98-107); Potassium 4.4 mmol/L (3.5-5.1); Sodium 138 mmol/L (136-145)
[2024-06-17 02:22] LABS: Calcium 8.1 mg/dL (7.8-10.44); Glucose 151 mg/dL (70-105)
[2024-06-17 02:23] LABS: Anion Gap 17 mmol/L (10-20); Carbon Dioxide 26 mmol/L (22-29)
[2024-06-17 02:26] LABS: BUN (Urea Nitrogen) 39 mg/dL (8.9-20.6); BUN/Creatinine Ratio 10.99; Calc. Creatinine Clearance 58 mL/min (70-130); Estimated GFR 21; Phosphorus 5.8 mg/dL (2.5-4.5)
[2024-06-17 02:27] LABS: Magnesium 2.2 mg/dL (1.6-2.6)
[2024-06-17 02:50] LABS: Hematocrit 33.6 % (42.0-52.0); Hemoglobin 10.6 g/dL (14.0-18.0); Mean Corpuscular HGB CONC 31.5 g/dL (32.0-36.0); Mean Corpuscular Hemoglobin 30.8 pg (27.0-31.0); Mean Corpuscular Volume 97.7 fL (78.0-98.0); Platelet Count 138 10x3/uL (130-400); RBC Distribution Width 14.8 % (11.5-14.5); Red Blood Cell (RBC) Count 3.44 mill/uL (4.70-6.10)
[2024-06-17 03:13] LABS: Eosinophils 3 % (0-10); Hypochromia SLIGHT = 6-15 cells HPF (0-5); Lymphocytes 10 % (21-51); Macrocytosis SLIGHT = 6-15 cells HPF (0-5); Monocytes 6 % (0-10); Neutrophil 81 % (42-75); Platelet Adequacy Comment Platelets Normal; Polychromasia SLIGHT = 2-3 cells HPF (0-2); Smudge Cells 1.9 %
[2024-06-17] MEDS ORDERED: Heparin 10,000 UNITS/ 10 ML VIAL ONE (11:23)
[2024-06-17] MEDS: Vancomycin (BATCH) 2.5 GM in Premix 1 BAG IVPB SCH ×2 (14:00→18:11)
[2024-06-17] MEDS ORDERED: Vancomycin Dialysis Sliding Scale (Wt > 99) FS SCH (14:30)
[2024-06-17] MEDS: Albumin 25% 25 GM (100 mL) BOT IVPB SCH (15:55)
[2024-06-17] MEDS: Morphine 2 MG/ML VIAL SLOW IVP PRN (21:22)
[2024-06-18 04:42] VITALS: BMI 45.7
[2024-06-18 04:49] LABS: #Basophils 0.14 10x3/uL (0.0-0.2); %Basophils 0.8 % (0.0-1.0); %Eosinophils 0.7 % (0.0-10.0); %Lymphocytes 5.3 % (21.0-51.0); %Monocytes 6.5 % (0.0-10.0); %Neutrophils 81.8 % (42.0-75.0); Hematocrit 31.9 % (42.0-52.0); Mean Corpuscular HGB CONC 31.3 g/dL (32.0-36.0); Mean Corpuscular Hemoglobin 31.1 pg (27.0-31.0); Mean Corpuscular Volume 99.1 fL (78.0-98.0); Mean Platelet Volume 12.5 fL (7.4-10.4); Platelet Count 171 10x3/uL (130-400); RBC Distribution Width 15.1 % (11.5-14.5); Red Blood Cell (RBC) Count 3.22 mill/uL (4.70-6.10)
[2024-06-18 05:14] LABS: Albumin 3.1 g/dL (3.1-4.5); Anion Gap 22 mmol/L (10-20); BUN (Urea Nitrogen) 42 mg/dL (8.9-20.6); Calc. Creatinine Clearance 48 mL/min (70-130); Calcium 8.1 mg/dL (7.8-10.44); Carbon Dioxide 19 mmol/L (22-29); Chloride 101 mmol/L (98-107); Estimated GFR 18; Glucose 124 mg/dL (70-105); Phosphorus 5.7 mg/dL (2.5-4.5); Potassium 4.8 mmol/L (3.5-5.1); Sodium 137 mmol/L (136-145)
[2024-06-18 05:27] LABS: Magnesium 2.2 mg/dL (1.6-2.6)
[2024-06-18 08:39] LABS: Vancomycin, Random 35.2 ug/mL (See Comment)
[2024-06-18] MEDS ORDERED: Midazolam In 0.9 % NaCl/PF 100 ML IVPB SCH (09:30)
[2024-06-18] MEDS: Meropenem 1 GM in Sodium Chloride 0.9% 100 ML IVPB SCH (10:00)
[2024-06-18] MEDS: Acetaminophen 325 MG (10.15 ML) UDCUP PER TUBE PRN (10:04)
[2024-06-18] MEDS ORDERED: Heparin 10,000 UNITS/ 10 ML VIAL ONE (11:29)
[2024-06-18] MEDS: Sodium Bicarb 50 MEQ/50 ML Abboject 8.4% SYRINGE IVP SCH ×2 (11:57→11:59)
[2024-06-18] MEDS: Amiodarone 150 MG/3 ML VIAL IVP SCH (11:59)
[2024-06-18] MEDS: Calcium Chloride 1 GM/10 ML Abboject SYRINGE IVP SCH (12:01)
[2024-06-18 12:06] LABS: Actual Bicarbonate (HCO3a) 25.4 mEq/L (22-28); Base Excess (BEa) -0.6 mEq/L (-2.0 to +3.0); CO2 Tension 47.3 mmHg (35.0-45.0); Calcium, Ionized (arterial) 1.36 mmol/L (1.12-1.30); Carboxyhemoglobin (COHb) 0.1 gm% (0.0-3.0); Hematocrit-ABG 35 % (42.0-52.0); Hemoglobin (Hb) 11.8 g/dL (14.0-18.0); Potassium - ABG Lab 4.81 mmol/L (3.70-5.30); pH, Arterial 7.348 (7.35-7.45)
[2024-06-18] MEDS: Magnesium 2 GM/50 ML(in water) 2 GM in Premix 1 BAG IVPB SCH (12:15)
[2024-06-18 13:43] LABS: ALT (SGPT) 90 U/L (Less than 45); AST (SGOT) 198 U/L (11-34); Albumin 3.1 g/dL (3.1-4.5); Alkaline Phosphatase 67 U/L (40-110); Bilirubin, Direct 2.6 mg/dL (0.1-0.3); Bilirubin, Total 3.6 mg/dL (0.3-1.2); Protein, Total 6.2 g/dL (6.0-8.3)
[2024-06-18 14:18] VITALS: BMI 45.7
[2024-06-18 14:22] LABS: Puncture Site Right Radial artery
[2024-06-18 14:23] LABS: ALV-art Gradient 602.675 mmHg (0-20)
[2024-06-18 15:07] LABS: CRP,High Sensitivity (Inhouse) 24.58 mg/dL (< or = 0.5)
[2024-06-18 15:18] LABS: HIV (1/2) Antibody/Antigen NONREACTIVE (NonReactive); HIV 1/2 INDEX 0.05 S/CO (<1.00)
[2024-06-18] MEDS ORDERED: Cefepime 1 GM in Sodium Chloride 0.9% 100 ML IVPB SCH (17:00)
[2024-06-18] MEDS: Meropenem 500 MG in Sodium Chloride 0.9% 100 ML IVPB SCH (17:00)
[2024-06-18] MEDS: WATER IVPB SCH (22:20)
[2024-06-18] MEDS: DEXTROSE 5% IVPB SCH (22:20)
[2024-06-18] MEDS: TRIMETHOPRIM IVPB SCH (22:20)
[2024-06-18] MEDS: SULFAMETHOXAZOLE IVPB SCH (22:20)
[2024-06-19] MEDS: Vecuronium 10 MG VIAL IVP PRN (00:10)
[2024-06-19 04:37] VITALS: TEMP 97.9
[2024-06-19 04:46] LABS: Hematocrit 34.5 % (42.0-52.0); Hemoglobin 10.6 g/dL (14.0-18.0); Mean Corpuscular HGB CONC 30.7 g/dL (32.0-36.0); Mean Corpuscular Hemoglobin 30.9 pg (27.0-31.0); Mean Corpuscular Volume 100.6 fL (78.0-98.0); Mean Platelet Volume 12.2 fL (7.4-10.4); Platelet Count 219 10x3/uL (130-400); RBC Distribution Width 15.4 % (11.5-14.5); Red Blood Cell (RBC) Count 3.43 mill/uL (4.70-6.10)
[2024-06-19 05:11] LABS: Albumin 2.9 g/dL (3.1-4.5); Anion Gap 21 mmol/L (10-20); BUN (Urea Nitrogen) 35 mg/dL (8.9-20.6); BUN/Creatinine Ratio 8.73; Calc. Creatinine Clearance 51 mL/min (70-130); Calcium 8.2 mg/dL (7.8-10.44); Carbon Dioxide 25 mmol/L (22-29); Chloride 97 mmol/L (98-107); Estimated GFR 19; Glucose 156 mg/dL (70-105); Magnesium 2.4 mg/dL (1.6-2.6); Potassium 4.4 mmol/L (3.5-5.1); Sodium 139 mmol/L (136-145)
[2024-06-19 05:25] LABS: INR-International Normal Ratio 1.3; Prothrombin Time 15.9 sec (12.0-14.7)
[2024-06-19 05:26] LABS: PTT 40.1 sec (22.9-36.1)
[2024-06-19 05:37] LABS: Band 8 % (5-11); Hypochromia SLIGHT = 6-15 cells HPF (0-5); Lymphocytes 2 % (21-51); Monocytes 4 % (0-10); Neutrophil 86 % (42-75); Platelet Adequacy Comment Platelets Normal
[2024-06-19 05:49] LABS: Phosphorus 8.4 mg/dL (2.5-4.5)
[2024-06-19 07:59] LABS: Vancomycin, Trough 21.2 ug/mL
[2024-06-19] MEDS: Dexamethasone 10 MG/ML VIAL SLOW IVP SCH (09:12)
[2024-06-19] MEDS: FLU (Fluarix Triv) TS24-25(6MOS UP)/PF 45 MCG/0.5 ML Syringe IM ONE (09:47)
[2024-06-19 10:51] VITALS: BP 84/63
[2024-06-19] MEDS: Morphine 4 MG/ML VIAL SLOW IVP PRN (12:05)
[2024-06-19] MEDS ORDERED: Vancomycin HCl 500 MG in Sodium Chloride 0.9% 100 ML IVPB SCH (17:00)
[2024-06-21 11:39] LABS: O2 Tension (PaO2), arterial 51.2 mmHg (80.0-100.0)
[2024-06-22 12:10] LABS: ANA Symphony (Qualitative) Negative (Negative); ANA Symphony (Quantitative) 0.2 Ratio (< 0.7 Negative); dsDNA IgG Antibody 1.4 IU/mL (<10 Negative)
== END 2024-06-19 14:15 | disposition expired | DRG 870 ==
LOC: ERS → ERHOLD 06-09 04:36 → CCU 06-09 07:06
PROVIDERS: ADMIT Internal Medicine; ATTEND Internal Medicine
PROC: 3E03329 Introduction of Other Anti-infective into Peripheral Vein, Percutaneous Approach (ICD-10-PCS; 2024-06-09)
PROC: 3E033XZ Introduction of Vasopressor into Peripheral Vein, Percutaneous Approach (ICD-10-PCS; 2024-06-09)
PROC: 30233J1 Transfusion of Nonautologous Serum Albumin into Peripheral Vein, Percutaneous Approach (ICD-10-PCS; 2024-06-09)
PROC: 5A09457 Assistance with Respiratory Ventilation, 24-96 Consecutive Hours, Continuous Positive Airway Pressure (ICD-10-PCS; 2024-06-09)
PROC: 5A1955Z Respiratory Ventilation, Greater than 96 Consecutive Hours (ICD-10-PCS; 2024-06-10)
PROC: 0BH17EZ Insertion of Endotracheal Airway into Trachea, Via Natural or Artificial Opening (ICD-10-PCS; 2024-06-10)
PROC: 4A133R1 Monitoring of Arterial Saturation, Peripheral, Percutaneous Approach (ICD-10-PCS; 2024-06-10)
PROC: 02HV33Z Insertion of Infusion Device into Superior Vena Cava, Percutaneous Approach (ICD-10-PCS; 2024-06-11)
PROC: B5181ZA Fluoroscopy of Superior Vena Cava using Low Osmolar Contrast, Guidance (ICD-10-PCS; 2024-06-11)
PROC: 5A1D70Z Performance of Urinary Filtration, Intermittent, Less than 6 Hours Per Day (ICD-10-PCS; 2024-06-11)
PROC: 0B9J8ZZ Drainage of Left Lower Lung Lobe, Via Natural or Artificial Opening Endoscopic (ICD-10-PCS; 2024-06-11)
PROC: 0B9F8ZZ Drainage of Right Lower Lung Lobe, Via Natural or Artificial Opening Endoscopic (ICD-10-PCS; 2024-06-11)
PROC: XX20X89 Monitoring of Brain Electrical Activity, Computer-aided Detection and Notification, New Technology Group 9 (ICD-10-PCS; principal; 2024-06-12)
PROC: 03HY32Z Insertion of Monitoring Device into Upper Artery, Percutaneous Approach (ICD-10-PCS; 2024-06-12)
PROC: 4A133B1 Monitoring of Arterial Pressure, Peripheral, Percutaneous Approach (ICD-10-PCS; 2024-06-12)
PROC: 4A133J1 Monitoring of Arterial Pulse, Peripheral, Percutaneous Approach (ICD-10-PCS; 2024-06-12)
PROC: 02HV33Z Insertion of Infusion Device into Superior Vena Cava, Percutaneous Approach (ICD-10-PCS; 2024-06-14)
PROC: B5181ZA Fluoroscopy of Superior Vena Cava using Low Osmolar Contrast, Guidance (ICD-10-PCS; 2024-06-14)
DX: A41.9 Sepsis, unspecified organism (principal); B37.1 Pulmonary candidiasis; I50.23 Acute on chronic systolic (congestive) heart failure; J18.9 Pneumonia, unspecified organism; J96.01 Acute respiratory failure with hypoxia; R65.21 Severe sepsis with septic shock; N17.0 Acute kidney failure with tubular necrosis; I13.0 Hypertensive heart and chronic kidney disease with heart failure and stage 1 through stage 4 chronic kidney disease, or unspecified chronic kidney disease; I42.8 Other cardiomyopathies; I48.20 Chronic atrial fibrillation, unspecified; J44.0 Chronic obstructive pulmonary disease with (acute) lower respiratory infection; J44.1 Chronic obstructive pulmonary disease with (acute) exacerbation; E87.21 Acute metabolic acidosis; I47.29 Other ventricular tachycardia; I24.89 Other forms of acute ischemic heart disease; Z66 Do not resuscitate; Z51.5 Encounter for palliative care; N18.30 Chronic kidney disease, stage 3 unspecified; E11.22 Type 2 diabetes mellitus with diabetic chronic kidney disease; F41.9 Anxiety disorder, unspecified; Z90.89 Acquired absence of other organs; Z98.890 Other specified postprocedural states; F17.210 Nicotine dependence, cigarettes, uncomplicated; E83.42 Hypomagnesemia; B97.89 Other viral agents as the cause of diseases classified elsewhere; Z95.810 Presence of automatic (implantable) cardiac defibrillator; R57.0 Cardiogenic shock; F15.10 Other stimulant abuse, uncomplicated; E87.5 Hyperkalemia; I46.9 Cardiac arrest, cause unspecified
CPT/HCPCS: 36415; 36416; 36600; 71045; 74018; 80048; 80053; 80069; 80076; 80202; 80306; 82040; 82550; 82570; 82805; 83605; 83615; 83735; 83880; 84100; 84145; 84156; 84300; 84484; 84540; 85025; 85049; 85300; 85362; 85384; 85610; 85730; 86038; 86141; 86225; 86704; 86706; 86803; 87040; 87070; 87081; 87086; 87205; 87340; 87389; 87428; 87449; 87633; 87899; 90945; 93005; 93306; 94002; 94003; 94640; 94660; 95705; 96365; 96366; 96367; 96368; 96374; 96375; 96376; J0282; J0456; J0692; J0696; J1100; J1160; J1642; J1644; J1815; J1885; J1940; J2060; J2185; J2248; J2250; J2270; J2272; J2470; J2704; J2919; J2997; J3010; J3370; J3475; J3490; J7030; J7050; J7070; J7611; J7620; J7644; J7999; P9047